=== PATIENT | female | born 1945 | race Caucasian/White ===

== ENCOUNTER 2020-08-30 06:24 | Outpatient (NON) | payer MEDICARE, SELFPAY ==
[2020-08-30 06:49] LABS: Basophils Absolute Auto 0.03 K/mm3 (0.00-0.10); Basophils Percent Auto 0.5 % (0.0-1.0); Eosinophils Absolute Auto 0.16 K/mm3 (0.02-0.50); Eosinophils Percent Auto 2.4 % (1.0-6.0); Hemoglobin 12.5 g/dL (11.7-13.8); Immature Granulocyte Absolute 0.01 K/mm3 (0.00-0.00); Immature Granulocyte Percent A 0.2 % (0.0-0.0); Lymphocytes Percent Auto 45.8 % (18.0-42.0); Mean Corpuscular HGB Conc 31.3 g/dL (32.0-36.0); Mean Corpuscular Hemoglobin 28.2 pg (27.0-31.0); Mean Corpuscular Volume 90.3 fL (78.0-102.0); Mean Platelet Volume 11.3 fl (9.2-11.8); Monocytes Absolute Auto 0.42 K/mm3 (0.10-0.90); Monocytes Percent Auto 6.4 % (2.0-11.0); Neutrophils Absolute Auto 2.9 K/mm3 (1.7-7.2); Neutrophils Percent Auto 44.7 % (50.0-70.0); Platelet Count Result 192 K/mm3 (150-420); Red Blood Count 4.43 M/mm3 (4.20-5.40); Red Cell Distribution Width 13.5 % (11.6-14.4); White Blood Count 6.6 K/mm3 (4.8-10.8)
== END 2020-08-30 06:25 ==
LOC: CHSLAB 06:25
PROVIDERS: Visit Provider Internal Medicine
DX: I50.9 Heart failure, unspecified (principal); I69.351 Hemiplegia and hemiparesis following cerebral infarction affecting right dominant side
CPT/HCPCS: 36415; 85025

== ENCOUNTER 2020-11-22 06:27 | Outpatient (NON) | payer MEDICARE, SELFPAY ==
[2020-11-22 07:06] LABS: Basophils Absolute Auto 0.04 K/mm3 (0.00-0.10); Basophils Percent Auto 0.6 % (0.0-1.0); Eosinophils Absolute Auto 0.12 K/mm3 (0.02-0.50); Eosinophils Percent Auto 1.9 % (1.0-6.0); Hematocrit 40.1 % (35.0-42.0); Immature Granulocyte Absolute 0.01 K/mm3 (0.00-0.00); Immature Granulocyte Percent A 0.2 % (0.0-0.0); Lymphocytes Percent Auto 48.4 % (18.0-42.0); Mean Corpuscular HGB Conc 32.4 g/dL (32.0-36.0); Mean Corpuscular Hemoglobin 28.6 pg (27.0-31.0); Mean Corpuscular Volume 88.1 fL (78.0-102.0); Mean Platelet Volume 11.2 fl (9.2-11.8); Monocytes Percent Auto 6.3 % (2.0-11.0); Neutrophils Absolute Auto 2.7 K/mm3 (1.7-7.2); Neutrophils Percent Auto 42.6 % (50.0-70.0); Platelet Count Result 205 K/mm3 (150-420); Red Blood Count 4.55 M/mm3 (4.20-5.40); Red Cell Distribution Width 13.5 % (11.6-14.4); White Blood Count 6.4 K/mm3 (4.8-10.8)
[2020-11-22 07:09] LABS: Hemoglobin A1C 5.6 % (<5.7)
[2020-11-22 07:16] LABS: Alanine Aminotransferase 27 U/L (14-59); Albumin Level 3.3 g/dL (3.4-5.0); Alkaline Phosphatase 54 U/L (46-116); Anion Gap 8 mmol/L (8-16); Aspartate Amino Transferase 30 U/L (15-37); Bilirubin,Total 0.5 mg/dL (0.00-1.00); Blood Urea Nitrogen 8 mg/dL (7-18); Calcium 9.1 mg/dL (8.5-10.1); Carbon Dioxide 30 mmol/L (21-32); Chloride 106 mmol/L (98-108); Cholesterol 131 mg/dL (0-200); Creatine Kinase 41 U/L (26-192); Estimated Glomerular Filt Rate > 60; Glucose 89 mg/dL (70-99); HDL Direct 58 mg/dL (40-60); LDL Cholesterol Calculated 50 mg/dL (<130); Osmolality Calculated 295 mOsm/kg (285-295); Potassium 4.1 mmol/L (3.5-5.1); Sodium 144 mmol/L (136-145); Total Protein 6.3 g/dL (6.4-8.2); Triglycerides 113 mg/dL (0-150)
== END 2020-11-22 06:28 ==
LOC: CHSLAB 06:28
PROVIDERS: Visit Provider Internal Medicine
DX: E78.5 Hyperlipidemia, unspecified (principal); I69.351 Hemiplegia and hemiparesis following cerebral infarction affecting right dominant side; I11.9 Hypertensive heart disease without heart failure; E11.9 Type 2 diabetes mellitus without complications
CPT/HCPCS: 36415; 80053; 80061; 82550; 83036; 85025

== ENCOUNTER 2020-11-23 09:06 | Emergency (ER) | payer MEDICARE, MEDICAID, SELFPAY ==
--- NOTE | ~2020-11-23 | XR_ITS ---
EXAMINATION: XR chest 2V DATE: 11/23/2020 10:17 INDICATION: Chest pain and shortness of breath TECHNIQUE: frontal and lateral views of the chest were obtained. COMPARISON: Chest radiograph dated 12/27/2018 FINDINGS: The lungs remain clear with no focal airspace opacities, pulmonary edema, pleural effusion or pneumot horax. The cardiomediastinal silhouette is normal. Moderate thoracic spondylosis. IMPRESSION: 1. No acute cardiopulmonary disease. Reviewed, dictated and finalized at location B.
[2020-11-23 09:20] VITALS: BP 114/70; PULSE 71; RESP 16; TEMP 36.7; O2SAT 96
--- NOTE | 2020-11-23 09:35 | ECG_ITS ---
Measurements Intervals [place] Rate: 62 P: 44 ND: 152 QRS: -57 QRSD: 119 T: 71 QT: 397 QTc: 403 Interpretive Statements SINUS RHYTHM LEFT AXIS DEVIATION LEFT VENTRICULAR HYPERTROPHY AND ST-T CHANGE CANNOT RULE OUT SEPTAL INFARCT, AGE INDETERMINATE BASELINE ARTIFACT- II, III, AVF, V2-V3, V5 ABNORMAL ECG Electronically Signed On 11-23-2020 10:57:51 CDT by Stephen Rios D.O.
[2020-11-23 10:15] LABS: Basophils Absolute Auto 0.03 K/mm3 (0.00-0.10); Basophils Percent Auto 0.5 % (0.0-1.0); Eosinophils Absolute Auto 0.08 K/mm3 (0.02-0.50); Eosinophils Percent Auto 1.3 % (1.0-6.0); Hematocrit 45.3 % (35.0-42.0); Hemoglobin 14.3 g/dL (11.7-13.8); Immature Granulocyte Absolute 0.01 K/mm3 (0.00-0.00); Immature Granulocyte Percent A 0.2 % (0.0-0.0); Lymphocytes Absolute Auto 2.85 K/mm3 (1.10-4.50); Lymphocytes Percent Auto 45.2 % (18.0-42.0); Mean Corpuscular HGB Conc 31.6 g/dL (32.0-36.0); Mean Corpuscular Hemoglobin 28.1 pg (27.0-31.0); Mean Corpuscular Volume 89.2 fL (78.0-102.0); Mean Platelet Volume 10.6 fl (9.2-11.8); Monocytes Absolute Auto 0.36 K/mm3 (0.10-0.90); Monocytes Percent Auto 5.7 % (2.0-11.0); Neutrophils Percent Auto 47.1 % (50.0-70.0); Platelet Count Result 220 K/mm3 (150-420); Red Blood Count 5.08 M/mm3 (4.20-5.40); Red Cell Distribution Width 13.4 % (11.6-14.4); White Blood Count 6.3 K/mm3 (4.8-10.8)
[2020-11-23 10:29] LABS: Alanine Aminotransferase 26 U/L (14-59); Albumin Level 3.6 g/dL (3.4-5.0); Alkaline Phosphatase 58 U/L (46-116); Anion Gap 7 mmol/L (8-16); Aspartate Amino Transferase 14 U/L (15-37); Bilirubin,Total 0.6 mg/dL (0.00-1.00); Blood Urea Nitrogen 9 mg/dL (7-18); Calcium 9.1 mg/dL (8.5-10.1); Carbon Dioxide 32 mmol/L (21-32); Chloride 102 mmol/L (98-108); Estimated Glomerular Filt Rate > 60; Glucose 86 mg/dL (70-99); Osmolality Calculated 289 mOsm/kg (285-295); Sodium 141 mmol/L (136-145); Troponin I 4.2 ng/L (0.00-60.4)
[2020-11-23 10:32] LABS: BNP 5 pg/mL (0-100); Magnesium 2.2 mg/dL (1.8-2.4)
[2020-11-23 11:20] LABS: Add Urine Microscopic? YES; Appearance Urine Sl Cloudy (Clear); Bilirubin Urine Negative (Negative); Blood Urine Negative (Negative); Color Urine Yellow (Yellow); Glucose Urine UA Negative (Negative); Ketones Urine Negative (Negative); Leukocyte Esterase Ur 2+ (Negative); Nitrate Urine Positive (Negative); Protein Urine Negative (Negative); Urobilinogen Urine 0.2 mg/dL (0.2-1.0)
[2020-11-23 11:27] LABS: Bacteria Urine 4+ /hpf; RBC Urine None seen /hpf (0-2); WBC Urine 21-30 /hpf (0-3)
[2020-11-23 14:20] LABS: Troponin I 4.4 ng/L (0.00-60.4)
--- NOTE | 2020-11-23 14:27 | ED.CHESTPAIN ---
HPI - Chest Pain General Source: patient and family Mode of arrival: EMS Limitations: no limitations History of Present Illness HPI narrative: Patient is brought in by EMS. She had a few episodes of brief chest pain, sharp, going from right chest to the left side, which lasted a few seconds up to a minute today. This was mild to moderately severe, with no radiation, and very brief as stated. Nothing made this better or worse at the snf. Because of this she is brought in by EMS. This evidently happened again just before presentation to the ER. Timing of current episode: episodic Prior episodes: No Onset: during rest Pain location: parasternal Pain radiation: none Severity: moderate Quality: sharp Relieving factors: nothing Exacerbating factors: nothing (presyncopal feeling at the same time.) Related Data Home Medications Medication Instructions Recorded Confirmed amlodipine 5 mg PO DAILY 11/23/20 11/23/20 aspirin [Adult Aspirin] 81 mg PO DAILY 11/23/20 11/23/20 atorvastatin 40 mg PO DAILY 11/23/20 11/23/20 bisacodyl [Biscolax] 10 mg PO PRN 11/23/20 11/23/20 fluticasone propionate 2 spray INTRANASAL DAILY 11/23/20 11/23/20 tramadol 50 mg PO PRN 11/23/20 11/23/20 Allergies Allergy/AdvReac Type Severity Reaction Status Date / Time No Known Allergies Allergy Verified 11/23/20 10:28 Review of Systems Constitutional: Constitutional: Reports no additional constitutional complaints Eyes: Eyes: Reports no additional eye complaints ENT: Reports system reviewed and no additional complaints, except as documented Cardiovascular: Cardiovascular: Reports no additional cardiovascular complaints Respiratory: Respiratory: Reports no additional respiratory complaints Gastrointestinal: Gastrointestinal: Reports no additional gastrointestinal complaints Genitourinary: Genitourinary: Reports no additional female genitourinary complaints Musculoskeletal: Musculoskeletal: Reports no additional musculoskeletal complaints Integumentary/Breasts: Skin/Breast: Reports system reviewed and no additional complaints, except as docu Neurologic: Reports system reviewed and no additional complaints, except as documented Psychiatric: Psychiatric: Reports no additional psychiatric complaints Endocrine: Endocrine: Reports no additional endocrine complaints Hematologic/Lymphatic: Hematologic/Lymphatic: Reports no additional hematologic/lymphatic complaints Allergic/Immunologic: Allergic/Immunologic: Reports no additional allergic/immunologic complaints [facility] Past Medical History Medical History (Updated 03/17/21 @ 20:30 by Mark Bennett MD) CVA (cerebral vascular accident) Pyelonephritis Renal insufficiency Surgical History Surgical History (Updated 11/23/20 @ 20:30 by Mark Bennett MD) History of bladder surgery Family History Family History (Updated 11/23/20 @ 20:32 by Mark Bennett MD) Mother Diabetes mellitus Father Smoker Cerebrovascular accident Alcoholic Myocardial infarct Social History Social History (Updated 11/23/20 @ 20:33 by Mark Bennett MD) Social History: , previous smoker, previous drinker Smoking status: Former smoker Tobacco type: cigarettes Additional smoking assessment comments: 09/10 PPD Alcohol intake: former Substance use: never Living arrangements: snf Sexual Orientation (if Verbalized by the Patient): Straight or Heterosexual Exam Const: General: cooperative and healthy appearing Nutritional Appearance: average body habitus and well nourished Orientation/consciousness: oriented to person, oriented to place and oriented to time Limitations: no limitations HENMT: Head: normal to inspection, normocephalic and atraumatic Ears: hearing grossly normal bilaterally and other (unable to visualize TM on left due to wax, right appears unremarkable ) General nose exam: Normal external nose present and Abnormal mucous membranes and turbinates present
[2020-11-23 14:30] VITALS: BP 95/63; PULSE 63; RESP 23; O2SAT 95
--- NOTE | 2020-11-23 15:11 | PC.NURSE ---
ERROR IN DOCUMENTATION: DISCHARGE VITAL SIGNS SPO2 95%, HR 63, R 23, BP 150/83. VITAL SIGNS PRINTED AND PLACED ON PAPER CHART
--- NOTE | 2020-11-23 15:55 | PC.NURSE ---
[facility] RN CONTACTED FOR LEVAQUIN 500 MG DAILY FOR 7 DAYS ORDERED BY ERP DR. SCOTT FOR UTI
== END 2020-11-23 14:50 ==
PROVIDERS: Emergency Provider Emergency Medicine; PCP Internal Medicine
DX: R07.89 Other chest pain (principal); Z79.899 Other long term (current) drug therapy; Z86.73 Personal history of transient ischemic attack (TIA), and cerebral infarction without residual deficits; Z87.891 Personal history of nicotine dependence
CPT/HCPCS: 36415; 51701; 71046; 80053; 81001; 83735; 83880; 84484; 85025; 85380; 87077; 87086; 87088; 87186; 93005; 99283; 99284

== ENCOUNTER 2020-12-03 06:49 | Outpatient (NON) | payer MEDICARE, SELFPAY ==
[2020-12-03 07:58] LABS: Add Urine Microscopic? YES; Appearance Urine Clear (Clear); Bilirubin Urine Negative (Negative); Blood Urine Negative (Negative); Color Urine Yellow (Yellow); Glucose Urine UA Negative (Negative); Ketones Urine Negative (Negative); Leukocyte Esterase Ur 1+ (Negative); Nitrate Urine Negative (Negative); Protein Urine Negative (Negative); Specific Grav Ur 1.025 (1.010-1.020); Urobilinogen Urine 0.2 mg/dL (0.2-1.0)
[2020-12-03 08:09] LABS: Bacteria Urine 2+ /hpf; RBC Urine None seen /hpf (0-2); Squamous Epithelial Cell Urine Rare /hpf (Few)
[2020-12-03 08:10] LABS: Mucus Urine Few /lpf
== END 2020-12-03 06:50 ==
PROVIDERS: PCP Internal Medicine; Visit Provider Internal Medicine
DX: N39.0 Urinary tract infection, site not specified (principal)
CPT/HCPCS: 81001; 87086; 87088; 87147; 87186

== ENCOUNTER 2020-12-20 06:16 | Outpatient (NON) | payer MEDICARE, SELFPAY ==
[2020-12-20 06:32] LABS: Appearance Urine Cloudy (Clear); Bilirubin Urine Negative (Negative); Color Urine Yellow (Yellow); Glucose Urine UA Negative (Negative); Ketones Urine Negative (Negative); Leukocyte Esterase Ur Negative (Negative); Nitrate Urine Negative (Negative); Protein Urine Negative (Negative); Specific Grav Ur >= 1.030 (1.010-1.020); Urobilinogen Urine 0.2 mg/dL (0.2-1.0)
[2020-12-20 06:47] LABS: Add Urine Microscopic? YES; Amorphous Sediment Urine Moderate; Blood Urine Trace-Intact (Negative); RBC Urine None seen /hpf (0-2); WBC Urine None seen /hpf (0-3)
[2020-12-20 06:48] LABS: Bacteria Urine 2+ /hpf
== END 2020-12-20 06:17 | disposition home or self-care (01) ==
LOC: CHSLAB 06:17
PROVIDERS: Visit Provider Internal Medicine
DX: N39.0 Urinary tract infection, site not specified (principal)
CPT/HCPCS: 81001; 87086

== ENCOUNTER 2021-02-23 07:35 | Outpatient (NON) | payer MEDICARE, SELFPAY ==
[2021-02-23 08:33] LABS: Basophils Absolute Auto 0.03 K/mm3 (0.00-0.10); Basophils Percent Auto 0.5 % (0.0-1.0); Eosinophils Absolute Auto 0.18 K/mm3 (0.02-0.50); Eosinophils Percent Auto 2.9 % (1.0-6.0); Hematocrit 40.2 % (35.0-42.0); Immature Granulocyte Absolute 0.02 K/mm3 (0.00-0.00); Immature Granulocyte Percent A 0.3 % (0.0-0.0); Lymphocytes Absolute Auto 3.02 K/mm3 (1.10-4.50); Lymphocytes Percent Auto 48.5 % (18.0-42.0); Mean Corpuscular HGB Conc 32.3 g/dL (32.0-36.0); Mean Corpuscular Hemoglobin 28.8 pg (27.0-31.0); Mean Corpuscular Volume 89.1 fL (78.0-102.0); Mean Platelet Volume 11.3 fl (9.2-11.8); Monocytes Absolute Auto 0.39 K/mm3 (0.10-0.90); Monocytes Percent Auto 6.3 % (2.0-11.0); Neutrophils Absolute Auto 2.6 K/mm3 (1.7-7.2); Neutrophils Percent Auto 41.5 % (50.0-70.0); Platelet Count Result 219 K/mm3 (150-420); Red Blood Count 4.51 M/mm3 (4.20-5.40); Red Cell Distribution Width 13.4 % (11.6-14.4); White Blood Count 6.2 K/mm3 (4.8-10.8)
== END 2021-02-23 07:36 | disposition home or self-care (01) ==
LOC: CHSLAB 07:37
PROVIDERS: Visit Provider Internal Medicine
DX: I11.9 Hypertensive heart disease without heart failure (principal)
CPT/HCPCS: 36415; 85025

== ENCOUNTER 2021-02-24 10:34 | Emergency (ER) | payer MEDICARE, SELFPAY ==
--- NOTE | ~2021-02-24 | CT_ITS ---
EXAMINATION: CT brain wo con DATE: 02/24/2021 11:27 INDICATION: Vertigo and difficulty finding words. TECHNIQUE: Computed tomography (CT) of the head was performed without intravenous contrast. Sagittal and coronal reconstructions were performed. The mA was adjusted according to patient size. Iterative reconstruction technique was employed. The dose-length product was 832.33 mGy-cm. COMPARISON: None FINDINGS: No acute intracranial hemorrhage, acute infarction or abnormal extra axial fluid collection. Small ol d lacunar infarct at the left basal ganglia involving the posterior limb of the left internal capsule . There is moderate scattered white matter hypoattenuation consistent with chronic small vessel ische destiny disease. Symmetric prominence of the sulci consistent with mild age-appropriate diffuse cerebral volume loss. Ventricles are normal and symmetric. No mass/mass effect. The orbits, paranasal sinuses and mastoid air cells are normal. IMPRESSION: 1. No acute intracranial process. 2. Small old lacunar infarct at the left basal ganglia involving the posterior limb of the internal c apsule. 3. Age-related changes including mild diffuse volume loss and moderate scattered white matter hypoatt enuation consistent with chronic small vessel ischemic disease. Reviewed, dictated and finalized at location A. IMPRESSION: 1. No acute intracranial process. 2. Small old lacunar infarct at the left basal ganglia involving the posterior limb of the internal capsule. 3. Age-related changes including mild diffuse volume loss and moderate scattere d white matter hypoattenuation consistent with chronic small vessel ischemic di sease.
[2021-02-24 10:45] VITALS: BP 131/89; PULSE 73; RESP 12; TEMP 36.6; O2SAT 98
--- NOTE | 2021-02-24 10:49 | ED.DIZZY ---
HPI - Dizziness General Chief Complaint: Dizziness Stated Complaint: Dizzy Time Seen by Provider: 02/24/21 10:58 Source: patient Mode of arrival: wheelchair Limitations: dementia History of Present Illness HPI Narrative: 75-year-old woman with a history of CVA and right-sided paresis brought from the care home after complaining that she was having dizziness. Patient states that she has even having dizziness while she is laying down in bed. She states that happens when she moves and if she holds very still and goes away within a few minutes. She denies headache, nausea, vomiting, recent illness, chest pain, shortness of breath, palpitations, new weakness, numbness, diarrhea, dysuria, and frequent urination. Patient states that she does not walk at the care home and uses a wheelchair to get around. MD elicited complaint: vertigo Pertinent past history: stroke Onset (ago): day(s) (3) Timing: gradual onset Severity: moderate Description: room spinning Exacerbating factors: movement/ambulation and change in body position Relieving factors: remaining still Associated symptoms: denies other symptoms Related Data Home Medications Medication Instructions Recorded Confirmed amlodipine 5 mg PO DAILY 11/23/20 02/24/21 aspirin [Adult Aspirin] 81 mg PO DAILY 11/23/20 02/24/21 atorvastatin 40 mg PO DAILY 11/23/20 02/24/21 bisacodyl [Biscolax] 10 mg PO PRN 11/23/20 02/24/21 fluticasone propionate 2 spray INTRANASAL DAILY 11/23/20 02/24/21 tramadol 50 mg PO PRN 11/23/20 02/24/21 acetaminophen 500 mg capsule 500 mg PO Q6H PRN 12/16/20 02/24/21 cetirizine 10 mg tablet 10 mg PO DAILY 12/16/20 02/24/21 docusate sodium 100 mg capsule 100 mg PO DAILY 12/16/20 02/24/21 multivitamin 1 tablet PO DAILY 12/16/20 02/24/21 bisacodyl 5 mg tablet,delayed 10 mg PO ONCE tablet 12/19/20 02/24/21 release cetirizine 10 mg capsule 10 mg PO DAILY 12/19/20 02/24/21 Allergies Allergy/AdvReac Type Severity Reaction Status Date / Time codeine Allergy Mild Unknown Verified 12/19/20 15:43 Iodinated Contrast Media Allergy Mild Unknown Verified 12/19/20 15:43 Sulfa (Sulfonamide Allergy Mild Unknown Verified 12/19/20 15:43 Antibiotics) Review of Systems Review of Systems: All systems reviewed & are unremarkable except as noted in HPI and below Constitutional: Constitutional: Denies chills and Denies fever(s) Eyes: Eyes: Denies change in vision and Denies photophobia ENT: Denies dysphagia, Denies nasal congestion and Denies sore throat Cardiovascular: Cardiovascular: Denies chest pain and Denies radiating jaw, neck or arm pain Respiratory: Respiratory: Denies cough, Denies dyspnea and Denies wheezing Gastrointestinal: Gastrointestinal: Reports abdominal pain, Reports nausea and Reports vomiting Genitourinary: Genitourinary: Denies nocturia and Denies dysuria Musculoskeletal: Musculoskeletal: Denies back pain, Denies arthralgias and Denies joint swelling Integumentary/Breasts: Skin/Breast: Denies pruritus, Denies erythema and Denies rash Neurologic: Denies vertigo, Denies dizziness and Denies syncope Endocrine: Endocrine: Denies polydipsia and Denies polyuria Hematologic/Lymphatic: Hematologic/Lymphatic: Denies easy bleeding and Denies easy bruising Allergic/Immunologic: Allergic/Immunologic: Denies lip swelling and Denies throat swelling PMFSH Past Medical History Medical History Chest pain CVA (cerebral vascular accident) Dementia in other diseases classified elsewhere without behavioral disturbance Dysthymic HTN (hypertension) Impacted cerumen, right ear Impaired fasting glucose Inconclusive mammogram Mixed hyperlipidemia Primary generalized hypertrophic osteoarthrosis Pyelonephritis Renal insufficiency Spastic hemiplegia affecting right dominant side Surgical History Surgical History History of bladder surgery
[2021-02-24 11:22] LABS: Add Urine Microscopic? YES; Appearance Urine Clear (Clear); Bilirubin Urine Negative (Negative); Blood Urine Negative (Negative); Color Urine Light Yellow (Yellow); Glucose Urine UA Negative (Negative); Ketones Urine Negative (Negative); Leukocyte Esterase Ur Trace (Negative); Nitrate Urine Negative (Negative); Protein Urine Negative (Negative); Specific Grav Ur <= 1.005 (1.010-1.020); pH Urine 7.5 (5.0-8.0)
[2021-02-24 11:31] LABS: Bacteria Urine 2+ /hpf; RBC Urine 0-2 /hpf (0-2); Squamous Epithelial Cell Urine Rare /hpf (Few); WBC Urine 0-3 /hpf (0-3)
[2021-02-24 11:40] LABS: Basophils Absolute Auto 0.02 K/mm3 (0.00-0.10); Basophils Percent Auto 0.3 % (0.0-1.0); Eosinophils Absolute Auto 0.07 K/mm3 (0.02-0.50); Hematocrit 43.2 % (35.0-42.0); Immature Granulocyte Absolute 0.01 K/mm3 (0.00-0.00); Immature Granulocyte Percent A 0.1 % (0.0-0.0); Lymphocytes Absolute Auto 2.82 K/mm3 (1.10-4.50); Lymphocytes Percent Auto 39.8 % (18.0-42.0); Mean Corpuscular HGB Conc 32.4 g/dL (32.0-36.0); Mean Corpuscular Volume 89.6 fL (78.0-102.0); Mean Platelet Volume 10.8 fl (9.2-11.8); Monocytes Absolute Auto 0.45 K/mm3 (0.10-0.90); Monocytes Percent Auto 6.4 % (2.0-11.0); Neutrophils Absolute Auto 3.7 K/mm3 (1.7-7.2); Neutrophils Percent Auto 52.4 % (50.0-70.0); Platelet Count Result 228 K/mm3 (150-420); Red Blood Count 4.82 M/mm3 (4.20-5.40); Red Cell Distribution Width 13.5 % (11.6-14.4); White Blood Count 7.1 K/mm3 (4.8-10.8)
[2021-02-24 11:55] LABS: Alanine Aminotransferase 26 U/L (14-59); Albumin Level 3.5 g/dL (3.4-5.0); Alkaline Phosphatase 71 U/L (46-116); Anion Gap 10 mmol/L (8-16); Aspartate Amino Transferase 20 U/L (15-37); Bilirubin,Total 0.4 mg/dL (0.00-1.00); Blood Urea Nitrogen 10 mg/dL (7-18); Calcium 9.4 mg/dL (8.5-10.1); Carbon Dioxide 26 mmol/L (21-32); Chloride 105 mmol/L (98-108); Estimated Glomerular Filt Rate > 60; Glucose 97 mg/dL (70-99); Osmolality Calculated 291 mOsm/kg (285-295); Potassium 4.1 mmol/L (3.5-5.1); Sodium 141 mmol/L (136-145); Total Protein 7.4 g/dL (6.4-8.2)
[2021-02-24 12:22] VITALS: BP 130/80; PULSE 63; RESP 14; TEMP 36.6; O2SAT 99
== END 2021-02-24 12:32 ==
PROVIDERS: Emergency Provider Emergency Medicine; PCP Internal Medicine
DX: H81.10 Benign paroxysmal vertigo, unspecified ear (principal); I10 Essential (primary) hypertension; E78.2 Mixed hyperlipidemia; Z87.891 Personal history of nicotine dependence; R82.90 Unspecified abnormal findings in urine
CPT/HCPCS: 36415; 51701; 70450; 80053; 81001; 85025; 87086; 99282; 99284

== ENCOUNTER 2021-05-27 06:56 | Outpatient (NON) | payer MEDICARE, SELFPAY ==
[2021-05-27 07:19] LABS: Add Urine Microscopic? YES; Appearance Urine Clear (Clear); Bilirubin Urine Negative (Negative); Blood Urine Negative (Negative); Color Urine Light Yellow (Yellow); Glucose Urine UA Negative (Negative); Ketones Urine Negative (Negative); Leukocyte Esterase Ur 1+ (Negative); Nitrate Urine Negative (Negative); Protein Urine Negative (Negative); Urobilinogen Urine 0.2 mg/dL (0.2-1.0)
[2021-05-27 07:20] LABS: Basophils Absolute Auto 0.03 K/mm3 (0.00-0.10); Basophils Percent Auto 0.5 % (0.0-1.0); Eosinophils Absolute Auto 0.14 K/mm3 (0.02-0.50); Eosinophils Percent Auto 2.5 % (1.0-6.0); Hematocrit 40.5 % (35.0-42.0); Hemoglobin 12.7 g/dL (11.7-13.8); Immature Granulocyte Absolute 0.01 K/mm3 (0.00-0.00); Immature Granulocyte Percent A 0.2 % (0.0-0.0); Lymphocytes Absolute Auto 2.78 K/mm3 (1.10-4.50); Lymphocytes Percent Auto 50.3 % (18.0-42.0); Mean Corpuscular HGB Conc 31.4 g/dL (32.0-36.0); Mean Corpuscular Hemoglobin 28.5 pg (27.0-31.0); Mean Corpuscular Volume 90.8 fL (78.0-102.0); Mean Platelet Volume 10.2 fl (9.2-11.8); Monocytes Absolute Auto 0.43 K/mm3 (0.10-0.90); Monocytes Percent Auto 7.8 % (2.0-11.0); Neutrophils Absolute Auto 2.1 K/mm3 (1.7-7.2); Neutrophils Percent Auto 38.7 % (50.0-70.0); Platelet Count Result 200 K/mm3 (150-420); Red Blood Count 4.46 M/mm3 (4.20-5.40); Red Cell Distribution Width 13.4 % (11.6-14.4); White Blood Count 5.5 K/mm3 (4.8-10.8)
[2021-05-27 07:29] LABS: RBC Urine None seen /hpf (0-2); Squamous Epithelial Cell Urine Rare /hpf (Few); WBC Urine 0-3 /hpf (0-3)
[2021-05-27 07:30] LABS: Bacteria Urine Trace /hpf
[2021-05-27 07:39] LABS: Hemoglobin A1C 5.5 % (<5.7)
[2021-05-27 07:42] LABS: Alanine Aminotransferase 29 U/L (14-59); Albumin Level 3.5 g/dL (3.4-5.0); Alkaline Phosphatase 59 U/L (46-116); Anion Gap 7 mmol/L (8-16); Aspartate Amino Transferase 16 U/L (15-37); Bilirubin,Total 0.4 mg/dL (0.00-1.00); Blood Urea Nitrogen 16 mg/dL (7-18); Calcium 8.8 mg/dL (8.5-10.1); Carbon Dioxide 30 mmol/L (21-32); Chloride 108 mmol/L (98-108); Cholesterol 157 mg/dL (0-200); Creatine Kinase 63 U/L (26-192); Estimated Glomerular Filt Rate > 60; Glucose 86 mg/dL (70-99); HDL Direct 62 mg/dL (40-60); LDL Cholesterol Calculated 63 mg/dL (<130); Osmolality Calculated 300 mOsm/kg (285-295); Potassium 4.3 mmol/L (3.5-5.1); Sodium 145 mmol/L (136-145); Total Protein 6.4 g/dL (6.4-8.2); Triglycerides 158 mg/dL (0-150)
== END 2021-05-27 06:57 | disposition home or self-care (01) ==
LOC: CHSLAB 06:59
PROVIDERS: PCP Internal Medicine; Visit Provider Internal Medicine
DX: E78.5 Hyperlipidemia, unspecified (principal); I11.9 Hypertensive heart disease without heart failure; E11.9 Type 2 diabetes mellitus without complications
CPT/HCPCS: 36415; 80053; 80061; 81001; 82550; 83036; 85025

== ENCOUNTER 2021-08-17 08:42 | Outpatient (NON) | payer MEDICARE, SELFPAY ==
[2021-08-17 09:12] LABS: Basophils Absolute Auto 0.04 K/mm3 (0.00-0.10); Basophils Percent Auto 0.8 % (0.0-1.0); Eosinophils Absolute Auto 0.13 K/mm3 (0.02-0.50); Eosinophils Percent Auto 2.5 % (1.0-6.0); Hematocrit 40.6 % (35.0-42.0); Hemoglobin 12.7 g/dL (11.7-13.8); Immature Granulocyte Absolute 0.01 K/mm3 (0.00-0.00); Immature Granulocyte Percent A 0.2 % (0.0-0.0); Lymphocytes Absolute Auto 2.62 K/mm3 (1.10-4.50); Lymphocytes Percent Auto 49.7 % (18.0-42.0); Mean Corpuscular HGB Conc 31.3 g/dL (32.0-36.0); Mean Corpuscular Hemoglobin 28.9 pg (27.0-31.0); Mean Corpuscular Volume 92.3 fL (78.0-102.0); Mean Platelet Volume 10.4 fl (9.2-11.8); Monocytes Absolute Auto 0.35 K/mm3 (0.10-0.90); Monocytes Percent Auto 6.6 % (2.0-11.0); Neutrophils Absolute Auto 2.1 K/mm3 (1.7-7.2); Neutrophils Percent Auto 40.2 % (50.0-70.0); Platelet Count Result 234 K/mm3 (150-420); Red Cell Distribution Width 13.2 % (11.6-14.4); White Blood Count 5.3 K/mm3 (4.8-10.8)
== END 2021-08-17 08:43 | disposition home or self-care (01) ==
PROVIDERS: Visit Provider Internal Medicine
DX: I11.9 Hypertensive heart disease without heart failure (principal)
CPT/HCPCS: 36415; 85025

== ENCOUNTER 2021-11-16 07:00 | Outpatient (NON) | payer OTHER, SELFPAY ==
[2021-11-16 07:13] LABS: Basophils Absolute Auto 0.03 K/mm3 (0.00-0.10); Basophils Percent Auto 0.5 % (0.0-1.0); Eosinophils Absolute Auto 0.11 K/mm3 (0.02-0.50); Hematocrit 40.7 % (35.0-42.0); Hemoglobin 12.7 g/dL (11.7-13.8); Immature Granulocyte Absolute 0.01 K/mm3 (0.00-0.00); Immature Granulocyte Percent A 0.2 % (0.0-0.0); Lymphocytes Absolute Auto 2.77 K/mm3 (1.10-4.50); Lymphocytes Percent Auto 50.2 % (18.0-42.0); Mean Corpuscular HGB Conc 31.2 g/dL (32.0-36.0); Mean Corpuscular Hemoglobin 29.5 pg (27.0-31.0); Mean Corpuscular Volume 94.7 fL (78.0-102.0); Mean Platelet Volume 10.3 fl (9.2-11.8); Monocytes Absolute Auto 0.37 K/mm3 (0.10-0.90); Monocytes Percent Auto 6.7 % (2.0-11.0); Neutrophils Absolute Auto 2.2 K/mm3 (1.7-7.2); Neutrophils Percent Auto 40.4 % (50.0-70.0); Platelet Count Result 202 K/mm3 (150-420); Red Cell Distribution Width 12.6 % (11.6-14.4); White Blood Count 5.5 K/mm3 (4.8-10.8)
[2021-11-16 07:36] LABS: Hemoglobin A1C 5.7 % (<5.7)
[2021-11-16 08:06] LABS: Alanine Aminotransferase 21 U/L (14-59); Albumin Level 3.3 g/dL (3.4-5.0); Alkaline Phosphatase 44 U/L (46-116); Anion Gap 8 mmol/L (8-16); Aspartate Amino Transferase 13 U/L (15-37); Bilirubin,Total 0.4 mg/dL (0.00-1.00); Blood Urea Nitrogen 12 mg/dL (7-18); Calcium 8.3 mg/dL (8.5-10.1); Carbon Dioxide 31 mmol/L (21-32); Chloride 105 mmol/L (98-108); Cholesterol 140 mg/dL (0-200); Creatine Kinase 59 U/L (26-192); Estimated Glomerular Filt Rate > 60; Glucose 86 mg/dL (70-99); HDL Direct 53 mg/dL (40-60); LDL Cholesterol Calculated 49 mg/dL (<130); Osmolality Calculated 296 mOsm/kg (285-295); Potassium 4.2 mmol/L (3.5-5.1); Sodium 144 mmol/L (136-145); Total Protein 6.2 g/dL (6.4-8.2); Triglycerides 192 mg/dL (0-150)
== END 2021-11-16 07:01 | disposition home or self-care (01) ==
LOC: CHSLAB 07:03
PROVIDERS: Visit Provider Internal Medicine
DX: E78.5 Hyperlipidemia, unspecified (principal); I10 Essential (primary) hypertension; M81.0 Age-related osteoporosis without current pathological fracture; I63.9 Cerebral infarction, unspecified; E11.9 Type 2 diabetes mellitus without complications
CPT/HCPCS: 36415; 80053; 80061; 82550; 83036; 85025

== ENCOUNTER 2021-11-23 12:38 | Outpatient (NON) | payer OTHER, SELFPAY ==
[2021-11-23 12:47] LABS: Add Urine Microscopic? YES; Appearance Urine Clear (Clear); Bilirubin Urine Negative (Negative); Blood Urine Negative (Negative); Color Urine Light Yellow (Yellow); Glucose Urine UA Negative (Negative); Ketones Urine Negative (Negative); Leukocyte Esterase Ur 1+ LEU/UL (Negative); Nitrate Urine Negative (Negative); Protein Urine Negative (Negative); Specific Grav Ur <= 1.005 (1.010-1.020); Urobilinogen Urine 0.2 mg/dL (0.2-1.0)
[2021-11-23 12:52] LABS: Bacteria Urine Trace /hpf; RBC Urine None seen /hpf (0-2); Squamous Epithelial Cell Urine Few /hpf (Few)
== END 2021-11-23 12:39 | disposition home or self-care (01) ==
LOC: CHSLAB 12:39
PROVIDERS: Visit Provider Internal Medicine
DX: N39.0 Urinary tract infection, site not specified (principal)
CPT/HCPCS: 81001; 87086

== ENCOUNTER 2022-01-16 06:29 | Outpatient (NON) | payer OTHER, SELFPAY ==
[2022-01-16 07:24] LABS: Alanine Aminotransferase 24 U/L (14-59); Albumin Level 3.1 g/dL (3.4-5.0); Alkaline Phosphatase 47 U/L (46-116); Anion Gap 2 mmol/L (8-16); Aspartate Amino Transferase 18 U/L (15-37); Bilirubin,Total 0.3 mg/dL (0.00-1.00); Blood Urea Nitrogen 13 mg/dL (7-18); Calcium 8.4 mg/dL (8.5-10.1); Carbon Dioxide 34 mmol/L (21-32); Chloride 107 mmol/L (98-108); Estimated Glomerular Filt Rate > 60; Free T4 Free Thyroxine 0.81 ng/dL (0.76-1.46); Glucose 92 mg/dL (70-99); NT Pro B Type Natriuretic Pept 72 pg/mL (0-450); Osmolality Calculated 296 mOsm/kg (285-295); Potassium 4.1 mmol/L (3.5-5.1); Sodium 143 mmol/L (136-145); Thyroid Stimulating Hormone 1.38 uIU/mL (0.36-3.74); Total Protein 6.5 g/dL (6.4-8.2)
== END 2022-01-16 06:30 | disposition home or self-care (01) ==
PROVIDERS: Visit Provider Internal Medicine
DX: I11.9 Hypertensive heart disease without heart failure (principal); I69.351 Hemiplegia and hemiparesis following cerebral infarction affecting right dominant side; R53.83 Other fatigue; I50.9 Heart failure, unspecified
CPT/HCPCS: 36415; 80053; 83880; 84439; 84443

== ENCOUNTER 2022-02-13 06:59 | Outpatient (NON) | payer OTHER, SELFPAY ==
[2022-02-13 07:23] LABS: Basophils Absolute Auto 0.03 K/mm3 (0.00-0.10); Basophils Percent Auto 0.5 % (0.0-1.0); Eosinophils Absolute Auto 0.12 K/mm3 (0.02-0.50); Hematocrit 40.6 % (35.0-42.0); Hemoglobin 12.9 g/dL (11.7-13.8); Immature Granulocyte Absolute 0.01 K/mm3 (0.00-0.00); Immature Granulocyte Percent A 0.2 % (0.0-0.0); Lymphocytes Absolute Auto 2.64 K/mm3 (1.10-4.50); Mean Corpuscular HGB Conc 31.8 g/dL (32.0-36.0); Mean Corpuscular Volume 94.4 fL (78.0-102.0); Mean Platelet Volume 10.4 fl (9.2-11.8); Monocytes Absolute Auto 0.44 K/mm3 (0.10-0.90); Monocytes Percent Auto 7.5 % (2.0-11.0); Neutrophils Absolute Auto 2.6 K/mm3 (1.7-7.2); Neutrophils Percent Auto 44.8 % (50.0-70.0); Platelet Count Result 212 K/mm3 (150-420); Red Cell Distribution Width 12.5 % (11.6-14.4); White Blood Count 5.9 K/mm3 (4.8-10.8)
== END 2022-02-13 07:00 | disposition home or self-care (01) ==
LOC: CHSLAB 07:01
PROVIDERS: Visit Provider Internal Medicine
DX: E78.5 Hyperlipidemia, unspecified (principal); I10 Essential (primary) hypertension
CPT/HCPCS: 36415; 85025

== ENCOUNTER 2022-05-22 06:21 | Outpatient (NON) | payer OTHER, SELFPAY ==
[2022-05-22 06:41] LABS: Basophils Absolute Auto 0.02 K/mm3 (0.00-0.10); Basophils Percent Auto 0.3 % (0.0-1.0); Eosinophils Absolute Auto 0.11 K/mm3 (0.02-0.50); Eosinophils Percent Auto 1.8 % (1.0-6.0); Hematocrit 40.2 % (35.0-42.0); Hemoglobin 12.7 g/dL (11.7-13.8); Immature Granulocyte Absolute 0.02 K/mm3 (0.00-0.00); Immature Granulocyte Percent A 0.3 % (0.0-0.0); Lymphocytes Absolute Auto 2.63 K/mm3 (1.10-4.50); Lymphocytes Percent Auto 41.9 % (18.0-42.0); Mean Corpuscular HGB Conc 31.6 g/dL (32.0-36.0); Mean Corpuscular Hemoglobin 29.9 pg (27.0-31.0); Mean Corpuscular Volume 94.6 fL (78.0-102.0); Mean Platelet Volume 10.2 fl (9.2-11.8); Monocytes Absolute Auto 0.44 K/mm3 (0.10-0.90); Neutrophils Absolute Auto 3.1 K/mm3 (1.7-7.2); Neutrophils Percent Auto 48.7 % (50.0-70.0); Platelet Count Result 204 K/mm3 (150-420); Red Blood Count 4.25 M/mm3 (4.20-5.40); Red Cell Distribution Width 12.9 % (11.6-14.4); White Blood Count 6.3 K/mm3 (4.8-10.8)
[2022-05-22 06:50] LABS: Hemoglobin A1C 5.8 % (<5.7)
[2022-05-22 07:04] LABS: Alanine Aminotransferase 26 U/L (14-59); Albumin Level 3.4 g/dL (3.4-5.0); Alkaline Phosphatase 53 U/L (46-116); Anion Gap 4 mmol/L (8-16); Aspartate Amino Transferase 18 U/L (15-37); Bilirubin,Total 0.3 mg/dL (0.00-1.00); Blood Urea Nitrogen 12 mg/dL (7-18); Calcium 8.7 mg/dL (8.5-10.1); Carbon Dioxide 30 mmol/L (21-32); Chloride 105 mmol/L (98-108); Cholesterol 155 mg/dL (0-200); Creatine Kinase 73 U/L (26-192); Estimated Glomerular Filt Rate > 60; Glucose 96 mg/dL (70-99); HDL Direct 58 mg/dL (40-60); LDL Cholesterol Calculated 59 mg/dL (<130); Osmolality Calculated 287 mOsm/kg (285-295); Sodium 139 mmol/L (136-145); Total Protein 6.9 g/dL (6.4-8.2); Triglycerides 191 mg/dL (0-150)
== END 2022-05-22 06:22 | disposition home or self-care (01) ==
PROVIDERS: Visit Provider Internal Medicine
DX: E78.5 Hyperlipidemia, unspecified (principal); I10 Essential (primary) hypertension; R73.01 Impaired fasting glucose
CPT/HCPCS: 36415; 80053; 80061; 82550; 83036; 85025

== ENCOUNTER 2022-07-19 07:01 | Outpatient (NON) | payer OTHER, SELFPAY ==
[2022-07-19 07:10] LABS: Basophils Absolute Auto 0.02 K/mm3 (0.00-0.10); Basophils Percent Auto 0.4 % (0.0-1.0); Eosinophils Absolute Auto 0.17 K/mm3 (0.02-0.50); Eosinophils Percent Auto 3.1 % (1.0-6.0); Hemoglobin 12.3 g/dL (11.7-13.8); Immature Granulocyte Absolute 0.01 K/mm3 (0.00-0.00); Immature Granulocyte Percent A 0.2 % (0.0-0.0); Lymphocytes Absolute Auto 2.76 K/mm3 (1.10-4.50); Lymphocytes Percent Auto 50.2 % (18.0-42.0); Mean Corpuscular HGB Conc 31.5 g/dL (32.0-36.0); Mean Corpuscular Hemoglobin 30.1 pg (27.0-31.0); Mean Corpuscular Volume 95.4 fL (78.0-102.0); Mean Platelet Volume 10.4 fl (9.2-11.8); Monocytes Absolute Auto 0.34 K/mm3 (0.10-0.90); Monocytes Percent Auto 6.2 % (2.0-11.0); Neutrophils Absolute Auto 2.2 K/mm3 (1.7-7.2); Neutrophils Percent Auto 39.9 % (50.0-70.0); Platelet Count Result 202 K/mm3 (150-420); Red Blood Count 4.09 M/mm3 (4.20-5.40); White Blood Count 5.5 K/mm3 (4.8-10.8)
[2022-07-19 07:10] LABS: Appearance Urine Clear (Clear); Bilirubin Urine Negative (Negative); Blood Urine Negative (Negative); Glucose Urine UA Negative (Negative); Ketones Urine Negative (Negative); Leukocyte Esterase Ur 2+ LEU/UL (Negative); Nitrate Urine Negative (Negative); Protein Urine Negative (Negative); Urobilinogen Urine 0.2 mg/dL (0.2-1.0)
[2022-07-19 07:17] LABS: Creatinine Urine 39.48 mg/dL (40-278); MALB Creatinine Ratio 32.9 mg/g (0-30); Microalbumin Urine Random < 13.0 mg/L
[2022-07-19 07:19] LABS: Hemoglobin A1C 5.6 % (<5.7)
[2022-07-19 07:27] LABS: Alanine Aminotransferase 22 U/L (14-59); Albumin Level 3.4 g/dL (3.4-5.0); Alkaline Phosphatase 50 U/L (46-116); Anion Gap 5 mmol/L (8-16); Aspartate Amino Transferase 13 U/L (15-37); Bilirubin,Total 0.3 mg/dL (0.00-1.00); Blood Urea Nitrogen 15 mg/dL (7-18); Calcium 8.4 mg/dL (8.5-10.1); Carbon Dioxide 31 mmol/L (21-32); Chloride 108 mmol/L (98-108); Cholesterol 150 mg/dL (0-200); Creatine Kinase 54 U/L (26-192); Estimated Glomerular Filt Rate > 60; Glucose 94 mg/dL (70-99); HDL Direct 50 mg/dL (40-60); LDL Cholesterol Calculated 56 mg/dL (<130); Osmolality Calculated 298 mOsm/kg (285-295); Potassium 4.1 mmol/L (3.5-5.1); Sodium 144 mmol/L (136-145); Total Protein 6.5 g/dL (6.4-8.2); Triglycerides 218 mg/dL (0-150)
[2022-07-19 07:31] LABS: Add Urine Microscopic? YES; Bacteria Urine Trace /hpf; Color Urine Light Yellow (Yellow); RBC Urine None seen /hpf (0-2); Squamous Epithelial Cell Urine Few /hpf (Few); WBC Urine 21-30 /hpf (0-3)
== END 2022-07-19 07:02 | disposition home or self-care (01) ==
LOC: CHSLAB 07:02
PROVIDERS: Visit Provider Internal Medicine
DX: E78.5 Hyperlipidemia, unspecified (principal); I10 Essential (primary) hypertension; R73.01 Impaired fasting glucose; R82.90 Unspecified abnormal findings in urine
CPT/HCPCS: 36415; 80053; 80061; 81001; 82043; 82550; 83036; 85025; 87077; 87086; 87088; 87186

== ENCOUNTER 2022-08-02 07:13 | Outpatient (NON) | payer OTHER, SELFPAY ==
[2022-08-02 07:28] LABS: Appearance Urine Clear (Clear); Bilirubin Urine Negative (Negative); Blood Urine Negative (Negative); Glucose Urine UA Negative (Negative); Ketones Urine Negative (Negative); Leukocyte Esterase Ur 1+ (Negative); Nitrate Urine Negative (Negative); Protein Urine Negative (Negative); Urobilinogen Urine 0.2 mg/dL (0.2-1.0)
[2022-08-02 07:34] LABS: Add Urine Microscopic? YES; Color Urine Light Yellow (Yellow); RBC Urine None seen /hpf (0-2); Squamous Epithelial Cell Urine Few /hpf (Few)
[2022-08-02 07:35] LABS: Bacteria Urine 1+ /hpf
== END 2022-08-02 07:14 | disposition home or self-care (01) ==
LOC: CHSLAB 07:15
PROVIDERS: PCP Internal Medicine; Visit Provider Internal Medicine
DX: N39.0 Urinary tract infection, site not specified (principal)
CPT/HCPCS: 81001; 87086; 87088

== ENCOUNTER 2022-08-09 06:32 | Outpatient (NON) | payer OTHER, SELFPAY ==
[2022-08-09 07:13] LABS: Basophils Absolute Auto 0.03 K/mm3 (0.00-0.10); Basophils Percent Auto 0.5 % (0.0-1.0); Eosinophils Absolute Auto 0.17 K/mm3 (0.02-0.50); Eosinophils Percent Auto 3.1 % (1.0-6.0); Hematocrit 41.5 % (35.0-42.0); Hemoglobin 13.1 g/dL (11.7-13.8); Immature Granulocyte Absolute 0.01 K/mm3 (0.00-0.00); Immature Granulocyte Percent A 0.2 % (0.0-0.0); Lymphocytes Absolute Auto 2.82 K/mm3 (1.10-4.50); Lymphocytes Percent Auto 50.7 % (18.0-42.0); Mean Corpuscular HGB Conc 31.6 g/dL (32.0-36.0); Mean Corpuscular Hemoglobin 29.8 pg (27.0-31.0); Mean Corpuscular Volume 94.5 fL (78.0-102.0); Mean Platelet Volume 10.4 fl (9.2-11.8); Monocytes Absolute Auto 0.36 K/mm3 (0.10-0.90); Monocytes Percent Auto 6.5 % (2.0-11.0); Neutrophils Absolute Auto 2.2 K/mm3 (1.7-7.2); Platelet Count Result 206 K/mm3 (150-420); Red Blood Count 4.39 M/mm3 (4.20-5.40); Red Cell Distribution Width 13.1 % (11.6-14.4); White Blood Count 5.6 K/mm3 (4.8-10.8)
== END 2022-08-09 06:33 | disposition home or self-care (01) ==
PROVIDERS: Visit Provider Internal Medicine
DX: I50.9 Heart failure, unspecified (principal)
CPT/HCPCS: 36415; 85025

== ENCOUNTER 2022-11-20 06:36 | Outpatient (NON) | payer OTHER, SELFPAY ==
[2022-11-20 07:03] LABS: Appearance Urine Clear (Clear); Bilirubin Urine Negative (Negative); Blood Urine Negative (Negative); Color Urine Light Yellow (Yellow); Glucose Urine UA Negative (Negative); Ketones Urine Negative (Negative); Leukocyte Esterase Ur 1+ LEU/UL (Negative); Nitrate Urine Negative (Negative); Protein Urine Negative (Negative); Urobilinogen Urine 0.2 mg/dL (0.2-1.0)
[2022-11-20 07:04] LABS: Basophils Absolute Auto 0.02 K/mm3 (0.00-0.10); Basophils Percent Auto 0.3 % (0.0-1.0); Eosinophils Absolute Auto 0.12 K/mm3 (0.02-0.50); Hematocrit 40.5 % (35.0-42.0); Hemoglobin 12.5 g/dL (11.7-13.8); Immature Granulocyte Absolute 0.01 K/mm3 (0.00-0.00); Immature Granulocyte Percent A 0.2 % (0.0-0.0); Lymphocytes Absolute Auto 2.76 K/mm3 (1.10-4.50); Mean Corpuscular HGB Conc 30.9 g/dL (32.0-36.0); Mean Corpuscular Hemoglobin 28.9 pg (27.0-31.0); Mean Corpuscular Volume 93.5 fL (78.0-102.0); Monocytes Percent Auto 6.7 % (2.0-11.0); Neutrophils Absolute Auto 2.7 K/mm3 (1.7-7.2); Neutrophils Percent Auto 44.8 % (50.0-70.0); Platelet Count Result 201 K/mm3 (150-420); Red Blood Count 4.33 M/mm3 (4.20-5.40)
[2022-11-20 07:12] LABS: Add Urine Microscopic? YES; RBC Urine None seen /hpf (0-2); Squamous Epithelial Cell Urine Rare /hpf (Few)
[2022-11-20 07:13] LABS: Bacteria Urine 1+ /hpf
[2022-11-20 07:15] LABS: MALB Creatinine Ratio 21.3 mg/g (0-30); Microalbumin Urine Random < 13.0 mg/L
[2022-11-20 07:17] LABS: Hemoglobin A1C 5.7 % (<5.7)
[2022-11-20 08:01] LABS: Alanine Aminotransferase 24 U/L (14-59); Albumin Level 3.4 g/dL (3.4-5.0); Alkaline Phosphatase 51 U/L (46-116); Anion Gap 5 mmol/L (8-16); Aspartate Amino Transferase 17 U/L (15-37); Bilirubin,Total 0.4 mg/dL (0.00-1.00); Blood Urea Nitrogen 14 mg/dL (7-18); Calcium 8.6 mg/dL (8.5-10.1); Carbon Dioxide 33 mmol/L (21-32); Chloride 106 mmol/L (98-108); Cholesterol 149 mg/dL (0-200); Creatine Kinase 58 U/L (26-192); Estimated Glomerular Filt Rate > 60; Glucose 94 mg/dL (70-99); HDL Direct 56 mg/dL (40-60); LDL Cholesterol Calculated 56 mg/dL (<130); Osmolality Calculated 298 mOsm/kg (285-295); Potassium 4.1 mmol/L (3.5-5.1); Sodium 144 mmol/L (136-145); Total Protein 6.9 g/dL (6.4-8.2); Triglycerides 185 mg/dL (0-150)
== END 2022-11-20 06:37 | disposition home or self-care (01) ==
LOC: CHSLAB 06:38
PROVIDERS: Visit Provider Internal Medicine
DX: E78.2 Mixed hyperlipidemia (principal); I10 Essential (primary) hypertension; R73.01 Impaired fasting glucose; R82.90 Unspecified abnormal findings in urine
CPT/HCPCS: 36415; 80053; 80061; 81001; 82043; 82550; 83036; 85025; 87086; 87088

== ENCOUNTER 2022-11-27 14:38 | Emergency (ER) | payer OTHER, SELFPAY ==
--- NOTE | ~2022-11-27 | XR_ITS ---
EXAMINATION: XR chest 1V portable Exam Date/Time: 11/27/2022 14:55 CDT HISTORY: chest pain, confusion Comparison: 11/23/2020. RESULT: Lines, tubes, and devices: None. Lungs and pleura: 3.1 cm somewhat rounded opacity in the right midlung with associated air cysts/gas bubbles. Bibasilar atelectasis/scar. Possible retrocardiac airspace disease. Cardiomediastinal silhouette: Stable. Other: No acute osseous or upper abdominal finding. IMPRESSION: 3.1 cm right midlung opacity may represent a partially fluid-filled cavity, loculated pleural fluid, or other mass/consolidation. Possible retrocardiac atelectasis/consolidation. Consider CT of the ches t with contrast for further evaluation. Reviewed, dictated and finalized at location K. IMPRESSION: 3.1 cm right midlung opacity may represent a partially fluid-filled cavity, loc ulated pleural fluid, or other mass/consolidation. Possible retrocardiac atelec tasis/consolidation. Consider CT of the chest with contrast for further evaluat ion.
--- NOTE | ~2022-11-27 | CT_ITS ---
EXAMINATION: CT diagnostic chest wo con DATE: 11/27/2022 16:45 INDICATION: Abnormal chest X-ray; Left upper chest pain today. TECHNIQUE: Computed tomography (CT) of the chest was performed without intravenous contrast. Addition al 3D reconstructions utilizing coronal maximum intensity projection (MIP) were performed. Automated exposure control and iterative reconstruction technique were employed. The dose-length product was 35 2.34 mGy-cm. COMPARISON: None FINDINGS: 3.3 x 2.9 cm thick-walled centrally cavitary mass in the anterior segment of the right upper lobe mos t concerning for primary bronchogenic carcinoma. 7 mm right lower lobe nodule. 5 mm nodule in the pos terior left upper lobe. No pneumonia, pulmonary edema or pleural effusion. Heart size is normal. Athe rosclerotic coronary artery calcific location. No pericardial effusion. Calcified right hilar and med iastinal lymph nodes consistent with old granulomatous disease. Mildly enlarged right paratracheal ly mph node measuring up to 1.3 cm in maximal short axis diameter raising concern for metastatic disease . Cholecystectomy clip at the gallbladder fossa. Splenic calcification consistent with old granulomat ous disease. 5 mm low-attenuation lesion in the right hepatic lobe most likely a cyst or hemangioma b ut too small to definitively characterize. Moderate to severe thoracic spondylosis with bridging oste ophytes at multiple levels consistent with diffuse idiopathic skeletal hyperostosis (DISH). IMPRESSION: 1. 3.3 cm right upper lobe cavitary mass concerning for primary bronchogenic carcinoma. Would recomme nd further evaluation with CT-guided percutaneous biopsy. 2. Mildly enlarged right paratracheal lymph node suspicious for metastatic disease. Reviewed, dictated and finalized at location A. IMPRESSION: 1. 3.3 cm right upper lobe cavitary mass concerning for primary bronchogenic ca rcinoma. Would recommend further evaluation with CT-guided percutaneous biopsy. 2. Mildly enlarged right paratracheal lymph node suspicious for metastatic dise ase.
[2022-11-27 14:40] VITALS: BP 181/85; PULSE 72; RESP 19; TEMP 36.8; O2SAT 96
[2022-11-27 14:50] VITALS: PULSE 79
--- NOTE | 2022-11-27 14:50 | ED.GENADULT ---
HPI - General Adult General Chief complaint: Chest Pain Stated complaint: chest pain Time Seen by Provider: 11/27/22 14:50 History of Present Illness HPI narrative: 77-year-old white female started having chest pain about an hour ago brought in by EMS was given 4 baby aspirin. O2 sat 91 92% on room air increased to 96% on O2 blood pressure 168/90, sinus rhythm at rate of 66, blood sugar 121. She says she does not have any mary n now. Past medical history right-sided weakness having history of stroke hypertension. No history of heart disease Related Data Home Medications Medication Instructions Recorded Confirmed amlodipine 5 mg tablet 5 mg PO DAILY 11/23/20 11/27/22 aspirin 81 mg tablet 81 mg PO DAILY 11/23/20 11/27/22 atorvastatin 40 mg tablet 40 mg PO DAILY 11/23/20 11/27/22 bisacodyl 5 mg tablet,delayed 10 mg PO PRN 11/23/20 11/27/22 release fluticasone propionate 50 2 spray intranasal DAILY 11/23/20 11/27/22 mcg/actuation nasal spray,suspension acetaminophen 500 mg capsule 500 mg PO Q6H PRN Pain 12/16/20 11/27/22 docusate sodium 100 mg capsule 100 mg PO DAILY 12/16/20 11/27/22 multivitamin 1 tablet PO DAILY 12/16/20 11/27/22 bisacodyl 5 mg tablet,delayed 10 mg PO ONCE 12/19/20 11/27/22 release (Fleet Laxative (bisacodyl)) escitalopram oxalate 10 mg tablet 10 mg PO QAM 11/27/22 11/27/22 Allergies Allergy/AdvReac Type Severity Reaction Status Date / Time codeine Allergy Mild Unknown Verified 11/27/22 15:08 Iodinated Contrast Media Allergy Mild Unknown Verified 11/27/22 15:08 Sulfa (Sulfonamide Allergy Mild Unknown Verified 11/27/22 15:08 Antibiotics) [facility] Past Medical History Medical History Chest pain CVA (cerebral vascular accident) Dementia in other diseases classified elsewhere without behavioral disturbance Dysthymic HTN (hypertension) Impacted cerumen, right ear Impaired fasting glucose Inconclusive mammogram Mixed hyperlipidemia Primary generalized hypertrophic osteoarthrosis Pyelonephritis Renal insufficiency Spastic hemiplegia affecting right dominant side Surgical History Surgical History History of bladder surgery Family History Family History Mother Diabetes mellitus Father Smoker Cerebrovascular accident Alcoholic Myocardial infarct Heart disease Social History Social History Social History: , previous smoker, previous drinker Smoking status: Never smoker Tobacco type: cigarettes Additional smoking assessment comments: 1/2 PPD Alcohol intake: former Substance use: never Living arrangements: long term Sexual Orientation (if Verbalized by the Patient): Straight or Heterosexual Medical Decision Making MDM Narrative Medical decision making narrative: patient is a 77-year-old white female with a history of stroke and a right hemiparesis brought in by EMS complaining of chest pain that started hour ago which is currently gone was given 4 baby aspirin. No history of heart disease history and physical was done labs were drawn coags magnesium D-dimer CBC CMP troponin chest x-ray and EKG were done she is placed on a monitor technician. Patient was in bed when suddenly had left chest pain. Fortunately she is a poor historian she has unspecified beltran hemiplegia and paresis with old stroke and hypertension without heart disease depression hyperlipidemia paroxysmal vertigo osteoarthritis of the left knee chronic rhinitis dysphagia bed-bound patient states she has not walked in 4 years. Patient is a full code per the medication list reviewed.\ normal magnesium , D-dimer, CBC, CMP, and troponin. chest x-ray showed 3.1 cm right mid lung field mass with gas bubble or air cysts. Possible retrocardiac infiltrate. EKG was
--- NOTE | 2022-11-27 14:53 | ECG_ITS ---
Measurements Intervals [place] Rate: 62 P: 49 [place]: 153 QRS: -33 QRSD: 115 T: 74 QT: 428 QTc: 436 Interpretive Statements SINUS RHYTHM LEFT AXIS DEVIATION INTRAVENTRICULAR CONDUCTION DELAY LEFT VENTRICULAR HYPERTROPHY AND ST-T CHANGE CANNOT RULE OUT SEPTAL INFARCT, AGE INDETERMINATE BASELINE ARTIFACT- I, II, III, AVR, AVL, AVF, V4 ABNORMAL ECG COMPARED TO ECG 11/23/2020 09:42:11 NO SIGNIFICANT CHANGES Electronically Signed On 11-27-2022 15:07:08 CDT by Stephen Rios D.O.
[2022-11-27 14:55] VITALS: O2SAT 97
[2022-11-27 15:19] LABS: Hematocrit 40.4 % (35.0-42.0); Hemoglobin 13.1 g/dL (11.7-13.8); Mean Corpuscular HGB Conc 32.4 g/dL (32.0-36.0); Mean Corpuscular Hemoglobin 30.5 pg (27.0-31.0); Mean Platelet Volume 10.2 fl (9.2-11.8); Platelet Count Result 207 K/mm3 (150-420); Red Cell Distribution Width 13.2 % (11.6-14.4); White Blood Count 6.3 K/mm3 (4.8-10.8)
[2022-11-27 15:30] VITALS: BP 176/81; PULSE 65; RESP 18; O2SAT 95
[2022-11-27 15:35] LABS: D Dimer 0.19 mg/L (0.19-0.50); Partial Thromboplastin Time 29.8 SEC (23.90-30.70)
[2022-11-27 15:38] LABS: Alanine Aminotransferase 26 U/L (14-59); Albumin Level 3.5 g/dL (3.4-5.0); Alkaline Phosphatase 56 U/L (46-116); Anion Gap 8 mmol/L (8-16); Aspartate Amino Transferase 19 U/L (15-37); Bilirubin,Total 0.3 mg/dL (0.00-1.00); Blood Urea Nitrogen 15 mg/dL (7-18); Calcium 8.9 mg/dL (8.5-10.1); Carbon Dioxide 32 mmol/L (21-32); Chloride 103 mmol/L (98-108); Estimated CRCL calculation 69 ml/min; Estimated Glomerular Filt Rate > 60; Glucose 100 mg/dL (70-99); Magnesium 2.1 mg/dL (1.8-2.4); Osmolality Calculated 296 mOsm/kg (285-295); Potassium 4.2 mmol/L (3.5-5.1); Sodium 143 mmol/L (136-145); Total Protein 7.7 g/dL (6.4-8.2); Troponin I 6.9 ng/L (0.00-60.4)
[2022-11-27] MEDS: ACETAMINOPHEN 500 MG TABLET 1000 MG PO (16:09)
[2022-11-27 16:30] VITALS: BP 161/78; PULSE 70; RESP 16; TEMP 36.3; O2SAT 95
[2022-11-27 17:30] VITALS: BP 152/79; PULSE 61; RESP 16; O2SAT 96
== END 2022-11-27 18:01 ==
PROVIDERS: Emergency Provider Emergency Medicine; PCP Internal Medicine
DX: R07.9 Chest pain, unspecified (principal); R91.8 Other nonspecific abnormal finding of lung field; F03.90 Unspecified dementia, unspecified severity, without behavioral disturbance, psychotic disturbance, mood disturbance, and anxiety; I10 Essential (primary) hypertension; E78.2 Mixed hyperlipidemia; Z79.82 Long term (current) use of aspirin; Z86.73 Personal history of transient ischemic attack (TIA), and cerebral infarction without residual deficits
CPT/HCPCS: 36415; 71045; 71250; 80053; 83735; 84484; 85027; 85380; 85610; 85730; 93005; 99284

== ENCOUNTER 2022-12-20 07:28 | Outpatient (CLI) | payer OTHER, SELFPAY ==
--- NOTE | ~2022-12-20 | MR_ITS ---
EXAMINATION: MR brain/brain stem wo/w con DATE: 12/20/2022 09:42 INDICATION: Mass in upper lobe of right lung. TECHNIQUE: Magnetic resonance imaging (MRI) of the brain and brainstem was performed without and with 19 mL MultiHance intravenous contrast. COMPARISON: Head CT 02/24/2021 FINDINGS: There are old infarcts involving the bilateral basal ganglia, posterior limb left internal capsule, and left thalamus. There are scattered areas of nonspecific increased T2-weighted signal int ensity in the cerebral white matter. There is no intracranial hemorrhage, acute infarction, or abnorm al intracranial mass lesion. The ventricles are normal in size. The orbits are normal. The paranasal sinuses are clear. The mastoid air cells are normal. IMPRESSION: 1. No evidence of metastatic disease. 2. Old infarcts involving the bilateral basal ganglia, posterior limb left internal capsule, and left thalamus. 3. Moderate nonspecific cerebral white matter disease, which likely represents chronic small vessel i schemic disease. Reviewed, dictated and finalized at location A. IMPRESSION: 1. No evidence of metastatic disease. 2. Old infarcts involving the bilateral basal ganglia, posterior limb left inte rnal capsule, and left thalamus. 3. Moderate nonspecific cerebral white matter disease, which likely represents chronic small vessel ischemic disease.
== END 2022-12-20 07:29 | disposition home or self-care (01) ==
LOC: CHSIMG 07:30
PROVIDERS: PCP Internal Medicine
DX: R91.8 Other nonspecific abnormal finding of lung field (principal); R90.82 White matter disease, unspecified; Z86.73 Personal history of transient ischemic attack (TIA), and cerebral infarction without residual deficits
CPT/HCPCS: 70553; A9577

== ENCOUNTER 2023-01-29 10:39 | Outpatient (CLI) | payer OTHER, SELFPAY ==
--- NOTE | 2023-01-29 11:52 | PCRCNOTE ---
PFT not done. Patient unable to produce acceptable spirometry despite maximum coaching. Patient unable to get inside the body box for plethysmography.
== END 2023-01-29 10:40 | disposition home or self-care (01) ==
LOC: CHSCARD 10:42
PROVIDERS: PCP Internal Medicine; Visit Provider Internal Medicine
DX: C34.90 Malignant neoplasm of unspecified part of unspecified bronchus or lung (principal)
CPT/HCPCS: 99199

== ENCOUNTER 2023-02-21 06:32 | Outpatient (NON) | payer OTHER, SELFPAY ==
[2023-02-21 07:13] LABS: Basophils Absolute Auto 0.03 K/mm3 (0.00-0.10); Basophils Percent Auto 0.5 % (0.0-1.0); Eosinophils Percent Auto 1.6 % (1.0-6.0); Hematocrit 39.3 % (35.0-42.0); Hemoglobin 12.2 g/dL (11.7-13.8); Immature Granulocyte Absolute 0.01 K/mm3 (0.00-0.00); Immature Granulocyte Percent A 0.2 % (0.0-0.0); Lymphocytes Absolute Auto 3.01 K/mm3 (1.10-4.50); Lymphocytes Percent Auto 49.1 % (18.0-42.0); Mean Corpuscular Hemoglobin 29.5 pg (27.0-31.0); Mean Corpuscular Volume 94.9 fL (78.0-102.0); Mean Platelet Volume 10.5 fl (9.2-11.8); Monocytes Absolute Auto 0.46 K/mm3 (0.10-0.90); Monocytes Percent Auto 7.5 % (2.0-11.0); Neutrophils Absolute Auto 2.5 K/mm3 (1.7-7.2); Neutrophils Percent Auto 41.1 % (50.0-70.0); Platelet Count Result 228 K/mm3 (150-420); Red Blood Count 4.14 M/mm3 (4.20-5.40); White Blood Count 6.1 K/mm3 (4.8-10.8)
== END 2023-02-21 06:33 | disposition home or self-care (01) ==
LOC: CHSLAB 06:34
PROVIDERS: Visit Provider Internal Medicine
DX: I69.351 Hemiplegia and hemiparesis following cerebral infarction affecting right dominant side (principal); I11.9 Hypertensive heart disease without heart failure
CPT/HCPCS: 36415; 85025

== ENCOUNTER 2023-03-02 06:50 | Outpatient (NON) | payer OTHER, SELFPAY ==
[2023-03-02 07:54] LABS: Basophils Absolute Auto 0.03 K/mm3 (0.00-0.10); Basophils Percent Auto 0.6 % (0.0-1.0); Eosinophils Absolute Auto 0.11 K/mm3 (0.02-0.50); Eosinophils Percent Auto 2.1 % (1.0-6.0); Hematocrit 39.4 % (35.0-42.0); Hemoglobin 12.1 g/dL (11.7-13.8); Immature Granulocyte Absolute 0.01 K/mm3 (0.00-0.00); Immature Granulocyte Percent A 0.2 % (0.0-0.0); Lymphocytes Absolute Auto 2.54 K/mm3 (1.10-4.50); Lymphocytes Percent Auto 47.7 % (18.0-42.0); Mean Corpuscular HGB Conc 30.7 g/dL (32.0-36.0); Mean Corpuscular Hemoglobin 29.1 pg (27.0-31.0); Mean Corpuscular Volume 94.7 fL (78.0-102.0); Mean Platelet Volume 10.7 fl (9.2-11.8); Monocytes Absolute Auto 0.35 K/mm3 (0.10-0.90); Monocytes Percent Auto 6.6 % (2.0-11.0); Neutrophils Absolute Auto 2.3 K/mm3 (1.7-7.2); Neutrophils Percent Auto 42.8 % (50.0-70.0); Platelet Count Result 203 K/mm3 (150-420); Red Blood Count 4.16 M/mm3 (4.20-5.40); Red Cell Distribution Width 13.2 % (11.6-14.4); White Blood Count 5.3 K/mm3 (4.8-10.8)
[2023-03-02 08:14] LABS: Alanine Aminotransferase 24 U/L (14-59); Alkaline Phosphatase 52 U/L (46-116); Anion Gap 5 mmol/L (8-16); Aspartate Amino Transferase 14 U/L (15-37); Bilirubin,Total 0.3 mg/dL (0.00-1.00); Blood Urea Nitrogen 18 mg/dL (7-18); Calcium 8.5 mg/dL (8.5-10.1); Carbon Dioxide 31 mmol/L (21-32); Chloride 107 mmol/L (98-108); Estimated Glomerular Filt Rate > 60; Glucose 96 mg/dL (70-99); Osmolality Calculated 297 mOsm/kg (285-295); Potassium 4.3 mmol/L (3.5-5.1); Sodium 143 mmol/L (136-145); Total Protein 6.5 g/dL (6.4-8.2)
== END 2023-03-02 06:51 | disposition home or self-care (01) ==
LOC: CHSLAB 06:54
DX: C34.91 Malignant neoplasm of unspecified part of right bronchus or lung (principal)
CPT/HCPCS: 36415; 80053; 85025

== ENCOUNTER 2023-05-23 06:40 | Outpatient (NON) | payer OTHER, SELFPAY ==
[2023-05-23 07:15] LABS: Basophils Absolute Auto 0.03 K/mm3 (0.00-0.10); Basophils Percent Auto 0.5 % (0.0-1.0); Eosinophils Absolute Auto 0.11 K/mm3 (0.02-0.50); Eosinophils Percent Auto 1.8 % (1.0-6.0); Hematocrit 39.6 % (35.0-42.0); Hemoglobin 12.4 g/dL (11.7-13.8); Immature Granulocyte Absolute 0.01 K/mm3 (0.00-0.00); Immature Granulocyte Percent A 0.2 % (0.0-0.0); Lymphocytes Absolute Auto 2.51 K/mm3 (1.10-4.50); Lymphocytes Percent Auto 40.6 % (18.0-42.0); Mean Corpuscular HGB Conc 31.3 g/dL (32.0-36.0); Mean Corpuscular Hemoglobin 29.4 pg (27.0-31.0); Mean Corpuscular Volume 93.8 fL (78.0-102.0); Mean Platelet Volume 10.6 fl (9.2-11.8); Monocytes Absolute Auto 0.44 K/mm3 (0.10-0.90); Monocytes Percent Auto 7.1 % (2.0-11.0); Neutrophils Absolute Auto 3.1 K/mm3 (1.7-7.2); Neutrophils Percent Auto 49.8 % (50.0-70.0); Platelet Count Result 230 K/mm3 (150-420); Red Blood Count 4.22 M/mm3 (4.20-5.40); Red Cell Distribution Width 12.9 % (11.6-14.4); White Blood Count 6.2 K/mm3 (4.8-10.8)
[2023-05-23 07:16] LABS: Appearance Urine Slightly Cloudy (Clear); Bilirubin Urine Negative (Negative); Blood Urine Negative (Negative); Color Urine Light Yellow (Yellow); Glucose Urine UA Negative (Negative); Ketones Urine Negative (Negative); Leukocyte Esterase Ur 1+ (Negative); Nitrate Urine Negative (Negative); Protein Urine Negative (Negative); Urobilinogen Urine 0.2 mg/dL (0.2-1.0)
[2023-05-23 07:22] LABS: Add Urine Microscopic? YES; Bacteria Urine 3+ /hpf; RBC Urine None seen /hpf (0-2); Squamous Epithelial Cell Urine Few /hpf (Few); WBC Urine 31-50 /hpf (0-3)
[2023-05-23 07:22] LABS: Hemoglobin A1C 6.2 % (<5.7)
[2023-05-23 07:29] LABS: Alanine Aminotransferase 18 U/L (14-59); Albumin Level 3.3 g/dL (3.4-5.0); Alkaline Phosphatase 59 U/L (46-116); Anion Gap 4 mmol/L (8-16); Aspartate Amino Transferase 13 U/L (15-37); Bilirubin,Total 0.3 mg/dL (0.00-1.00); Blood Urea Nitrogen 12 mg/dL (7-18); Calcium 8.9 mg/dL (8.5-10.1); Carbon Dioxide 33 mmol/L (21-32); Chloride 107 mmol/L (98-108); Cholesterol 125 mg/dL (0-200); Creatine Kinase 40 U/L (26-192); Estimated Glomerular Filt Rate > 60; Glucose 94 mg/dL (70-99); HDL Direct 54 mg/dL (40-60); LDL Cholesterol Calculated 44 mg/dL (<130); Osmolality Calculated 297 mOsm/kg (285-295); Potassium 4.2 mmol/L (3.5-5.1); Sodium 144 mmol/L (136-145); Total Protein 6.6 g/dL (6.4-8.2); Triglycerides 134 mg/dL (0-150)
== END 2023-05-23 06:41 | disposition home or self-care (01) ==
LOC: CHSLAB 06:41
PROVIDERS: Visit Provider Internal Medicine
DX: I11.9 Hypertensive heart disease without heart failure (principal); E78.5 Hyperlipidemia, unspecified; C34.90 Malignant neoplasm of unspecified part of unspecified bronchus or lung; E11.9 Type 2 diabetes mellitus without complications; N39.0 Urinary tract infection, site not specified
CPT/HCPCS: 36415; 80053; 80061; 81001; 82550; 83036; 85025; 87077; 87086; 87088

== ENCOUNTER 2023-06-19 15:28 | Emergency (ER) | payer OTHER, SELFPAY ==
[2023-06-19] VITALS (13 sets, daily range): BP systolic 166–176; BP diastolic 78–98; PULSE 67–74; RESP 15–29; TEMP 36.6; O2SAT 93–94
--- NOTE | ~2023-06-19 | XR_ITS ---
EXAMINATION: XR chest 1V portable DATE: 06/19/2023 16:17 INDICATION: Shortness of breath. TECHNIQUE: A single frontal view of the chest was obtained. COMPARISON: Chest single view 11/27/2022, chest CT 11/27/2022 FINDINGS: There is a mass in right upper lobe. No pleural effusion or pneumothorax. The heart size is normal. IMPRESSION: 1. Worsened mass in right lung upper lobe, consistent with primary bronchogenic carcinoma and treatme nt changes. Reviewed, dictated and finalized at location A. IMPRESSION: 1. Worsened mass in right lung upper lobe, consistent with primary bronchogenic carcinoma and treatment changes.
--- NOTE | 2023-06-19 15:37 | ED.CHESTPAIN ---
HPI - Chest Pain General Chief Complaint: Chest Pain Stated Complaint: chest pain Time Seen by Provider: 06/19/23 15:29 Source: patient Mode of arrival: ambulatory Limitations: no limitations History of Present Illness HPI narrative: 77-year-old female, ex-smoker with dementia, dysthymia, hypertension, CVA with right-sided spastic weakness, dyslipidemia osteoarthritis, CKD was diagnosed to have right upper lobe cavitary lesion for which she is on radiation treatment and is due to be started on chemotherapy.. She presents to the ER with -- Right-sided chest pain which started acutely and resolved in 30 minutes. The patient is a poor historian and is unable to describe the details of her chest pain well. No radiation of the pain. -- no lightheadedness or shortness of breath. MD complaint: chest pain Onset (ago): hour(s) ( Started 1 hour ago and resolved after 30 minutes.) Timing of current episode: constant Prior episodes: No Onset: during rest Pain location: right chest Pain radiation: none Severity: moderate Quality: aching Relieving factors: nothing Exacerbating factors: nothing Treatment prior to arrival: none Related Data Home Medications Medication Instructions Recorded Confirmed amlodipine 5 mg tablet 5 mg PO DAILY 11/23/20 06/19/23 aspirin 81 mg tablet 81 mg PO DAILY 11/23/20 06/19/23 atorvastatin 40 mg tablet 40 mg PO DAILY 11/23/20 06/19/23 bisacodyl 5 mg tablet,delayed 10 mg PO PRN 11/23/20 06/19/23 release fluticasone propionate 50 2 spray intranasal DAILY 11/23/20 06/19/23 mcg/actuation nasal spray,suspension acetaminophen 500 mg capsule 500 mg PO Q6H PRN Pain 12/16/20 06/19/23 docusate sodium 100 mg capsule 100 mg PO DAILY 12/16/20 06/19/23 multivitamin 1 tablet PO DAILY 12/16/20 06/19/23 escitalopram oxalate 10 mg tablet 10 mg PO QAM 11/27/22 06/19/23 Allergies Allergy/AdvReac Type Severity Reaction Status Date / Time codeine Allergy Mild Unknown Verified 06/19/23 15:38 Iodinated Contrast Media Allergy Mild Unknown Verified 06/19/23 15:38 Sulfa (Sulfonamide Allergy Mild Unknown Verified 06/19/23 15:38 Antibiotics) Review of Systems Review of Systems: All systems reviewed & are unremarkable except as noted in HPI and below Constitutional: Constitutional: Reports as per HPI and Reports no additional constitutional complaints Eyes: Eyes: Reports as per HPI and Reports no additional eye complaints ENT: Reports system reviewed and no additional complaints, except as documented and Reports as per HPI Cardiovascular: Cardiovascular: Reports as per HPI and Reports no additional cardiovascular complaints Respiratory: Respiratory: Reports as per HPI, Reports no additional respiratory complaints, Reports chest congestion, Reports cough and Reports dyspnea Gastrointestinal: Gastrointestinal: Reports as per HPI and Reports no additional gastrointestinal complaints Genitourinary: Genitourinary: Reports no additional female genitourinary complaints Musculoskeletal: Musculoskeletal: Reports no additional musculoskeletal complaints and Reports as per HPI Comments: Complaints of arthralgia as Integumentary/Breasts: Skin/Breast: Reports system reviewed and no additional complaints, except as docu and Reports as per HPI Neurologic: Reports system reviewed and no additional complaints, except as documented and Reports as per HPI Comments: right-sided spastic hemiplegia Psychiatric: Psychiatric: Reports no additional psychiatric complaints and Reports as per HPI Comments: confusion Endocrine: Endocrine: Reports no additional endocrine complaints and Reports as per HPI Hematologic/Lymphatic: Hematologic/Lymphatic: Reports no additional hematologic/lymphatic complaints and Reports as per HPI Allergic/Immunologic: Allergic/Immunologic: Reports no additional allergic/immunologic complaints and Reports as per HPI PMF Past Medical History Medical History (Reviewed 06/19/23 @
--- NOTE | 2023-06-19 15:57 | ECG_ITS ---
Measurements Intervals [place] Rate: 66 P: 73 CT: 144 QRS: -30 QRSD: 130 T: 84 QT: 420 QTc: 442 Interpretive Statements SINUS RHYTHM POSSIBLE LEFT VENTRICULAR HYPERTROPHY [VOLTAGE CRITERIA PLUS LAE OR QRS WIDENING] POSSIBLE ANTEROSEPTAL MYOCARDIAL INFARCTION , OF INDETERMINATE AGE [30 ms Q WAVE IN V1- V4] ABNORMAL ECG COMPARED TO ECG 11/27/2022 14:51:55 NO SIGNIFICANT CHANGES Electronically Signed On 06-20-2023 9:06:11 CDT by Bacilio Lares M.D.
[2023-06-19 16:17] LABS: Basophils Absolute Auto 0.03 K/mm3 (0.00-0.10); Basophils Percent Auto 0.6 % (0.0-1.0); Eosinophils Percent Auto 1.9 % (1.0-6.0); Hematocrit 40.5 % (35.0-42.0); Hemoglobin 12.9 g/dL (11.7-13.8); Immature Granulocyte Absolute 0.01 K/mm3 (0.00-0.00); Immature Granulocyte Percent A 0.2 % (0.0-0.0); Lymphocytes Absolute Auto 1.77 K/mm3 (1.10-4.50); Lymphocytes Percent Auto 34.2 % (18.0-42.0); Mean Corpuscular HGB Conc 31.9 g/dL (32.0-36.0); Mean Corpuscular Volume 94.2 fL (78.0-102.0); Mean Platelet Volume 9.8 fl (9.2-11.8); Monocytes Absolute Auto 0.45 K/mm3 (0.10-0.90); Monocytes Percent Auto 8.7 % (2.0-11.0); Neutrophils Absolute Auto 2.8 K/mm3 (1.7-7.2); Neutrophils Percent Auto 54.4 % (50.0-70.0); Platelet Count Result 200 K/mm3 (150-420); White Blood Count 5.2 K/mm3 (4.8-10.8)
[2023-06-19 16:26] LABS: Magnesium 2.3 mg/dL (1.8-2.4)
--- NOTE | 2023-06-19 16:31 | PC.NURSE ---
PT IS LYING ON STRETCHER TALKING WITH FAMILY AT THIS TIME AWAITING RESULTS. 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 PT DENIES ANY CP AT THIS TIME. WILL CONTINUE TO MONITOR.
[2023-06-19 16:32] LABS: D Dimer 0.22 mg/L (0.19-0.50); Partial Thromboplastin Time 30.4 SEC (23.90-30.70); Prothrombin Time 10.9 Seconds (9.50-12.10)
[2023-06-19 16:39] LABS: Alanine Aminotransferase 22 U/L (14-59); Albumin Level 3.3 g/dL (3.4-5.0); Alkaline Phosphatase 64 U/L (46-116); Anion Gap 6 mmol/L (8-16); Aspartate Amino Transferase 15 U/L (15-37); Bilirubin,Total 0.3 mg/dL (0.00-1.00); Blood Urea Nitrogen 10 mg/dL (7-18); Calcium 9.2 mg/dL (8.5-10.1); Carbon Dioxide 31 mmol/L (21-32); Chloride 103 mmol/L (98-108); Estimated CRCL calculation 78 ml/min; Estimated Glomerular Filt Rate > 60; Glucose 106 mg/dL (70-99); NT Pro B Type Natriuretic Pept 43 pg/mL (0-450); Osmolality Calculated 289 mOsm/kg (285-295); Potassium 3.9 mmol/L (3.5-5.1); Sodium 140 mmol/L (136-145); Total Protein 7.4 g/dL (6.4-8.2); Troponin I 8.3 ng/L (0.00-60.4)
[2023-06-19 16:44] LABS: Lactic Acid Reflex 0.9 mmol/L (0.4-2.0)
--- NOTE | 2023-06-19 17:57 | PC.NURSE ---
SON AWARE OF PLAN OF CARE, PT TO BE DC HOME TO [place]. ATTEMPTING TO GET [facility] OF [place] FOR REPORT AT THIS TIME, UNSUCCESSFULLY. PT DENIES ANY NEEDS OF COMPLAINTS.
== END 2023-06-19 18:45 | disposition home or self-care (01) ==
PROVIDERS: Emergency Provider Internal Medicine Critical Care Medicine; PCP Internal Medicine
DX: C34.90 Malignant neoplasm of unspecified part of unspecified bronchus or lung (principal); R07.89 Other chest pain; F03.90 Unspecified dementia, unspecified severity, without behavioral disturbance, psychotic disturbance, mood disturbance, and anxiety; I10 Essential (primary) hypertension; E78.5 Hyperlipidemia, unspecified; I12.9 Hypertensive chronic kidney disease with stage 1 through stage 4 chronic kidney disease, or unspecified chronic kidney disease; N18.9 Chronic kidney disease, unspecified; R06.00 Dyspnea, unspecified; Z86.73 Personal history of transient ischemic attack (TIA), and cerebral infarction without residual deficits; Z79.899 Other long term (current) drug therapy; Z79.82 Long term (current) use of aspirin
CPT/HCPCS: 36415; 71045; 80053; 83605; 83735; 83880; 84484; 85025; 85380; 85610; 85730; 93005; 99284

== ENCOUNTER 2023-08-22 07:13 | Outpatient (NON) | payer OTHER, SELFPAY ==
[2023-08-22 08:00] LABS: Hematocrit 38.9 % (35.0-42.0); Hemoglobin 12.3 g/dL (11.7-13.8); Mean Corpuscular HGB Conc 31.6 g/dL (32.0-36.0); Mean Corpuscular Hemoglobin 29.9 pg (27.0-31.0); Mean Corpuscular Volume 94.4 fL (78.0-102.0); Platelet Count Result 167 K/mm3 (150-420); Red Blood Count 4.12 M/mm3 (4.20-5.40); Red Cell Distribution Width 13.2 % (11.6-14.4); White Blood Count 3.4 K/mm3 (4.8-10.8)
[2023-08-22 08:34] LABS: Band Neutrophils Percent 0 % (0-6); Neutrophils Absolute Manual 2.48 K/mm3 (1.7-7.2); Neutrophils Percent Manual 73 % (46-73); Total Cells Counted 100
[2023-08-22 08:35] LABS: Basophils Percent Manual 0 % (0-1); Eosinophils Percent Manual 3 % (1-6); Lymphocytes Absolute Manual 0.61 K/mm3 (1.1-4.5); Lymphocytes Percent Manual 18 % (18-44); Metamyelocytes Percent 0 %; Monocytes Percent Manual 6 % (3-9); Myelocytes Percent 0 %; Platelet Estimate Adequate (Adequate)
== END 2023-08-22 07:14 | disposition home or self-care (01) ==
LOC: CHSLAB 07:14
PROVIDERS: Visit Provider Internal Medicine
DX: C34.90 Malignant neoplasm of unspecified part of unspecified bronchus or lung (principal); I11.9 Hypertensive heart disease without heart failure
CPT/HCPCS: 36415; 85025

== ENCOUNTER 2023-09-19 10:34 | Outpatient (NON) | payer OTHER, SELFPAY ==
[2023-09-19 11:01] LABS: Influenza Control Valid (Valid)
== END 2023-09-19 10:35 | disposition home or self-care (01) ==
LOC: CHSLAB 10:35
PROVIDERS: Visit Provider Internal Medicine
DX: R05.9 Cough, unspecified (principal); R53.83 Other fatigue; R50.9 Fever, unspecified; R53.1 Weakness
CPT/HCPCS: 87804

== ENCOUNTER 2023-09-25 06:34 | Outpatient (NON) | payer OTHER, SELFPAY ==
[2023-09-25 06:58] LABS: Basophils Absolute Auto 0.01 K/mm3 (0.00-0.10); Basophils Percent Auto 0.2 % (0.0-1.0); Eosinophils Absolute Auto 0.13 K/mm3 (0.02-0.50); Eosinophils Percent Auto 2.5 % (1.0-6.0); Hematocrit 35.7 % (35.0-42.0); Hemoglobin 11.4 g/dL (11.7-13.8); Immature Granulocyte Absolute 0.01 K/mm3 (0.00-0.00); Immature Granulocyte Percent A 0.2 % (0.0-0.0); Lymphocytes Absolute Auto 1.17 K/mm3 (1.10-4.50); Lymphocytes Percent Auto 22.4 % (18.0-42.0); Mean Corpuscular HGB Conc 31.9 g/dL (32.0-36.0); Mean Corpuscular Hemoglobin 29.8 pg (27.0-31.0); Mean Corpuscular Volume 93.5 fL (78.0-102.0); Mean Platelet Volume 9.4 fl (9.2-11.8); Monocytes Absolute Auto 0.56 K/mm3 (0.10-0.90); Monocytes Percent Auto 10.7 % (2.0-11.0); Neutrophils Absolute Auto 3.4 K/mm3 (1.7-7.2); Platelet Count Result 190 K/mm3 (150-420); Red Blood Count 3.82 M/mm3 (4.20-5.40); Red Cell Distribution Width 13.3 % (11.6-14.4); White Blood Count 5.2 K/mm3 (4.8-10.8)
[2023-09-25 07:29] LABS: Alanine Aminotransferase 19 U/L (14-59); Albumin Level 3.1 g/dL (3.4-5.0); Alkaline Phosphatase 49 U/L (46-116); Anion Gap 8 mmol/L (8-16); Aspartate Amino Transferase 14 U/L (15-37); Bilirubin,Total 0.4 mg/dL (0.00-1.00); Blood Urea Nitrogen 11 mg/dL (7-18); Calcium 7.6 mg/dL (8.5-10.1); Carbon Dioxide 29 mmol/L (21-32); Chloride 101 mmol/L (98-108); Estimated Glomerular Filt Rate > 60; Glucose 87 mg/dL (70-99); Osmolality Calculated 284 mOsm/kg (285-295); Potassium 3.7 mmol/L (3.5-5.1); Sodium 138 mmol/L (136-145); Total Protein 7.1 g/dL (6.4-8.2)
[2023-09-28 07:44] LABS: Cortisol Random 10.5 mcg/dL (***)
== END 2023-09-25 06:35 | disposition home or self-care (01) ==
LOC: CHSLAB 06:39
PROVIDERS: PCP Internal Medicine; Visit Provider Internal Medicine Hematology
DX: C34.11 Malignant neoplasm of upper lobe, right bronchus or lung (principal)
CPT/HCPCS: 36415; 80053; 82533; 85025

== ENCOUNTER 2023-10-22 08:54 | Outpatient (CLI) | payer OTHER, SELFPAY ==
--- NOTE | ~2023-10-22 | CT_ITS ---
Clinical Indication: Lung cancer CT Scan of the Chest, Abdomen, and Pelvis without Contrast: Technique: Contiguous sections were acquired throughout the chest, abdomen, and pelvis without IV con trast administration. Dose reduction technique was used on this scan by utilizing automated exposure control and iterative reconstruction technique. The dose-length product (DLP) was 1066.19 mGy-cm. COMPARISON: 11/27/2022 Findings: 1.5 cm right paratracheal lymph node is similar to prior exam. Coronary artery calcium cages are pres ent. Calcified subcarinal nodes present.. There is no evidence of pleural or pericardial effusion. 3.1 cm right upper lobe pulmonary nodule is similar to prior exam, compatible with neoplasm. There is mild surrounding patchy groundglass opacity in the right upper lobe, patchy consolidation the right perihilar region, nonspecific. There are probable subcentimeter right lower lobe pulmonary nodules (a xial image 55, 56), not seen on prior exam. Left lung is essentially clear. The liver, spleen, pancreas, left adrenal gland, and left kidney are within normal limits. 4 mm nonob structing right renal stone present. Calcified gallstones are present. Right adrenal lipoma present. There are atherosclerotic calcifications of the aorta. No lymphadenopathy. No bowel obstruction or bowel wall thickening. There is no evidence to suggest acute appendicitis. Urinary bladder is unremarkable. No adnexal mass seen. No ascites. Impression: 3.1 cm right upper lobe pulmonary nodule is compatible with bronchogenic carcinoma, similar to prior exam. Mild surrounding patchy groundglass opacification the right upper lobe, with several subcentimeter no dules and right perihilar patchy consolidation. These findings could possibly reflect evolving postra diation pneumonitis. Correlate for relevant history of radiation therapy. Pneumonia is a potential ca use consideration. Metastatic disease related to the small nodular opacities not completely excluded. No evidence of metastatic disease in the abdomen or pelvis. Cholelithiasis and right nephrolithiasis. Reviewed, dictated and finalized at location . TICE ADMINISTRATOR Impression: 3.1 cm right upper lobe pulmonary nodule is compatible with bronchogenic carcin matthew, similar to prior exam. Mild surrounding patchy groundglass opacification the right upper lobe, with se veral subcentimeter nodules and right perihilar patchy consolidation. These fin dings could possibly reflect evolving postradiation pneumonitis. Correlate for relevant history of radiation therapy. Pneumonia is a potential cause considera tion. Metastatic disease related to the small nodular opacities not completely excluded. No evidence of metastatic disease in the abdomen or pelvis. Cholelithiasis and right nephrolithiasis.
== END 2023-10-22 08:55 | disposition home or self-care (01) ==
LOC: ANHIMG 08:55
PROVIDERS: PCP Internal Medicine; Visit Provider Internal Medicine Hematology
DX: C34.91 Malignant neoplasm of unspecified part of right bronchus or lung (principal); K80.20 Calculus of gallbladder without cholecystitis without obstruction; N20.0 Calculus of kidney
CPT/HCPCS: 71250; 74176

== ENCOUNTER 2023-10-30 10:10 | Outpatient (CLI) | payer OTHER, SELFPAY ==
[2023-10-30 10:47] LABS: Basophils Absolute Auto 0.04 K/mm3 (0.00-0.10); Basophils Percent Auto 0.8 % (0.0-1.0); Eosinophils Absolute Auto 0.25 K/mm3 (0.02-0.50); Eosinophils Percent Auto 5.3 % (1.0-6.0); Hematocrit 39.6 % (35.0-42.0); Hemoglobin 12.2 g/dL (11.7-13.8); Immature Granulocyte Absolute 0.01 K/mm3 (0.00-0.00); Immature Granulocyte Percent A 0.2 % (0.0-0.0); Lymphocytes Percent Auto 25.2 % (18.0-42.0); Mean Corpuscular HGB Conc 30.8 g/dL (32.0-36.0); Mean Corpuscular Hemoglobin 28.7 pg (27.0-31.0); Mean Corpuscular Volume 93.2 fL (78.0-102.0); Monocytes Absolute Auto 0.61 K/mm3 (0.10-0.90); Monocytes Percent Auto 12.8 % (2.0-11.0); Neutrophils Absolute Auto 2.7 K/mm3 (1.7-7.2); Neutrophils Percent Auto 55.7 % (50.0-70.0); Platelet Count Result 234 K/mm3 (150-420); Red Blood Count 4.25 M/mm3 (4.20-5.40); Red Cell Distribution Width 13.7 % (11.6-14.4); White Blood Count 4.8 K/mm3 (4.8-10.8)
[2023-10-30 11:46] LABS: Alanine Aminotransferase 21 U/L (14-59); Albumin Level 3.1 g/dL (3.4-5.0); Alkaline Phosphatase 54 U/L (46-116); Anion Gap 8 mmol/L (8-16); Aspartate Amino Transferase 20 U/L (15-37); Bilirubin,Total 0.4 mg/dL (0.00-1.00); Blood Urea Nitrogen 9 mg/dL (7-18); Calcium 8.9 mg/dL (8.5-10.1); Carbon Dioxide 31 mmol/L (21-32); Chloride 101 mmol/L (98-108); Estimated Glomerular Filt Rate > 60; Glucose 112 mg/dL (70-99); Osmolality Calculated 289 mOsm/kg (285-295); Potassium 4.2 mmol/L (3.5-5.1); Sodium 140 mmol/L (136-145)
[2023-10-30 11:47] LABS: Thyroid Stimulating Hormone Reflex 1.35 u/IU/mL (0.36-3.74)
[2023-11-07 08:19] LABS: Cortisol Random 8.7 mcg/dL (***)
== END 2023-10-30 10:11 | disposition home or self-care (01) ==
LOC: CHSLAB 10:12
PROVIDERS: PCP Internal Medicine; Visit Provider Internal Medicine Hematology
DX: C34.91 Malignant neoplasm of unspecified part of right bronchus or lung (principal); R53.83 Other fatigue
CPT/HCPCS: 36415; 80053; 82533; 84443; 85025

== ENCOUNTER 2023-10-31 16:46 | Observation (INO) | payer OTHER, SELFPAY ==
[2023-10-31] VITALS (8 sets, daily range): BP systolic 130–169; BP diastolic 78–89; PULSE 71–82; RESP 16–20; TEMP 36.4–36.9; O2SAT 88–95; BMI 31.2
--- NOTE | ~2023-10-31 | US_ITS ---
EXAMINATION: US right upper quadrant DATE: 11/01/2023 07:43 INDICATION: Right upper quadrant pain TECHNIQUE: Multiple grayscale and Doppler ultrasound images of the abdomen were obtained. COMPARISON: CT, 10/31/2023 FINDINGS: The head and body of the pancreas are normal. The pancreatic tail is obscured by bowel gas. There is a questionable hypoechoic area of the liver adjacent to the gallbladder fossa measuring up to 4.3 cm. The liver is otherwise normal with normal echogenicity and echotexture. No surface nodular ity. Normal hepatopetal flow in the main portal vein. The gallbladder is distended and contains multi ple stones. No pericholecystic fluid or gallbladder wall thickening are identified. The normal common bile duct measures 5 mm. There was no sonographic Paiz sign although sensitivity is limited by mary n medication. IMPRESSION: 1. Cholelithiasis and gallbladder distention without gallbladder wall thickening or pericholecystic f luid. Findings are equivocal for acute cholecystitis. Consider nuclear hepatobiliary scan. 2. Possible liver mass not definitely demonstrated on the comparison noncontrast CT. Follow-up CT or MRI without and with contrast is recommended. Reviewed, dictated and finalized at location B. ROENTEROLOGY TEACHER IMPRESSION: 1. Cholelithiasis and gallbladder distention without gallbladder wall thickenin g or pericholecystic fluid. Findings are equivocal for acute cholecystitis. Con journalist nuclear hepatobiliary scan. 2. Possible liver mass not definitely demonstrated on the comparison noncontras t CT. Follow-up CT or MRI without and with contrast is recommended.
--- NOTE | ~2023-10-31 | CT_ITS ---
EXAMINATION: CT abdomen pelvis wo con DATE: 10/31/2023 17:56 INDICATION: Abdominal pain. TECHNIQUE: Computed tomography (CT) of the abdomen and pelvis was performed without intravenous contr ast. Automated exposure control and iterative reconstruction technique were employed. The dose-length product was 1070.09 mGy-cm. COMPARISON: CT abdomen and pelvis 10/22/2023 FINDINGS: The visualized portions of the lung bases demonstrate mild atelectasis. There is a small ri ght pleural effusion. The heart size is normal. There are coronary artery calcifications. No pericard ial effusion. Calcifications in the liver and spleen are consistent with old granulomatous disease. T here are gallstones in the gallbladder, which is distended. The pancreas and left adrenal gland are n ormal. There is a 19 mm mass of fat in right adrenal gland, consistent with a myelolipoma. There is a 4 mm stone in right kidney. Left kidney is normal. There is calcified atherosclerosis of the aorta a nd many of the other arteries. There is diverticulosis of the colon without evidence of diverticuliti s. The appendix is normal. There are no pathologically enlarged lymph nodes. There is no free intrape ritoneal fluid. There is moderate lumbar spondylosis. Lumbar levoscoliosis is noted. There are bridgi ng endplate osteophytes at multiple levels in the thoracic spine, consistent with diffuse idiopathic skeletal hyperostosis (DISH). IMPRESSION: 1. Small right pleural effusion. 2. Cholelithiasis. Gallbladder distention may be secondary to fasting or acute cholecystitis. Correla te with physical exam. Reviewed, dictated and finalized at location E. P DRIVER IMPRESSION: 1. Small right pleural effusion. 2. Cholelithiasis. Gallbladder distention may be secondary to fasting or acute cholecystitis. Correlate with physical exam.
--- NOTE | ~2023-10-31 | XR_ITS ---
Portable chest x-ray Comparison: 06/19/2023 Clinical History: Hypoxia, lung cancer Findings: Right-sided Mediport in place. There is a focal airspace opacity in the right upper lobe, presumably related to patient's history of lung cancer. Left lung clear. No pleural effusion or pneum othorax. Cardiomediastinal silhouette is stable. Bones and soft tissues are unremarkable. Impression: Focal airspace opacity right upper lobe is probably related to the patient's history of lung cancer, somewhat similar to prior exam. Right-sided Mediport. Reviewed, dictated and finalized at location . ING MACHINE OPERATOR Impression: Focal airspace opacity right upper lobe is probably related to the patient's hi story of lung cancer, somewhat similar to prior exam. Right-sided Mediport.
--- NOTE | 2023-10-31 17:22 | ECG_ITS ---
Measurements Intervals [place] Rate: 70 P: 64 UT: 172 QRS: 25 QRSD: 128 T: 25 QT: 418 QTc: 452 Interpretive Statements SINUS RHYTHM INCOMPLETE LEFT BUNDLE BRANCH BLOCK ABNORMAL ECG COMPARED TO ECG 06/19/2023 16:20:55 NO SIGNIFICANT CHANGES Electronically Signed On 11-01-2023 12:06:00 STRATEGIC PLANNING DIRECTOR by Mao Tracey M.D.
[2023-10-31] MEDS: SODIUM CHLORIDE 0.9% IV 500 ML 999 ML IV CONT (17:41)
[2023-10-31] MEDS: PANTOPRAZOLE SODIUM IV 40 MG VIAL IV PUSH (17:42)
[2023-10-31] MEDS: KETOROLAC 30 MG/ML VIAL (*BKC) IV PUSH (17:42)
[2023-10-31] MEDS: ONDANSETRON INJ 4 MG/2 ML VIAL IV PUSH (17:42)
[2023-10-31 18:12] LABS: Basophils Absolute Auto 0.01 K/mm3 (0.00-0.10); Basophils Percent Auto 0.1 % (0.0-1.0); Eosinophils Absolute Auto 0.06 K/mm3 (0.02-0.50); Eosinophils Percent Auto 0.8 % (1.0-6.0); Hematocrit 40.4 % (35.0-42.0); Hemoglobin 12.6 g/dL (11.7-13.8); Immature Granulocyte Absolute 0.02 K/mm3 (0.00-0.00); Immature Granulocyte Percent A 0.3 % (0.0-0.0); Lymphocytes Absolute Auto 0.73 K/mm3 (1.10-4.50); Lymphocytes Percent Auto 9.2 % (18.0-42.0); Mean Corpuscular HGB Conc 31.2 g/dL (32.0-36.0); Mean Corpuscular Volume 93.1 fL (78.0-102.0); Monocytes Absolute Auto 0.37 K/mm3 (0.10-0.90); Monocytes Percent Auto 4.7 % (2.0-11.0); Neutrophils Absolute Auto 6.8 K/mm3 (1.7-7.2); Neutrophils Percent Auto 84.9 % (50.0-70.0); Platelet Count Result 211 K/mm3 (150-420); Red Blood Count 4.34 M/mm3 (4.20-5.40); Red Cell Distribution Width 13.6 % (11.6-14.4)
[2023-10-31 18:26] LABS: Partial Thromboplastin Time 26.8 SEC (23.90-30.70); Prothrombin Time 11.2 Seconds (9.50-12.10)
[2023-10-31 18:32] LABS: Alanine Aminotransferase 137 U/L (14-59); Albumin Level 3.1 g/dL (3.4-5.0); Alkaline Phosphatase 66 U/L (46-116); Anion Gap 9 mmol/L (8-16); Aspartate Amino Transferase 256 U/L (15-37); Bilirubin,Total 1.2 mg/dL (0.00-1.00); Blood Urea Nitrogen 15 mg/dL (7-18); Calcium 8.8 mg/dL (8.5-10.1); Carbon Dioxide 31 mmol/L (21-32); Chloride 100 mmol/L (98-108); Estimated CRCL calculation 61 ml/min; Estimated Glomerular Filt Rate > 60; Glucose 132 mg/dL (70-99); Lipase 60 U/L (16-77); Osmolality Calculated 292 mOsm/kg (285-295); Potassium 3.9 mmol/L (3.5-5.1); Sodium 140 mmol/L (136-145); Total Protein 8.4 g/dL (6.4-8.2); Troponin I 4.1 ng/L (0.00-60.4)
[2023-10-31 18:53] LABS: Appearance Urine Clear (Clear); Bilirubin Urine Negative (Negative); Blood Urine Negative (Negative); Color Urine Yellow (Yellow); Glucose Urine UA Negative (Negative); Ketones Urine Trace (Negative); Leukocyte Esterase Ur Trace LEU/UL (Negative); Nitrate Urine Negative (Negative); Protein Urine Negative (Negative); Urobilinogen Urine 0.2 mg/dL (0.2-1.0); pH Urine 6.5 (5.0-8.0)
[2023-10-31 19:01] LABS: SARS-CoV-2 RNA PCR Negative (Negative)
[2023-10-31 19:02] LABS: Add Urine Microscopic? YES; Amorphous Sediment Urine Moderate; Bacteria Urine Trace /hpf; RBC Urine 0-2 /hpf (0-2); Squamous Epithelial Cell Urine None seen /hpf (Few)
[2023-10-31 19:02] LABS: Influenza A QL RT-PCR Negative (Negative); Influenza B QL RT-PCR Negative (Negative); RSV RNA, RT-PCR Negative (Negative)
--- NOTE | 2023-10-31 19:06 | ED.ABDPAIN ---
HPI - Abdominal Pain General Chief Complaint: Abdominal Pain Stated Complaint: abdominal pain; nausea Source: patient and EMS Mode of arrival: EMS Limitations: physical limitation History of Present Illness HPI narrative: this is a 77-year-old female presents with abdominal pain right upper quadrant intermittent has resolved has been having some nausea vomiting with no fever chills vitals are stable there is some nausea and vomiting with no diarrhea constipation no dysuria no flank pain no fever chills. Patient with a history of lung cancer and is going to start chemo, O2 sats initially were in the 90s currently holding at 90 on 2L. MD elicited complaint: abdominal pain Onset (ago): hour(s) Pain Consistency: intermittent and now resolved Location: RUQ Severity: mild Relieving factors: vomiting Related Data Home Medications Medication Instructions Recorded Confirmed amlodipine 5 mg tablet 5 mg PO DAILY 11/23/20 06/19/23 aspirin 81 mg tablet 81 mg PO DAILY 11/23/20 06/19/23 atorvastatin 40 mg tablet 40 mg PO DAILY 11/23/20 06/19/23 bisacodyl 5 mg tablet,delayed 10 mg PO PRN 11/23/20 06/19/23 release fluticasone propionate 50 2 spray intranasal DAILY 11/23/20 06/19/23 mcg/actuation nasal spray,suspension acetaminophen 500 mg capsule 500 mg PO Q6H PRN Pain 12/16/20 06/19/23 docusate sodium 100 mg capsule 100 mg PO DAILY 12/16/20 06/19/23 multivitamin 1 tablet PO DAILY 12/16/20 06/19/23 escitalopram oxalate 10 mg tablet 10 mg PO QAM 11/27/22 06/19/23 Allergies Allergy/AdvReac Type Severity Reaction Status Date / Time codeine Allergy Mild Unknown Verified 06/19/23 15:38 Iodinated Contrast Media Allergy Mild Unknown Verified 06/19/23 15:38 Sulfa (Sulfonamide Allergy Mild Unknown Verified 06/19/23 15:38 Antibiotics) Review of Systems Review of Systems: All systems reviewed & are unremarkable except as noted in HPI and below PMFSH Past Medical History Medical History Chest pain CVA (cerebral vascular accident) Dementia in other diseases classified elsewhere without behavioral disturbance Dysthymic HTN (hypertension) Impacted cerumen, right ear Impaired fasting glucose Inconclusive mammogram Mixed hyperlipidemia Primary generalized hypertrophic osteoarthrosis Pyelonephritis Renal insufficiency Spastic hemiplegia affecting right dominant side Surgical History Surgical History History of bladder surgery Family History Family History Mother Diabetes mellitus Father Smoker Cerebrovascular accident Alcoholic Myocardial infarct Heart disease Social History Social History Social History: , previous smoker, previous drinker Smoking status: Never smoker Tobacco type: cigarettes Additional smoking assessment comments: 09/10 PPD Alcohol intake: former Substance use: never Living arrangements: group home Sexual Orientation (if Verbalized by the Patient): Straight or Heterosexual Exam Const: General: healthy appearing and no acute distress Nutritional Appearance: well nourished Limitations: no limitations Eyes: Conjunctivae: conjunctivae normal Neck: Neck: normal visual inspection Chest: Chest palpation & inspection: normal inspection of the chest Resp: Effort & Inspection: normal respiratory effort Auscultation: clear to auscultation bilaterally Cardio: Rate: regular rate Rhythm: regular rhythm GI: GI Palp: Yes Soft to palpation and Yes Tenderness to palpation present (GI) Auscultation: normal bowel sounds Urinary Catheter: Urinary Catheter: patent and draining Back/Spine/Pelvis: Back: no CVA tenderness Skin: General skin exam: normal color Rashes: no rashes Neuro: General: moves all extremities and no meningeal signs Extrem: Genera
[2023-10-31] MEDS: SODIUM CHLORIDE 0.9% IV 1,000 ML 100 ML IV CONT (19:34)
--- NOTE | 2023-10-31 19:40 | PC.NURSE ---
PT IS ASSISTED TO CHANGING INTO HOSPITAL GOWN, BELONGINGS LIST COMPLETED. PT IS AWARE OF PLAN OF CARE. DEPEND IS IN PLACE AND DRY. PT DENIES ANY NEEDS OR COMPLAINTS. PT IS AWAITING ADMISSION TO ROOM 205 AT [facility]. WILL CONTINUE TO MONITOR.
--- NOTE | 2023-10-31 19:55 | ADMGEN ---
This patient, Bea Castro, was admitted to 2nd Floor Room 205-1. Patient/family oriented to hospital policies and general routines including ID bracelet, bed and alarms, visiting hours, pain management, procedures, bathroom and other care routines, personal items, smoking policy, room service/diet, and visiting hours. Information on how to activate the Rapid Response Team has been discussed. Patient/Family are encouraged to report perceived risks to care and to ask questions if they do not understand what they are told or what they should do.
[2023-10-31] MEDS: methylPREDNISolone SOD SUCC 40 MG VIAL IV PUSH (22:51)
[2023-11-01] VITALS (11 sets, daily range): BP systolic 126–136; BP diastolic 57–85; PULSE 72–83; RESP 16–20; TEMP 36.3–36.7; O2SAT 90–96
[2023-11-01] MEDS: IPRATROPIUM 0.5 MG/ALBUTEROL SULFATE 2.5 MG AMPUL.NEB 3 ML INHALATION ×5 (00:20→23:48)
[2023-11-01] MEDS: ACETAMINOPHEN 500 MG TABLET PO (04:10)
[2023-11-01] MEDS: methylPREDNISolone SOD SUCC 40 MG VIAL IV PUSH ×3 (05:33→18:15)
[2023-11-01] MEDS: SODIUM CHLORIDE 0.9% IV 1,000 ML 100 ML IV CONT ×2 (05:33→16:47)
[2023-11-01 05:45] LABS: Basophils Absolute Auto 0.02 K/mm3 (0.00-0.10); Basophils Percent Auto 0.4 % (0.0-1.0); Eosinophils Absolute Auto 0.06 K/mm3 (0.02-0.50); Eosinophils Percent Auto 1.2 % (1.0-6.0); Hematocrit 35.2 % (35.0-42.0); Hemoglobin 11.1 g/dL (11.7-13.8); Immature Granulocyte Absolute 0.01 K/mm3 (0.00-0.00); Immature Granulocyte Percent A 0.2 % (0.0-0.0); Lymphocytes Absolute Auto 0.91 K/mm3 (1.10-4.50); Lymphocytes Percent Auto 18.9 % (18.0-42.0); Mean Corpuscular HGB Conc 31.5 g/dL (32.0-36.0); Mean Corpuscular Hemoglobin 29.7 pg (27.0-31.0); Mean Corpuscular Volume 94.1 fL (78.0-102.0); Monocytes Absolute Auto 0.35 K/mm3 (0.10-0.90); Monocytes Percent Auto 7.3 % (2.0-11.0); Neutrophils Absolute Auto 3.5 K/mm3 (1.7-7.2); Platelet Count Result 176 K/mm3 (150-420); Red Blood Count 3.74 M/mm3 (4.20-5.40); Red Cell Distribution Width 13.6 % (11.6-14.4); White Blood Count 4.8 K/mm3 (4.8-10.8)
[2023-11-01 06:05] LABS: Alanine Aminotransferase 230 U/L (14-59); Albumin Level 2.5 g/dL (3.4-5.0); Alkaline Phosphatase 72 U/L (46-116); Anion Gap 7 mmol/L (8-16); Aspartate Amino Transferase 280 U/L (15-37); Bilirubin,Total 0.5 mg/dL (0.00-1.00); Blood Urea Nitrogen 12 mg/dL (7-18); Calcium 8.1 mg/dL (8.5-10.1); Carbon Dioxide 30 mmol/L (21-32); Chloride 105 mmol/L (98-108); Estimated CRCL calculation 76 ml/min; Estimated Glomerular Filt Rate > 60; Glucose 104 mg/dL (70-99); Osmolality Calculated 293 mOsm/kg (285-295); Potassium 3.7 mmol/L (3.5-5.1); Sodium 142 mmol/L (136-145); Total Protein 7.3 g/dL (6.4-8.2)
[2023-11-01] MEDS: ATORVASTATIN 40 MG TABLET PO (08:47)
[2023-11-01] MEDS: ESCITALOPRAM OXALATE 10 MG TABLET PO (08:47)
[2023-11-01] MEDS: MULTIVITAMINS THERAPEUTIC TAB (*BKC) 1 TABLET PO (08:47)
[2023-11-01] MEDS: amLODIPine BESYLATE 5 MG TABLET PO (08:47)
[2023-11-01] MEDS: FLUTICASONE PROPIONATE 0.05% NA SPR 16 GM BTL (*BKC) 2 SPRAY NASAL (08:48)
[2023-11-01] MEDS: PANTOPRAZOLE 40 MG TABLET PO (08:48)
[2023-11-01] MEDS: DOCUSATE SODIUM 100 MG CAPSULE PO (08:48)
--- NOTE | 2023-11-01 15:09 | PC.NURSE ---
OSBALDO Germain does has spoken with a surgeon and does not believe surgery would be beneficial for this pt, will continue to monitor her overnight and possibly send her back to [facility] tmrw if there are no further c/o worsening abd pain
--- NOTE | 2023-11-01 17:33 | PM.IMHP ---
H&P: HPI History of Present Illness Date/Time: 11/01/23 17:33 Chief Complaint: Abdominal pain Narrative: This is a 77-year-old female with a past medical history CVA, dementia, hypertension, hyperlipidemia, renal insufficiency, recent diagnosis of lung cancer, right chest wall port placement presented to the hospital for evaluation of abdominal pain. Patient stated that her pain started around 12:00 p.m. after eating lunch. She states that her pain is colicky and sharp and comes in waves. She denies any fever, chills, headache, nausea, vomiting, diarrhea, shortness of breath, chest pain. Workup in hospital includes a CT of the abdomen and pelvis without contrast which shown a right pleural effusion, cholelithiasis, gallbladder distention. Chest x-ray shown a focal airspace opacity in the right upper lobe likely related to patient history of lung cancer. Ultrasound of abdomen showing cholelithiasis and gallbladder distention without gallbladder wall thickening, suggesting acute coli cystitis, possible liver mass not definitive as this is a noncontrast CT. On examination today patient is alert and oriented x3, lying in the bed. She states that her pain is well controlled now and only complains that it is 1/10. Spoke with General surgery who feels that this is a non emergent situation and does not require further workup considering patient is feeling much better. She can likely go home and follow-up with GI in the future. We will watch her overnight and as long as everything is looking good and her labs are within range we will likely discharge in the morning. Review of Systems Review of Systems: All systems reviewed & are unremarkable except as noted in HPI and below Constitutional: Constitutional: Reports as per HPI and Reports no additional constitutional complaints Eyes: Eyes: Reports as per HPI and Reports no additional eye complaints ENT: Reports system reviewed and no additional complaints, except as documented and Reports as per HPI Cardiovascular: Cardiovascular: Reports as per HPI and Reports no additional cardiovascular complaints Respiratory: Respiratory: Reports as per HPI and Reports no additional respiratory complaints Gastrointestinal: Gastrointestinal: Reports as per HPI and Reports no additional gastrointestinal complaints Genitourinary: Genitourinary: Reports no additional female genitourinary complaints and Reports as per HPI Musculoskeletal: Musculoskeletal: Reports no additional musculoskeletal complaints and Reports as per HPI Integumentary/Breasts: Skin/Breast: Reports system reviewed and no additional complaints, except as docu and Reports as per HPI Neurologic: Reports system reviewed and no additional complaints, except as documented and Reports as per HPI Psychiatric: Psychiatric: Reports no additional psychiatric complaints and Reports as per HPI [facility] Past Medical History Medical History Chest pain CVA (cerebral vascular accident) Dementia in other diseases classified elsewhere without behavioral disturbance Dysthymic HTN (hypertension) Impacted cerumen, right ear Impaired fasting glucose Inconclusive mammogram Mixed hyperlipidemia Primary generalized hypertrophic osteoarthrosis Pyelonephritis Renal insufficiency Spastic hemiplegia affecting right dominant side Surgical History Surgical History History of bladder surgery Family History Family History Mother Diabetes mellitus Father Smoker Cerebrovascular accident Alcoholic Myocardial infarct Heart disease Social History Social History Social History: , previous smoker, previous drinker Smoking packs per day: 1.5 Smoking cigarettes per day: 30.0 Years smoked: 43 Smoking pack-years: 64.50 Smoking
[2023-11-02] VITALS: BP 131/56; PULSE 88; RESP 16; TEMP 36.9; O2SAT 94
[2023-11-02 00:05] VITALS: PULSE 86; RESP 20; O2SAT 96
[2023-11-02] MEDS: SODIUM CHLORIDE 0.9% IV 1,000 ML 100 ML IV CONT (04:15)
[2023-11-02] MEDS: IPRATROPIUM 0.5 MG/ALBUTEROL SULFATE 2.5 MG AMPUL.NEB 3 ML INHALATION ×2 (05:21→13:17)
[2023-11-02 05:23] VITALS: PULSE 90; RESP 20; O2SAT 85
[2023-11-02 05:28] VITALS: PULSE 78; RESP 18; O2SAT 97
[2023-11-02] MEDS: methylPREDNISolone SOD SUCC 40 MG VIAL IV PUSH (06:17)
[2023-11-02 08:00] VITALS: BP 131/70; PULSE 78; RESP 18; TEMP 35.9; O2SAT 93
[2023-11-02] MEDS: FLUTICASONE PROPIONATE 0.05% NA SPR 16 GM BTL (*BKC) 2 SPRAY NASAL (09:34)
[2023-11-02] MEDS: ENOXAPARIN 40 MG/0.4 ML SYRINGE SUB-Q (09:34)
[2023-11-02] MEDS: ASPIRIN 81 MG CHEWABLE TABLET PO (09:34)
[2023-11-02] MEDS: amLODIPine BESYLATE 5 MG TABLET PO (09:34)
[2023-11-02] MEDS: DOCUSATE SODIUM 100 MG CAPSULE PO (09:34)
[2023-11-02] MEDS: ESCITALOPRAM OXALATE 10 MG TABLET PO (09:35)
[2023-11-02] MEDS: PANTOPRAZOLE 40 MG TABLET PO (09:35)
[2023-11-02] MEDS: ATORVASTATIN 40 MG TABLET PO (09:35)
[2023-11-02] MEDS: MULTIVITAMINS THERAPEUTIC TAB (*BKC) 1 TABLET PO (09:35)
--- NOTE | 2023-11-02 10:06 | PM.DS ---
DS: Admitting Diagnosis Discharge Date 11/02/23 Admitting Diagnosis Abdominal pain GERD lung cancer mixed hyperlipidemia hypertension DS: Discharge Diagnosis Discharge Diagnosis (1) Abdominal pain: Qualifiers: Abdominal location: right upper quadrant Qualified Code(s): R10.11 - Right upper quadrant pain Code(s): R10.9 - Unspecified abdominal pain Status: Acute (2) GERD (gastroesophageal reflux disease): Qualifiers: Esophagitis presence: without esophagitis Qualified Code(s): K21.9 - Gastro-esophageal reflux disease without esophagitis Code(s): K21.9 - Gastro-esophageal reflux disease without esophagitis Status: Acute (3) Lung cancer: Qualifiers: Laterality: unspecified laterality Lung location: unspecified part of lung Qualified Code(s): C34.90 - Malignant neoplasm of unspecified part of unspecified bronchus or lung Code(s): C34.90 - Malignant neoplasm of unspecified part of unspecified bronchus or lung Status: Acute (4) Mixed hyperlipidemia: Code(s): E78.2 - Mixed hyperlipidemia Status: Acute (5) HTN (hypertension): Code(s): I10 - Essential (primary) hypertension Status: Acute DS: Summary Hospital Course Reason for hospitalization: abdominal pain GERD lung cancer mixed hyperlipidemia hypertension Hospital Course: 11/01/23: This is a 77-year-old female with a past medical history CVA, dementia, hypertension, hyperlipidemia, renal insufficiency, recent diagnosis of lung cancer, right chest wall port placement presented to the hospital for evaluation of abdominal pain.? Patient stated that her pain started around 12:00 p.m. after eating lunch.? She states that her pain is colicky and sharp and comes in waves.? She denies any fever, chills, headache, nausea, vomiting, diarrhea, shortness of breath, chest pain.? Workup in hospital includes a CT of the abdomen and pelvis without contrast which shown a right pleural effusion, cholelithiasis, gallbladder distention. Chest x-ray shown a focal airspace opacity in the right upper lobe likely related to patient history of lung cancer.? Ultrasound of abdomen showing cholelithiasis and gallbladder distention without gallbladder wall thickening, suggesting acute coli cystitis, possible liver mass not definitive as this is a noncontrast CT.? On examination today patient is alert and oriented x3, lying in the bed.? She states that her pain is well controlled now and only complains that it is 1/10.? Spoke with General surgery who feels that this is a non emergent situation and does not require further workup considering patient is feeling much better.? She can likely go home and follow-up with GI in the future.? We will watch her overnight and as long as everything is looking good and her labs are within range we will likely discharge in the morning. 11/02/2023: On examination today patient is alert oriented x3, sitting in the chair. She denies any nausea, vomiting, diarrhea, abdominal pain, fever, chills, chest pain, shortness a breath, headache. Labs today still show a normal WBC at 9.6, hemoglobin is 9.9, hematocrit is 32.2, CMP is unremarkable, AST is down to 69, ALT is 120. Patient is stable for discharge at this time. She will need to follow up with her primary care physician in 1 week. She will need to follow-up with General surgery within the next 2 weeks on an outpatient basis. final diagnosis: acute cholecystitis Status at Discharge Cognitive/behavioral status at discharge: alert oriented x3 Functional status at discharge: uses cane/walker Overall status at discharge: patient is progressing back to baseline Time Spent with Patient Time attestation: Total time spent providing and/or coordinating discharge services: Exam Narrative: General: In no acute distress, well nourished Head: atraumatic, no encephalopathy Eyes: EOMI, PERRLA, sclera clear ENT: moist mucou
[2023-11-02 11:01] LABS: Basophils Absolute Auto 0.01 K/mm3 (0.00-0.10); Basophils Percent Auto 0.1 % (0.0-1.0); Hematocrit 32.2 % (35.0-42.0); Hemoglobin 9.9 g/dL (11.7-13.8); Immature Granulocyte Absolute 0.03 K/mm3 (0.00-0.00); Immature Granulocyte Percent A 0.3 % (0.0-0.0); Lymphocytes Absolute Auto 0.99 K/mm3 (1.10-4.50); Lymphocytes Percent Auto 10.3 % (18.0-42.0); Mean Corpuscular HGB Conc 30.7 g/dL (32.0-36.0); Mean Corpuscular Hemoglobin 29.1 pg (27.0-31.0); Mean Corpuscular Volume 94.7 fL (78.0-102.0); Monocytes Absolute Auto 0.63 K/mm3 (0.10-0.90); Monocytes Percent Auto 6.6 % (2.0-11.0); Neutrophils Absolute Auto 7.9 K/mm3 (1.7-7.2); Neutrophils Percent Auto 82.7 % (50.0-70.0); Platelet Count Result 168 K/mm3 (150-420); Red Cell Distribution Width 13.9 % (11.6-14.4); White Blood Count 9.6 K/mm3 (4.8-10.8)
[2023-11-02 11:17] LABS: Alanine Aminotransferase 120 U/L (14-59); Albumin Level 2.4 g/dL (3.4-5.0); Alkaline Phosphatase 56 U/L (46-116); Anion Gap 7 mmol/L (8-16); Aspartate Amino Transferase 69 U/L (15-37); Bilirubin,Total 0.2 mg/dL (0.00-1.00); Blood Urea Nitrogen 8 mg/dL (7-18); Calcium 8.4 mg/dL (8.5-10.1); Carbon Dioxide 29 mmol/L (21-32); Chloride 107 mmol/L (98-108); Estimated CRCL calculation 74 ml/min; Estimated Glomerular Filt Rate > 60; Glucose 125 mg/dL (70-99); Osmolality Calculated 295 mOsm/kg (285-295); Potassium 4.1 mmol/L (3.5-5.1); Sodium 143 mmol/L (136-145); Total Protein 6.8 g/dL (6.4-8.2)
--- NOTE | 2023-11-02 14:15 | PC.NURSE ---
Pt's son BJ notified of discharge.
--- NOTE | 2023-11-02 14:45 | PC.NURSE ---
Report called to Nely at [facility]. All questions answered. Staff to pharmacy picking tech patient around 1530.
--- NOTE | 2023-11-02 15:55 | PC.NURSE ---
Pt assisted into personal wheelchair and taken back to [facility] by [facility] staff.
--- NOTE | 2023-11-04 11:44 | PC.NURSE ---
Discharge back to half-way, no questions by nursing staff on dc instructions
== END 2023-11-02 15:55 ==
LOC: CHSED 19:16 → CHS2ND 19:27
PROVIDERS: Nurse Practitioner Acute Care; Admitting Provider Internal Medicine; Emergency Provider Emergency Medicine; PCP Internal Medicine; Visit Provider Internal Medicine
DX: R10.11 Right upper quadrant pain (principal); C34.90 Malignant neoplasm of unspecified part of unspecified bronchus or lung; Z95.828 Presence of other vascular implants and grafts; F03.90 Unspecified dementia, unspecified severity, without behavioral disturbance, psychotic disturbance, mood disturbance, and anxiety; R94.31 Abnormal electrocardiogram [ECG] [EKG]; K80.20 Calculus of gallbladder without cholecystitis without obstruction; I10 Essential (primary) hypertension; I69.351 Hemiplegia and hemiparesis following cerebral infarction affecting right dominant side; K21.9 Gastro-esophageal reflux disease without esophagitis; N28.9 Disorder of kidney and ureter, unspecified; Z20.822 Contact with and (suspected) exposure to COVID-19; E78.2 Mixed hyperlipidemia; M15.8 Other polyosteoarthritis; Z87.891 Personal history of nicotine dependence; Z79.82 Long term (current) use of aspirin; Z79.1 Long term (current) use of non-steroidal anti-inflammatories (NSAID); Z79.899 Other long term (current) drug therapy
CPT/HCPCS: 36415; 71045; 74176; 76705; 80053; 81001; 83605; 83690; 84484; 85025; 85610; 85730; 87637; 93005; 94640; 96361; 96365; 96372; 96375; 96376; 99285; A9270; C9113; G0378; J0696; J1650; J1885; J2405; J2920; J7030; J7040

== ENCOUNTER 2023-11-06 10:45 | Outpatient (CLI) | payer OTHER, SELFPAY ==
--- NOTE | ~2023-11-06 | MR_ITS ---
EXAMINATION: MR brain/brain stem wo/w con DATE: 11/06/2023 11:40 INDICATION: Right lung cancer. TECHNIQUE: Magnetic resonance imaging (MRI) of the brain and brainstem was performed without and with 16 mL MultiHance intravenous contrast. COMPARISON: Brain MRI 12/20/2022 FINDINGS: There is old infarct involving the posterior limb left internal capsule. There are old infa rcts involving the bilateral thalami and basal ganglia. There are scattered areas of nonspecific incr eased T2-weighted signal intensity in the cerebral white matter. There is no intracranial hemorrhage, acute infarction, or abnormal intracranial mass lesion. The ventricles are normal in size. The orbit s are normal. The paranasal sinuses are clear. There is a small right mastoid effusion. IMPRESSION: 1. No evidence of metastatic disease. 2. Old infarcts in the brain. 3. Stable moderate nonspecific cerebral white matter disease, which likely represents chronic small v essel ischemic disease. Reviewed, dictated and finalized at location A. STANT SOFTBALL COACH IMPRESSION: 1. No evidence of metastatic disease. 2. Old infarcts in the brain. 3. Stable moderate nonspecific cerebral white matter disease, which likely repr esents chronic small vessel ischemic disease.
== END 2023-11-06 10:46 | disposition home or self-care (01) ==
LOC: ANHIMG 10:46
PROVIDERS: PCP Internal Medicine; Visit Provider Internal Medicine Hematology
DX: C34.91 Malignant neoplasm of unspecified part of right bronchus or lung (principal); R90.82 White matter disease, unspecified
CPT/HCPCS: 70553; A9577

== ENCOUNTER 2023-11-07 07:06 | Outpatient (NON) | payer OTHER, SELFPAY ==
[2023-11-07 08:24] LABS: Hemoglobin A1C 5.6 % (<5.7)
[2023-11-07 08:43] LABS: Alanine Aminotransferase 47 U/L (14-59); Alkaline Phosphatase 54 U/L (46-116); Anion Gap 11 mmol/L (8-16); Aspartate Amino Transferase 23 U/L (15-37); Bilirubin,Total 0.4 mg/dL (0.00-1.00); Blood Urea Nitrogen 16 mg/dL (7-18); Calcium 8.3 mg/dL (8.5-10.1); Carbon Dioxide 27 mmol/L (21-32); Chloride 105 mmol/L (98-108); Cholesterol 124 mg/dL (0-200); Creatine Kinase 38 U/L (26-192); Estimated Glomerular Filt Rate > 60; Glucose 88 mg/dL (70-99); HDL Direct 60 mg/dL (40-60); LDL Cholesterol Calculated 35 mg/dL (<130); Osmolality Calculated 296 mOsm/kg (285-295); Potassium 3.7 mmol/L (3.5-5.1); Sodium 143 mmol/L (136-145); Total Protein 6.7 g/dL (6.4-8.2); Triglycerides 147 mg/dL (0-150)
== END 2023-11-07 07:07 | disposition home or self-care (01) ==
LOC: CHSLAB 07:09
PROVIDERS: Visit Provider Internal Medicine
DX: C34.90 Malignant neoplasm of unspecified part of unspecified bronchus or lung (principal); I11.9 Hypertensive heart disease without heart failure; H81.10 Benign paroxysmal vertigo, unspecified ear; I69.351 Hemiplegia and hemiparesis following cerebral infarction affecting right dominant side; I10 Essential (primary) hypertension; E11.9 Type 2 diabetes mellitus without complications
CPT/HCPCS: 36415; 80053; 80061; 82550; 83036

== ENCOUNTER 2023-11-26 07:24 | Outpatient (NON) | payer OTHER, SELFPAY ==
[2023-11-26 07:51] LABS: Basophils Absolute Auto 0.02 K/mm3 (0.00-0.10); Basophils Percent Auto 0.4 % (0.0-1.0); Eosinophils Absolute Auto 0.13 K/mm3 (0.02-0.50); Eosinophils Percent Auto 2.6 % (1.0-6.0); Hematocrit 37.1 % (35.0-42.0); Hemoglobin 11.5 g/dL (11.7-13.8); Immature Granulocyte Absolute 0.01 K/mm3 (0.00-0.00); Immature Granulocyte Percent A 0.2 % (0.0-0.0); Lymphocytes Absolute Auto 1.32 K/mm3 (1.10-4.50); Lymphocytes Percent Auto 26.6 % (18.0-42.0); Mean Corpuscular Hemoglobin 29.3 pg (27.0-31.0); Mean Corpuscular Volume 94.4 fL (78.0-102.0); Mean Platelet Volume 9.9 fl (9.2-11.8); Monocytes Absolute Auto 0.47 K/mm3 (0.10-0.90); Monocytes Percent Auto 9.5 % (2.0-11.0); Neutrophils Absolute Auto 3.02 K/mm3 (1.70-7.20); Neutrophils Percent Auto 60.7 % (50.0-70.0); Platelet Count Result 187 K/mm3 (150-420); Red Blood Count 3.93 M/mm3 (4.20-5.40); Red Cell Distribution Width 13.5 % (11.6-14.4)
[2023-11-26 08:03] LABS: Alanine Aminotransferase 21 U/L (14-59); Alkaline Phosphatase 55 U/L (46-116); Anion Gap 8 mmol/L (8-16); Aspartate Amino Transferase 19 U/L (15-37); Bilirubin,Total 0.3 mg/dL (0.00-1.00); Blood Urea Nitrogen 8 mg/dL (7-18); Calcium 8.5 mg/dL (8.5-10.1); Carbon Dioxide 30 mmol/L (21-32); Chloride 105 mmol/L (98-108); Cholesterol 118 mg/dL (0-200); Creatine Kinase 38 U/L (26-192); Estimated Glomerular Filt Rate > 60; Glucose 87 mg/dL (70-99); HDL Direct 56 mg/dL (40-60); LDL Cholesterol Calculated 31 mg/dL (<130); Osmolality Calculated 293 mOsm/kg (285-295); Potassium 3.9 mmol/L (3.5-5.1); Sodium 143 mmol/L (136-145); Total Protein 6.5 g/dL (6.4-8.2); Triglycerides 157 mg/dL (0-150)
[2023-11-26 08:08] LABS: Hemoglobin A1C 5.1 % (<5.7)
== END 2023-11-26 07:25 | disposition home or self-care (01) ==
LOC: CHSLAB 07:25
PROVIDERS: Visit Provider Internal Medicine
DX: C34.90 Malignant neoplasm of unspecified part of unspecified bronchus or lung (principal); I11.9 Hypertensive heart disease without heart failure; I10 Essential (primary) hypertension; E78.5 Hyperlipidemia, unspecified; E11.9 Type 2 diabetes mellitus without complications
CPT/HCPCS: 36415; 80053; 80061; 82550; 83036; 85025

== ENCOUNTER 2023-11-28 09:42 | Outpatient (CLI) | payer OTHER, SELFPAY ==
[2023-11-28 10:01] VITALS: BMI 32.3
[2023-11-28 10:15] VITALS: BP 123/75; PULSE 80; RESP 14; TEMP 36.5; O2SAT 96
[2023-11-28] MEDS: DURVALUMAB IVPB (10:15)
[2023-11-28] MEDS: SODIUM CHLORIDE 0.9% IVPB (10:15)
[2023-11-28] MEDS: HEPARIN SODIUM LOCK FLUSH 500 UNITS/5 ML SYRINGE IV PUSH (11:08)
[2023-11-28 11:25] VITALS: BP 130/72; PULSE 88; RESP 14; O2SAT 97
--- NOTE | 2023-11-28 11:26 | PC.NURSE ---
Patient here for Durvalumab infusion. Labs reviewed from 11/26/23. Per Dr. Palmer Cortisol and TSH can be drawn with December' tx dose. Labs ok'd. Education given. All concerns voiced answered. Infusion administered. SEE MAR. Tolerated well. Will return 12/26/23 at 1000 for next treatment. prison staff over to take patient back per . Safe exit of hospital.
== END 2023-11-28 11:30 | disposition home or self-care (01) ==
LOC: CHSTREATRM 09:45
PROVIDERS: PCP Internal Medicine; Visit Provider Internal Medicine Hematology
DX: Z51.11 Encounter for antineoplastic chemotherapy (principal); C34.01 Malignant neoplasm of right main bronchus
CPT/HCPCS: 96413; J7050; J9173

== ENCOUNTER 2023-12-12 06:59 | Outpatient (NON) | payer OTHER, SELFPAY ==
[2023-12-12 07:30] LABS: Basophils Absolute Auto 0.02 K/mm3 (0.00-0.10); Basophils Percent Auto 0.4 % (0.0-1.0); Eosinophils Absolute Auto 0.09 K/mm3 (0.02-0.50); Eosinophils Percent Auto 1.9 % (1.0-6.0); Hematocrit 39.6 % (35.0-42.0); Hemoglobin 12.6 g/dL (11.7-13.8); Immature Granulocyte Absolute 0.02 K/mm3 (0.00-0.00); Immature Granulocyte Percent A 0.4 % (0.0-0.0); Lymphocytes Absolute Auto 1.21 K/mm3 (1.10-4.50); Lymphocytes Percent Auto 26.1 % (18.0-42.0); Mean Corpuscular HGB Conc 31.8 g/dL (32-36); Mean Corpuscular Hemoglobin 29.7 pg (27.0-31.0); Mean Corpuscular Volume 93.4 fL (78.0-102.0); Mean Platelet Volume 9.5 fl (9.2-11.8); Monocytes Absolute Auto 0.42 K/mm3 (0.10-0.90); Monocytes Percent Auto 9.1 % (2.0-11.0); Neutrophils Absolute Auto 2.87 K/mm3 (1.70-7.20); Neutrophils Percent Auto 62.1 % (50.0-70.0); Platelet Count Result 215 K/mm3 (150-420); Red Blood Count 4.24 M/mm3 (4.20-5.40); Red Cell Distribution Width 13.5 % (11.6-14.4); White Blood Count 4.6 K/mm3 (4.8-10.8)
[2023-12-12 07:55] LABS: Alanine Aminotransferase 20 U/L (14-59); Albumin Level 3.2 g/dL (3.4-5.0); Alkaline Phosphatase 63 U/L (46-116); Anion Gap 7 mmol/L (4-12); Aspartate Amino Transferase 18 U/L (15-37); Bilirubin,Total 0.4 mg/dL (0.00-1.00); Blood Urea Nitrogen 8 mg/dL (7-18); Calcium 8.9 mg/dL (8.5-10.1); Carbon Dioxide 31 mmol/L (21-32); Chloride 105 mmol/L (98-108); Estimated Glomerular Filt Rate > 60; Glucose 90 mg/dL (70-99); Osmolality Calculated 294 mOsm/kg (285-295); Potassium 4.3 mmol/L (3.5-5.1); Sodium 143 mmol/L (136-145); Total Protein 7.2 g/dL (6.4-8.2)
[2023-12-15 06:58] LABS: Cortisol Random 16.1 mcg/dL (***)
== END 2023-12-12 07:00 | disposition home or self-care (01) ==
LOC: CHSLAB 07:02
PROVIDERS: PCP Internal Medicine; Visit Provider Internal Medicine Hematology
DX: C34.90 Malignant neoplasm of unspecified part of unspecified bronchus or lung (principal); I11.9 Hypertensive heart disease without heart failure; I10 Essential (primary) hypertension
CPT/HCPCS: 36415; 80053; 82533; 84443; 85025

== ENCOUNTER 2023-12-26 09:48 | Outpatient (CLI) | payer OTHER, SELFPAY ==
[2023-12-26 10:07] VITALS: BP 143/71; PULSE 76; RESP 16; TEMP 36.4; O2SAT 96; BMI 31.7
[2023-12-26] MEDS: SODIUM CHLORIDE 0.9% IVPB (10:15)
[2023-12-26] MEDS: DURVALUMAB IVPB (10:15)
[2023-12-26] MEDS: HEPARIN SODIUM LOCK FLUSH 500 UNITS/5 ML SYRINGE IV PUSH (11:20)
--- NOTE | 2023-12-26 11:25 | PC.NURSE ---
Patient here for #2 chemo infusion. Labs reviewed from 12/14/[address] Palmer. Education given. No concerns voiced. Medication administered. SEE MAR. Tolerated well. Will return January 23, 2024 1000. Safe exit of hospital per /longterm staff.
[2023-12-26 11:28] VITALS: BP 136/72; PULSE 72; RESP 14; O2SAT 95
== END 2023-12-26 09:49 | disposition home or self-care (01) ==
PROVIDERS: PCP Internal Medicine; Visit Provider Internal Medicine Hematology
DX: Z51.11 Encounter for antineoplastic chemotherapy (principal); C34.01 Malignant neoplasm of right main bronchus
CPT/HCPCS: 96413; J7050; J9173

== ENCOUNTER 2024-01-23 09:56 | Outpatient (CLI) | payer OTHER, SELFPAY ==
[2024-01-23 10:00] VITALS: BP 134/76; PULSE 64; RESP 16; TEMP 36.6; O2SAT 95; BMI 31.5
[2024-01-23 10:21] LABS: Basophils Absolute Auto 0.02 K/mm3 (0.00-0.10); Basophils Percent Auto 0.3 % (0.0-1.0); Eosinophils Absolute Auto 0.14 K/mm3 (0.02-0.50); Eosinophils Percent Auto 2.4 % (1.0-6.0); Hematocrit 39.5 % (35.0-42.0); Hemoglobin 12.4 g/dL (11.7-13.8); Immature Granulocyte Absolute 0.02 K/mm3 (0.00-0.00); Immature Granulocyte Percent A 0.3 % (0.0-0.0); Lymphocytes Absolute Auto 1.46 K/mm3 (1.10-4.50); Lymphocytes Percent Auto 25.4 % (18.0-42.0); Mean Corpuscular HGB Conc 31.4 g/dL (32-36); Mean Corpuscular Hemoglobin 29.5 pg (27.0-31.0); Mean Platelet Volume 9.3 fl (9.2-11.8); Monocytes Absolute Auto 0.42 K/mm3 (0.10-0.90); Monocytes Percent Auto 7.3 % (2.0-11.0); Neutrophils Absolute Auto 3.68 K/mm3 (1.70-7.20); Neutrophils Percent Auto 64.3 % (50.0-70.0); Platelet Count Result 210 K/mm3 (150-420); Red Cell Distribution Width 13.1 % (11.6-14.4); White Blood Count 5.7 K/mm3 (4.8-10.8)
[2024-01-23 10:45] LABS: Alanine Aminotransferase 22 U/L (14-59); Albumin Level 3.1 g/dL (3.4-5.0); Alkaline Phosphatase 61 U/L (46-116); Aspartate Amino Transferase 31 U/L (15-37); Bilirubin,Total 0.3 mg/dL (0.00-1.00); Blood Urea Nitrogen 12 mg/dL (7-18); Calcium 8.7 mg/dL (8.5-10.1); Carbon Dioxide 34 mmol/L (21-32); Estimated Glomerular Filt Rate > 60; Glucose 106 mg/dL (70-99); Thyroid Stimulating Hormone 1.13 uIU/mL (0.36-3.74); Total Protein 7.7 g/dL (6.4-8.2)
[2024-01-23 10:48] LABS: Anion Gap 5 mmol/L (4-12); Chloride 100 mmol/L (98-108); Osmolality Calculated 287 mOsm/kg (285-295); Potassium 4.1 mmol/L (3.5-5.1); Sodium 139 mmol/L (136-145)
[2024-01-23] MEDS: DURVALUMAB IVPB (11:15)
[2024-01-23] MEDS: SODIUM CHLORIDE 0.9% IVPB (11:15)
[2024-01-23] MEDS: HEPARIN SODIUM LOCK FLUSH 500 UNITS/5 ML SYRINGE IV PUSH (12:18)
[2024-01-23 12:25] VITALS: BP 132/81; PULSE 68; RESP 16; TEMP 36.6; O2SAT 95
--- NOTE | 2024-01-23 12:35 | PC.NURSE ---
Patient here for Infinzi infusion. Education given. Labs drawn/reviewed/ok'd for treatment. All concerns voiced answered. Infusion administered. SEE MAR. Tolerated well. Safe exit from hospital per [facility] with [employer].
== END 2024-01-23 12:38 | disposition home or self-care (01) ==
PROVIDERS: PCP Internal Medicine; Visit Provider Internal Medicine Hematology
DX: Z51.11 Encounter for antineoplastic chemotherapy (principal); C34.01 Malignant neoplasm of right main bronchus; I10 Essential (primary) hypertension
CPT/HCPCS: 36591; 80053; 82533; 84443; 85025; 96413; J7050; J9173

== ENCOUNTER 2024-02-20 09:25 | Outpatient (CLI) | payer OTHER, SELFPAY ==
[2024-02-20 09:35] VITALS: BP 119/73; PULSE 68; RESP 14; TEMP 36.6; O2SAT 97; BMI 29.1
[2024-02-20 09:49] LABS: Basophils Absolute Auto 0.03 K/mm3 (0.00-0.10); Basophils Percent Auto 0.6 % (0.0-1.0); Eosinophils Absolute Auto 0.06 K/mm3 (0.02-0.50); Eosinophils Percent Auto 1.2 % (1.0-6.0); Hematocrit 40.1 % (35.0-42.0); Hemoglobin 12.4 g/dL (11.7-13.8); Immature Granulocyte Absolute 0.01 K/mm3 (0.00-0.00); Immature Granulocyte Percent A 0.2 % (0.0-0.0); Lymphocytes Absolute Auto 1.36 K/mm3 (1.10-4.50); Lymphocytes Percent Auto 26.9 % (18.0-42.0); Mean Corpuscular HGB Conc 30.9 g/dL (32-36); Mean Corpuscular Hemoglobin 28.7 pg (27.0-31.0); Mean Corpuscular Volume 92.8 fL (78.0-102.0); Mean Platelet Volume 9.3 fl (9.2-11.8); Monocytes Absolute Auto 0.37 K/mm3 (0.10-0.90); Monocytes Percent Auto 7.3 % (2.0-11.0); Neutrophils Absolute Auto 3.23 K/mm3 (1.70-7.20); Neutrophils Percent Auto 63.8 % (50.0-70.0); Platelet Count Result 205 K/mm3 (150-420); Red Blood Count 4.32 M/mm3 (4.20-5.40); Red Cell Distribution Width 12.8 % (11.6-14.4); White Blood Count 5.1 K/mm3 (4.8-10.8)
[2024-02-20 10:03] LABS: Alanine Aminotransferase 21 U/L (14-59); Albumin Level 3.2 g/dL (3.4-5.0); Alkaline Phosphatase 67 U/L (46-116); Anion Gap 9 mmol/L (4-12); Aspartate Amino Transferase 19 U/L (15-37); Bilirubin,Total 0.3 mg/dL (0.00-1.00); Blood Urea Nitrogen 10 mg/dL (7-18); Carbon Dioxide 32 mmol/L (21-32); Chloride 101 mmol/L (98-108); Estimated CRCL calculation 67 ml/min; Estimated Glomerular Filt Rate > 60; Glucose 115 mg/dL (70-99); Osmolality Calculated 294 mOsm/kg (285-295); Potassium 3.8 mmol/L (3.5-5.1); Sodium 142 mmol/L (136-145); Total Protein 8.1 g/dL (6.4-8.2)
[2024-02-20] MEDS: SODIUM CHLORIDE 0.9% IVPB (10:35)
[2024-02-20] MEDS: DURVALUMAB IVPB (10:35)
[2024-02-20] MEDS: HEPARIN SODIUM LOCK FLUSH 500 UNITS/5 ML SYRINGE IV PUSH (11:41)
[2024-02-20 11:46] VITALS: BP 123/74; PULSE 74; RESP 14; TEMP 36.4; O2SAT 96
--- NOTE | 2024-02-20 11:48 | PC.NURSE ---
Patient was here for immunotherapy IV tx. Labs drawn/reviewed/ok's. Education given. All concerns voiced answered. Tx administered. SEE MAR. Tolerated well. Will return March at 0930 for next tx. Safe exit of hospital per /[facility] staff.
== END 2024-02-20 09:26 | disposition home or self-care (01) ==
PROVIDERS: PCP Internal Medicine; Visit Provider Internal Medicine Hematology
DX: Z51.11 Encounter for antineoplastic chemotherapy (principal); C34.01 Malignant neoplasm of right main bronchus
CPT/HCPCS: 36415; 36591; 80053; 85025; 96413; J7050; J9173

== ENCOUNTER 2024-03-18 08:26 | Outpatient (CLI) | payer OTHER, SELFPAY ==
[2024-03-18 08:49] LABS: Basophils Absolute Auto 0.02 K/mm3 (0.00-0.10); Basophils Percent Auto 0.4 % (0.0-1.0); Eosinophils Percent Auto 1.8 % (1.0-6.0); Hematocrit 38.1 % (35.0-42.0); Hemoglobin 12.3 g/dL (11.7-13.8); Immature Granulocyte Absolute 0.01 K/mm3 (0.00-0.00); Immature Granulocyte Percent A 0.2 % (0.0-0.0); Lymphocytes Absolute Auto 1.53 K/mm3 (1.10-4.50); Lymphocytes Percent Auto 27.1 % (18.0-42.0); Mean Corpuscular HGB Conc 32.3 g/dL (32-36); Mean Corpuscular Hemoglobin 29.4 pg (27.0-31.0); Mean Corpuscular Volume 90.9 fL (78.0-102.0); Mean Platelet Volume 9.1 fl (9.2-11.8); Monocytes Absolute Auto 0.45 K/mm3 (0.10-0.90); Neutrophils Absolute Auto 3.53 K/mm3 (1.70-7.20); Neutrophils Percent Auto 62.5 % (50.0-70.0); Platelet Count Result 217 K/mm3 (150-420); Red Blood Count 4.19 M/mm3 (4.20-5.40); White Blood Count 5.6 K/mm3 (4.8-10.8)
[2024-03-18 09:58] LABS: Alanine Aminotransferase 22 U/L (14-59); Albumin Level 3.5 g/dL (3.4-5.0); Alkaline Phosphatase 67 U/L (46-116); Anion Gap 8 mmol/L (4-12); Aspartate Amino Transferase 17 U/L (15-37); Bilirubin,Total 0.4 mg/dL (0.00-1.00); Blood Urea Nitrogen 8 mg/dL (7-18); Calcium 9.1 mg/dL (8.5-10.1); Carbon Dioxide 31 mmol/L (21-32); Chloride 102 mmol/L (98-108); Estimated Glomerular Filt Rate > 60; Glucose 93 mg/dL (70-99); Osmolality Calculated 290 mOsm/kg (285-295); Potassium 3.8 mmol/L (3.5-5.1); Sodium 141 mmol/L (136-145); Thyroid Stimulating Hormone 2.13 uIU/mL (0.36-3.74); Total Protein 7.9 g/dL (6.4-8.2)
[2024-03-19 15:59] LABS: Cortisol Random 16.1 mcg/dL
== END 2024-03-18 08:27 | disposition home or self-care (01) ==
PROVIDERS: PCP Internal Medicine; Visit Provider Internal Medicine Hematology
DX: C34.11 Malignant neoplasm of upper lobe, right bronchus or lung (principal); I10 Essential (primary) hypertension
CPT/HCPCS: 36415; 80053; 82533; 84443; 85025

== ENCOUNTER 2024-03-19 08:17 | Outpatient (CLI) | payer OTHER, SELFPAY ==
--- NOTE | ~2024-03-19 | MR_ITS ---
MRI of the brain Clinical History: Headache, lung cancer Technique: Axial and sagittal T1-weighted images were acquired. These were followed by axial T2-weigh ethan, diffusion weighted, gradient, and FLAIR images. Following intravenous administration of 19 cc Mu ltiHance gadolinium, T1-weighted fat-sat imaging was performed in the axial and coronal planes. COMPARISON: 11/06/2023 Findings: No acute infarct, intracranial hemorrhage, mass lesion identified. Extensive chronic white matter disease is similar to prior exam. Probable small chronic lacunar infarct in the left internal capsule region posteriorly. Ventricles and subarachnoid spaces are mildly dilated. Orbits are unremarkable. Paranasal sinuses and mastoid air cells are clear. Major intracranial flow voids appear intact. Sagittal midline structures are intact. No abnormal postcontrast enhancement identified. IMPRESSION: No acute abnormality. No evidence for intracranial metastasis. Extensive chronic white matter disease is unchanged. Reviewed, dictated and finalized at [facility].
[2024-03-19 09:52] VITALS: BP 152/83; PULSE 64; RESP 16; TEMP 36.5; O2SAT 95; BMI 29.1
[2024-03-19] MEDS: SODIUM CHLORIDE 0.9% IVPB (10:20)
[2024-03-19] MEDS: DURVALUMAB IVPB (10:20)
[2024-03-19 11:19] VITALS: BP 149/83; PULSE 64; RESP 16; TEMP 36.4; O2SAT 96
[2024-03-19] MEDS: HEPARIN SODIUM LOCK FLUSH 500 UNITS/5 ML SYRINGE IV PUSH (11:21)
--- NOTE | 2024-03-19 11:22 | PC.NURSE ---
Patient tolerated Imfinzi infusion well today. Refer to MAR/patient care notes.
--- NOTE | 2024-03-19 11:24 | PC.NURSE ---
safe exit of hospital per w[facility] per residential attendent.
== END 2024-03-19 08:18 | disposition home or self-care (01) ==
PROVIDERS: PCP Internal Medicine; Visit Provider Internal Medicine Hematology
DX: R51.9 Headache, unspecified (principal); C34.11 Malignant neoplasm of upper lobe, right bronchus or lung; C34.01 Malignant neoplasm of right main bronchus; R90.82 White matter disease, unspecified
CPT/HCPCS: 70553; 96413; A9577; J7050; J9173

== ENCOUNTER 2024-04-14 13:20 | Outpatient (CLI) | payer OTHER, SELFPAY ==
[2024-04-14 13:34] LABS: Hematocrit 38.3 % (35.0-42.0); Hemoglobin 12.2 g/dL (11.7-13.8); Mean Corpuscular HGB Conc 31.9 g/dL (32-36); Mean Corpuscular Volume 91.2 fL (78.0-102.0); Platelet Count Result 226 K/mm3 (150-420); Red Cell Distribution Width 13.2 % (11.6-14.4); White Blood Count 5.6 K/mm3 (4.8-10.8)
[2024-04-14 19:36] LABS: Alanine Aminotransferase 22 U/L (14-59); Albumin Level 3.2 g/dL (3.4-5.0); Alkaline Phosphatase 77 U/L (46-116); Anion Gap 12 mmol/L (4-12); Aspartate Amino Transferase 16 U/L (15-37); Bilirubin,Total 0.2 mg/dL (0.00-1.00); Blood Urea Nitrogen 13 mg/dL (7-18); Calcium 8.5 mg/dL (8.5-10.1); Carbon Dioxide 27 mmol/L (21-32); Chloride 102 mmol/L (98-108); Estimated Glomerular Filt Rate > 60; Glucose 122 mg/dL (70-99); Osmolality Calculated 293 mOsm/kg (285-295); Potassium 3.8 mmol/L (3.5-5.1); Sodium 141 mmol/L (136-145); Total Protein 7.5 g/dL (6.4-8.2)
== END 2024-04-14 13:21 | disposition home or self-care (01) ==
LOC: CHSLAB 13:22
PROVIDERS: PCP Internal Medicine; Visit Provider Internal Medicine
DX: C34.90 Malignant neoplasm of unspecified part of unspecified bronchus or lung (principal)
CPT/HCPCS: 36415; 80053; 85027

== ENCOUNTER 2024-04-16 09:07 | Outpatient (CLI) | payer OTHER, SELFPAY ==
[2024-04-16 09:38] VITALS: BP 139/63; PULSE 74; RESP 16; TEMP 36.3; O2SAT 96; BMI 30.4
[2024-04-16] MEDS: SODIUM CHLORIDE 0.9% IVPB (09:50)
[2024-04-16] MEDS: DURVALUMAB IVPB (09:50)
[2024-04-16] MEDS: HEPARIN SODIUM LOCK FLUSH 500 UNITS/5 ML SYRINGE IV PUSH (10:57)
[2024-04-16 11:02] VITALS: BP 136/74; PULSE 78; RESP 14; O2SAT 96
--- NOTE | 2024-04-16 11:04 | PC.NURSE ---
Patient tolerated infusion well. SEE MAR/ patient care notes.
== END 2024-04-16 09:08 | disposition home or self-care (01) ==
PROVIDERS: PCP Internal Medicine Hematology; Visit Provider Internal Medicine Hematology
DX: Z51.11 Encounter for antineoplastic chemotherapy (principal); C34.01 Malignant neoplasm of right main bronchus
CPT/HCPCS: 96413; J7050; J9173

== ENCOUNTER 2024-04-23 07:23 | Outpatient (CLI) | payer OTHER, SELFPAY ==
--- NOTE | ~2024-04-23 | CT_ITS ---
EXAMINATION: CT chest abdomen pelvis w con DATE: 04/23/2024 08:27 INDICATION: Cancer of right lung. TECHNIQUE: Computed tomography (CT) of the chest, abdomen, and pelvis was performed with 100 mL Omnip aque 350 intravenous contrast. Automated exposure control and iterative reconstruction technique were employed. The dose-length product was 1282.44 mGy-cm. COMPARISON: CT 10/22/2023 FINDINGS: CHEST CT: There is mild scarring at the lung apices. There is a 5.9 x 4.9 cm mass in right lung upper lobe, wor sened from 6.0 x 3.0 cm on 10/22/2023. There is mild atelectasis in right upper lobe. Bilaterally. The re are airspace opacities in right perihilar region, likely radiation pneumonitis. Calcified right hi lar lymph nodes are consistent with old granulomatous disease. No pleural effusion. There is a 2.3 x 1.6 cm right supraclavicular lymph node, newly enlarged. There is right hilar and right paratracheal lymphadenopathy. The heart size is normal. No pericardial effusion. There are coronary artery calcifi cations. There is a right internal jugular port with tip at superior cavoatrial junction. There are b ridging endplate osteophytes at multiple levels in the spine, consistent with diffuse idiopathic skel etal hyperostosis (DISH). There is moderate thoracic spondylosis. ABDOMEN/PELVIS CT: There are cysts in the liver measuring up to 8 mm. There is a 13 mm mass in right hepatic lobe. The g allbladder is normal in size and contains gallstones. Calcifications in the spleen are consistent wit h old granulomatous disease. The pancreas and left adrenal gland are normal. There is a 19 mm mass of fat in right adrenal gland, consistent with a myelolipoma. There is a 3 mm stone in right kidney. Le ft kidney is normal. There are no dilated loops of bowel. The appendix is normal. There are no pathol ogically enlarged lymph nodes. There is no free intraperitoneal fluid. There is moderate lumbar spond ylosis. IMPRESSION: 1. Worsened lung mass, chest lymphadenopathy, and liver mass, consistent with primary bronchogenic ca rcinoma and metastatic disease. Reviewed, dictated and finalized at location [facility]. IMPRESSION: 1. Worsened lung mass, chest lymphadenopathy, and liver mass, consistent with p rimary bronchogenic carcinoma and metastatic disease.
== END 2024-04-23 07:24 | disposition home or self-care (01) ==
LOC: CHSIMG 07:26
PROVIDERS: PCP Internal Medicine; Visit Provider Internal Medicine Hematology
DX: C34.91 Malignant neoplasm of unspecified part of right bronchus or lung (principal); R59.0 Localized enlarged lymph nodes; R16.0 Hepatomegaly, not elsewhere classified
CPT/HCPCS: 71260; 74177; Q9967

== ENCOUNTER 2024-05-05 10:52 | Outpatient (CLI) | payer OTHER, SELFPAY ==
--- NOTE | ~2024-05-05 | PE_ITS ---
EXAMINATION: PET skull to mid thigh DATE: 05/05/2024 13:15 INDICATION: Cancer of right lung. TECHNIQUE: Blood glucose level was 99 mg/dL. 9.131 mCi of 18-fluorodeoxyglucose (18-FDG) was administ ered i.v. Low dose computed tomography (CT) images were acquired from the base of the brain to the pr oximal thighs for attenuation correction and anatomic localization. Automated exposure control was em ployed. Dose-length product (DLP) was 1032 mGy-cm. Positron emission tomography (PET) images were acq uired in the same distribution. COMPARISON: CT chest, abdomen, and pelvis 04/23/2024 FINDINGS: Head/neck: There is a right supraclavicular lymphadenopathy with increased activity. Chest: There is a 5.9 x 4.9 cm mass in right lung upper lobe with maximum SUV of 19.8. There is mild atelectasis bilaterally. Calcified right hilar lymph nodes are consistent with old granulomatous dise ase. No pleural effusion. There is right hilar lymphadenopathy with increased activity. The heart siz e is normal. There are coronary artery calcifications. No pericardial effusion. There is a right inte rnal jugular port with tip at superior cavoatrial junction. Abdomen/pelvis/proximal thighs: Calcifications in the liver and spleen are consistent with old granul omatous disease. There are gallstones in the gallbladder, which is normal in size. The pancreas and l eft adrenal gland are normal. There is a 1.9 cm mass of fat in right adrenal gland, consistent with a myelolipoma. There is an 8 mm cyst in right kidney. There is a 4 mm stone in right kidney. Left kidn ey is normal. There are no dilated loops of bowel. The appendix is normal. There are no pathologicall y enlarged lymph nodes. There is no free intraperitoneal fluid. There is no osseous malignancy. IMPRESSION: 1. Lung mass and chest lymphadenopathy, consistent with primary bronchogenic carcinoma and metastatic disease. 2. The 13 mm mass in right hepatic lobe seen on 04/23/2024 is occult on this exam. Reviewed, dictated and finalized at location [facility]. IMPRESSION: 1. Lung mass and chest lymphadenopathy, consistent with primary bronchogenic ca rcinoma and metastatic disease. 2. The 13 mm mass in right hepatic lobe seen on 04/23/2024 is occult on this exa m.
[2024-05-05 11:21] LABS: Glucose Point of Care 99 mg/dl (65-105)
== END 2024-05-05 10:53 | disposition home or self-care (01) ==
LOC: ANHIMG 11:01
PROVIDERS: PCP Internal Medicine; Visit Provider Internal Medicine Hematology
DX: C34.11 Malignant neoplasm of upper lobe, right bronchus or lung (principal); R91.8 Other nonspecific abnormal finding of lung field
CPT/HCPCS: 78815; A9552

== ENCOUNTER 2024-07-16 08:53 | Outpatient (CLI) | payer OTHER, SELFPAY ==
[2024-07-16 09:10] LABS: Basophils Absolute Auto 0.02 K/mm3 (0.00-0.10); Basophils Percent Auto 0.3 % (0.0-1.0); Eosinophils Absolute Auto 0.13 K/mm3 (0.02-0.50); Eosinophils Percent Auto 1.8 % (1.0-6.0); Hematocrit 39.7 % (35.0-42.0); Hemoglobin 12.4 g/dL (11.7-13.8); Immature Granulocyte Absolute 0.02 K/mm3 (0.00-0.00); Immature Granulocyte Percent A 0.3 % (0.0-0.0); Lymphocytes Absolute Auto 1.14 K/mm3 (1.10-4.50); Lymphocytes Percent Auto 15.4 % (18.0-42.0); Mean Corpuscular HGB Conc 31.2 g/dL (32-36); Mean Corpuscular Hemoglobin 28.3 pg (27.0-31.0); Mean Corpuscular Volume 90.6 fL (78.0-102.0); Monocytes Percent Auto 6.8 % (2.0-11.0); Neutrophils Absolute Auto 5.57 K/mm3 (1.70-7.20); Neutrophils Percent Auto 75.4 % (50.0-70.0); Platelet Count Result 268 K/mm3 (150-420); Red Blood Count 4.38 M/mm3 (4.20-5.40); Red Cell Distribution Width 13.7 % (11.6-14.4); White Blood Count 7.4 K/mm3 (4.8-10.8)
[2024-07-16 10:34] LABS: Alanine Aminotransferase 16 U/L (14-59); Alkaline Phosphatase 69 U/L (46-116); Anion Gap 10 mmol/L (4-12); Aspartate Amino Transferase 13 U/L (15-37); Bilirubin,Total 0.4 mg/dL (0.00-1.00); Blood Urea Nitrogen 9 mg/dL (7-18); Calcium 9.3 mg/dL (8.5-10.1); Carbon Dioxide 29 mmol/L (21-32); Chloride 104 mmol/L (98-108); Estimated Glomerular Filt Rate > 60; Glucose 139 mg/dL (70-99); Osmolality Calculated 296 mOsm/kg (285-295); Potassium 4.1 mmol/L (3.5-5.1); Sodium 143 mmol/L (136-145); Thyroid Stimulating Hormone 0.81 uIU/mL (0.36-3.74); Total Protein 7.4 g/dL (6.4-8.2); Vitamin B12 304 pg/mL (193-986)
== END 2024-07-16 08:54 | disposition home or self-care (01) ==
PROVIDERS: PCP Internal Medicine; Visit Provider Internal Medicine Hematology
DX: C34.91 Malignant neoplasm of unspecified part of right bronchus or lung (principal); C34.11 Malignant neoplasm of upper lobe, right bronchus or lung; R53.83 Other fatigue
CPT/HCPCS: 36415; 80053; 82533; 82607; 84443; 85025

== ENCOUNTER 2024-07-25 07:37 | Outpatient (CLI) | payer OTHER, SELFPAY | END 2024-07-25 07:38 | disposition home or self-care (01) | LOC: CHSIMG 07:40 | PROVIDERS: PCP Internal Medicine; Visit Provider Internal Medicine Hematology | DX: C34.91 Malignant neoplasm of unspecified part of right bronchus or lung (principal); R51.9 Headache, unspecified | CPT/HCPCS: 99199 ==

== ENCOUNTER 2024-07-28 07:12 | Outpatient (CLI) | payer OTHER, SELFPAY ==
[2024-07-28 07:15] VITALS: BMI 27.3
[2024-07-28 07:20] LABS: Basophils Absolute Auto 0.03 K/mm3 (0.00-0.10); Basophils Percent Auto 0.4 % (0.0-1.0); Eosinophils Absolute Auto 0.23 K/mm3 (0.02-0.50); Eosinophils Percent Auto 3.4 % (1.0-6.0); Hematocrit 37.8 % (35.0-42.0); Hemoglobin 11.9 g/dL (11.7-13.8); Immature Granulocyte Absolute 0.02 K/mm3 (0.00-0.00); Immature Granulocyte Percent A 0.3 % (0.0-0.0); Lymphocytes Absolute Auto 1.57 K/mm3 (1.10-4.50); Lymphocytes Percent Auto 23.3 % (18.0-42.0); Mean Corpuscular HGB Conc 31.5 g/dL (32-36); Mean Corpuscular Hemoglobin 28.5 pg (27.0-31.0); Mean Corpuscular Volume 90.4 fL (78.0-102.0); Monocytes Absolute Auto 0.43 K/mm3 (0.10-0.90); Monocytes Percent Auto 6.4 % (2.0-11.0); Neutrophils Absolute Auto 4.47 K/mm3 (1.70-7.20); Neutrophils Percent Auto 66.2 % (50.0-70.0); Platelet Count Result 289 K/mm3 (150-420); Red Blood Count 4.18 M/mm3 (4.20-5.40); Red Cell Distribution Width 13.7 % (11.6-14.4); White Blood Count 6.8 K/mm3 (4.8-10.8)
[2024-07-28 07:44] LABS: Alanine Aminotransferase 17 U/L (14-59); Alkaline Phosphatase 72 U/L (46-116); Anion Gap 8 mmol/L (4-12); Aspartate Amino Transferase 16 U/L (15-37); Bilirubin,Total 0.4 mg/dL (0.00-1.00); Blood Urea Nitrogen 9 mg/dL (7-18); Calcium 9.4 mg/dL (8.5-10.1); Carbon Dioxide 32 mmol/L (21-32); Chloride 102 mmol/L (98-108); Estimated Glomerular Filt Rate > 60; Glucose 100 mg/dL (70-99); Osmolality Calculated 292 mOsm/kg (285-295); Sodium 142 mmol/L (136-145); Thyroid Stimulating Hormone 1.43 uIU/mL (0.36-3.74); Total Protein 7.7 g/dL (6.4-8.2)
[2024-07-28 09:15] VITALS: BP 128/65; PULSE 88; RESP 14; TEMP 36.5; O2SAT 96
[2024-07-28] MEDS: SODIUM CHLORIDE 0.9% IV 250 ML 10 ML IVPB (09:25)
[2024-07-28] MEDS: diphenhydrAMINE HCl INJ 50 MG/ML VIAL 25 MG IV PUSH (09:33)
[2024-07-28] MEDS: FAMOTIDINE 20 MG/2 ML VIAL IV PUSH (09:35)
[2024-07-28] MEDS: ONDANSETRON INJ 16 MG, dexAMETHasone SOD 4 MG/ML INJ 12 MG in SODIUM CHLORIDE 0.9% IV 1... 300 MG IV PUSH (09:38)
[2024-07-28] MEDS: FOSAPREPITANT DIMEGLUMINE 150 MG in SODIUM CHLORIDE 0.9% IV 250 ML 750 MG IVPB (10:00)
[2024-07-28] MEDS: PEMBROLIZUMAB 200 MG in SODIUM CHLORIDE 0.9% IV 100 ML IVPB (10:26)
[2024-07-28] MEDS: PREMIXIV IVPB (10:59)
[2024-07-28] MEDS: PACLITAXEL PROTEIN BOUND IVPB (10:59)
[2024-07-28] MEDS: SODIUM CHLORIDE 0.9% IVPB (11:30)
[2024-07-28] MEDS: CARBOPLATIN IVPB (11:30)
[2024-07-28] MEDS: HEPARIN SODIUM LOCK FLUSH 500 UNITS/5 ML SYRINGE IV PUSH (12:04)
--- NOTE | 2024-07-28 12:06 | PC.NURSE ---
Tolerated Cycle 1 day 1 of chemo treatment -Pembrolizumab, albumin bound Paclitaxel, Carboplatin Regimen. SEE MAR/patient care notes.
[2024-07-28 12:20] VITALS: BP 129/74; PULSE 76; RESP 16; TEMP 36.5; O2SAT 96
--- NOTE | 2024-07-28 12:40 | PC.NURSE ---
Safe exit of hospital with intermediate attendent, Desiree egan.
[2024-07-29 10:09] LABS: Cortisol Random 25.6 mcg/dL
== END 2024-07-28 07:13 | disposition home or self-care (01) ==
PROVIDERS: PCP Internal Medicine; Visit Provider Internal Medicine Hematology
DX: Z51.11 Encounter for antineoplastic chemotherapy (principal); C34.01 Malignant neoplasm of right main bronchus
CPT/HCPCS: 36415; 36591; 80053; 82533; 84443; 85025; 96367; 96375; 96413; 96417; J1100; J1200; J1453; J2405; J7050; J9045; J9264; J9271

== ENCOUNTER 2024-08-04 10:13 | Outpatient (CLI) | payer OTHER, SELFPAY ==
[2024-08-04 10:39] LABS: Basophils Absolute Auto 0.02 K/mm3 (0.00-0.10); Basophils Percent Auto 0.4 % (0.0-1.0); Eosinophils Percent Auto 1.9 % (1.0-6.0); Hematocrit 34.3 % (35.0-42.0); Hemoglobin 11.1 g/dL (11.7-13.8); Immature Granulocyte Absolute 0.01 K/mm3 (0.00-0.00); Immature Granulocyte Percent A 0.2 % (0.0-0.0); Lymphocytes Absolute Auto 1.34 K/mm3 (1.10-4.50); Lymphocytes Percent Auto 25.1 % (18.0-42.0); Mean Corpuscular HGB Conc 32.4 g/dL (32-36); Mean Corpuscular Hemoglobin 28.6 pg (27.0-31.0); Mean Corpuscular Volume 88.4 fL (78.0-102.0); Mean Platelet Volume 8.8 fl (9.2-11.8); Monocytes Absolute Auto 0.37 K/mm3 (0.10-0.90); Monocytes Percent Auto 6.9 % (2.0-11.0); Neutrophils Percent Auto 65.5 % (50.0-70.0); Platelet Count Result 217 K/mm3 (150-420); Red Blood Count 3.88 M/mm3 (4.20-5.40); Red Cell Distribution Width 13.4 % (11.6-14.4); White Blood Count 5.3 K/mm3 (4.8-10.8)
[2024-08-04 11:00] LABS: Alanine Aminotransferase 22 U/L (14-59); Alkaline Phosphatase 67 U/L (46-116); Anion Gap 6 mmol/L (4-12); Aspartate Amino Transferase 20 U/L (15-37); Bilirubin,Total 0.3 mg/dL (0.00-1.00); Blood Urea Nitrogen 14 mg/dL (7-18); Calcium 9.3 mg/dL (8.5-10.1); Carbon Dioxide 31 mmol/L (21-32); Chloride 100 mmol/L (98-108); Estimated Glomerular Filt Rate > 60; Glucose 103 mg/dL (70-99); Osmolality Calculated 284 mOsm/kg (285-295); Potassium 3.9 mmol/L (3.5-5.1); Sodium 137 mmol/L (136-145); Total Protein 7.6 g/dL (6.4-8.2)
[2024-08-04 11:02] VITALS: BMI 27.3
[2024-08-04 11:05] VITALS: BP 128/78; PULSE 72; RESP 14; TEMP 36.6; O2SAT 97
[2024-08-04] MEDS: ONDANSETRON INJ 16 MG, dexAMETHasone SOD 4 MG/ML INJ 12 MG in SODIUM CHLORIDE 0.9% IV 1... 300 MG IVPB (11:30)
[2024-08-04] MEDS: SODIUM CHLORIDE 0.9% IV 250 ML 10 ML IVPB (11:34)
[2024-08-04] MEDS: PREMIXIV IVPB (12:05)
[2024-08-04] MEDS: PACLITAXEL PROTEIN BOUND IVPB (12:05)
[2024-08-04] MEDS: HEPARIN SODIUM LOCK FLUSH 500 UNITS/5 ML SYRINGE IV PUSH (12:44)
[2024-08-04 12:54] VITALS: BP 131/77; PULSE 78; RESP 16; TEMP 36.6; O2SAT 97
--- NOTE | 2024-08-04 13:03 | PC.NURSE ---
Patient tolerated day 8 of cycle1 treatment well. SEE MAR/patient care notes.
== END 2024-08-04 10:14 | disposition home or self-care (01) ==
PROVIDERS: PCP Internal Medicine; Visit Provider Internal Medicine Hematology
DX: Z51.11 Encounter for antineoplastic chemotherapy (principal); C34.01 Malignant neoplasm of right main bronchus
CPT/HCPCS: 36591; 80053; 85025; 96367; 96413; J1100; J2405; J7050; J9264

== ENCOUNTER 2024-08-11 09:28 | Outpatient (CLI) | payer OTHER, SELFPAY ==
[2024-08-11 09:40] VITALS: BP 120/70; PULSE 68; RESP 14; TEMP 36.3; O2SAT 96; BMI 27.3
[2024-08-11 09:48] LABS: Hematocrit 32.7 % (35.0-42.0); Hemoglobin 10.3 g/dL (11.7-13.8); Mean Corpuscular HGB Conc 31.5 g/dL (32-36); Mean Corpuscular Hemoglobin 28.3 pg (27.0-31.0); Mean Corpuscular Volume 89.8 fL (78.0-102.0); Mean Platelet Volume 9.1 fl (9.2-11.8); Platelet Count Result 161 K/mm3 (150-420); Red Blood Count 3.64 M/mm3 (4.20-5.40); Red Cell Distribution Width 13.3 % (11.6-14.4); White Blood Count 3.8 K/mm3 (4.8-10.8)
[2024-08-11 10:05] LABS: Alanine Aminotransferase 22 U/L (14-59); Albumin Level 2.8 g/dL (3.4-5.0); Alkaline Phosphatase 70 U/L (46-116); Anion Gap 7 mmol/L (4-12); Aspartate Amino Transferase 14 U/L (15-37); Bilirubin,Total 0.4 mg/dL (0.00-1.00); Blood Urea Nitrogen 9 mg/dL (7-18); Calcium 8.9 mg/dL (8.5-10.1); Carbon Dioxide 29 mmol/L (21-32); Chloride 103 mmol/L (98-108); Estimated CRCL calculation 63 ml/min; Estimated Glomerular Filt Rate > 60; Glucose 118 mg/dL (70-99); Osmolality Calculated 287 mOsm/kg (285-295); Potassium 3.9 mmol/L (3.5-5.1); Sodium 139 mmol/L (136-145)
[2024-08-11 10:06] LABS: Band Neutrophils Percent 0 % (0-6); Eosinophils Absolute Manual 0.07 K/mm3 (0.02-0.50); Eosinophils Percent Manual 2 % (1-6); Lymphocytes Absolute Manual 0.79 K/mm3 (1.1-4.5); Lymphocytes Percent Manual 21 % (18-44); Monocytes Absolute Manual 0.11 K/mm3 (0.1-0.90); Monocytes Percent Manual 3 % (3-9); Neutrophils Absolute Manual 2.81 K/mm3 (1.7-7.2); Neutrophils Percent Manual 74 % (46-73); Platelet Estimate Adequate (Adequate); Total Cells Counted 100
[2024-08-11] MEDS: ONDANSETRON INJ 16 MG, dexAMETHasone SOD 4 MG/ML INJ 12 MG in SODIUM CHLORIDE 0.9% IV 1... 300 MG IVPB (10:35)
[2024-08-11] MEDS: PREMIXIV IVPB (11:11)
[2024-08-11] MEDS: PACLITAXEL PROTEIN BOUND IVPB (11:11)
[2024-08-11] MEDS: HEPARIN SODIUM LOCK FLUSH 500 UNITS/5 ML SYRINGE IV PUSH (11:42)
[2024-08-11 11:50] VITALS: BP 126/70; PULSE 72; RESP 14; O2SAT 96
--- NOTE | 2024-08-11 11:50 | PC.NURSE ---
Patient tolerated Cycle 1 day 15 treatment well. SEE MAR/patient care notes.
[2024-08-13 11:23] LABS: CRP 2.4 mg/dL (0.0-0.9)
[2024-08-14 09:28] LABS: Cortisol Random 17.8 mcg/dL
== END 2024-08-11 09:29 | disposition home or self-care (01) ==
PROVIDERS: PCP Internal Medicine; Visit Provider Internal Medicine Hematology
DX: Z51.11 Encounter for antineoplastic chemotherapy (principal); C34.01 Malignant neoplasm of right main bronchus
CPT/HCPCS: 36415; 80053; 82533; 85025; 86140; 96367; 96413; J1100; J2405; J9264

== ENCOUNTER 2024-08-18 07:59 | Outpatient (CLI) | payer OTHER, SELFPAY ==
[2024-08-18 08:11] LABS: Basophils Absolute Auto 0.02 K/mm3 (0.00-0.10); Basophils Percent Auto 0.4 % (0.0-1.0); Eosinophils Absolute Auto 0.05 K/mm3 (0.02-0.50); Eosinophils Percent Auto 0.9 % (1.0-6.0); Hematocrit 32.2 % (35.0-42.0); Hemoglobin 10.4 g/dL (11.7-13.8); Immature Granulocyte Absolute 0.02 K/mm3 (0.00-0.00); Immature Granulocyte Percent A 0.4 % (0.0-0.0); Lymphocytes Absolute Auto 1.86 K/mm3 (1.10-4.50); Lymphocytes Percent Auto 34.5 % (18.0-42.0); Mean Corpuscular HGB Conc 32.3 g/dL (32-36); Mean Corpuscular Hemoglobin 29.1 pg (27.0-31.0); Mean Corpuscular Volume 89.9 fL (78.0-102.0); Mean Platelet Volume 9.3 fl (9.2-11.8); Monocytes Absolute Auto 0.31 K/mm3 (0.10-0.90); Monocytes Percent Auto 5.8 % (2.0-11.0); Neutrophils Absolute Auto 3.13 K/mm3 (1.70-7.20); Platelet Count Result 131 K/mm3 (150-420); Red Blood Count 3.58 M/mm3 (4.20-5.40); Red Cell Distribution Width 14.3 % (11.6-14.4); White Blood Count 5.4 K/mm3 (4.8-10.8)
[2024-08-18 08:21] VITALS: BMI 27.3
[2024-08-18 08:56] LABS: Alanine Aminotransferase 38 U/L (14-59); Alkaline Phosphatase 59 U/L (46-116); Anion Gap 9 mmol/L (4-12); Aspartate Amino Transferase 22 U/L (15-37); Bilirubin,Total 0.3 mg/dL (0.00-1.00); Blood Urea Nitrogen 10 mg/dL (7-18); Carbon Dioxide 31 mmol/L (21-32); Chloride 103 mmol/L (98-108); Estimated CRCL calculation 63 ml/min; Estimated Glomerular Filt Rate > 60; Glucose 102 mg/dL (70-99); Osmolality Calculated 295 mOsm/kg (285-295); Potassium 3.4 mmol/L (3.5-5.1); Sodium 143 mmol/L (136-145); Thyroid Stimulating Hormone 1.81 uIU/mL (0.36-3.74); Total Protein 6.7 g/dL (6.4-8.2)
[2024-08-18] MEDS: SODIUM CHLORIDE 0.9% IV 250 ML 10 ML IVPB (09:40)
[2024-08-18] MEDS: diphenhydrAMINE HCl INJ 50 MG/ML VIAL 25 MG IV PUSH (09:45)
[2024-08-18] MEDS: FAMOTIDINE 20 MG/2 ML VIAL IV PUSH (09:51)
[2024-08-18] MEDS: ONDANSETRON INJ 16 MG, dexAMETHasone SOD 4 MG/ML INJ 12 MG in SODIUM CHLORIDE 0.9% IV 1... 300 MG IVPB (10:00)
[2024-08-18 10:03] VITALS: BP 136/76; PULSE 64; RESP 16; TEMP 36.6; O2SAT 94
[2024-08-18] MEDS: FOSAPREPITANT DIMEGLUMINE 150 MG in SODIUM CHLORIDE 0.9% IV 250 ML 750 MG IVPB (10:33)
[2024-08-18] MEDS: PEMBROLIZUMAB 200 MG in SODIUM CHLORIDE 0.9% IV 100 ML IVPB (10:59)
[2024-08-18] MEDS: PREMIXIV IVPB (11:29)
[2024-08-18] MEDS: PACLITAXEL PROTEIN BOUND IVPB (11:29)
[2024-08-18] MEDS: SODIUM CHLORIDE 0.9% IVPB (12:00)
[2024-08-18] MEDS: CARBOPLATIN IVPB (12:00)
[2024-08-18] MEDS: HEPARIN SODIUM LOCK FLUSH 500 UNITS/5 ML SYRINGE IV PUSH (12:40)
[2024-08-18 12:45] VITALS: BP 130/74; PULSE 64; RESP 14; TEMP 36.6; O2SAT 95
--- NOTE | 2024-08-18 12:56 | PC.NURSE ---
Patient tolerated chemo treatment well today. SEE MAR/patient care notes.
[2024-08-19 07:38] LABS: Cortisol Random 11.8 mcg/dL
== END 2024-08-18 08:00 | disposition home or self-care (01) ==
PROVIDERS: PCP Internal Medicine; Visit Provider Internal Medicine Hematology
DX: Z51.11 Encounter for antineoplastic chemotherapy (principal); C34.01 Malignant neoplasm of right main bronchus; R53.83 Other fatigue
CPT/HCPCS: 36415; 36591; 80053; 82533; 84443; 85025; 96367; 96375; 96413; 96417; J1100; J1200; J1453; J2405; J7050; J9045; J9264; J9271

== ENCOUNTER 2024-09-01 09:48 | Outpatient (CLI) | payer OTHER, SELFPAY ==
[2024-09-01 10:03] VITALS: BP 138/75; PULSE 78; RESP 16; TEMP 36.8; O2SAT 97; BMI 27.3
[2024-09-01 10:03] LABS: Hematocrit 29.9 % (35.0-42.0); Hemoglobin 9.7 g/dL (11.7-13.8); Immature Platelet Fraction Pct 1.6 % (1.0-7.0); Mean Corpuscular HGB Conc 32.4 g/dL (32-36); Mean Corpuscular Hemoglobin 29.2 pg (27.0-31.0); Mean Corpuscular Volume 90.1 fL (78.0-102.0); Mean Platelet Volume 9.7 fl (9.2-11.8); Platelet Count Result 110 K/mm3 (150-420); Red Blood Count 3.32 M/mm3 (4.20-5.40); Red Cell Distribution Width 14.5 % (11.6-14.4); White Blood Count 1.8 K/mm3 (4.8-10.8)
[2024-09-01 10:11] LABS: Band Neutrophils Percent 0 % (0-6); Lymphocytes Absolute Manual 0.97 K/mm3 (1.1-4.5); Lymphocytes Percent Manual 54 % (18-44); Monocytes Absolute Manual 0.19 K/mm3 (0.1-0.90); Monocytes Percent Manual 11 % (3-9); Neutrophils Absolute Manual 0.63 K/mm3 (1.7-7.2); Neutrophils Percent Manual 35 % (46-73); Platelet Estimate Slightly Decreased (Adequate); Total Cells Counted 100
[2024-09-01 10:17] LABS: Alanine Aminotransferase 23 U/L (14-59); Alkaline Phosphatase 74 U/L (46-116); Anion Gap 7 mmol/L (4-12); Aspartate Amino Transferase 14 U/L (15-37); Bilirubin,Total 0.3 mg/dL (0.00-1.00); Blood Urea Nitrogen 10 mg/dL (7-18); Calcium 9.2 mg/dL (8.5-10.1); Carbon Dioxide 31 mmol/L (21-32); Chloride 103 mmol/L (98-108); Estimated CRCL calculation 78 ml/min; Estimated Glomerular Filt Rate > 60; Glucose 110 mg/dL (70-99); Osmolality Calculated 292 mOsm/kg (285-295); Potassium 3.8 mmol/L (3.5-5.1); Sodium 141 mmol/L (136-145); Total Protein 6.9 g/dL (6.4-8.2)
--- NOTE | 2024-09-01 10:54 | PC.NURSE ---
1030 Labs reviewed and call to Dr. Palmer. WBC 1.8 and ANC 630. Orders received to hold treatment this week and try 09/08/24 get labs first. Patient and son BJ with understanding. SEE Patient care notes.
[2024-09-01] MEDS: HEPARIN SODIUM LOCK FLUSH 500 UNITS/5 ML SYRINGE IV PUSH (11:22)
== END 2024-09-01 09:49 | disposition home or self-care (01) ==
PROVIDERS: PCP Internal Medicine; Visit Provider Internal Medicine Hematology
DX: C34.01 Malignant neoplasm of right main bronchus (principal)
CPT/HCPCS: 36415; 36591; 80053; 85025; 85055

== ENCOUNTER 2024-09-08 07:28 | Outpatient (CLI) | payer OTHER, SELFPAY ==
[2024-09-08 07:44] LABS: Hematocrit 31.6 % (35.0-42.0); Mean Corpuscular HGB Conc 31.6 g/dL (32-36); Mean Corpuscular Hemoglobin 29.2 pg (27.0-31.0); Mean Corpuscular Volume 92.1 fL (78.0-102.0); Mean Platelet Volume 9.2 fl (9.2-11.8); Platelet Count Result 183 K/mm3 (150-420); Red Blood Count 3.43 M/mm3 (4.20-5.40); Red Cell Distribution Width 16.4 % (11.6-14.4)
[2024-09-08 07:49] LABS: Band Neutrophils Percent 0 % (0-6); Eosinophils Absolute Manual 0.09 K/mm3 (0.02-0.50); Eosinophils Percent Manual 3 % (1-6); Lymphocytes Percent Manual 40 % (18-44); Monocytes Absolute Manual 0.36 K/mm3 (0.1-0.90); Monocytes Percent Manual 12 % (3-9); Neutrophils Absolute Manual 1.35 K/mm3 (1.7-7.2); Neutrophils Percent Manual 45 % (46-73); Platelet Estimate Adequate (Adequate); Total Cells Counted 100
[2024-09-08 07:55] LABS: Alanine Aminotransferase 23 U/L (14-59); Albumin Level 3.2 g/dL (3.4-5.0); Alkaline Phosphatase 76 U/L (46-116); Anion Gap 4 mmol/L (4-12); Aspartate Amino Transferase 19 U/L (15-37); Bilirubin,Total 0.3 mg/dL (0.00-1.00); Blood Urea Nitrogen 9 mg/dL (7-18); Calcium 9.2 mg/dL (8.5-10.1); Carbon Dioxide 32 mmol/L (21-32); Chloride 105 mmol/L (98-108); Estimated Glomerular Filt Rate > 60; Glucose 93 mg/dL (70-99); Osmolality Calculated 290 mOsm/kg (285-295); Sodium 141 mmol/L (136-145); Total Protein 6.8 g/dL (6.4-8.2)
[2024-09-08 08:52] VITALS: BMI 27.3
[2024-09-08] MEDS: [UNRECOGNIZED DRUG - OTHER] IVPB (10:10)
[2024-09-08] MEDS: DEXAMETHASONE SOD IVPB (10:10)
[2024-09-08] MEDS: ONDANSETRON IVPB (10:10)
[2024-09-08] MEDS: PREMIXIV IVPB (10:57)
[2024-09-08] MEDS: PACLITAXEL PROTEIN BOUND IVPB (10:57)
[2024-09-08] MEDS: HEPARIN SODIUM LOCK FLUSH 500 UNITS/5 ML SYRINGE IV PUSH (11:35)
[2024-09-08 12:01] VITALS: BP 140/63; PULSE 78; RESP 16; O2SAT 97
--- NOTE | 2024-09-08 12:02 | PC.NURSE ---
Patient tolerated treatment well. see MAR/Patient care notes.
== END 2024-09-08 07:29 | disposition home or self-care (01) ==
PROVIDERS: PCP Internal Medicine; Visit Provider Internal Medicine Hematology
DX: Z51.11 Encounter for antineoplastic chemotherapy (principal); C34.01 Malignant neoplasm of right main bronchus
CPT/HCPCS: 36415; 80053; 85025; 96367; 96413; J1100; J2405; J9264

== ENCOUNTER 2024-09-15 09:33 | Outpatient (CLI) | payer OTHER, SELFPAY ==
[2024-09-15 09:52] LABS: Basophils Absolute Auto 0.01 K/mm3 (0.00-0.10); Basophils Percent Auto 0.2 % (0.0-1.0); Eosinophils Percent Auto 2.3 % (1.0-6.0); Hematocrit 30.1 % (35.0-42.0); Hemoglobin 9.3 g/dL (11.7-13.8); Immature Granulocyte Absolute 0.03 K/mm3 (0.00-0.00); Immature Granulocyte Percent A 0.7 % (0.0-0.0); Lymphocytes Absolute Auto 1.47 K/mm3 (1.10-4.50); Lymphocytes Percent Auto 33.9 % (18.0-42.0); Mean Corpuscular HGB Conc 30.9 g/dL (32-36); Mean Corpuscular Hemoglobin 29.2 pg (27.0-31.0); Mean Corpuscular Volume 94.4 fL (78.0-102.0); Mean Platelet Volume 8.7 fl (9.2-11.8); Monocytes Absolute Auto 0.38 K/mm3 (0.10-0.90); Monocytes Percent Auto 8.8 % (2.0-11.0); Neutrophils Absolute Auto 2.35 K/mm3 (1.70-7.20); Neutrophils Percent Auto 54.1 % (50.0-70.0); Platelet Count Result 227 K/mm3 (150-420); Red Blood Count 3.19 M/mm3 (4.20-5.40); Red Cell Distribution Width 18.1 % (11.6-14.4); White Blood Count 4.3 K/mm3 (4.8-10.8)
[2024-09-15 09:59] VITALS: BP 139/75; PULSE 68; RESP 14; TEMP 36.6; O2SAT 95; BMI 27.3
[2024-09-15 10:20] LABS: Alanine Aminotransferase 28 U/L (14-59); Albumin Level 3.1 g/dL (3.4-5.0); Alkaline Phosphatase 59 U/L (46-116); Anion Gap 6 mmol/L (4-12); Aspartate Amino Transferase 19 U/L (15-37); Bilirubin,Total 0.2 mg/dL (0.00-1.00); Blood Urea Nitrogen 11 mg/dL (7-18); Calcium 8.6 mg/dL (8.5-10.1); Carbon Dioxide 32 mmol/L (21-32); Chloride 105 mmol/L (98-108); Estimated CRCL calculation 60 ml/min; Estimated Glomerular Filt Rate > 60; Glucose 120 mg/dL (70-99); Osmolality Calculated 296 mOsm/kg (285-295); Potassium 3.9 mmol/L (3.5-5.1); Sodium 143 mmol/L (136-145); Thyroid Stimulating Hormone 0.71 uIU/mL (0.36-3.74); Total Protein 6.6 g/dL (6.4-8.2)
[2024-09-15] MEDS: SODIUM CHLORIDE 0.9% IV 250 ML 10 ML IVPB (10:30)
[2024-09-15] MEDS: FAMOTIDINE 20 MG/2 ML VIAL IV PUSH (10:44)
[2024-09-15] MEDS: ONDANSETRON INJ 16 MG, dexAMETHasone SOD 4 MG/ML INJ 12 MG in SODIUM CHLORIDE 0.9% IV 1... 300 MG IVPB (10:56)
[2024-09-15] MEDS: diphenhydrAMINE HCl INJ 50 MG/ML VIAL 25 MG IV PUSH (11:20)
[2024-09-15] MEDS: FOSAPREPITANT DIMEGLUMINE 150 MG in SODIUM CHLORIDE 0.9% IV 250 ML 750 MG IVPB (11:22)
[2024-09-15] MEDS: PEMBROLIZUMAB 200 MG in SODIUM CHLORIDE 0.9% IV 100 ML IVPB (11:49)
[2024-09-15] MEDS: PACLITAXEL PROTEIN BOUND IVPB (12:23)
[2024-09-15] MEDS: PREMIXIV IVPB (12:23)
[2024-09-15] MEDS: SODIUM CHLORIDE 0.9% IVPB (12:53)
[2024-09-15] MEDS: CARBOPLATIN IVPB (12:53)
[2024-09-15] MEDS: HEPARIN SODIUM LOCK FLUSH 500 UNITS/5 ML SYRINGE IV PUSH (13:47)
[2024-09-15 13:51] VITALS: BP 110/69; PULSE 72; RESP 14; TEMP 36.4; O2SAT 94
--- NOTE | 2024-09-15 13:56 | PC.NURSE ---
Patient tolerated Cycle 3 day 1 chemo regimen well. SEE MAR/patient care notes.
[2024-09-17 04:24] LABS: Cortisol Random 14.1 mcg/dL
--- OUTSIDE RECORDS SUMMARY | 2024-09-22 03:08 | XMS_ITS | Encounter Summary ---
Author Organization [facility] Address [address] [place] [address]. [place], [place] [id number] [place] [id number] Care Team Providers Care Lather Apprentice Name Role Phone Unavailable Primary Care Provider Unavailabl e Reason for Referral * Imaging (Urgent) - Closed Specialty Diagnoses / Procedures Referred By Isaac t Referred To Contact Procedures USE ECHOCARDIOGRAM USE ECHOCARDIOGRAM W CON Leigh Mullins III, MD Phone: tel: fax: Referral ID Status Reason Start Date Expiration Date Visits Re quested Visits Authorized [id number] Closed 06/30/2018 07/31/2019 1 1 * (Routine) - Canceled Specialty Diagnoses / Procedures Referred By Contac t Referred To Contact Procedures BACKHOE OPERATOR eval and Lyla Toussaint NP Phone: tel: fax: Referral ID Status Reason Start Date Expiration Date V isits Requested Visits Authorized [id number] Canceled 07/01/2018 08/01/2019 1 1 * (Routine) - Canceled Specialty Diagnoses / Procedures Referred By Contac t Referred To Contact Procedures PT alisa and Lyla Toussaint NP Phone: tel: fax: Referral ID Status Reason Start Date Expiration Date V isits Requested Visits Authorized [id number] Canceled 07/01/2018 08/01/2019 1 1 * (Routine) - Canceled Specialty Diagnoses / Procedures Referred By Contac t Referred To Contact Procedures OT eval and treat Lyla Sen NP Phone: tel: fax: Referral ID Status Reason Start Date Expiration Date V isits Requested Visits Authorized [id number] Canceled 07/01/2018 08/01/2019 1 1 * Imaging (Urgent) - Closed Specialty Diagnoses / Procedures Referred By Contac t Referred To Contact Procedures USV CAROTID DUPLEX MARSHALL Leigh Mullins III, MD Phone: tel: fax: Referral ID Status Reason Start Date Expiration Date Visits Re quested Visits Authorized [id number] Closed 06/30/2018 07/31/2019 1 1 Reason for Visit * Auth/Cert Specialty Diagnoses / Procedures Referred By Contac t Referred To Contact Diagnoses STROKE Stroke (HCC) Procedures GENERAL Referral ID Status Reason Start Date Expiration Date Visits Re quested Visits Authorized [id number] 1 1 Encounter Details Date Type Department Care Team (Latest Contact Info) Description 06/30/2018 5:45 PM CDT - 07/04/2018 12:15 PM CDT Hospital Encounter [facility] [address] [place] [address] Leigh Mullins III, MD [address] [place] [address] Santhosh Blackwell MD [address] [place] [address] Discharge Disposition: Detention Facility Social History Tobacco Use Types Packs/Day Years Used Date Smoking Tobacco: Former Smokeless Tobacco: Never Alcohol Use Standard Drinks/Week Comments No 0 (1 standard drink = 0.6 oz pur e alcohol) AUDIT-C Answer Date Recorded Frequency of Alcohol Consumption Never 06/30/2018 Average Number of Drinks Not on file 018 Frequency of Binge Drinking Not on file 06/10 Comments Unknown Sex and Gender Information Value Date Recorded Sex Assigned at Not on file Legal Sex Female 2:21 PM CDT Gender Identity Not on file Sexual Orientation Not on file documented as of this encounter Last Filed Vital Signs Vital Sign Reading Time Taken Comments Blood Pressure 155/73 07/04/2018 7:44 AM CDT Pulse 86 07/04/2018 7:44 AM CDT Temperature 36.6 ??C (97.9 ??F) 07/04/2018 7:44 AM CD T Respiratory Rate 18 07/04/2018 7:44 AM CDT Oxygen Saturation 91% 07/04/2018 7:44 AM CDT Inhaled Oxygen Concentration - - Weight 94.3 kg (207 lb 14.4 oz) 06/30/2018 5:58 PM CDT Height 162.6 cm (5' 4 ) 06/30/2018 5:58 PM CDT Body Mass Index 35.69 06/30/2018 5:58 PM CDT documented in this encounter Discharge Summaries * Santhosh Blackwell MD - 07/04/2018 10:13 AM CDT Patient ID: Bea Quiñones [id number] 72-year-old 1945 Admit date: 06/30/2018 Expected Discharge Date: 07/04/2018 Primary care Physician: No primary care provider on file. Admitting Physician: Leigh Mullins III, MD Discharge Physician: SANTHOSH BLACKWELL MD Admission Diagnoses: STROKE Stroke (HCC) Discharge Diagnoses: Acute stroke-left basal ganglion infarct HTN Past Medical History Past Medical History: Diagnosis Date ??? Hypertension Past Surgical History: Procedure Laterality Date ??? BLADDER SURGERY Reason for admission: HPI: ?? Pt is a 72yo female with a PMH including HTN Former smoker Pt has not been on antihypertensives since her and she lost her insurance over a year ago. She noticed some mild right sided weakness about 2 days ago, and it has progressed since then, and now she has some associated numbness. Last night she fell twice due to the weakness. This AM she wasunable to get up and walk so she called her son and was taken to the ED at [facility]. At [facility] ED, vitals were unremarkable. CBC, CMP, UA essentially normal. EKG without ST elevation. Xray right shoulder and hip neg for fracture. CXR showing cardiomegaly, emphysema, some interstitial opacities. She was nearly flaccid on the right, with right facial droop. CT of the head was suspicious for a left basal ganglia infarct. She received 1L NS and aspirin and was transferred here for further care. She is currently unable to bend her right knee, and son states she was able to do this with difficulty at [facility]. ?? Hospital Course: 72-year-old female with past medical history significant for hypertension, former smoker presented to the outside facility with the complaints of right- sided weakness for 2 days apparently she has been having recurrent falls at home. She was evaluated outside facility and CT of the head performed shows a left basal ganglial infarct. X-rays of the shoulder, hip were negative for fracture at outside facility. She was transferred here for further evaluation. Patient was seen by neurology. She had echocardiogram performed, carotid Dopplers performed. Neurology recommending her to continue [id number] mg daily, atorvastatin 40 mg daily. She will follow-up in neurology clinic as an outpatient basis. She was noted to have a blood pressures in 160s during this hospitalization initially she was given a permissive hypertension and she was started on a small dose of amlodipine at the time of discharge. This needs to be monitored and her antihypertensives needs to be adjusted Recent also reporting right hip, knee pain x-rays performed negative for fracture. She was advised to take simple analgesia. Continue with her therapy I have examined the patient on the day of discharge patient is hemodynamically stable Consults: neurology Procedures/Significant Diagnostic Studies: Use Echocardiogram Result Date: 07/01/2018 Echocardiography Report Pat.Name: BEA QUIÑONES Pat.ID: [id number] St.Date: 07/01/2018 Refer.:LEIGH MULLINS III Exam Time: 9:56:00 AM Study Type:ECHO WITH CARDIAC DOPPLER COMP Height: 162cmWeight: 94kg BSA: 1.98 m2 Age: 2 1945,72Y Sex: FEMALE BP: 180/74 HR: 77 bpm Sonogrphr: Cindy Mcqueen OPAL Pat. Stat.:Inpatient Room: 846 Reason for Study:CVA Procedures:2D, M-mode, Doppler, Color Flow, Intraveneous saline contrast was used to help determine presence of intracardiac shunting., Portable Race: W ++++++++++++++++++++++++++++++++++++ SUMMARY: ++++++++++++++++++++++++++++++++++++ Thecalculated ejection fraction is 51%. Moderate to severe concentric left ventricular hypertrophy. Right ventricular systolic function is normal. The agitated saline injection showed no clear evidence of shunting into the left atrium, consistent with no patent foramen ovale. Trace mitral regurgitation. ++++++++++++++++++++++++++++++++++++ FINDINGS: ++++++++++++++++++++++++++++++++++++ LV: The left ventricular size is small. The calculated ejection fraction is 51%. Moderate to severe concentric left ventricular hypertrophy. The septal E/e' is indeterminate at 8-15. The lateral E/e' is indeterminate at 9-11. WM: There is global hypokinesis with minor regional variation. LVOT: The left ventricular outflow tract size is normal. RV: Right ventricular systolic function is normal. TAPSE = 22mm (<16 mm indicates systolic RV dysfunction). LA: The left atrial volume is normal ( less than 34 ml/M2). RA: Right atrial size is normal. IAS: Atrial septum appears intact. The agitated saline injection showed no clear evidence of shunting into the left atrium, consistent with no patent foramen ovale. MOHSEN: No evidence of pericardial effusion. AO: Normal aortic root. The aortic root measures 3.3 cm. The proximal ascending aorta measures 3.3cm. PA: Estimated right atrial pressure of 3 mmHg. PVn: The pulmonary vein doppler wave form is normal suggestive of normal left atrial pressures. SVn: Inferior vena cava is normal. Inferior vena cava shows >50% collapse with respiration consistent withnormal right atrial pressure. AV: No evidence of aortic valve stenosis. No evidence of aortic valve regurgitation. The aortic valve not well visualized. MV: Trace mitral regurgitation. No evidence ofmitral valve stenosis. Mildly calcified posterior mitral annulus. PV: No evidence of pulmonic regurgitation. Pulmonic valve not well visualized. TV: Structurally normal tricuspid valve. Mild tricuspid regurgitation. Right ventricular systolic pressure is 21 mmHg. ++++++++++++++++++++++++++++++++++++ MEASUREMENTS: ++++++++++++++++++++++++++++++++++++ DOPPLER LVOT LVOTpkPG 9 mmHg LVOTmnPG 5 mmHg LVOTpkVel 149 cm/s (70-110)* LVOT SV 89 ml LVOT TVI 28.5 cm Pulmonary Veins PVnpkVeld 39.8 cm/s PVnVs/Vd 1.6 PVnpkVels 64.5 cm/s PVn A Dur 232 msec AV Forward Flow AV TVI 33 cm AV pkPG 11 mmHg AV [id number] cm/s (100-170) Area (TVI) 2.71 cm2 (3-5)* AV mnVel 115 cm/s Area (Lambert) 2.77 cm2 (3-5)* AV mnPG 6 mmHg MV Forward Flow MV DeTm 275 msec MV pkE 61.1 cm/s (60-130) MV E/A 0.7 MV pkA 82.5 cm/s PV Forward Flow PV pkVel 107 cm/s (60-90)* PV pkPG 5 mmHg TV Regurg Flow TV pkPG 18 mmHg TV pkVel 215 cm/s(30-70)* Lat E' Lat e 6.57 cm/s Lat E/E' Lat E/e 9.3 Med E' Med e 7.01 cm/s Med E/E' Med E/e 8.7 Aortic Valve Aortic Valve Ar 1.37 Aortic Valve Ve 0.88 AV DI Value 0.9 RICHELLE (VTI) Index Value 1.37 LVMass 2D Value 276 g LV Mass Enruz3J Value 139 g/m2 Right Ventricle Right Ventricle 17.5 cm/s 2D Left Ventricle LVIDd 3.57 cm (3.6-5.2)* LV EF(Bi-Plane) 51.4 % (55-75)* LVIDs 2.87 cm (2.3-3.9) LVPW LVPWd 1.85 cm LVPWth 5.95 % LVPWs 1.96 cm Ventricular Septum IVSd 1.8 cm IVSs 1.71 cm Aorta Ao Rtd 3.3 cm (zsc 1.4) LVOT LVOT 2 cm Ratios IVS Inferior vena cava IVC Diam 1.41 cm LA Biplane LAVol I BP 27.9 ml/m2 LV QLab aCMQ Left Ventricula 72.52 ml Left Ventricula 38.77 ml Left Ventricula 66.16 ml LVEF 44.63 % Left Ventricula 69.29 ml LVEF 45.5 % Left Ventricula 40.15 ml LVEF 44.05 % Left Ventricula 36.06 ml Myocardial Wall QLab aCMQ Endo Peak Systo -13.66 % Endo Peak Systo -15.46 % Endo Peak Systo -2.41 % Global Endo Pea -10.51 % Right Atrium Right Atrium Sy 12.8 cm2 Right Ventricle Right Ventricle 3.46 cm Right Ventricle 2.35 cm Major [place] 8.78 cm MMODE TA Tricuspid Annul 2.21 cm Signed 07/01/2018 03:26 PM Maria D Ng M.D. Xr Knee Rt 3v Result Date: 07/02/2018 PATIENT NAME: BEA QUIÑONES EXAM: Right the radiographs DATE OF EXAM: 07/02/2018 COMPARISON EXAM:No previous INDICATION: 72-year-old in patient has pain in the right knee after multiple falls ontoher right knee. TECHNIQUE: Three-view survey of the right knee with the patient supine AP crosstable lateral projection and sunrise view of the patella FINDINGS: No evidence of acute or healing fracture. No dislocation. No joint effusion. There is complete loss of the medial femorotibial joint space with flattening of the femoral articular condyle and the medial tibial plateau thick marginal sclerosis and bridging osteophytosis and subchondral cyst formation across this joint. There is also moderately severe narrowing of the patellofemoral joint space. Preservation of the lateral joint space.There is varus angulation of the nonweightbearing knee. There is mild suprapatellar soft tissue prominence. Did not take Osteophytes projecting from the anterior surface of the patella may represent constellation of the patella. Incidentally noted is a large, 3 cm diameter rounded stippled calcified mass in the popliteal fossa soft tissues; large calcified bony fabella could also be calcifications within popliteal cyst. IMPRESSION: 1. No evidence of acute or recent fracture. No dislocation. 2. A dvanced degenerative change in the knee primarily involving the lateral and patellofemoral joint spaces. Signed: Tonya Salomon DO Interpreted By: Tonya Salomon DO, 07/02/2018 7:56 PM Usv Carotid Duplex Marshall Result Date: 07/02/2018 [facility] Vascular Report Pat.Name: BEA QUIÑONES Pat.ID: [id number] .Date: 07/01/2018 Refer.MD: LEIGH MULLINS III Exam Time: 10:49:00 AM Study Type:PVI CAROTID SCAN - BILATERAL Height: 162cm Age: 2 1945,72Y Sex: FEMALE Sonogrphr: BIBI Belcher. Stat.:Inpatient Room: 846 ICD: R29.898 CVA CPT: 88440 Carotid Duplex Reason for Study:CVA Race: W ++++++++++++++++++++++++++++++++++++SUMMARY: ++++++++++++++++++++++++++++++++++++ Consider following recommendations that are modified from Medicare guidelines. Stenosis Recommendation 0-39% with plaque Cardiovascular Risk factor modification, may consider follow up in one year if multiple atherosclerotic risk factors present. 40-59%Follow up duplex in one year. 60-79% Follow up duplex in six months. 80-99% Consider other modalityof imaging such as MRA/ Angiogram+/- Intervention surgery or stenting. ++++++++++++++++++++++++++++++++++++ FINDINGS: ++++++++++++++++++++++++++++++++++++ Rt Innom: The innominate artery is unable mary obtained. Rt Subcl: The proximal subclavian artery is patent. Rt ICA: 0-39% stenosis with plaquenoted in the internal carotid artery. Mild heterogeneous plaque noted. Rt ECA: Patent with antegrade flow noted in the external carotid artery. Rt Vert: Normal antegrade vertebral flow. Lt Subcl: Theproximal subclavian artery is patent. Lt ICA: 0-39% stenosis with plaque noted in the internal carotid artery. Mild/moderate heterogeneous plaque noted. Lt ECA: Patent with antegrade flow noted in the external carotid artery. Lt Vert: Normal antegrade vertebral flow. Comments: Technically difficultstudy due to body habitus. Carotid Findings: Right Left Verteb.Flw Antegrade Antegrade ++++++++++++++++++++++++++++++++++++ MEASUREMENTS: ++++++++++++++++++++++++++++++++++++ DOPPLER Right CCA Prox Prox CCA PSV 65.9 cm/s Prox CCA EDV 12.6 cm/s Right CCA Mid Mid CCA PSV 73.6 cm/s Mid CCA EDV 14 cm/sRight CCA Dist Dist CCA PSV 52.7 cm/s Dist CCA EDV 14.9 cm/s Right ICA Prox Prox ICA PSV 49.9 cm/sProx ICA EDV 17 cm/s Right ICA Mid Mid ICA PSV 43.9 cm/s Mid ICA EDV 15.9 cm/s Right Dist ICA Dist ICA PSV 52 cm/s Dist ICA EDV 18.1 cm/s Right ECA Prox Prox ECA PSV 47.2 cm/s Prox ECA EDV 15.9 cm/s Right Vertebral Vertebral PSV 40.8 cm/s Vertebral EDV 12.9 cm/s Right Prox SCA Prox SCA PSV 143 cm/sProx SCA PSV 143 cm/s ICA/CCA RATIO ICA/CCA RATIO P 0.987 Left CCA Prox Prox CCA PSV 77.7 cm/s ProxCCA EDV 18.6 cm/s Left CCA Mid Mid CCA PSV 73.9 cm/s Mid CCA EDV 16.8 cm/s Left CCA Dist Dist CCA PSV 65.9 cm/s Dist CCA EDV 22.4 cm/s Left ICA Prox Prox ICA PSV 27.4 cm/s Prox ICA EDV 11.1 cm/s LeftICA Mid Mid ICA PSV 68.6 cm/s Mid ICA EDV 16.7 cm/s Left ICA Dist Dist ICA PSV 59.8 cm/s Dist ICA EDV 15.8 cm/s Left ECA Prox Prox ECA PSV 87 cm/s Prox ECA EDV 9.32 cm/s Left Vertebral Vertebral PSV 48.2 cm/s Vertebral EDV 13 cm/s Left Prox SCA Prox SCA PSV 171 cm/s Prox SCA PSV 171 cm/s Left ICA/CCA RATIO ICA/CCA RATIO P 1.04 Signed 07/02/2018 09:15 AM Hiram Blake M.D. Discharged Condition: good Code Status: No Order Discharge Exam: Patient was seen and examined on day of discharge, vitals were stable. Disposition: discharged to detention facility Patient Instructions: Current Discharge Medication List START taking these medications Details amlodipine 5 MG tablet Take 1 tablet (5 mg total) by mouth daily for 30 days. Qty: 30 tablet, Refills: 0 aspirin 325 MG tablet Take 1 tablet (325 mg total) by mouth daily for 30 days. Qty: 30 tablet, Refills: 0 atorvastatin 40 MG tablet Take 1 tablet (40 mg total) by mouth nightly at bedtime for 30 days. Qty: 30 tablet, Refills: 0 docusate sodium 100 MG capsule Take 1 capsule (100 mg total) by mouth 2 (two) times daily for 30 days. Qty: 60 capsule, Refills: 0 CONTINUE these medications which have NOT CHANGED Details multivitamin tablet Take 1 tablet by mouth daily. Activity: as tolerated. Diet: cardiac diet Continue speech therapy recommendations Wound Care: none needed Follow up labs needed: Follow-up with the long term physician in 5 days time with a CBC, basic metabolic profile Follow-up; Zeke Salinas MD [address] [place] [id number] Follow up in 1 month(s) Total time spent on discharge was 35 minutes. Thank you for allowing [facility] hospitalist service to take care of your patient, Please call [phone] Ext [phone] if you have any questions or concern. Signed: SANTHOSH BLACKWELL MD 07/04/2018 10:13 AM documented in this encounter Discharge Instructions * Discharge Instructions* Neena Graham RN - 07/04/2018 10:53 AM CDT PT/OT/ST Eval and treat. Puree diet with nectar thick liquids * Attachments The following attachments cannot be sent through Care Everywhere. * BRAINSTEM STROKE (SRI LANKAN) documented in this encounter Medications at Time of Discharge multivitamin tablet Take 1 tablet by mouth daily. amlodipine 5 MG tablet Take 1 tablet (5 mg total) by mouth daily for 30 days. 30 tablet 07/04/2018 08/03/2018 aspirin 325 MG tablet Take 1 tablet (325 mg total) by mouth daily for 30 days. 30 tablet 07/05/2018 07/28/2018 atorvastatin 40 MG tablet Take 1 tablet (40 mg total) by mouth nightly at bedtime for 30 days. 30 tablet 07/04/2018 08/03/2018 docusate sodium 100 MG capsule Take 1 capsule (100 mg total) by mouth 2 (two) times daily for 30 days. 60 capsule 07/04/2018 08/03/2018 documented as of this encounter Progress Notes * Yumiko Collado PharmD, [facility] - 07/04/2018 10:50 AM CDT Pharmacy Clinical Services: Stroke Discharge Note Bea Quiñones will be discharged on 07/04/2018. Pharmacy had been consulted to review the patient's chart for medication appropriateness upon discharge for meeting stroke core measures. 1. Antithrombotic therapy: aspirin 325 mg daily. 2. Statin therapy: atorvastatin 40 mg daily. LDL (Calculated): 122 3. Documented A.Fib/flutter?: No; Anticoagulation therapy: none indicated. Stroke measures have been met and medications are appropriate upon discharge. Thank you for the consult. Yumiko Collado PharmD, [facility] Phone number: [phone] 07/04/2018 10:50 AM * Anastasiia Velásquez RN - 07/04/2018 10:03 AM CDT Patient was on the phone--she wanted to have a new POA paperwork done prior to dc from the hospital. I put in an order for Spiritual Care Consult. There has been family conflict regarding the POA matters and other decisions in the family. I put in the order for the Consult. The patient is alert and oriented, understands and comprehends her decisions and her circumstances. The patient resides in [place]. She said her found the house during the time when he was ill--she bought it after his . Patient is in favor of going to [facility] --by the ambulance for the stretcher. [facility]: Fax--dc orders/de med ist/de scripts [phone] * Fabiola Gomez RN - 07/03/2018 5:50 PM CDT Problem: Skin Integrity - Impaired Goal: Absence of new skin breakdown Outcome: Met This Shift No s/s of skin breakdown present. Problem: Pain - Acute Goal: Achieve acceptable pain level Outcome: Met This Shift Acceptable pain level achieved with oral pain medication. Problem: Falls - Risk of Goal: Absence of falls Outcome: Met This Shift Patient is non-ambulatory; no falls this shift. Patient was assisted with bedpan and ADL's as needed. * Shruthi Bingham PT - 07/03/2018 5:05 PM CDT PT Treatment Discharge Recommendation: OT/PT at SNF Activity Recommendation for manager staffing: maximal assist x 2 for bed mobility and transfers - significant R side weakness Time in: 1645 Time out: 1705 Total time: 20 minutes 07/03/18 1700 Therapy Visit Ordering Provider Leigh Mullins III, MD PT Received On 07/03/18 Subjective Patient was agreeable to therapy session. She states her L side is but she was willing to sit up at edge of bed. She plans to transfer to rehab facility tomorrow. She expressed concern on several occasion over her finances and family situation with concern for monetary management. Reason for admission Pt is a 72 year old female who presents with Rt-sided weakness, numbness, falls, and inability to get up. Head CT revealed Lt basal ganglia infarct. Admitted for further management. PMH: HTN. Orders: Eval and treat; Activity: Up with assist. Verified Two Patient Identifiers Yes Patient consents to therapy Yes Precautions General Precautions Fall Risk;Bed Alarm;Chair Alarm Instructed on Precautions Yes;Needs reinforcement and education Other Fall risk; telemetry; L hemiparesis Pain Pain Yes Pain Score 5 Location R shoulder; RLE Interventions Re-direction;Re-positioning Activity Tolerance Activity Tolerance Comments Limited by Rt-sided weakness, pain, fatigue Cognition Overall Cognitive Status WFL Arousal/Alertness Appropriate responses to stimuli Attention Span Appears intact Memory Appears intact Orientation Level Oriented to place;Oriented to situation;Oriented to person;Disoriented to time (able to state month and year, not date) Following Commands Follows one step commands without difficulty Safety Judgment Good awareness of safety precautions Awareness of Errors Assistance required to identify errors made Deficits Fully aware of deficits Problem Solving Assistance required to generate solutions Perseveration Perseverates during conversation Other (Comment) Patient requires frequent cueing to remain on task. Patient would re-direct conversation throughout session to same topics. Bed Mobility Supine to Sit Max assist to left Sit to Supine Max assist to right;Assist of 2 Other (Comment) Patient required HOB elevated, use of bed pad for scooting with supine to sit transitions, with attempt to assist utilizing LUE.....For sit to supine patient required maximal assist x2 with support to clear lower extremities over the bed, and bed pad to scoot up in bed. Patient attempts to assist with scooting using LE's. TRANSFERS Sit to Stand Max assist;Assist of 2 Other (Comment) Patient required blocking of R knee, use of tactile cues to help with R side hip extension and support for RUE. Patient was able to achieve sit to stand transfer into standing position, but does report c/o pain with weight bearing (due to fall prior to admit) and fear of falling, limiting duration. Patient able to help pull up into standing with assist on L side and with cues to weight shift to L. Performed x 2 trials - improved transition on 2nd attempt. Gait Other (Comment) Not tested; not appropriate at this time Balance Sitting - Static CGA;Support of one upper extremity Sitting - Dynamic Min Assist;Support of one upper extremity Standing - Static Mod Assist;Max Assist;Assist of 2 Persons;Support of one upper extremity Other (Comment) Sitting balance: patient initially exhibited lateral lean to R and posteriorly, butself-corrected with LUE for support on bedrail. Patient unsteady, requiring CGA to minimal assist at times to maintain midline position. However, with increased duration patient improved balance and towards end of session was maintaining static sitting trial with only supervision for safety........Standing balance: Patient was able to achieve standing position, with cues to weight shift to L side, R knee blocked for safety and tactile cues to help achieve and maintain R hip extension. Patient able to hold standing balance for 5-10 seconds, but limited by c/o pain and fatigue, fear of falling. Exercises Sitting LE Exercise LAQ's: x 12 reps, RLE, 1 set, with tactile cues (tapping) to assist contraction. No active movement noted in sitting position. LAQ's x 12 reps LLE with AROM. Standing LE Exercise Hip extension, hip abduction/adduction: x 10 reps, 1 set, RLE, with active movement to help assist (approximately 2/5 strength demonstrated) Recommendation PT Recommendation PT at Detention Facility Plan PT Treatments/Interventions Gait Training;Therapeutic Exercises;Therapeutic Activities;Patient/family training Progress Progressing toward goals PT Frequency 5 times/week PT - Next Appointment 07/03/18 If this is the last treatment note,it will serve as the discharge summary Yes Assessment: Patient was able to show progress this session, assisting with bed mobility and transfers, and achieving standing balance with only moderate/maximal assist of 2. Patient still presents with significant R side weakness of upper and lower extremity, R facial droop, and impaired sitting/sta nding balance and functional mobility. However, patient was noted to have some active movement of RLE with supine strengthening exercises, particularly with hip extension and hip abduction/adduction,and was able to achieve standing. Anticipate continued progress with rehab, but more gradual progression is likely due to significant deficits. * GILBERTO Henderson - 07/03/2018 5:00 PM CDT Obra screen done. I faxed it to Corrina with [employer]. * GILBERTO Henderson - 07/03/2018 3:06 PM CDT COMMERCIAL COORDINATOR met with pt and her daughter bedside to discuss the delay in dc today. [facility] has yet to complete the OBRA screen, they said they will come do it today. Pt's SSN was forwarded to them. Pt may have a chance of discharging this evening but it is unlikely. More hopeful to anticipate dc early tomorrow morning. Pt's daughter is here and will stay overnight, she has plans to transport the pt. RN feels the pt will not be safe to transport in a private vehicle. She will discuss this with pt's daughter. * Santhosh Blackwell MD - 07/03/2018 1:23 PM CDT Progress note SUBJECTIVE: Patient seen and examined. No new issues. Patient awaiting placement, discussed with case management Review of Systems Constitutional: Negative for chills and fever. HENT: Negative for congestion and sore throat. Eyes: Negative for blurred vision and photophobia. Respiratory: Negative for cough, sputum production and shortness of breath. Cardiovascular: Negative for chest pain, palpitations, orthopnea and leg swelling. Gastrointestinal: Negative for diarrhea, heartburn, nausea and vomiting. Genitourinary: Negative for dysuria and frequency. Skin: Negative for rash. Neurological: Positive for focal weakness. Negative for dizziness, loss of consciousness, weakness and headaches. Right sided weakness OBJECTIVE Patient Vitals for the past 24 hrs: BP Temp Temp src Pulse Resp SpO2 07/03/18 0910 171/88 97.9 ??F (36.6 ??C) Oral 80 20 94 % 07/03/18 0413 175/83 98.8 ??F (37.1 ??C) Oral 84 22 92 % 07/03/18 0018 157/85 98.2 ??F (36.8 ??C) Oral 83 20 92 % 07/02/18 2025 154/66 98.1 ??F (36.7 ??C) Oral 91 18 92 % 07/02/18 1554 152/81 98.6 ??F (37 ??C) Oral 86 20 96 % Physical Exam Constitutional: She is oriented to person, place, and time. She appears well- developed and well-nourished. HENT: Head: Normocephalic and atraumatic. Eyes: Pupils are equal, round, and reactive to light. Neck: Normal range of motion. Neck supple. Cardiovascular: Normal rate and regular rhythm. Exam reveals no friction rub. No murmur heard. Pulmonary/Chest: No respiratory distress. She has no wheezes. She has no rales. She exhibits no tenderness. Abdominal: Soft. Bowel sounds are normal. There is no tenderness. There is no rebound and no guarding. Neurological: She is alert and oriented to person, place, and time. Right-sided weakness, dysarthria Skin: Skin is warm and dry. No rash noted. Psychiatric: She has a normal mood and affect. LABS:. Recent Labs 07/01/1853907/02/1854507/03/18 0611 WBC 8.8 8.1 7.5 HGB 13.0 13.2 13.1 HCT 38.5 40.4 40.6 MCV 88.5 90.6 92.5 PLT 227 208 218 RBC 4.35 4.46 4.39 Recent Labs Lab 07/01/1840 07/02/1846 07/03/18 06 NA 140 141 142 K 3.6 4.0 4.0 CL 106 107 108* CO2 24.9 26.1 27.4 AGAP 9.1 7.9 6.6 BUN 15 17 25* CR 0.54* 0.58 0.62 GFRNON >90 >90 89* GFR >90 >90 >90 GLU 108* 113* 105 CA 8.9 8.5 8.9 Intake/Output Summary (Last 24 hours) at 07/03/2018 1323 Last data filed at 07/03/2018 0500 Gross per 24 hour Intake 480 ml Output 250 ml Net 230 ml RADIOLOGY : REVIEWED MEDICATIONS Scheduled medications ??? aspirin 325 mg Oral Daily ??? atorvastatin 40 mg Oral Nightly at bedtime ??? enoxaparin 40 mg Subcutaneous Q24H Infusion PRN acetaminophen, hydrALAZINE, hydrocodone-acetaminophen, labetalol, ondansetron, sodium chloride ASSESSMENT /PLAN #Acute stroke Patient outside TPA window as her symptoms started 2 days ago per report CT at outside facility suggestive of left basal ganglia infarct Stroke neurology consulted, appreciate recommendations Echocardiogram, ultrasound carotid, fasting lipid panel, HbA1c ordered, results reviewed PT, OT, speech therapy evaluation Continue aspirin, statins #Hypertension Monitor blood pressure closely #Right knee pain fall at home X-ray of the hip at outside facility reported to be negative x-ray of the right knee no fractures PRN Thornton for pain control DVT prophylaxis Subcu enoxaparin Code status: No Order Patient will likely need short-term rehab placement. Case management involved SANTHOSH BLACKWELL MD 1:23 PM 07/03/2018 * GILBERTO Henderson - 07/03/2018 9:58 AM CDT Pt likely to dc to [facility] today. Awaiting a call back from liaison Corrina. Facility needspt's SSN which is not listed in EHR and pt does not remember it. Her son has the card in her possessions with him. COMMERCIAL COORDINATOR spoke to him and he will call me back with the information by noon today. I'll get the information to [facility] at the time that I receive it. Pt's daughter is coming up here today and can transport pt. Will continue to follow. * GILBERTO Henderson - 07/02/2018 3:30 PM CDT Pt has been accepted at [facility] and they can take her tomorrow if medically ready to dc. They do not provide transportation or pay for it. COMMERCIAL COORDINATOR left a voice message for pt's son BJ. Awaiting a call back. Family will be asked if they plan to transport or will pay for us to arrange transport. Will continue to follow. * Santhosh Blackwell MD - 07/02/2018 3:27 PM CDT Progress note SUBJECTIVE: Patient seen and examined. Patient reports her right knee pain. Apparently she fell couple of timesprior to this hospital admission. X-rays of the hip performed at outside facility negative for fracture. Review of Systems Constitutional: Negative for chills and fever. HENT: Negative for congestion and sore throat. Eyes: Negative for blurred vision and photophobia. Respiratory: Negative for cough, sputum production and shortness of breath. Cardiovascular: Negative for chest pain, palpitations, orthopnea and leg swelling. Gastrointestinal: Negative for diarrhea, heartburn, nausea and vomiting. Genitourinary: Negative for dysuria and frequency. Skin: Negative for rash. Neurological: Positive for focal weakness. Negative for dizziness, loss of consciousness, weakness and headaches. Right sided weakness OBJECTIVE Patient Vitals for the past 24 hrs: BP Temp Temp src Pulse Resp SpO2 07/02/18 1235 178/74 98.1 ??F (36.7 ??C) Oral 82 -- 94 % 07/02/18 0810 145/68 97.7 ??F (36.5 ??C) Oral 60 -- 94 % 07/02/18 0358 (!) 180/105 98.1 ??F (36.7 ??C) Oral 78 22 96 % 07/01/18 2331 187/87 98.1 ??F (36.7 ??C) Oral 82 20 95 % 07/01/18 2043 183/88 98.6 ??F (37 ??C) Oral 77 20 94 % 07/01/18 1759 170/82 98.1 ??F (36.7 ??C) Oral 86 22 93 % Physical Exam Constitutional: She is oriented to person, place, and time. She appears well- developed and well-nourished. HENT: Head: Normocephalic and atraumatic. Eyes: Pupils are equal, round, and reactive to light. Neck: Normal range of motion. Neck supple. Cardiovascular: Normal rate and regular rhythm. Exam reveals no friction rub. No murmur heard. Pulmonary/Chest: No respiratory distress. She has no wheezes. She has no rales. She exhibits no tenderness. Abdominal: Soft. Bowel sounds are normal. There is no tenderness. There is no rebound and no guarding. Neurological: She is alert and oriented to person, place, and time. Right-sided weakness, dysarthria Skin: Skin is warm and dry. No rash noted. Psychiatric: She has a normal mood and affect. LABS:. Recent Labs 06/30/18200307/01/1853907/02/18 0546 WBC 10.1 8.8 8.1 HGB 12.7 13.0 13.2 HCT 38.1 38.5 40.4 MCV 89.4 88.5 90.6 PLT 215 227 208 RBC 4.26 4.35 4.46 Recent Labs Lab 06/30/18200307/01/1853907/02/18 0546 NA 142 140 141 K 3.6 3.6 4.0 CL 106 106 107 CO2 26.9 24.9 26.1 AGAP 9.1 9.1 7.9 BUN 14 15 17 CR 0.61 0.54* 0.58 GFRNON 90* >90 >90 GFR >90 >90 >90 GLU 99 108* 113* CA 8.8 8.9 8.5 Intake/Output Summary (Last 24 hours) at 07/02/2018 1527 Last data filed at 07/02/2018 0443 Gross per 24 hour Intake 660 ml Output 550 ml Net 110 ml RADIOLOGY : REVIEWED MEDICATIONS Scheduled medications ??? aspirin 325 mg Oral Daily ??? atorvastatin 40 mg Oral Nightly at bedtime ??? enoxaparin 40 mg Subcutaneous Q24H Infusion PRN acetaminophen, hydrALAZINE, hydrocodone-acetaminophen, labetalol, ondansetron, sodium chloride ASSESSMENT /PLAN #Acute stroke Patient outside TPA window as her symptoms started 2 days ago per report CT at outside facility suggestive of left basal ganglia infarct Stroke neurology consulted, appreciate recommendations Echocardiogram, ultrasound carotid, fasting lipid panel, HbA1c ordered Allow permissive hypertension PT, OT, speech therapy evaluation Continue aspirin, statins #Hypertension Permissive hypertension for now Monitor blood pressure closely #Right knee pain fall at home X-ray of the hip at outside facility reported to be negative Will get x-ray of the right knee PRN Thornton for pain control DVT prophylaxis Subcu enoxaparin Code status: No Order Patient will likely need short-term rehab placement. Case management involved SANTHOSH BLACKWELL MD 3:27 PM 07/02/2018 * SHALONDA Varela - 07/02/2018 10:55 AM CDT Attempted to see patient this morning at 10:55am but was working with C D STRIPPER; will follow-up as therapy schedule allows. Thanks * NIXON BryantP-BC - 07/02/2018 10:45 AM CDT Images from the original note were not included. Vascular and Interventional Neurology Office Progress Note Bea Quiñones [id number] Patient: Bea Quiñones is admitted for right sided weakness and stroke. Since yesterday no new issues overnight. The patient is in good spirits and has no complaints this morning. She is agreeable to going to rehab closer to her son and once she is stronger moving up to [place]. Vital Signs: Reviewed and stable. Filed Vitals: 07/01/18 2043 07/01/18 2331 07/02/18 0358 07/02/18 0810 BP: 183/88 187/87 (!) 180/105 (P) 145/68 Pulse: 77 82 78 (P) 60 Resp: 20 20 22 Temp: 98.6 ??F (37 ??C) 98.1 ??F (36.7 ??C) 98.1 ??F (36.7 ??C) (P) 97.7 ??F (36.5 ??C) TempSrc: Oral Oral Oral (P) Oral SpO2: 94% 95% 96% (P) 94% Weight: Height: Review of systems: Eyes: No double vision Respiratory: No shortness of breath Cardiology: No chest pain GI: No nausea Neuro: No headache. Physical Exam: Normal general appearance, not in acute distress. Neurologic Exam Mental Status Oriented to person, place, and time. Attention: normal. Concentration: normal. Speech: slurred Level of consciousness: alert Knowledge: good. Able to name object. Able to read. Able to repeat. Normal comprehension. ?? Cranial Nerves ?? CN II Visual granados full to confrontation. ?? CN III, IV, Pupils are equal, round, and reactive to light. Extraocular motions are normal. ?? CN V Facial sensation intact. ?? CN VII Right facial weakness: central ?? CN VIII CN VIII normal. ?? CN IX, X CN IX normal. ?? CN XI CN XI normal. ?? CN XII CN XII normal. ?? Motor Exam Muscle bulk: normal Overall muscle tone: normal ?? Strength Left deltoid: 5/5 Left iliopsoas: 5/5 Right arm 1/5 (trace shoulder movement) Right leg is externally rotated and strength is 1/5. ?? Sensory Exam Light touch normal. ?? Gait, Coordination, and Reflexes ?? Gait Gait: (Deferred d/t right hemiplegia) ?? Coordination Finger to nose coordination: normal (Normal on left; unable to perform on right d/t hemiplegia) ?? Tremor Resting tremor: absent Labs: Recent Labs Lab 06/30/18200307/01/18 0540 07/02/18 0546 WBC 10.1 8.8 8.1 RBC 4.26 4.35 4.46 HGB 12.7 13.0 13.2 HCT 38.1 38.5 40.4 MCV 89.4 88.5 90.6 MCH 29.8 29.9 29.6 MCHC 33.3 33.8 32.7* PLT 215 227 208 RDW 13.9 14.2 14.3 MPV 9.9 10.2 10.1 LYMC 2.29 2.45 2.52 MONOC 0.79 0.76 0.68 EOSC 0.02 0.01 0.07 BASOC 0.02 0.03 0.03 , Recent Labs Lab 06/30/18200307/01/18 0540 07/02/18 0546 NA 142 140 141 K 3.6 3.6 4.0 CL 106 106 107 CO2 26.9 24.9 26.1 AGAP 9.1 9.1 7.9 BUN 14 15 17 CR 0.61 0.54* 0.58 GFRNON 90* >90 >90 GFR >90 >90 >90 GLU 99 108* 113* CA 8.8 8.9 8.5 , No results for input(s): PTT, INR in the last 168 hours., No results for input(s): TROP, CPK, MB in the last 168 hours., No results for input(s): PH, PCO2, PO2, [id number], BICARBWB, BASEDEFICIT,BASEEXCESS in the last 168 hours. and Recent Labs Lab 06/30/18200207/01/18 0540 CHOL -- 229 TRI -- 298 HDL -- 47* LDL -- 122 HGBA1C 5.5 -- TSH -- 1.070 Radiology: Head CT: Left basal ganglia infarct. ?? EKG: Sinus rhythm. Carotid Ultrasound: Rt ICA 0-39% stenosis and Lt ICA 0-39% stenosis. Echocardiogram: The calculated ejection fraction is 51%. Moderate to severe concentric left ventricular hypertrophy. Right ventricular systolic function is normal. The agitated saline injection showed no clear evidence of shunting into the left atrium, consistent with no patent foramen ovale. Trace mitral regurgitation. Impression: Patient Active Problem List Diagnosis ??? Stroke (HCC) Plan: Ms. Quiñones presented with right hemiplegia and dysarthria. Head CT showed a left basal ganglia infarct. No IV TPA due to symptoms outside of the window. Etiology appears is small vessel disease. Carotid ultrasound shows no evidence of carotid stenosis bilaterally. Echocardogram has no PFO. ?? Recommendations: -Aspirin 325 mg daily for secondary stroke prevention. -LDL 122. Starting Lipitor 40 mg daily. Goal is LDL<70mg/dL -Hgb A1c 5.5. Goal is normoglycemia. -Vital signs per protocol. Allow for permissive hypertension, only treat for SBP>220 or DBP>110. -Neuro checks per protocol. Please call with any acute neurological changes. -Telemetry to monitor for occult atrial fibrillation. -SCD's and Lovenox for DVT prophylaxis. -PT/OT recommending swing bed -ST Dysphagia 1 with nectar thick liquids; meds with applesauce. MOCA . -bibliographic services specialist to help with rehab placement. The patient is okay to discharge to rehab with the above recommendations. Our office will arrange outpatient follow up with Dr. Salinas in 2 weeks. Lyla Souza APN [facility] Neurology I can be paged or reached through [employer] if I am international organizer. Pager Cosigned by Zeke Salinas MD at 07/02/2018 5:57 PM CDT Associated attestation - Zeke Salinas MD - 07/02/2018 5:57 PM CDT I, ZEKE SALINAS MD, performed an examination of the patient and discussed the management with the Advanced Practice Provider (ALONSO). I reviewed the ALONSO's progress note and agree with the findings and plan of care, except as I have documented. * Josette Mccullough, C D STRIPPER - 07/02/2018 10:22 AM CDT PT Treatment Discharge Recommendation: OT/PT at SNF Activity Recommendation for manager staffing: Assist of 2 Time in: 1022 Time out: 1101 Total time: 39 07/02/18 1022 Therapy Visit Ordering Provider Leigh Mullins III, MD Subjective Nursing okayed session. Pt in bed, no family present. Pt remained in bed upon departure. Reason for admission Pt is a 72 year old female who presents with Rt-sided weakness, numbness, falls, and inability to get up. Head CT revealed Lt basal ganglia infarct. Admitted for further management. PMH: HTN. Orders: Eval and treat; Activity: Up with assist. Verified Two Patient Identifiers Yes Patient consents to therapy Yes Precautions General Precautions Fall Risk;Bed Alarm;Chair Alarm Instructed on Precautions Yes;Needs reinforcement and education Other Fall risk; telemetry Pain Pain Yes Pain Score 8 Location R shoulder Interventions Re-direction;Relaxation;Re-positioning Activity Tolerance Activity Tolerance Comments Limited by weakness, fatigue, and pain. Requires rest breaks for energyconservation and to prevent over exertion and stimulation. At rest, BP 170/82mmHg, SP02 95% on roomair with HR 80BPM. At EOB, BP 172/85mmHg, SP02 94% on room air with HR 84BPM. Reports mild dizziness. Cognition Overall Cognitive Status WFL Arousal/Alertness Appropriate responses to stimuli Attention Span Appears intact Memory Appears intact Orientation Level Oriented to place;Oriented to situation;Oriented to person;Disoriented to time Following Commands Follows one step commands without difficulty Safety Judgment Good awareness of safety precautions Awareness of Errors Assistance required to identify errors made Deficits Fully aware of deficits Problem Solving Assistance required to generate solutions Other (Comment) Pt gets easily distracted, requiring cues to stay in task. Bed Mobility Supine to Sit Max assist to left Sit to Supine Max assist to right Other (Comment) Cues for technique, With HOB elevated and utilizing bed pad and L hand rail to achieve sitting position. Balance Sitting - Static CGA;Support of one upper extremity Sitting - Dynamic Min Assist;Support of one upper extremity Other (Comment) On EOB, pt participated in seated static/dynamic balance activities, core stabilization/strengthening tasks, and postural awareness training with emphasis on WB towards affected side with approximation techniques, adjusting EDUARDA appropriately to maintain midline, to increase safety in seated position and facilitate trunk control. Demonstrates R lateral- posterior lean on EOB, requiring cues to maintain midline, which pt was able to correct with assist of LUE. Patient/Family Training Bed Mobility Education on proper technique Transfer Training Education on proper sequencing Recommendation PT Recommendation PT at Detention Facility Plan PT Treatments/Interventions Gait Training;Therapeutic Exercises;Therapeutic Activities;Patient/family training Progress Slow progress, decreased activity tolerance PT Frequency 5 times/week PT - Next Appointment 07/02/18 If this is the last treatment note,it will serve as the discharge summary Yes * Yessica Knapp, BACKHOE OPERATOR - 07/02/2018 9:52 AM CDT Speech Therapy Treatment Note Recommended Diet: Dysphagia 1 with nectar thick liquids Please utilize aspiration precautions including: --Head of bed elevated as far as bed allows/medically appropriate when eating --Keep head of bed no lower than 30 degrees while resting/sleeping --Supervision during meals --Small bites --Small sips --Alternate bites of food and sips of liquid. --Encourage deep breathing --Encourage productive cough --Offer food only when awake and alert --Optimize oral care including brushing or swabbing oral cavity before and after p.o. intake. --Check oral cavity for residuals --One packet of thickener for 6 ounces Recommendations: Ongoing dysarthria, cognitive-linguistic and dysphagia treatment. Summary Statement: This patient presents with mild dysarthria, mild cognitive- linguistic impairmentand moderate oropharyngeal dysphagia. Strong effort noted. 07/02/18 0900 Therapy Visit BACKHOE OPERATOR Received on 07/02/18 Subjective Patient was alert and in good spirits. Reason for Admission Right sided, facial droop, slurred speech Comorbidities Relevant for BACKHOE OPERATOR HTN, tobacco abuse Prior Level of Function Patient resides at home independently. She stated she has not taken her medications since he as she lost a discount. Patient is able to drive but her car does not currently work. 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 HIghest level of education completed is high school. Verified Two Patient Identifiers Yes Patient consents to Therapy Yes Time Calculation Start Time 09 Stop Time 0944 Time Calculation (min) 23 min Precautions Precautions Aspiration;Fall risk Instructed on Precautions Yes;Needs reinforcement and education Pain Pain Yes Pain score 9 Pain Location Knee pain acknowledged; RN notified Swallowing Interventions Therapeutic trials with analysis of swallow function;Pt education/counseling Therapeutic solid trials Mechanically altered (Dysphagia Level 2);Pureed (Dysphagia Level 1) Therapeutic liquid trials [place];Thin Oral phase during therapeutic trials Impaired Oral phase signs/symptoms Pocketing of foods;Drooling or anterior spillage of the bolus;Prolonged mastication Pharyngeal phase during therapeutic trials Impaired Symptomatic for aspiration/penetration Yes Consistencies symptomatic for aspiration/penetration Thin Pharyngeal phase signs/symptoms Coughing;Choking Therapeutic trials comment No overt signs/symptoms of aspiration were observed with nectar and purees. Swallowing impressions/assessment This patient presents with persistent moderate oropharyngeal dysphagia, unchanged from the previous date. Motor Speech Interventions Pt education/counseling;Direct therapeutic activities for congregation of motor speechskills;Direct instruction in compensatory strategies Direct therapeutic activities for congregation of motor speech skills Provided patient with conversational sentences and increasing word length exercises Direct instruction in compensatory strategies Practiced overarticulation and utilizing diaphragmatic support Direct training of caregivers for improved communication Requested RN call son to obtain glasses tocomplete exercises Direct therapeutic activities for generalization of motor speech skills to various contexts Encouraged patient to utilize strategies with physicians Pt education/counseling Supportive encouragement provides Breath support Mildly-moderately reduced Resonance Grossly adequate Prosody Reduced Articulation Mildly impareicse Awareness of errors Uses strategies intermittently to improve intelligibility or listener's understanding of message Apraxia No apraxia present Dysarthria Mild dysarthria Intelligibility Rating Decreased intelligibility at conversational speech level Motor speech impressions/assessment Mild flaccid dysarthria Voice Voice impressions/assessment Mildly dysphonic voice BACKHOE OPERATOR Recommendations Recommended Solid Diet Pureed (Dysphagia Level 1) Recommended Liquid Consistency [place] Recommended Medication Form Whole Plan BACKHOE OPERATOR Treatments/Interventions Swallowing treatment;Cognitive communication treatment;Other (Comment) (Dysarthria treatment ) Progress Improving as expected BACKHOE OPERATOR Frequency 5 times/week BACKHOE OPERATOR Plan for Next Session Ongoing dysarthria, dysphagia and cognitive therapy BACKHOE OPERATOR Next Appointment 07/02/18 If this is the last treatment note, it will serve as the discharge summary Yes * Violet Inman, SECONDARY HISTORY TEACHER - 07/01/2018 2:52 PM CDT Spoke to patient at bedside re: rehab placement Per discussion patient does not feel she can go directly to [place], requested rehab near [place], [place] And once stronger -has decided to move to [place] with daughter. She feels her daughter working in the medical field will be able to better care for her BJ- son (current POA per patient if needed) #[phone] - left voice message - waiting call back Meredith esparza-- no contact info 07/01/18 4109 Referral Data Referral Source Self-referral Referral Reason Discharge Planning Source of Information Patient Patient Information Primary Caregiver Self Baseline ADL's Functional Status Independent Anticipated Discharge Needs Change in Living Arrangements Yes In-Home Care or Equipment Not Known at this time Vocational and/or Role Loss Yes Inability to Complete ADL's Yes Discharge Planning Support Systems Children * Santhosh Blackwell MD - 07/01/2018 2:32 PM CDT Progress note SUBJECTIVE: Patient seen and examined. Admitted with right-sided weakness, recurrent falls. Neurology consulted, stroke workup pending. CT suggestive of left basal ganglion infarct at outside facility Review of Systems Constitutional: Negative for chills and fever. HENT: Negative for congestion and sore throat. Eyes: Negative for blurred vision and photophobia. Respiratory: Negative for cough, sputum production and shortness of breath. Cardiovascular: Negative for chest pain, palpitations, orthopnea and leg swelling. Gastrointestinal: Negative for diarrhea, heartburn, nausea and vomiting. Genitourinary: Negative for dysuria and frequency. Skin: Negative for rash. Neurological: Positive for focal weakness. Negative for dizziness, loss of consciousness, weakness and headaches. Right sided weakness OBJECTIVE Patient Vitals for the past 24 hrs: BP Temp Temp src Pulse Resp SpO2 Height Weight 07/01/18 1300 170/85 98.6 ??F (37 ??C) Oral -- 18 96 % -- -- 07/01/18 0914 173/87 98.9 ??F (37.2 ??C) Oral 88 20 95 % -- -- 07/01/18 0419 180/74 98.3 ??F (36.8 ??C) Oral 94 -- 95 % -- -- 07/01/18 0046 186/81 98.6 ??F (37 ??C) Oral 90 -- 93 % -- -- 06/30/18 2300 (!) 186/95 -- -- -- 22 -- -- -- 06/30/18 2133 184/70 -- -- 92 -- 96 % -- -- 06/30/18 2026 (!) 217/96 99 ??F (37.2 ??C) Oral 84 18 95 % -- -- 06/30/18 1758 (!) 186/93 98.7 ??F (37.1 ??C) Oral 95 18 99 % 5' 4 (1.626 m) 94.3 kg (207 lb 14.4 oz) 06/30/18 1754 (!) 181/103 -- -- 82 -- -- -- -- Physical Exam Constitutional: She is oriented to person, place, and time. She appears well- developed and well-nourished. HENT: Head: Normocephalic and atraumatic. Eyes: Pupils are equal, round, and reactive to light. Neck: Normal range of motion. Neck supple. Cardiovascular: Normal rate and regular rhythm. Exam reveals no friction rub. No murmur heard. Pulmonary/Chest: No respiratory distress. She has no wheezes. She has no rales. She exhibits no tenderness. Abdominal: Soft. Bowel sounds are normal. There is no tenderness. There is no rebound and no guarding. Musculoskeletal: Normal range of motion. Neurological: She is alert and oriented to person, place, and time. Right-sided weakness, dysarthria Skin: Skin is warm and dry. No rash noted. Psychiatric: She has a normal mood and affect. LABS:. Recent Labs 06/30/18200307/01/18 0540 WBC 10.1 8.8 HGB 12.7 13.0 HCT 38.1 38.5 MCV 89.4 88.5 PLT 215 227 RBC 4.26 4.35 Recent Labs Lab 06/30/18200307/01/18 0540 NA 142 140 K 3.6 3.6 CL 106 106 CO2 26.9 24.9 AGAP 9.1 9.1 BUN 14 15 CR 0.61 0.54* GFRNON 90* >90 GFR >90 >90 GLU 99 108* CA 8.8 8.9 Intake/Output Summary (Last 24 hours) at 07/01/2018 1434 Last data filed at 07/01/2018 0914 Gross per 24 hour Intake 530 ml Output 250 ml Net 280 ml RADIOLOGY : REVIEWED MEDICATIONS Scheduled medications ??? aspirin 325 mg Oral Daily ??? atorvastatin 40 mg Oral Nightly at bedtime ??? enoxaparin 40 mg Subcutaneous Q24H Infusion PRN acetaminophen, hydrALAZINE, labetalol, ondansetron, sodium chloride ASSESSMENT /PLAN #Acute stroke Patient outside TPA window as her symptoms started 2 days ago per report CT at outside facility suggestive of left basal ganglia infarct Stroke neurology consulted, appreciate recommendations Echocardiogram, ultrasound carotid, fasting lipid panel, HbA1c ordered Allow permissive hypertension PT, OT, speech therapy evaluation Continue aspirin, statins #Hypertension Permissive hypertension for now Monitor blood pressure closely DVT prophylaxis Subcu enoxaparin Code status: No Order Patient will likely need short-term rehab placement. Case management involved SANTHOSH BLACKWELL MD 2:34 PM 07/01/2018 * Lakshmi MclaughlinD - 07/01/2018 1:38 PM CDT Pharmacy Clinical Services: Stroke Note Arrival date/time: 06/30 @1745 Last known well date/time: 06/28 @unknown PMH: HTN Stroke-relevant medications patient taking prior to admission (antithrombotic, statin, anticoagulation): patient has not taken any medications in > 1 year Today is day 2 of admission for Bea Quiñones a 72-year-old female. Pharmacy has been consulted to review the patient's chart for medication appropriateness for ischemic stroke. 1. No TPA received, because outside window 2. VTE prophylaxis (by the end of day 2): enoxaparin. First administration on 06/30 at 2051. 3. Antithrombotic therapy (by the end of day 2): aspirin 325 mg. First administration on 07/01 at 1412. 4. Statin therapy: atorvastatin 40 mg daily; LDL 122 5. Documented A.Fib/flutter?: No; Anticoagulation therapy: none indicated Thank you for the consult. Pharmacy will continue to monitor for stroke medication appropriateness. Lakshmi MCLAUGHLIND Phone number: [phone] 07/01/2018 1:38 PM * Kellie Caro, PT - 07/01/2018 9:55 AM CDT PT Initial Evaluation Discharge Recommendation: OT/PT at SNF Activity Recommendation for manager staffing: Up with heavy assist x 2 for stand-pivot transfer only Time in: 0924 Time out: 955 Total time: 31 minutes 07/01/18 1600 Therapy Visit Ordering Provider Leigh Mullins III, MD PT Received On 07/01/18 Subjective Pt reports she knows she will have to go to rehab. Reason for admission Pt is a 72 year old female who presents with Rt-sided weakness, numbness, falls, and inability to get up. Head CT revealed Lt basal ganglia infarct. Admitted for further management. PMH: HTN. Orders: Eval and treat; Activity: Up with assist. Verified Two Patient Identifiers Yes Patient consents to therapy Yes Precautions General Precautions Fall Risk;Bed Alarm;Chair Alarm Instructed on Precautions Yes;Needs reinforcement and education Other Fall risk; telemetry Home Living Home Equipment Straight cane Additional Comments Pt reports living in a 1-story house with basement with 1 step to enter; can stay on the main level. Bathroom has tub/shower; standard height toilet seat with wall nearby to use for support. Prior Function Fall History Yes Reason for fall loss of balance Most recent fall admitting fall How many falls in the past year? 7-8 Comments Pt reports independence with ADLs, uses cane lately for functional mobility. Pt cooks, cleans; neighbors assist with driving and can assist PRN. Son and grandson live nearby and can assist PRN. Pain Pain Yes Pain Score 9 Location right side Interventions Re-direction;Re-positioning;Informed RN Activity Tolerance Activity Tolerance Comments Limited by Rt-sided weakness, pain Vision - Basic Assessment Current Vision Wears glasses Cognition Overall Cognitive Status WFL Arousal/Alertness Appropriate responses to stimuli Attention Span Appears intact Memory Appears intact Orientation Level Oriented to place;Oriented to situation;Oriented to person;Disoriented to time (able to state month and year, not date) Following Commands Follows one step commands without difficulty Safety Judgment Good awareness of safety precautions Awareness of Errors Assistance required to identify errors made Deficits Fully aware of deficits Sensation Light Touch No apparent deficits RLE Assessment RLE Comment PROM WFL throughout; otherwise, R LE flaccid at this time - unable to elicit any musclecontraction this session LLE Assessment LLE Comment ROM WFL; strength 4/5 throughout Bed Mobility Supine to Sit Max assist to right;Assist of 2 Sit to Supine Max assist to left;Assist of 2 Other (Comment) HOB raised TRANSFERS Sit to Stand Total assist;Assist of 2 Bed to Chair Total assist;Assist of 2 Gait Other (Comment) Not tested; not appropriate at this time Balance Sitting - Static Min Assist;Mod Assist Sitting - Dynamic Mod Assist Standing - Static Max Assist;Assist of 2 Persons Standing - Dynamic Max Assist;Assist of 2 Persons Other (Comment) Pt with increased posterior R lateral lean in sitting and standing this session Assessment Personal Factors/Comorbidities Impacting Care 3-4 personal factors/comorbidities Examination of Body Systems High (at least 4 Elements) Objectives of Body Systems Impaired bed mobility;Impaired transfers;Impaired ambulation;Impaired balance;Decreased LE strength;Decreased endurance;Decreased safe judgement Clinical Presentation of Patient Evolving and changing characteristics Complexity Level of Evaluation Moderate Prognosis Fair Recommendation PT Recommendation PT at Detention Facility Plan PT Treatments/Interventions Gait Training;Therapeutic Exercises;Therapeutic Activities;Patient/family training PT Frequency 5 times/week PT - Next Appointment 07/01/18 If this is the last treatment note,it will serve as the discharge summary Yes * Karla Peraza, OT - 07/01/2018 9:24 AM CDT OT Initial Evaluation Discharge Recommendation: OT/PT at [facility] Activity Recommendation for manager staffing: Up with Total/heavy assist X2; use of bed pad; Rt side flaccid Time in: 923 Time out: 0955 Total time: 31 07/01/18 0900 Therapy Visit OT Received On 07/01/18 Reason for admission Pt is a 72 year old female who presents with Rt-sided weakness, numbness, falls, and inability to get up. Head CT revealed Lt basal ganglia infarct. Admitted for further management. PMH: HTN. Orders: Eval and treat; Activity: Up with assist. Previous Occupational Therapy Never Ordering Provider Leigh Mullins III, MD Verified Two Patient Identifiers Yes Patient consents to therapy Yes Precautions Other Fall risk; telemetry Subjective Subjective Pt reports she knows she will have to go to rehab. Home Living Home Equipment Straight cane Additional Comments Pt reports living in a 1-story house with basement with 1 step to enter; can stay on the main level. Bathroom has tub/shower; standard height toilet seat with wall nearby to use for support. Prior Function Fall History Yes Reason for fall loss of balance Most recent fall admitting fall How many falls in the past year? 7-8 Comments Pt reports independence with ADLs, uses cane lately for functional mobility. Pt cooks, cleans; neighbors assist with driving and can assist PRN. Son and grandson live nearby and can assist PRN. Pain Pain Yes Pain Score 9 Location Rt side Interventions Informed RN;Re-direction;Re-positioning Activity Tolerance Activity Tolerance Comments Limited by Rt-sided weakness, pain Vision - Basic Assessment Current Vision Wears glasses Cognition Overall Cognitive Status WFL Arousal/Alertness Appropriate responses to stimuli Attention Span Appears intact Memory Appears intact Orientation Level Oriented to place;Oriented to situation;Oriented to person;Disoriented to time (able to state month and year, not date) Following Commands Follows one step commands without difficulty Safety Judgment Good awareness of safety precautions Awareness of Errors Assistance required to identify errors made Deficits Fully aware of deficits Overall Extremity Assessment Upper Extremity Lt UE AROM and MMT: WFL; Rt UE: flaccid, no AROM noted; PROM WFL except shoulder flexion to 90, limited by pain Hand Function Hand Dominance Right; may benefit from Rt resting hand splint Gross Grasp Right;Impaired;Left;Functional (Absent in Rt UE; WFL in Lt) Coordination Impaired Sensation Light Touch No apparent deficits ADL Additional Comments Pt donned Marshall socks seated at EOB with Max assist. Bed Mobility Supine to Sit Max assist to right;Assist of 2 Sit to Supine Max assist to left;Assist of 2 Other (Comment) HOB raised Functional Transfers Sit to Stand Total assist;Assist of 2 Bed to Chair Total assist;Assist of 2 Functional Mobility Pt performed pivot transfer to/from bed to/from bedside chair with Total assistX2, use of bed pad. Anxious, does not assist much Balance Sitting - Static Min Assist;Mod Assist Sitting - Dynamic Mod Assist Standing - Static Max Assist;Assist of 2 Persons Standing - Dynamic Max Assist;Assist of 2 Persons (Total assist) Assessment Occupational Profile and History Complexity Moderate (Expanded) Performance Skills Deficits Bathing/showering;Dressing;Functional mobility;Home establishment and management;Personal hygiene and grooming;Toileting;Other (Comment) (Rt UE AROM, strength, and coordination) Performance Deficit Level High (5 or more deficits) Clinical Decision Making High (max modifications) Complexity Level of Evaluation Moderate Prognosis Fair Recommendation OT Recommendation OT during Hospitalization;OT at Detention Facility Plan OT Treatment/Intervention Self care training;Therapeutic Exercises;Therapeutic Activities;Functional Activity;Safety OT Frequency 5 times/week OT - Next Appointment 07/01/18 If this is the last treatment note,it will serve as the discharge summary Yes Objective Objective Pt received for OT session supine in bed. * Yessica Knapp, BACKHOE OPERATOR - 07/01/2018 7:53 AM CDT BACKHOE OPERATOR Initial Stroke Evaluation Diet Recommendation: Dysphagia 1 with nectar thick liquids; meds with applesauce Please utilize aspiration precautions including: --Head of bed elevated as far as bed allows/medically appropriate when eating --Keep head of bed no lower than 30 degrees while resting/sleeping --Small bites --Small sips --Alternate bites of food and sips of liquid. --Encourage deep breathing --Encourage productive cough --Offer food only when awake and alert --Optimize oral care including brushing or swabbing oral cavity before and after p.o. intake. --Check oral cavity for residuals --One packet of thickener for 6 ounces Summary Statement: This patient presents with moderate oropharyngeal dysphagia characterized by right sided pocketing, loss of bolus anteriorly, and delayed swallow trigger with presumed aspiration of thin liquids. Patient presents with mild-moderate flaccid dysarthria and mild cognitive-linguisticimpairment. She would benefit from ongoing speech therapy to address these deficits. Time In: 737 Time Out: 815 Total Time: 38 Objective: This patient was seen at bedside for initial swallowing evaluation. Patient accepted trials of thin, nectar, honey, pureed and soft solid consistencies. Oral mechanism--Tongue protruded to with deviation to the right and retracted and lateralized with fair-decreased strength and range. Lips protruded and retracted with decreased strength and range. Fair range of motion of jaw. Velum elevated symmetrically. There was right sided facial droop. Mild-moderate flaccid dysarthria appreciated. Patient is edentulous (she has dentures but does not wears them) Oral phase--Fair-decreased lip seal around spoon and straw. Extended and incomplete anterior-posterior transit with pocketing on the right and loss of bolus anteriorly. Pharyngeal phase--Delayed trigger of the pharyngeal swallow. Clinically Fair hyolaryngeal elevation. Cough triggered following thin liquids, which is very suspicious for aspiration. No clinical signs/symptoms of aspiration including choking, coughing or wet respiration with other trailed consistencies. [employer] Sales Consultant administered the [place] Cognitive Assessment (MOCA). The following represents patient's performance: Visuospatial/Executive: Unable to assess as patient does not have her reading glasses Namin out of 3 Memory (immediate; not scored): 4 out of 5 Attention: 6 out of 6 Language: 2 out of 3 Abstraction: 2 out of 2 Delayed Recall: 0 out of 5 Orientation: 6 out of 6 This patient scored 19 out of 25 on this examination, which is commensurate with mildly impaired cognitive-linguistic functioning. 07/01/18 0700 Therapy Visit BACKHOE OPERATOR Received on 07/01/18 Subjective Patient was alert and attempting to have a bowel movement, I'm a mess. Reason for Admission Right sided, facial droop, slurred speech Comorbidities Relevant for BACKHOE OPERATOR HTN, tobacco abuse Prior Level of Function Patient resides at home independently. She stated she has not taken her medications since he as she lost a discount. Patient is able to drive but her car does not currently work. 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 HIghest level of education completed is high school. Verified Two Patient Identifiers Yes Patient consents to Therapy Yes Time Calculation Start Time 0738 Precautions Precautions Aspiration;Fall risk Instructed on Precautions Yes;Needs reinforcement and education Pain Pain (Discomfort reported its not really pain. ) BACKHOE OPERATOR Recommendations Recommended Solid Diet Pureed (Dysphagia Level 1) Recommended Liquid Consistency [place] Recommended Medication Form Whole Plan BACKHOE OPERATOR Treatments/Interventions Swallowing treatment;Cognitive communication treatment;Voice treatment;Other (Comment) (Dysarthria treatment ) BACKHOE OPERATOR Frequency 5 times/week BACKHOE OPERATOR Plan for Next Session Re-evaluate swallow, dysarthria therapy BACKHOE OPERATOR Next Appointment 07/01/18 If this is the last treatment note, it will serve as the discharge summary Yes documented in this encounter H&P Notes * Leigh Mullins III, MD - 06/30/2018 8:42 PM CDT Attending Provider: Leigh Mullins III, MD PCP: No primary care provider on file. Bea Quiñones is an 72-year-old female. Reason for Admission: Stroke (HCC) HPI: Pt is a 72yo female with a PMH including HTN Former smoker Pt has not been on antihypertensives since her and she lost her insurance over a year ago. She noticed some mild right sided weakness about 2 days ago, and it has progressed since then, and now she has some associated numbness. Last night she fell twice due to the weakness. This AM she wasunable to get up and walk so she called her son and was taken to the ED at [facility]. At [facility] ED, vitals were unremarkable. CBC, CMP, UA essentially normal. EKG without ST elevation. Xray right shoulder and hip neg for fracture. CXR showing cardiomegaly, emphysema, some interstitial opacities. She was nearly flaccid on the right, with right facial droop. CT of the head was suspicious for a left basal ganglia infarct. She received 1L NS and aspirin and was transferred here for further care. She is currently unable to bend her right knee, and son states she was able to do this with difficulty at [facility]. Past Medical History: Diagnosis Date ??? Hypertension Allergies: No Known Allergies Social History Tobacco Use ??? Smoking status: Former Smoker ??? Smokeless tobacco: Never Used Substance Use Topics ??? Alcohol use: No Frequency: Never Past Surgical History: Procedure Laterality Date ??? BLADDER SURGERY Family History Problem Relation Age of Onset ??? Diabetes Mother ??? Miscarriages / Stillbirths Father Travel Exposure: Traveled outside of the [place] in the last month: No No current facility-administered medications on file prior to encounter. No current outpatient medications on file prior to encounter. Active Problems: Stroke (HCC) SNOMED CT(R): CEREBROVASCULAR ACCIDENT Blood pressure (!) 217/96, pulse 84, temperature 99 ??F (37.2 ??C), resp. rate 18, height 5' 4 (1.626 m), weight 94.3 kg (207 lb 14.4 oz), SpO2 95 %. Review of Systems All other systems reviewed and are negative. Physical Exam Constitutional: She is oriented to person, place, and time. She appears well- developed and well-nourished. No distress. HENT: Head: Normocephalic and atraumatic. Right Ear: External ear normal. Left Ear: External ear normal. Eyes: Conjunctivae and EOM are normal. Right eye exhibits no discharge. Left eye exhibits no discharge. No scleral icterus. Neck: Normal range of motion. Neck supple. No JVD present. No tracheal deviation present. No thyromegaly present. Cardiovascular: Normal rate, regular rhythm and normal heart sounds. Exam reveals no gallop and no friction rub. No murmur heard. Pulmonary/Chest: Effort normal and breath sounds normal. No stridor. No respiratory distress. She has no wheezes. She has no rales. She exhibits no tenderness. Abdominal: Soft. Bowel sounds are normal. She exhibits no distension and no mass. There is tenderness (left upper). There is no rebound and no guarding. Musculoskeletal: Normal range of motion. She exhibits no edema, tenderness or deformity. Lymphadenopathy: She has no cervical adenopathy. Neurological: She is alert and oriented to person, place, and time. A cranial nerve deficit is present. Coordination normal. Right hemiparesis; right facial droop; mild right numbness more prominent in LE Skin: Skin is warm and dry. No rash noted. She is not diaphoretic. No erythema. No pallor. Psychiatric: She has a normal mood and affect. Her behavior is normal. Thought content normal. Vitals reviewed. Assessment/Plan: 1. Right facial droop and hemiparesis due to acute ischemic CVA - Last time known normal about 2 days ago, when weakness first began - CT head at [facility] showing left basal ganglia infarct - Neuro consulted, appreciate assistance - Echo, carotid US, A1c, AM lipid panel, PT/OT - BP elevated, will control if >190 since infarct may be evolving - As per neuro, MRI as outpatient - Passed bedside swallow eval, will get ST 2. Left abd tenderness on exam - Pt states that it's due to not eating - Will get KUB if it persists 3. HTN - Pt will likely need to be placed back on antihypertensives on DC FEN No IVF Gen diet Proph Lovenox LEIGH MULLINS III, MD 06/30/2018 documented in this encounter Consult Notes * Lyla Souza, LEAD MACHINIST-BC - 07/01/2018 9:52 AM CDTAssociated Order(s): IP CONSULT NEUROLOGY - VASCULAR Images from the original note were not included. Vascular and Interventional Neurology Office Consultation Note Bea Quiñones 1945 [id number] Inpatient Consult to Neurology - Vascular Consult performed by: LINDSAY Bryant- Consult ordered by: Leigh Mullins III, MD This is a 72-year-old female whom I was asked to see for stroke evaluation. HPI: Ms. Quiñones has a past medical history of hypertension who presented to [facility] with complaints of right sided weakness. LKW 3 days ago. The patient reports, 2 days ago she had mild right sided weakness with slurred speech but it was mild but she was falling at home. Yesterday morning around 0200 AM, she woke up to the let the dogs out. She sustained a fall due to the right sided weakness but denies hitting her head or having any loss of consciousness. She laid on the floor floor for approximately 5-6 hours before she could reach the phone to call for help. No precipitating factors identified. She went to [facility] ED for evaluation. Head CT was obtained which showed a left basal ganglia infarct. The patient was transferred for further workup. The patient's approximately one year ago. Since is passing, she lost her health insurance and stopped taking her antihypertensive medications. Allergies: No Known Allergies PMH: Past Medical History: Diagnosis Date ??? Hypertension PSH: Past Surgical History: Procedure Laterality Date ??? BLADDER SURGERY Home Meds: No home medications Social Hx: Social History Socioeconomic History ??? Marital status: Spouse name: Not on file ??? Number of children: Not on file ??? Years of education: Not on file ??? Highest education level: Not on file Social Needs ??? Financial resource strain: Not on file ??? Food insecurity - worry: Not on file ??? Food insecurity - inability: Not on file ??? Transportation needs - medical: Not on file ??? Transportation needs - non-medical: Not on file Occupational History ??? Not on file Tobacco Use ??? Smoking status: Former Smoker ??? Smokeless tobacco: Never Used Substance and Sexual Activity ??? Alcohol use: No Frequency: Never ??? Drug use: No ??? Sexual activity: No Other Topics Concern ??? Not on file Social History Narrative ??? Not on file Family Hx: Mother: +Diabetes Father: +Stroke and alcoholic Review of Systems: Review of Systems Constitutional: Negative. HENT: Negative. Eyes: Negative. Respiratory: Negative. Cardiovascular: Negative. Gastrointestinal: Negative. Genitourinary: Negative. Musculoskeletal: Negative. Skin: Negative. Neurological: Positive for speech change and focal weakness. Endo/Heme/Allergies: Negative. Psychiatric/Behavioral: Negative. Filed Vitals: 06/30/18 2300 07/01/18 0046 07/01/18 0419 07/01/18 0914 BP: (!) 186/95 186/81 180/74 173/87 Pulse: 90 94 88 Resp: 22 Temp: 98.6 ??F (37 ??C) 98.3 ??F (36.8 ??C) TempSrc: Oral Oral SpO2: 93% 95% 95% Weight: Height: Physical Exam: General appearance is normal, the patient is not in acute distress. She has normal pulses in the bilateral radial arteries (2+) with regular rate and rhythm, there is no edema in the bilateral lower extremities to visual inspection. Neurologic Exam Mental Status Oriented to person, place, and time. Registration: recalls 3 of 3 objects. Recall at 5 minutes: recalls 3 of 3 objects. Follows 3 step commands. Attention: normal. Concentration: normal. Speech: slurred Level of consciousness: alert Knowledge: good. Able to name object. Able to read. Able to repeat. Normal comprehension. Cranial Nerves CN II Visual granados full to confrontation. CN III, IV, Pupils are equal, round, and reactive to light. Extraocular motions are normal. CN V Facial sensation intact. CN VII Right facial weakness: central CN VIII CN VIII normal. CN IX, X CN IX normal. CN XI CN XI normal. CN XII CN XII normal. Funduscopic exam: Normal; no hemorrhage or papilledema. Motor Exam Muscle bulk: normal Overall muscle tone: normal Strength Left deltoid: 5/5 Left iliopsoas: 5/5Right arm 0/5 Right leg is externally rotated and strength is 1/5. Sensory Exam Light touch normal. Gait, Coordination, and Reflexes Gait Gait: (Deferred d/t right hemiplegia) Coordination Positive Romberg's test: Deferred d/t right hemiplegia. Finger to nose coordination: normal (Normal on left; unable to perform on right d/t hemiplegia) Tremor Resting tremor: absent Intention tremor: absent Action tremor: absent Reflexes Reflexes 2+ except as noted. Labs: Recent Labs Lab 06/30/18200307/01/18 0540 WBC 10.1 8.8 RBC 4.26 4.35 HGB 12.7 13.0 HCT 38.1 38.5 MCV 89.4 88.5 MCH 29.8 29.9 MCHC 33.3 33.8 PLT 215 227 RDW 13.9 14.2 MPV 9.9 10.2 LYMC 2.29 2.45 MONOC 0.79 0.76 EOSC 0.02 0.01 BASOC 0.02 0.03 , Recent Labs Lab 06/30/18200307/01/18 0540 NA 142 140 K 3.6 3.6 CL 106 106 CO2 26.9 24.9 AGAP 9.1 9.1 BUN 14 15 CR 0.61 0.54* GFRNON 90* >90 GFR >90 >90 GLU 99 108* CA 8.8 8.9 , No results for input(s): PTT, INR in the last 168 hours., No results for input(s): TROP, CPK, MB in the last 168 hours., No results for input(s): PH, PCO2, PO2, S3YCDHCCBZPR, BICARBWB, BASEDEFICIT,BASEEXCESS in the last 168 hours. and Recent Labs Lab 06/30/18200207/01/18 0540 CHOL -- 229 TRI -- 298 HDL -- 47* LDL -- 122 HGBA1C 5.5 -- TSH -- 1.070 Radiology: Imaging was reviewed from [facility]. Head CT: Left basal ganglia infarct. EKG: Sinus rhythm. NIH Stroke Scale Documentation Level of Consciousness (1a. ): Alert, keenly responsive LOC Questions (1b. ): Answers both questions correctly LOC Commands (1c. ): Performs both tasks correctly Best Gaze (2. ): Normal Visual (3. ): No visual loss Facial Palsy (4. ): Minor paralysis Motor Arm, Left (5a. ): No drift Motor Arm, Right (5b. ): No movement Motor Leg, Left (6a. ): No drift Motor Leg, Right (6b. ): No movement Limb Ataxia (7. ): Absent Sensory (8. ): Hhrd-nd-iwnamusj sensory loss, patient feels pinprick is less sharp or is dull on the affected side, or there is a loss of superficial pain with pinprick, but patient is aware of beingtouched Best Language (9. ): No aphasia Dysarthria (10. ): Khyf-du-sgrpwsan dysarthria, patient slurs at least some words and, at worst, can be understood with some difficulty Extinction and Inattention (Neglect): Normal, no Neglect Total: 11 (06/30/182104) Impression: Patient Active Problem List Diagnosis ??? Stroke (HCC) Plan: Ms. Quiñones presented with right hemiplegia and dysarthria. Head CT showed a left basal ganglia infarct. No IV TPA due to symptoms outside of the window. Etiology appears is small vessel disease. Carotid ultrasound shows no evidence of carotid stenosis bilaterally. Recommendations: -Echocardiogram with bubble study pending. -Aspirin 325 mg daily for secondary stroke prevention. -LDL 122. Starting Lipitor 40 mg daily. Goal is LDL<70mg/dL -Hgb A1c 5.5. Goal is normoglycemia. -Vital signs per protocol. Allow for permissive hypertension, only treat for SBP>220 or DBP>110. -Neuro checks per protocol. Please call with any acute neurological changes. -Telemetry to monitor for occult atrial fibrillation. -SCD's and Lovenox for DVT prophylaxis. -PT/OT evaluations pending. -ST Dysphagia 1 with nectar thick liquids; meds with applesauce. MOCA 19/25. -bibliographic services specialist to help with rehab placement and see if the patient qualifies for medications assistance programs. Lyla Souza APN [facility] Neurology I can be paged or reached through [employer] if I am international organizer. Pager Cosigned by Zeke Salinas MD at 07/01/2018 4:02 PM CDT Associated attestation - Zeke Salinas MD - 07/01/2018 4:02 PM CDT I, ZEKE SALINAS MD, performed a Consultation and History & Physical examination of the patient and discussed the management with the Advanced Practice Provider (ALONSO). I reviewed the ALONSO's note and agree with the findings and plan of care, except as I have documented. Plan of care developed under my direct supervision. Echo and carotids for stroke work-up. Will see patient one more time tomorrow. OSH imaging shows the stroke, it's subcortical caused by small vessel disease. documented in this encounter Nursing Notes * Fabiola Gomez RN - 07/04/2018 12:15 PM CDT Nursing report called to Alesia at [facility] at 12:30pm on 07/04/18. * Neena Graham RN - 07/04/2018 10:50 AM CDT Discharge medications checked with [facility], pharmacist, patient okay to discharge with medications prescribed. documented in this encounter Plan of Treatment Not on file documented as of this encounter Procedures Procedure Name Priority Date/Time Associated Diagnosis Comments BASIC METABOLIC PANEL Routine 07/04/2018 5:54 AM CDT CBC W/DIFF AUTOMATED Routine 07/04/2018 5:54 AM CDT MAGNESIUM Routine 07/04/2018 5:54 AM CDT BASIC METABOLIC PANEL Routine 07/03/2018 6:13 AM CDT MAGNESIUM Routine 07/03/2018 6:13 AM CDT CBC W/DIFF AUTOMATED Routine 07/03/2018 6:11 AM CDT XR KNEE RT 3V Today 07/02/2018 1:01 PM CDT BASIC METABOLIC PANEL Routine 07/02/2018 5:46 AM CDT CBC W/DIFF AUTOMATED Routine 07/02/2018 5:46 AM CDT USE ECHOCARDIOGRAM Today 07/01/2018 12 :13 PM CDT USV CAROTID DUPLEX MARSHALL Today 8 11:31 AM CDT BASIC METABOLIC PANEL Routine 07/01/2018 5:40 AM CDT LIPID PANEL Routine 07/01/2018 5:40 AM CDT CBC W/DIFF AUTOMATED Routine 07/01/2018 5:40 AM CDT THYROID STIM HORMONE TSH Routine 07/01/2018 5:40 AM CDT BASIC METABOLIC PANEL Routine 06/30/2018 8:04 PM CDT CBC W/DIFF AUTOMATED Routine 06/30/2018 8:04 PM CDT HEMOGLOBIN, GLYCOSYLATED Routine 06/30/2018 8:03 PM CDT documented in this encounter Results * MAGNESIUM (07/04/2018 5:54 AM CDT) MAGNESIUM 2.4 1.6 - 2.6 MG/DL 07/04/2018 6:38 AM CDT [facility] 07/04/2018 5:54 AM CDT us Santhosh Blackwell MD LABORATORY Final Result [facility] [address] [place] [address], [id number] * (ABNORMAL) BASIC METABOLIC PANEL (07/04/2018 5:54 AM CDT) SODIUM S/P/B 142 136 - 145 MMOL/L 07/04/2018 6:38 AM [facility] POTASSIUM S/P/B 4.0 3.5 - 5.1 MMOL/L 07/04/2018 6:38 AM [facility] CHLORIDE S/P/B 107 98 - 107 MMOL/L 07/04/2018 6:38 AM [facility] CO2 28.1 21.0 - 32.0 MMOL/L 07/04/2018 6:38 AM [facility] GLUCOSE 107(H) 74 - 106 MG/DL 07/04/2018 6:38 AM [facility] BUN 26(H) 7 - 18 MG/DL 07/04/2018 6:38 AM [facility] CREATININE S/P/B 0.63 0.55 - 1.02 MG/DL 07/04/2018 6:38 AM [facility] CALCIUM S/P/B 9.0 8.4 - 10.5 MG/DL 07/04/2018 6:38 AM [facility] ANION GAP 6.9 MMOL/L 07/04/2018 6:38 AM [facility] Comment:REFERENCE RANGE NOT ESTABLISHED OSMOLALITY (CALC) 299 MOSM/KG 07/04/2018 6:38 AM [facility] Comment:REFERENCE RANGE NOT ESTABLISHED EGFR NON-AFR. AMER. 89(L) >90 ML/MIN/1 .73 M2 07/04/2018 6:38 AM [facility] EGFR AFR. AMER. >90 >90 ML/MIN/1 .73 M2 07/04/2018 6:38 AM [facility] GFR NOTES THE ESTIMATED GFR IS CALCULATED USING THE 2009 CKD-EPI EQUATION. THE FOLLOWING CATEGORIES FOR GRADING RENAL FUNCTION ARE RECOMMENDED BY THE INTERNATIONAL SOCIETY OF NEPHROLOGY (KDIGO 2012 CLINICAL PRACTICE GUIDELINE). 07/04/2018 6:38 AM [facility] Comment: G1,NORMAL OR HIGH: >89 ml/min/1.73 m2 G2,MILDLY DECREASED: 60-89 ml/min/1.73 m2 G3A,MILDLY TO MODERATELY DECREASED: 45-59 ml/min/1.73 m2 G3B,MODERATELY TO SEVERELY DECREASED: 30-44 ml/min/1.73 m2 G4,SEVERELY DECREASED: 15-29 ml/min/1.73 m2 G5,KIDNEY FAILURE: <15 ml/min/1.73 m2 07/04/2018 5:54 AM CDT Leigh Mullins III, MD LABORATORY Final R esult [facility] [address] [place] [address], [place] [phone] * (ABNORMAL) CBC W/DIFF AUTOMATED (07/04/2018 5:54 AM CDT) WBC 7.4 4.0 - 10.8 x10'3/uL 07/04/2018 6:13 AM CDT [facility] RBC 4.47 4.10 - 5.40 x10'6/uL 07/04/2018 6:13 AM CDT [facility] HGB 13.6 12.0 - 16.0 G/DL 07/04/2018 6:13 AM CDT [facility] HCT 41.0 36.0 - 47.0 % 07/04/2018 6:13 AM CDT [facility] MCV 91.7 78.0 - 100.0 FL 07/04/2018 6:13 AM CDT [facility] MCH 30.4 27.0 - 31.0 PG 07/04/2018 6:13 AM CDT [facility] MCHC 33.2 33.0 - 36.0 G/DL 07/04/2018 6:13 AM CDT [facility] RDW 14.1 11.5 - 14.5 % 07/04/2018 6:13 AM CDT [facility] PLT 224 150 - 350 x10'3/uL 07/04/2018 6:13 AM CDT [facility] MPV 9.9 7.4 - 10.4 FL 07/04/2018 6:13 AM CDT [facility] ABS. NEUTROPHILS TOTAL 3.96 1.60 - 8.30 x10'3/uL 07/04/2018 6:13 AM CDT [facility] ABS. LYMPHOCYTES 2.54 0.80 - 4.70 x10'3/uL 07/04/2018 6:13 AM CDT [facility] ABS. MONOCYTES 0.73 0.00 - 1.50 x10'3/uL 07/04/2018 6:13 AM CDT [facility] ABS. EOSINOPHILS 0.14 0.00 - 0.40 x10'3/uL 07/04/2018 6:13 AM CDT [facility] ABS. BASOPHILS 0.03 0.00 - 0.20 x10'3/uL 07/04/2018 6:13 AM CDT [facility] ABS. IMMATURE GRANULOCYTES 0.04(H) 0.00 - 0.03 x10'3/uL 07/04/2018 6:13 AM CDT [facility] ABS. NUCLEATED RBC'S 0.00 0.0 x10'3/uL 07/04/2018 6:13 AM CDT [facility] 07/04/2018 5:54 AM CDT Leigh Mullins III, MD LABORATORY Final R esult [facility] [address] [place] [address], [id number] * MAGNESIUM (07/03/2018 6:13 AM CDT) MAGNESIUM 2.5 1.6 - 2.6 MG/DL 07/03/2018 7:00 AM CDT [facility] 07/03/2018 6:13 AM CDT us Santhosh Kirkalnd Rangu MD LABORATORY Final Result [facility] [address] [place] [address], [id number] * (ABNORMAL) BASIC METABOLIC PANEL (07/03/2018 6:13 AM CDT) SODIUM S/P/B 142 136 - 145 MMOL/L 07/03/2018 7:00 AM CDT [facility] POTASSIUM S/P/B 4.0 3.5 - 5.1 MMOL/L 07/03/2018 7:00 AM CDT [facility] CHLORIDE S/P/B 108(H) 98 - 107 MMOL/L 07/03/2018 7:00 AM CDT [facility] CO2 27.4 21.0 - 32.0 MMOL/L 07/03/2018 7:00 AM CDT [facility] GLUCOSE 105 74 - 106 MG/DL 07/03/2018 7:00 AM CDT [facility] BUN 25(H) 7 - 18 MG/DL 07/03/2018 7:00 AM CDT [facility] CREATININE S/P/B 0.62 0.55 - 1.02 MG/DL 07/03/2018 7:00 AM CDT [facility] CALCIUM S/P/B 8.9 8.4 - 10.5 MG/DL 07/03/2018 7:00 AM CDT [facility] ANION GAP 6.6 MMOL/L 07/03/2018 7:00 AM CDT [facility] Comment:REFERENCE RANGE NOT ESTABLISHED OSMOLALITY (CALC) 299 MOSM/KG 07/03/2018 7:00 AM CDT [facility] Comment:REFERENCE RANGE NOT ESTABLISHED EGFR NON-AFR. AMER. 89(L) >90 ML/MIN/1 .73 M2 07/03/2018 7:00 AM CDT [facility] EGFR AFR. AMER. >90 >90 ML/MIN/1 .73 M2 07/03/2018 7:00 AM CDT [facility] GFR NOTES THE ESTIMATED GFR IS CALCULATED USING THE 2009 CKD-EPI EQUATION. THE FOLLOWING CATEGORIES FOR GRADING RENAL FUNCTION ARE RECOMMENDED BY THE INTERNATIONAL SOCIETY OF NEPHROLOGY (KDIGO 2012 CLINICAL PRACTICE GUIDELINE). 07/03/2018 7:00 AM CDT [facility] Comment: G1,NORMAL OR HIGH: >89 ml/min/1.73 m2 G2,MILDLY DECREASED: 60-89 ml/min/1.73 m2 G3A,MILDLY TO MODERATELY DECREASED: 45-59 ml/min/1.73 m2 G3B,MODERATELY TO SEVERELY DECREASED: 30-44 ml/min/1.73 m2 G4,SEVERELY DECREASED: 15-29 ml/min/1.73 m2 G5,KIDNEY FAILURE: <15 ml/min/1.73 m2 07/03/2018 6:13 AM CDT Leigh Mullins III, MD LABORATORY Final R esult [facility] [address] [place] [address], [id number] * (ABNORMAL) CBC W/DIFF AUTOMATED (07/03/2018 6:11 AM CDT) WBC 7.5 4.0 - 10.8 x10'3/uL 07/03/2018 6:33 AM CDT [facility] RBC 4.39 4.10 - 5.40 x10'6/uL 07/03/2018 6:33 AM CDT [facility] HGB 13.1 12.0 - 16.0 G/DL 07/03/2018 6:33 AM CDT [facility] HCT 40.6 36.0 - 47.0 % 07/03/2018 6:33 AM CDT [facility] MCV 92.5 78.0 - 100.0 FL 07/03/2018 6:33 AM CDT [facility] MCH 29.8 27.0 - 31.0 PG 07/03/2018 6:33 AM CDT [facility] MCHC 32.3(L) 33.0 - 36.0 G/DL 07/03/2018 6:33 AM CDT [facility] RDW 14.4 11.5 - 14.5 % 07/03/2018 6:33 AM CDT [facility] PLT 218 150 - 350 x10'3/uL 07/03/2018 6:33 AM CDT [facility] MPV 9.9 7.4 - 10.4 FL 07/03/2018 6:33 AM CDT [facility] ABS. NEUTROPHILS TOTAL 4.41 1.60 - 8.30 x10'3/uL 07/03/2018 6:33 AM CDT [facility] ABS. LYMPHOCYTES 2.31 0.80 - 4.70 x10'3/uL 07/03/2018 6:33 AM CDT [facility] ABS. MONOCYTES 0.60 0.00 - 1.50 x10'3/uL 07/03/2018 6:33 AM CDT [facility] ABS. EOSINOPHILS 0.12 0.00 - 0.40 x10'3/uL 07/03/2018 6:33 AM CDT [facility] ABS. BASOPHILS 0.03 0.00 - 0.20 x10'3/uL 07/03/2018 6:33 AM CDT [facility] ABS. IMMATURE GRANULOCYTES 0.02 0.00 - 0.03 x10'3/uL 07/03/2018 6:33 AM CDT [facility] ABS. NUCLEATED RBC'S 0.00 0.0 x10'3/uL 07/03/2018 6:33 AM CDT [facility] 07/03/2018 6:11 AM CDT Leigh Mullins III, MD LABORATORY Final R esult [facility] [address] [place] [id number], [id number] * XR KNEE RT 3V (07/02/2018 1:01 PM CDT) Anatomical Region Laterality Modality Knee Radiographic Amanda ging 07/02/2018 7:56 PM CDT Narrative 07/02/2018 8:01 PM CDT PATIENT NAME: BEA QUIÑONES EXAM: Right the radiographs DATE OF EXAM: 07/02/2018 COMPARISON EXAM: No previous INDICATION: 72-year-old in patient has pain in the right knee after multiple falls onto her right knee. TECHNIQUE: Three-view survey of the right knee with the patient supine AP crosstable lateral projection and sunrise view of the patella FINDINGS: No evidence of acute or healing fracture. ??No dislocation. ??No joint effusion. ??There is complete loss of the medial femorotibial joint space with flattening of the femoral articular condyle and the medial tibial plateau thick marginal sclerosis and bridging osteophytosis and subchondral cyst formation across this joint. ??There is also moderately severe narrowing of the patellofemoral joint space. ??Preservation of the lateral joint space. ??There is varus angulation of the nonweightbearing knee. ??There is mild suprapatellar soft tissue prominence. ??Did not take Osteophytes projecting from the anterior surface of the patella may represent constellation of the patella. ??Incidentally noted is a large, 3 cm diameter rounded stippled calcified mass in the popliteal fossa soft tissues; large calcified bony fabella could also be calcifications within popliteal cyst. IMPRESSION: 1. ??No evidence of acute or recent fracture. ??No dislocation. 2. ??Advanced degenerative change in the knee primarily involving the lateral and patellofemoral joint spaces. Signed: Tonya Salomon DO Interpreted By: Tonya Salomon DO, 07/02/2018 7:56 PM Procedure Note Tonya Salomon MD - 07/02/2018 PATIENT NAME: BEA QUIÑONES EXAM: Right the radiographs DATE OF EXAM: 07/02/2018 COMPARISON EXAM: No previous INDICATION: 72-year-old in patient has pain in the right knee aftermultiple falls onto her right knee. TECHNIQUE: Three-view survey of the right knee with the patient supine APcrosstable lateral projection and sunrise view of the patella FINDINGS: No evidence of acute or healing fracture. No dislocation. Nojoint effusion. There is complete loss of the medial femorotibial jointspace with flattening of the femoral articular condyle and the medialtibial plateau thick marginal sclerosis and bridging osteophytosis andsubchondral cyst formation across this joint. There is also moderatelysevere narrowing of the patellofemoral joint space. Preservation of thelateral joint space. There is varus angulation of the nonweightbearingknee. There is mild suprapatellar soft tissue prominence. Did not take Osteophytes projecting from the anterior surface of the patella mayrepresent constellation of the patella. Incidentally noted is a large, 3cm diameter rounded stippled calcified mass in the popliteal fossa softtissues; large calcified bony fabella could also be calcifications withinpopliteal cyst. IMPRESSION: 1. No evidence of acute or recent fracture. No dislocation. 2. Advanced degenerative change in the knee primarily involving thelateral and patellofemoral joint spaces. Signed: Tonya Salomon DO Interpreted By: Tonya Salomon DO, 07/02/2018 7:56 PM Santhosh Blackwell MD GENERAL IMAGING Final Result * (ABNORMAL) BASIC METABOLIC PANEL (07/02/2018 5:46 AM CDT) SODIUM S/P/B 141 136 - 145 MMOL/L 07/02/2018 6:25 AM CDT [facility] POTASSIUM S/P/B 4.0 3.5 - 5.1 MMOL/L 07/02/2018 6:25 AM CDT [facility] Comment:SLIGHT HEMOLYSIS, RE SULT MAY BE AFFECTED. CHLORIDE S/P/B 107 98 - 107 MMOL/L 07/02/2018 6:25 AM CDT [facility] CO2 26.1 21.0 - 32.0 MMOL/L 07/02/2018 6:25 AM T [facility] GLUCOSE 113(H) 74 - 106 MG/DL 07/02/2018 6:25 AM [facility] BUN 17 7 - 18 MG/DL 07/02/2018 6:25 AM [facility] CREATININE S/P/B 0.58 0.55 - 1.02 MG/DL 07/02/2018 6:25 AM [facility] CALCIUM S/P/B 8.5 8.4 - 10.5 MG/DL 07/02/2018 6:25 AM [facility] ANION GAP 7.9 MMOL/L 07/02/2018 6:25 AM [facility] Comment:REFERENCE RANGE NOT ESTABLISHED OSMOLALITY (CALC) 294 MOSM/KG 07/02/2018 6:25 AM [facility] Comment:REFERENCE RANGE NOT ESTABLISHED EGFR NON-AFR. AMER. >90 >90 ML/MIN/1 .73 M2 07/02/2018 6:25 AM [facility] EGFR AFR. AMER. >90 >90 ML/MIN/1 .73 M2 07/02/2018 6:25 AM [facility] GFR NOTES THE ESTIMATED GFR IS CALCULATED USING THE 2009 CKD-EPI EQUATION. THE FOLLOWING CATEGORIES FOR GRADING RENAL FUNCTION ARE RECOMMENDED BY THE INTERNATIONAL SOCIETY OF NEPHROLOGY (KDIGO 2012 CLINICAL PRACTICE GUIDELINE). 07/02/2018 6:25 AM [facility] Comment: G1,NORMAL OR HIGH: >89 ml/min/1.73 m2 G2,MILDLY DECREASED: 60-89 ml/min/1.73 m2 G3A,MILDLY TO MODERATELY DECREASED: 45-59 ml/min/1.73 m2 G3B,MODERATELY TO SEVERELY DECREASED: 30-44 ml/min/1.73 m2 G4,SEVERELY DECREASED: 15-29 ml/min/1.73 m2 G5,KIDNEY FAILURE: <15 ml/min/1.73 m2 07/02/2018 5:46 AM CDT us Leigh Mullins III, MD LABORATORY Final R esult [facility] [address] [place] [address], [id number] * (ABNORMAL) CBC W/DIFF AUTOMATED (07/02/2018 5:46 AM CDT) WBC 8.1 4.0 - 10.8 x10'3/uL 07/02/2018 6:02 AM CDT [facility] RBC 4.46 4.10 - 5.40 x10'6/uL 07/02/2018 6:02 AM CDT [facility] HGB 13.2 12.0 - 16.0 G/DL 07/02/2018 6:02 AM CDT [facility] HCT 40.4 36.0 - 47.0 % 07/02/2018 6:02 AM CDT [facility] MCV 90.6 78.0 - 100.0 FL 07/02/2018 6:02 AM CDT [facility] MCH 29.6 27.0 - 31.0 PG 07/02/2018 6:02 AM CDT [facility] MCHC 32.7(L) 33.0 - 36.0 G/DL 07/02/2018 6:02 AM CDT [facility] RDW 14.3 11.5 - 14.5 % 07/02/2018 6:02 AM CDT [facility] PLT 208 150 - 350 x10'3/uL 07/02/2018 6:02 AM CDT [facility] MPV 10.1 7.4 - 10.4 FL 07/02/2018 6:02 AM CDT [facility] ABS. NEUTROPHILS TOTAL 4.80 1.60 - 8.30 x10'3/uL 07/02/2018 6:02 AM CDT [facility] ABS. LYMPHOCYTES 2.52 0.80 - 4.70 x10'3/uL 07/02/2018 6:02 AM CDT [facility] ABS. MONOCYTES 0.68 0.00 - 1.50 x10'3/uL 07/02/2018 6:02 AM CDT [facility] ABS. EOSINOPHILS 0.07 0.00 - 0.40 x10'3/uL 07/02/2018 6:02 AM CDT [facility] ABS. BASOPHILS 0.03 0.00 - 0.20 x10'3/uL 07/02/2018 6:02 AM CDT [facility] ABS. IMMATURE GRANULOCYTES 0.02 0.00 - 0.03 x10'3/uL 07/02/2018 6:02 AM CDT [facility] ABS. NUCLEATED RBC'S 0.00 0.0 x10'3/uL 07/02/2018 6:02 AM CDT [facility] 07/02/2018 5:46 AM CDT us Leigh Mullins III, MD LABORATORY Final R esult Performing Organization Address City/State/[facility] Co de Phone Number [facility] [address] [place] [address], [id number] * USE ECHOCARDIOGRAM (07/01/2018 12:13 PM CDT) Anatomical Region Laterality Modality Cardiac Echocardiogram 07/01/2018 9:56 AM CDT Narrative 07/01/2018 3:26 PM CDT ?Echocardiography Report Pat.Name: ??OGATA, BEA ?Pat.ID: ?[id number] ? St.Date: ?? 07/01/2018 ?Refer.MD: ??HARPREET MURRAY, LEIGH Wayne ?? Exam Time: 9:56:00 AM ? Study Type:ECHO WITH CARDIAC DOPPLER COMP Height: ?162cm ? Weight: ?94kg ? BSA: ? 1.98 m2 ?Age: ??1945,72Y ? Sex: ? FEMALE ?BP: ?180/74 ? HR: ?77 bpm ?Sonogrphr: Cindy Le, RDCS ? Pat. Stat.:Inpatient ? Room: ?056 ? Reason for Study:CVA ? Procedures:2D, M-mode, Doppler, Color Flow, Intraveneous saline contrast was used to help determine presence of intracardiac shunting., Portable Race: ?W ? ++++++++++++++++++++++++++++++++++++ SUMMARY: ++++++++++++++++++++++++++++++++++++ The calculated ejection fraction is 51%. Moderate to severe concentric left ventricular hypertrophy. Right ventricular systolic function is normal. The agitated saline injection showed no clear evidence of shunting into the left atrium, consistent with no patent foramen ovale. Trace mitral regurgitation. ++++++++++++++++++++++++++++++++++++ FINDINGS: ++++++++++++++++++++++++++++++++++++ LV: ? The left ventricular size is small. The calculated ejection ?fraction ??is 51%. Moderate to severe concentric left ?ventricular ??hypertrophy. The septal E/e' is indeterminate ?at ??8-15. The lateral E/e' is indeterminate at 9-11. WM: ? There is global hypokinesis with minor regional variation. LVOT: ? The left ventricular outflow tract size is normal. RV: ? Right ventricular systolic function is normal. TAPSE = 22mm ?(<16 ??mm indicates systolic RV dysfunction). LA: ? The left atrial volume is normal ( less than 34 ml/M2). RA: ? Right atrial size is normal. IAS: ?Atrial septum appears intact. The agitated saline injection ?showed ??no clear evidence of shunting into the left atrium, ?consistent ??with no patent foramen ovale. MOHSEN: ? No evidence of pericardial effusion. AO: ? Normal aortic root. The aortic root measures 3.3 cm. The ?proximal ??ascending aorta measures 3.3cm. PA: ? Estimated right atrial pressure of 3 mmHg. PVn: ?The pulmonary vein doppler wave form is normal suggestive of ?normal ??left atrial pressures. SVn: ?Inferior vena cava is normal. Inferior vena cava shows >50% ?collapse ??with respiration consistent with normal right ?atrial ??pressure. AV: ? No evidence of aortic valve stenosis. No evidence of aortic ?valve ??regurgitation. The aortic valve not well visualized. MV: ? Trace mitral regurgitation. No evidence of mitral valve ?stenosis. ??Mildly calcified posterior mitral annulus. PV: ? No evidence of pulmonic regurgitation. Pulmonic valve not ?well ??visualized. TV: ? Structurally normal tricuspid valve. Mild tricuspid ?regurgitation. ??Right ventricular systolic pressure is 21 ?mmHg. ++++++++++++++++++++++++++++++++++++ MEASUREMENTS: ++++++++++++++++++++++++++++++++++++ ?DOPPLER LVOT ?? LVOTpkPG ? 9 mmHg ?LVOTmnPG ? 5 mmHg LVOTpkVel ?149 cm/s (70-110)* LVOT SV ? 89 ml ?? LVOT TVI ?28.5 cm ? Pulmonary Veins ?? PVnpkVeld ? 39.8 cm/s ?PVnVs/Vd ? 1.6 ? PVnpkVels ? 64.5 cm/s ?PVn A Dur ?232 msec AV Forward Flow AV TVI ?33 cm ?AV pkPG ? 11 mmHg AV pkVel ? 169 cm/s (100-170) Area (TVI) ?2.71 cm2 ??(3-5)* AV mnVel ? 115 cm/s ?Area (Lambert) ?2.77 cm2 ??(3-5)* AV mnPG ?6 mmHg ? MV Forward Flow MV DeTm ?275 msec ?MV pkE ?61.1 cm/s (60- 130) MV E/A ? 0.7 ? MV pkA ?82.5 cm/s PV Forward Flow PV pkVel ? 107 cm/s (60-90)* PV pkPG ?5 mmHg TV Regurg Flow TV pkPG ? 18 mmHg ?TV pkVel ? 215 cm/s (30- 70)* Lat E' ?? Lat e ? 6.57 cm/s ? Lat E/E' ?? Lat E/e ?9.3 ? Med E' ?? Med e ? 7.01 cm/s ? Med E/E' ?? Med E/e ?8.7 ? Aortic Valve ?? Aortic Valve Ar ??1.37 ?Aortic Valve Ve ??0.88 ? AV DI ?? Value ?0.9 ? RICHELLE (VTI) Index ?? Value ? 1.37 ? LV Mass 2D ?? Value ?276 g ? LV Mass [id number] ?? Value ?139 g/m2 ? Right Ventricle ?? Right Ventricle ??17.5 cm/s ?2D Left Ventricle ?? LVIDd ? 3.57 cm ?? (3.6-5.2)* LV EF(Bi-Plane) ??51.4 % ?(55-75)* LVIDs ? 2.87 cm ?? (2.3-3.9) LVPW ?? LVPWd ? 1.85 cm ?LVPWth ?5.95 % ?? LVPWs ? 1.96 cm ? Ventricular Septum ?? IVSd ? 1.8 cm ?IVSs ?1.71 cm ?? Aorta ?? Ao Rtd ? 3.3 cm ?? (zsc 1.4) LVOT ?? LVOT ? 2 cm ? Ratios ?? IVS Inferior vena cava ?? IVC Diam ?1.41 cm ? LA Biplane LAVol I BP ?27.9 ml/m2 ? LV QLab aCMQ Left Ventricula 72.52 ml ? Left Ventricula 38.77 ml ?? Left Ventricula 66.16 ml ? LVEF ? 44.63 % ?? Left Ventricula 69.29 ml ? LVEF ?45.5 % ?? Left Ventricula 40.15 ml ? LVEF ? 44.05 % ?? Left Ventricula 36.06 ml ? Myocardial Wall QLab aCMQ Endo Peak Systo -13.66 % ? Endo Peak Systo -15.46 % ?? Endo Peak Systo -2.41 % ?Global Endo Pea -10.51 % ?? Right Atrium ?? Right Atrium Sy ??12.8 cm2 ? Right Ventricle ?? Right Ventricle ??3.46 cm ? Right Ventricle ??2.35 cm ?? Major [place] ?8.78 cm ?MMODE TA ?? Tricuspid Annul ??2.21 cm ? Signed 07/01/2018 03:26 PM Maria D Ng M.D. Procedure Note Paola Ng MD - 07/01/2018 Echocardiography Report Pat.Name: BEA QUIÑONES Pat.ID: [id number] .Date: 07/01/2018 Refer.MD: LEIGH MULLINS III Exam Time: 9:56:00 AM Study Type:ECHO WITH CARDIAC DOPPLER COMP Height: 162cm Weight: 94kg BSA: 1.98 m2 Age: 2 1945,72Y Sex: FEMALE BP: 180/74 HR: 77 bpm Sonogrphr: Cindy Mcqueen RDCS Pat. Stat.:Inpatient Room: 846 Reason for Study:CVA Procedures:2D, M-mode, Doppler, Color Flow, Intraveneous saline contrast was used to help determine presence of intracardiac shunting., Portable Race: W ++++++++++++++++++++++++++++++++++++ SUMMARY: ++++++++++++++++++++++++++++++++++++ The calculated ejection fraction is 51%. Moderate to severe concentric left ventricular hypertrophy. Right ventricular systolic function is normal. The agitated saline injection showed no clear evidence of shunting into the left atrium, consistent with no patent foramen ovale. Trace mitral regurgitation. ++++++++++++++++++++++++++++++++++++ FINDINGS: ++++++++++++++++++++++++++++++++++++ LV: The left ventricular size is small. The calculated ejection fraction is 51%. Moderate to severe concentric left ventricular hypertrophy. The septal E/e' is indeterminate at 8-15. The lateral E/e' is indeterminate at 9-11. WM: There is global hypokinesis with minor regional variation. LVOT: The left ventricular outflow tract size is normal. RV: Right ventricular systolic function is normal. TAPSE = 22mm (<16 mm indicates systolic RV dysfunction). LA: The left atrial volume is normal ( less than 34 ml/M2). RA: Right atrial size is normal. IAS: Atrial septum appears intact. The agitated saline injection showed no clear evidence of shunting into the left atrium, consistent with no patent foramen ovale. MOHSEN: No evidence of pericardial effusion. AO: Normal aortic root. The aortic root measures 3.3 cm. The proximal ascending aorta measures 3.3cm. PA: Estimated right atrial pressure of 3 mmHg. PVn: The pulmonary vein doppler wave form is normal suggestive of normal left atrial pressures. SVn: Inferior vena cava is normal. Inferior vena cava shows >50% collapse with respiration consistent with normal right atrial pressure. AV: No evidence of aortic valve stenosis. No evidence of aortic valve regurgitation. The aortic valve not well visualized. MV: Trace mitral regurgitation. No evidence of mitral valve stenosis. Mildly calcified posterior mitral annulus. PV: No evidence of pulmonic regurgitation. Pulmonic valve not well visualized. TV: Structurally normal tricuspid valve. Mild tricuspid regurgitation. Right ventricular systolic pressure is 21 mmHg. ++++++++++++++++++++++++++++++++++++ MEASUREMENTS: ++++++++++++++++++++++++++++++++++++ DOPPLER LVOT LVOTpkPG 9 mmHg LVOTmnPG 5 mmHg LVOTpkVel 149 cm/s (70-110)* LVOT SV 89 ml LVOT TVI 28.5 cm Pulmonary Veins PVnpkVeld 39.8 cm/s PVnVs/Vd 1.6 PVnpkVels 64.5 cm/s PVn A Dur 232 msec AV Forward Flow AV TVI 33 cm AV pkPG 11 mmHg AV pkVel 169 cm/s (100-170) Area (TVI) 2.71 cm2 (3-5)* AV mnVel 115 cm/s Area (Lambert) 2.77 cm2 (3-5)* AV mnPG 6 mmHg MV Forward Flow MV DeTm 275 msec MV pkE 61.1 cm/s (60-130) MV E/A 0.7 MV pkA 82.5 cm/s PV Forward Flow PV pkVel 107 cm/s (60-90)* PV pkPG 5 mmHg TV Regurg Flow TV pkPG 18 mmHg TV pkVel 215 cm/s (30-70)* Lat E' Lat e 6.57 cm/s Lat E/E' Lat E/e 9.3 Med E' Med e 7.01 cm/s Med E/E' Med E/e 8.7 Aortic Valve Aortic Valve Ar 1.37 Aortic Valve Ve 0.88 AV DI Value 0.9 RICHELLE (VTI) Index Value 1.37 LV Mass 2D Value 276 g LV Mass Udjla1R Value 139 g/m2 Right Ventricle Right Ventricle 17.5 cm/s 2D Left Ventricle LVIDd 3.57 cm (3.6-5.2)* LV EF(Bi-Plane) 51.4 % (55-75)* LVIDs 2.87 cm (2.3-3.9) LVPW LVPWd 1.85 cm LVPWth 5.95 % LVPWs 1.96 cm Ventricular Septum IVSd 1.8 cm IVSs 1.71 cm Aorta Ao Rtd 3.3 cm (zsc 1.4) LVOT LVOT 2 cm Ratios IVS Inferior vena cava IVC Diam 1.41 cm LA Biplane LAVol I BP 27.9 ml/m2 LV QLab aCMQ Left Ventricula 72.52 ml Left Ventricula 38.77 ml Left Ventricula 66.16 ml LVEF 44.63 % Left Ventricula 69.29 ml LVEF 45.5 % Left Ventricula 40.15 ml LVEF 44.05 % Left Ventricula 36.06 ml Myocardial Wall QLab aCMQ Endo Peak Systo -13.66 % Endo Peak Systo -15.46 % Endo Peak Systo -2.41 % Global Endo Pea -10.51 % Right Atrium Right Atrium Sy 12.8 cm2 Right Ventricle Right Ventricle 3.46 cm Right Ventricle 2.35 cm Major [place] 8.78 cm MMODE TA Tricuspid Annul 2.21 cm Signed 07/01/2018 03:26 PM Maria D Ng M.D. us Peter M Harpreet III, MD ECHO Final R esult * USV CAROTID DUPLEX MARSHALL (07/01/2018 11:31 AM CDT) Anatomical Region Laterality Modality Neck Ultrasound 07/01/2018 10:4 9 AM CDT Narrative 07/02/2018 9:15 AM CDT ?SJS ?Vascular Report Pat.Name: ??OGATA, BEA ?Pat.ID: ?[id number] ? St.Date: ?? 07/01/2018 ?Refer.: ??LEIGH MULLINS III ?? Exam Time: 10:49:00 AM ? Study Type:PVI CAROTID SCAN - BILATERAL Height: ?162cm ?Age: ??1945,72Y ? Sex: ? FEMALE ?Sonogrphr: Erasmo Chavez RVT ? Pat. Stat.:Inpatient ? Room: ?846 ? ICD: ?? R29.898 CVA ? CPT: ?? 99960 Carotid Duplex ? Reason for Study:CVA ? Race: ?W ? ++++++++++++++++++++++++++++++++++++ SUMMARY: ++++++++++++++++++++++++++++++++++++ Consider following recommendations that are modified from Medicare guidelines. Stenosis ? Recommendation 0-39% with plaque ?Cardiovascular Risk factor modification, may consider follow up in one year if multiple atherosclerotic risk factors present. 40-59% ? Follow up duplex in one year. 60-79% ? Follow up duplex in six months. 80-99% ?Consider other modality of imaging such as MRA/ Angiogram+/- Intervention surgery or stenting. ++++++++++++++++++++++++++++++++++++ FINDINGS: ++++++++++++++++++++++++++++++++++++ Rt Innom: The innominate artery is unable to be obtained. Rt Subcl: The proximal subclavian artery is patent. Rt ICA: ?? 0-39% stenosis with plaque noted in the internal carotid ?artery. ??Mild heterogeneous plaque noted. Rt ECA: ?? Patent with antegrade flow noted in the external carotid ?artery. Rt Vert: ??Normal antegrade vertebral flow. Lt Subcl: The proximal subclavian artery is patent. Lt ICA: ?? 0-39% stenosis with plaque noted in the internal carotid ?artery. ??Mild/moderate heterogeneous plaque noted. Lt ECA: ?? Patent with antegrade flow noted in the external carotid ?artery. Lt Vert: ??Normal antegrade vertebral flow. Comments: Technically difficult study due to body habitus. Carotid Findings: ?Right ?Left ? Verteb.Flw ? Antegrade ?Antegrade ? ++++++++++++++++++++++++++++++++++++ MEASUREMENTS: ++++++++++++++++++++++++++++++++++++ ?DOPPLER Right CCA Prox ?? Prox CCA PSV ?65.9 cm/s ?Prox CCA EDV ?12.6 cm/s Right CCA Mid ?? Mid CCA PSV ? 73.6 cm/s ?Mid CCA EDV ? 14 cm/s Right CCA Dist ?? Dist CCA PSV ?52.7 cm/s ?Dist CCA EDV ?14.9 cm/s Right ICA Prox ?? Prox ICA PSV ?49.9 cm/s ?Prox ICA EDV ?17 cm/s Right ICA Mid ?? Mid ICA PSV ? 43.9 cm/s ?Mid ICA EDV ? 15.9 cm/s Right Dist ICA ?? Dist ICA PSV ?52 cm/s ?Dist ICA EDV ?18.1 cm/s Right ECA Prox ?? Prox ECA PSV ?47.2 cm/s ?Prox ECA EDV ?15.9 cm/s Right Vertebral ?? Vertebral PSV ?? 40.8 cm/s ?Vertebral EDV ?? 12.9 cm/s Right Prox SCA ?? Prox SCA PSV ? 143 cm/s ?Prox SCA PSV ? 143 cm/s ICA/CCA RATIO ?? ICA/CCA RATIO P 0.987 ? Left CCA Prox ?? Prox CCA PSV ?77.7 cm/s ?Prox CCA EDV ?18.6 cm/s Left CCA Mid ?? Mid CCA PSV ? 73.9 cm/s ?Mid CCA EDV ? 16.8 cm/s Left CCA Dist ?? Dist CCA PSV ?65.9 cm/s ?Dist CCA EDV ?22.4 cm/s Left ICA Prox ?? Prox ICA PSV ?27.4 cm/s ?Prox ICA EDV ?11.1 cm/s Left ICA Mid ?? Mid ICA PSV ? 68.6 cm/s ?Mid ICA EDV ? 16.7 cm/s Left ICA Dist ?? Dist ICA PSV ?59.8 cm/s ?Dist ICA EDV ?15.8 cm/s Left ECA Prox ?? Prox ECA PSV ?87 cm/s ?Prox ECA EDV ?9.32 cm/s Left Vertebral ?? Vertebral PSV ?? 48.2 cm/s ?Vertebral EDV ? 13 cm/s Left Prox SCA ?? Prox SCA PSV ? 171 cm/s ?Prox SCA PSV ? 171 cm/s Left ICA/CCA RATIO ?? ICA/CCA RATIO P ??1.04 ? Signed 07/02/2018 09:15 AM Hiram Blake M.D. Procedure Note Hiram Blake MD - 07/02/2018 SJS Vascular Report Pat.Name: BEA QUIÑONES Pat.ID: [id number] .Date: 07/01/2018 Refer.MD: LEIGH MULLINS III Exam Time: 10:49:00 AM Study Type:PVI CAROTID SCAN - BILATERAL Height: 162cm Age: 2 1945,72Y Sex: FEMALE Sonogrphr: Erasmo Chavez RVT Pat. Stat.:Inpatient Room: 846 ICD: R29.898 CVA CPT: 47488 Carotid Duplex Reason for Study:CVA Race: W ++++++++++++++++++++++++++++++++++++ SUMMARY: ++++++++++++++++++++++++++++++++++++ Consider following recommendations that are modified from Medicare guidelines. Stenosis Recommendation 0-39% with plaque Cardiovascular Risk factor modification, may consider follow up in one year if multiple atherosclerotic risk factors present. 40-59% Follow up duplex in one year. 60-79% Follow up duplex in six months. 80-99% Consider other modality of imaging such as MRA/ Angiogram+/- Intervention surgery or stenting. ++++++++++++++++++++++++++++++++++++ FINDINGS: ++++++++++++++++++++++++++++++++++++ Rt Innom: The innominate artery is unable to be obtained. Rt Subcl: The proximal subclavian artery is patent. Rt ICA: 0-39% stenosis with plaque noted in the internal carotid artery. Mild heterogeneous plaque noted. Rt ECA: Patent with antegrade flow noted in the external carotid artery. Rt Vert: Normal antegrade vertebral flow. Lt Subcl: The proximal subclavian artery is patent. Lt ICA: 0-39% stenosis with plaque noted in the internal carotid artery. Mild/moderate heterogeneous plaque noted. Lt ECA: Patent with antegrade flow noted in the external carotid artery. Lt Vert: Normal antegrade vertebral flow. Comments: Technically difficult study due to body habitus. Carotid Findings: Right Left Verteb.Flw Antegrade Antegrade ++++++++++++++++++++++++++++++++++++ MEASUREMENTS: ++++++++++++++++++++++++++++++++++++ DOPPLER Right CCA Prox Prox CCA PSV 65.9 cm/s Prox CCA EDV 12.6 cm/s Right CCA Mid Mid CCA PSV 73.6 cm/s Mid CCA EDV 14 cm/s Right CCA Dist Dist CCA PSV 52.7 cm/s Dist CCA EDV 14.9 cm/s Right ICA Prox Prox ICA PSV 49.9 cm/s Prox ICA EDV 17 cm/s Right ICA Mid Mid ICA PSV 43.9 cm/s Mid ICA EDV 15.9 cm/s Right Dist ICA Dist ICA PSV 52 cm/s Dist ICA EDV 18.1 cm/s Right ECA Prox Prox ECA PSV 47.2 cm/s Prox ECA EDV 15.9 cm/s Right Vertebral Vertebral PSV 40.8 cm/s Vertebral EDV 12.9 cm/s Right Prox SCA Prox SCA PSV 143 cm/s Prox SCA PSV 143 cm/s ICA/CCA RATIO ICA/CCA RATIO P 0.987 Left CCA Prox Prox CCA PSV 77.7 cm/s Prox CCA EDV 18.6 cm/s Left CCA Mid Mid CCA PSV 73.9 cm/s Mid CCA EDV 16.8 cm/s Left CCA Dist Dist CCA PSV 65.9 cm/s Dist CCA EDV 22.4 cm/s Left ICA Prox Prox ICA PSV 27.4 cm/s Prox ICA EDV 11.1 cm/s Left ICA Mid Mid ICA PSV 68.6 cm/s Mid ICA EDV 16.7 cm/s Left ICA Dist Dist ICA PSV 59.8 cm/s Dist ICA EDV 15.8 cm/s Left ECA Prox Prox ECA PSV 87 cm/s Prox ECA EDV 9.32 cm/s Left Vertebral Vertebral PSV 48.2 cm/s Vertebral EDV 13 cm/s Left Prox SCA Prox SCA PSV 171 cm/s Prox SCA PSV 171 cm/s Left ICA/CCA RATIO ICA/CCA RATIO P 1.04 Signed 07/02/2018 09:15 AM Hiram Blake M.D. Leigh Mullins III, MD [facility] Final R esult * (ABNORMAL) BASIC METABOLIC PANEL (07/01/2018 5:40 AM CDT) SODIUM S/P/B 140 136 - 145 MMOL/L 07/01/2018 7:00 AM CDT [facility] POTASSIUM S/P/B 3.6 3.5 - 5.1 MMOL/L 07/01/2018 7:00 AM CDT [facility] CHLORIDE S/P/B 106 98 - 107 MMOL/L 07/01/2018 7:00 AM CDT [facility] CO2 24.9 21.0 - 32.0 MMOL/L 07/01/2018 7:00 AM CDT [facility] GLUCOSE 108(H) 74 - 106 MG/DL 07/01/2018 7:00 AM CDT [facility] BUN 15 7 - 18 MG/DL 07/01/2018 7:00 AM CDT [facility] CREATININE S/P/B 0.54(L) 0.55 - 1.02 MG/DL 07/01/2018 7:00 AM CDT [facility] CALCIUM S/P/B 8.9 8.4 - 10.5 MG/DL 07/01/2018 7:00 AM CDT [facility] ANION GAP 9.1 MMOL/L 07/01/2018 7:00 AM CDT [facility] Comment:REFERENCE RANGE NOT ESTABLISHED OSMOLALITY (CALC) 291 MOSM/KG 07/01/2018 7:00 AM CDT [facility] Comment:REFERENCE RANGE NOT ESTABLISHED EGFR NON-AFR. AMER. >90 >90 ML/MIN/1 .73 M2 07/01/2018 7:00 AM CDT [facility] EGFR AFR. AMER. >90 >90 ML/MIN/1 .73 M2 07/01/2018 7:00 AM CDT [facility] GFR NOTES THE ESTIMATED GFR IS CALCULATED USING THE 2009 CKD-EPI EQUATION. THE FOLLOWING CATEGORIES FOR GRADING RENAL FUNCTION ARE RECOMMENDED BY THE INTERNATIONAL SOCIETY OF NEPHROLOGY (KDIGO 2012 CLINICAL PRACTICE GUIDELINE). 07/01/2018 7:00 AM CDT [facility] Comment: G1,NORMAL OR HIGH: >89 ml/min/1.73 m2 G2,MILDLY DECREASED: 60-89 ml/min/1.73 m2 G3A,MILDLY TO MODERATELY DECREASED: 45-59 ml/min/1.73 m2 G3B,MODERATELY TO SEVERELY DECREASED: 30-44 ml/min/1.73 m2 G4,SEVERELY DECREASED: 15-29 ml/min/1.73 m2 G5,KIDNEY FAILURE: <15 ml/min/1.73 m2 07/01/2018 5:40 AM CDT Leigh Mullins III, MD LABORATORY Final R esult [facility] [address] [place] [address], [id number] * CBC W/DIFF AUTOMATED (07/01/2018 5:40 AM CDT) WBC 8.8 4.0 - 10.8 x10'3/uL 07/01/2018 6:22 AM CDT [facility] RBC 4.35 4.10 - 5.40 x10'6/uL 07/01/2018 6:22 AM CDT [facility] HGB 13.0 12.0 - 16.0 G/DL 07/01/2018 6:22 AM CDT [facility] HCT 38.5 36.0 - 47.0 % 07/01/2018 6:22 AM CDT [facility] MCV 88.5 78.0 - 100.0 FL 07/01/2018 6:22 AM CDT [facility] MCH 29.9 27.0 - 31.0 PG 07/01/2018 6:22 AM CDT [facility] MCHC 33.8 33.0 - 36.0 G/DL 07/01/2018 6:22 AM CDT [facility] RDW 14.2 11.5 - 14.5 % 07/01/2018 6:22 AM CDT [facility] PLT 227 150 - 350 x10'3/uL 07/01/2018 6:22 AM CDT [facility] MPV 10.2 7.4 - 10.4 FL 07/01/2018 6:22 AM CDT [facility] ABS. NEUTROPHILS TOTAL 5.57 1.60 - 8.30 x10'3/uL 07/01/2018 6:22 AM CDT [facility] ABS. LYMPHOCYTES 2.45 0.80 - 4.70 x10'3/uL 07/01/2018 6:22 AM CDT [facility] ABS. MONOCYTES 0.76 0.00 - 1.50 x10'3/uL 07/01/2018 6:22 AM CDT [facility] ABS. EOSINOPHILS 0.01 0.00 - 0.40 x10'3/uL 07/01/2018 6:22 AM CDT [facility] ABS. BASOPHILS 0.03 0.00 - 0.20 x10'3/uL 07/01/2018 6:22 AM CDT [facility] ABS. IMMATURE GRANULOCYTES 0.02 0.00 - 0.03 x10'3/uL 07/01/2018 6:22 AM CDT [facility] ABS. NUCLEATED RBC'S 0.00 0.0 x10'3/uL 07/01/2018 6:22 AM CDT [facility] 07/01/2018 5:40 AM CDT Leigh Mullins III, MD LABORATORY Final R [employer] Performing Organization Address [facility] Co de Phone Number [facility] [address] [place] [address], [place] [phone] * (ABNORMAL) LIPID PANEL (07/01/2018 5:40 AM CDT) CHOLESTEROL 229 MG/DL 07/01/2018 7:00 AM CDT [facility] Comment:BORDERLINE HIGH: 200 -239 TRIGLYCERIDES 298 MG/DL 07/01/2018 7:00 AM CDT [facility] Comment:200-499 HIGH HDL 47(L) >49 MG/DL 07/01/2018 7:00 AM CDT [facility] LDL (CALCULATED) 122 MG/DL 07/01/20 18 7:00 AM CDT [facility] Comment:100-129 NEAR OR ABOV E OPTIMAL VLDL CALCULATION 60 MG/DL 07/01/20 18 7:00 AM CDT [facility] Comment:REFERENCE RANGE NOT ESTABLISHED CHOL/HDL RATIO 4.9 07/01/2018 7:00 AM CDT [facility] Comment:REFERENCE RANGE NOT ESTABLISHED LDL/HDL 2.6 07/01/2018 7:00 AM CDT [facility] Comment:REFERENCE RANGE NOT ESTABLISHED NON HDL CHOLESTEROL 182 MG/DL 07/01/2018 7:00 AM CDT [facility] Comment:REFERENCE RANGE NOT ESTABLISHED 07/01/2018 5:40 AM CDT Leigh Mullins III, MD LABORATORY Final R [employer] Per[employer] Organization Address City/[facility]/ZIP Co de Phone Number [facility] [address] [place] [address], [place] [phone] [id number] * THYROID STIM HORMONE, TSH (07/01/2018 5:40 AM CDT) TSH 1.070 0.358 - 3.740 uIU/ML 07/01/2018 7:00 AM CDT [facility] 07/01/2018 5:40 AM CDT Leigh Mullins III, MD LABORATORY Final R esult Performing Organization Address [facility] Co de Phone Number [facility] [address] [place] [address], [place] [phone] * CBC W/DIFF AUTOMATED (06/30/2018 8:04 PM CDT) Pathologist [facility] WBC 10.1 4.0 - 10.8 x10'3/uL 06/30/2018 8:32 PM CDT [facility] RBC 4.26 4.10 - 5.40 x10'6/uL 06/30/2018 8:32 PM CDT [facility] HGB 12.7 12.0 - 16.0 G/DL 06/30/2018 8:32 PM CDT [facility] HCT 38.1 36.0 - 47.0 % 06/30/2018 8:32 PM CDT [facility] MCV 89.4 78.0 - 100.0 FL 06/30/2018 8:32 PM CDT [facility] MCH 29.8 27.0 - 31.0 PG 06/30/2018 8:32 PM CDT [facility] MCHC 33.3 33.0 - 36.0 G/DL 06/30/2018 8:32 PM CDT [facility] RDW 13.9 11.5 - 14.5 % 06/30/2018 8:32 PM CDT [facility] PLT 215 150 - 350 x10'3/uL 06/30/2018 8:32 PM CDT [facility] MPV 9.9 7.4 - 10.4 FL 06/30/2018 8:32 PM CDT [facility] ABS. NEUTROPHILS TOTAL 6.90 1.60 - 8.30 x10'3/uL 06/30/2018 8:32 PM CDT [facility] ABS. LYMPHOCYTES 2.29 0.80 - 4.70 x10'3/uL 06/30/2018 8:32 PM CDT [facility] ABS. MONOCYTES 0.79 0.00 - 1.50 x10'3/uL 06/30/2018 8:32 PM CDT [facility] ABS. EOSINOPHILS 0.02 0.00 - 0.40 x10'3/uL 06/30/2018 8:32 PM CDT [facility] ABS. BASOPHILS 0.02 0.00 - 0.20 x10'3/uL 06/30/2018 8:32 PM CDT [facility] ABS. IMMATURE GRANULOCYTES 0.03 0.00 - 0.03 x10'3/uL 06/30/2018 8:32 PM CDT [facility] ABS. NUCLEATED RBC'S 0.00 0.0 x10'3/uL 06/30/2018 8:32 PM CDT [facility] 06/30/2018 8:04 PM CDT us Leigh Mullins III, MD LABORATORY Final R esult [facility] [address] [place] [address], [phone] * (ABNORMAL) BASIC METABOLIC PANEL (06/30/2018 8:04 PM CDT) SODIUM S/P/B 142 136 - 145 MMOL/L [facility]2018 [facility] S/P/B 3.6 3.5 - 5.1 MMOL/L 06/30/2018 8:45 PM T [facility] CHLORIDE S/P/B 106 98 - 107 MMOL/L 06/30/2018 8:45 PM T [facility] CO2 26.9 21.0 - 32.0 MMOL/L 06/30/2018 8:45 PM T [facility] GLUCOSE 99 74 - 106 MG/DL 06/30/2018 8:45 PM T [facility] BUN 14 7 - 18 MG/DL 06/30/2018 8:45 PM T [facility] CREATININE S/P/B 0.61 0.55 - 1.02 MG/DL 06/30/2018 8:45 PM T [facility] CALCIUM S/P/B 8.8 8.4 - 10.5 MG/DL 06/30/2018 8:45 PM T [facility] ANION GAP 9.1 MMOL/L 06/30/2018 8:45 PM T [facility] Comment:REFERENCE RANGE NOT ESTABLISHED OSMOLALITY (CALC) 294 MOSM/KG 06/30/2018 8:45 PM [facility] Comment:REFERENCE RANGE NOT ESTABLISHED EGFR NON-AFR. AMER. 90(L) >90 ML/MIN/1 .73 M2 06/30/2018 8:45 PM T [facility] EGFR AFR. AMER. >90 >90 ML/MIN/1 .73 M2 06/30/2018 8:45 PM [facility] GFR NOTES THE ESTIMATED GFR IS CALCULATED USING THE 2009 CKD-EPI EQUATION. THE FOLLOWING CATEGORIES FOR GRADING RENAL FUNCTION ARE RECOMMENDED BY THE INTERNATIONAL SOCIETY OF NEPHROLOGY (KDIGO 2012 CLINICAL PRACTICE GUIDELINE). 06/30/2018 8:45 PM T [facility] Comment: G1,NORMAL OR HIGH: >89 ml/min/1.73 m2 G2,MILDLY DECREASED: 60-89 ml/min/1.73 m2 G3A,MILDLY TO MODERATELY DECREASED: 45-59 ml/min/1.73 m2 G3B,MODERATELY TO SEVERELY DECREASED: 30-44 ml/min/1.73 m2 G4,SEVERELY DECREASED: 15-29 ml/min/1.73 m2 G5,KIDNEY FAILURE: <15 ml/min/1.73 m2 06/30/2018 8:04 PM CDT us Leigh Mullins III, MD LABORATORY Final R esult Performing Organization Address [facility] [[email or web address]] de Phone Number [facility] [address] [place] [address], [place] [phone] * (ABNORMAL) HEMOGLOBIN, GLYCOSYLATED (06/30/2018 8:03 PM CDT) HGB A1C 5.5 4.2 - 6.3 % 06/30/2018 10:36 PM CDT [facility] ESTIMATED AVG GLUCOSE 111(H) 74 - 106 MG/DL 06/30/2018 10:36 PM CDT [facility] 06/30/2018 8:03 PM CDT us Leigh Mullins III, MD LABORATORY Final R esult Performing Organization Address [facility] [[email or web address]] de Phone Number [facility] [address] [place] [address], [place] [phone] documented in this encounter Visit Diagnoses Diagnosis Stroke ([facility])- Primary Unspecified cerebral artery occlusion with cerebral infarction Cerebrovascular accident (CVA), unspecified mechanism ([facility]) documented in this encounter Administered Medications Inactive Administered Medications - up to 3 most recent administrations Medication Order MAR Action Action Date Dose Rate Site acetaminophen (TYLENOL) tablet 650 mg 650 mg, Oral, Every 6 hours PRN, Mild pain (Scale 1 - 3), Fever, Starting on 06/30/18 at 1925, Until 07/04/18 at 1415, Maximum dose of acetaminophen is 4000 mg from all sources in 24 hours. Given 07/02/2018 9:56 AM CDT 650 mg Given 07/01/2018 7:43 PM CDT 650 mg Given 07/01/2018 9:39 AM CDT 650 mg aspirin tablet 325 mg 325 mg, Oral, Daily, First dose on Sat07/01/18 at 1245, Until Discontinued Given 07/04/2018 8:09 AM CDT 325 mg Given 07/03/2018 8:59 AM CDT 325 mg Given 07/02/2018 9:28 AM CDT 325 mg atorvastatin (LIPITOR) tablet 40 mg 40 mg, Oral, Nightly at bedtime, First dose on Sat07/01/18 at 2100, Until Discontinued Given 07/03/2018 8:07 PM CDT 40 mg Given 07/02/2018 8:35 PM CDT 40 mg Given 07/01/2018 7:43 PM CDT 40 mg docusate sodium (COLACE) capsule 100 mg 100 mg, Oral, 2 times daily, First dose on Sat07/03/18 at 2100, Until Discontinued Given 07/04/2018 8:08 AM CDT 100 mg Given 07/03/2018 9:55 PM CDT 100 mg enoxaparin (LOVENOX) 40 MG/0.4ML syringe 40 mg 40 mg, Subcutaneous, Every 24 hours, First dose on Sat06/30/18 at 2000, Until Discontinued, Administer by deep SubQ injection alternating between the left or right anterolateral and left or right posterolateral abdominal wall. Given 07/03/2018 8:07 PM CDT 40 mg Given 07/02/2018 8:36 PM CDT 40 mg Given 07/01/2018 7:43 PM CDT 40 mg hydrALAZINE (APRESOLINE) injection 10 mg 10 mg, Intravenous, Every 6 hours PRN, for SBP > 190, Starting on Sat06/30/18 at 2046, Until Sat07/04/18 at 1415, Monitor HR and BP before dose and 15 min after IV dose. For IV push give over 1-2 minutes=5mg/min. Given 07/01/2018 1:23 AM CDT 10 mg Given 06/30/2018 9:20 PM CDT 10 mg hydrocodone-acetaminophen (NORCO) 5-325 MG tablet 1 tablet 1 tablet, Oral, Every 6 hours PRN, Moderate pain (Scale 4 - 7), Starting on Sat07/02/18 at 1229, Until Sat07/04/18 at 1415, Maximum dose of acetaminophen is 4000 mg from all sources in 24 hours. Given 07/04/2018 8:08 AM CDT 1 tablet Given 07/03/2018 8:07 PM CDT 1 tablet Given 07/03/2018 10:46 AM CDT 1 tablet influenza virus vaccine (QUAD) injection 0.5 mL 0.5 mL, Intramuscular, Once, 1 dose, On Sat07/01/18 at 0900, Please give vaccine prior to discharge. Given 07/01/2018 11:20 AM CDT 0.5 mLs Right Deltoid labetalol (TRANDATE) injection 10 mg 10 mg, Intravenous, Every 6 hours PRN, High blood pressure, SBP > 190 if hydralazine already given, Starting on Sat07/01/18 at 0119, Until Sat07/04/18 at 1415, Monitor HR and BP prior to admin, 15 and 30 minutes post administration. Do not give if SBP <100mm or HR <55. Patient to stay supine during and for 30 minutes after IV administration due to potential for orthostatic hypotension. documented in this encounter Active and Recently Administered Medications Times are shown in CDT. Scheduled Medication Order 07/02/2018 07/03/2018 07/04/2018 aspirin tablet 325 mg 325 mg, Oral, Daily, First dose on Sat07/01/18 at 1245, Until Discontinued 927 (Given - Provider: Jaime Garcia, Nurse Student) 0859 (Given - Provider: Fabiola Gomez, LOY) 0809 (Given - Provider: Fabiola Gomez, LOY) atorvastatin (LIPITOR) tablet 40 mg 40 mg, Oral, Nightly at bedtime, First dose on Sat07/01/18 at 2100, Until Discontinued 2034 (Given - Provider: Josette Campos, LOY) 2006 (Given - Provider: Dorina Morales, LOY) docusate sodium (COLACE) capsule 100 mg 100 mg, Oral, 2 times daily, First dose on Sat07/03/18 at 2100, Until Discontinued 2154 (Given - Provider: Dorina Morales, LOY) 08 (Given - Provider: Fabiola Gomez, LOY) enoxaparin (LOVENOX) 40 MG/0.4ML syringe 40 mg(Linked Group 1) 40 mg, Subcutaneous, Every 24 hours, First dose on Sat06/30/18 at 2000, Until Discontinued, Administer by deep SubQ injection alternating between the left or right anterolateral and left or right posterolateral abdominal wall. 2035 (Given - Provider: Josette Campos RN) 2006 (Given - Provider: Dorina Morales, RN) PRN Medication Order 07/02/2018 07/03/2018 07/04/2018 acetaminophen (TYLENOL) tablet 650 mg 650 mg, Oral, Every 6 hours PRN, Mild pain (Scale 1 - 3), Fever, Starting on Sat06/30/18 at 1925, Until Sat07/04/18 at 1415, Maximum dose of acetaminophen is 4000 mg from all sources in 24 hours. 0956 (Given - Provider: Rocio Felix RN) hydrALAZINE (APRESOLINE) injection 10 mg 10 mg, Intravenous, Every 6 hours PRN, for SBP > 190, Starting on Sat06/30/18 at 2046, Until Sat07/04/18 at 1415, Monitor HR and BP before dose and 15 min after IV dose. For IV push give over 1-2 minutes=5mg/min. hydrocodone-acetaminophen (NORCO) 5-325 MG tablet 1 tablet 1 tablet, Oral, Every 6 hours PRN, Moderate pain (Scale 4 - 7), Starting on Sat07/02/18 at 1229, Until Sat07/04/18 at 1415, Maximum dose of acetaminophen is 4000 mg from all sources in 24 hours. 1504 (Given - Provider: Rocio Felix RN)2035 (Given - Provider: Josette Campos RN) 0424 (Given - Provider: Josette Campos RN)1046 (Given - Provider: Fabiola Gomez, LOY)2006 (Given - Provider: Dorina Morales, LOY) 0808 (Given - Provider: Fabiola Gomez, LOY) labetalol (TRANDATE) injection 10 mg 10 mg, Intravenous, Every 6 hours PRN, High blood pressure, SBP > 190 if hydralazine already given, Starting on Tu07/01/18 at 0119, Until Sat07/04/18 at 1415, Monitor HR and BP prior to admin, 15 and 30 minutes post administration. Do not give if SBP <100mm or HR <55. Patient to stay supine during and for 30 minutes after IV administration due to potential for orthostatic hypotension. ondansetron (ZOFRAN) injection 4 mg 4 mg, Intravenous, Every 6 hours PRN, Nausea, Vomiting, Starting on Sat06/30/18 at 1925, Until Sat07/04/18 at 1415 sodium chloride 0.9 % flush 3-10 mL 3-10 mL, Intravenous, As needed, Line care, Starting on Sat06/30/18 at 1925, Until Sat07/04/18 at 1415 Linked Groups Order Group 1: enoxaparin (LOVENOX) 40 MG/0.4ML syringe 40 mgJump to med 40 mg, Subcutaneous, Every 24 hours, First dose on Sat06/30/18 at 2000, Until Discontinued, Administer by deep SubQ injection alternating between the left or right anterolateral and left or right posterolateral abdominal wall. And Moderate Risk for VTE (COMPLETED) documented in this encounter
--- OUTSIDE RECORDS SUMMARY | 2024-09-22 03:08 | XMS_ITS | Encounter Summary ---
Author Organization [facility] Address [address] [place] [address]. [place], [place] [address] [place] [address] Care Team Providers Care Sheet Sewer Name Role Phone Aneesh Nath MD Primary Care Provider [phone] Encounter Details Date Type Department Care Team (Latest Contact Info) Description 05/30/2023 Travel Social History Tobacco Use Types Packs/Day Years Used Date Smoking Tobacco: Former Cigarettes Smokeless Tobacco: Never Comments:quite in 2013 Alcohol Use Standard Drinks/Week Comments No 0 [...] on file documented as of this encounter Plan of Treatment Not on file documented as of this encounter Visit Diagnoses Not on filedocumented in this encounter Care Teams Sheet Sewer Relationship Specialty Start Date End Date Aneesh Nath MD [address] [place] [address] PCP - General INTERNAL MEDICINE 07/28/18 documented as of this encounter
--- OUTSIDE RECORDS SUMMARY | 2024-09-22 03:08 | XMS_ITS | Encounter Summary ---
Author Organization [facility] Address [address] [place] [address]. [place], [place] [address] [place] [address] Care Team Providers Care Ophthalmic Medical Technician Name Role Phone Aneesh Nath MD Primary Care Provider [phone] Encounter Details Date Type Department Care Team (Latest Contact Info) Description 06/26/2023 Travel Social History Tobacco Use Types Packs/Day [...] on filedocumented in this encounter Care Teams Ophthalmic Medical Technician Relationship Specialty Start Date End Date Aneesh Nath MD [address] [place] [address] PCP - General INTERNAL MEDICINE 07/28/18 documented as of this encounter
--- OUTSIDE RECORDS SUMMARY | 2024-09-22 03:08 | XMS_ITS | Encounter Summary ---
Author Organization [facility] Address [address] [place] [address]. [place] [address] [place] [address] Care Team Providers Care Flipping Machine Operator Name Role Phone Aneesh Nath MD Primary Care Provider Reason for Visit * Reason Onset Date Comments Results 07/30/2018 Encounter Details Date Type Department Care Team (Late st Contact Info) Description 07/30/2018 Telephone [facility] Neuroscience Center [facility] [address] [place] [address] Andreea Salinas MD [address] [place] [address] Results Social History Tobacco Use Types Packs/Day Years [...] on file documented as of this encounter Progress Notes * Sandra Mcknight RN - 07/30/2018 1:[address] Nath's office at [phone] and left message for them to call us back about patient's XR results. [employer] documented in this encounter Plan of Treatment Not on file documented as of this encounter Visit Diagnoses Not on filedocumented in this encounter Care Teams Flipping Machine Operator Relationship Specialty Start Date End Date Aneesh Nath MD [address] [place] [phone] PCP - General INTERNAL MEDICINE 07/28/18 documented as of this encounter
--- OUTSIDE RECORDS SUMMARY | 2024-09-22 03:08 | XMS_ITS | Encounter Summary ---
Author Organization [facility] Address [address] [place] [address]. [place] [address] [place] [address] Care Team Providers Care Senior Physician Name Role Phone Unavailable Primary Care Provider Unavailabl e Reason for Visit * Reason Comments Lab (SCAN) Encounter Details Date Type Department Care Team (Late st Contact Info) Description 06/30/2018 Scan [facility] Information Services [address] [place] [address] Scanned, Documents Lab (SCAN) Social History Tobacco Use Types Packs/Day Years [...] Procedure Name Priority Date/Time Associated Diagnosis Comments OUTSIDE LAB (SCAN ORDER) Routine 06/30/2018 documented in this encounter Results * OUTSIDE LAB (06/30/2018) 06/30/2018 us Documents Scanned SCANNING Final Result documented in this encounter Visit Diagnoses Not on filedocumented in this encounter
--- OUTSIDE RECORDS SUMMARY | 2024-09-22 03:08 | XMS_ITS | Encounter Summary ---
Author Organization [facility] Address [address] [place] [address]. [place], [place] [address] [place] [address] Care Team Providers Care Creping Machine Operator Helper Name Role Phone Unavailable Primary Care Provider Unavailabl e Reason for Visit * Reason Comments Image (SCAN) Encounter Details Date Type Department Care Team (Late st Contact Info) Description 06/30/2018 Scan [facility] Information Services [address] [place] [address] Scanned, Documents Image (SCAN) Social History Tobacco Use Types Packs/Day [...] Procedure Name Priority Date/Time Associated Diagnosis Comments IMAGE GENERIC Routine 06/30/2018 documented in this encounter Results * IMAGE STUDY (06/30/2018) Anatomical Region Laterality Modality Other us Documents Scanned SCANNING Final Result documented in this encounter Visit Diagnoses Not on filedocumented in this encounter
--- OUTSIDE RECORDS SUMMARY | 2024-09-22 03:08 | XMS_ITS | Encounter Summary ---
Author Organization [facility] Address [address] [place] [address]. [place] [address] [place] [address] Care Team Providers Care Offset Press Operator Apprentice Name Role Phone Aneesh Nath MD Primary Care Provider [phone] Encounter Details Date Type Department Care Team (Late st Contact Info) Description 12/11/2022 Transcribe Orders [facility] Pre Access Team [address] [place] [address] Ashley Lobo MD [address] [address] Social History Tobacco Use Types Packs/Day Years [...] documented as of this encounter Visit Diagnoses Diagnosis Lung mass- Primary Swelling, mass, or lump in chest documented in this encounter Care Teams Offset Press Operator Apprentice Relationship Specialty Start Date End Date Aneesh Nath MD [address] [place] [address] PCP - General INTERNAL MEDICINE 07/28/18 documented as of this encounter
--- OUTSIDE RECORDS SUMMARY | 2024-09-22 03:08 | XMS_ITS | Clinical Summary ---
Author Organization [facility] Address [address] [place] [address]. [place] [address] [place] [address] Care Team Providers Care Director Of Primary Name Role Phone Aneesh Nath MD Primary Care Provider [phone] Allergies No known active allergies Medications multivitamin tablet Take 1 tablet by mouth daily. Active traMADol 50 MG tablet Take 50 mg by mouth every 6 (six) hours as needed for Pain. Active acetaminophen 500 MG tablet Take 500 mg by mouth every 6 (six) hours as needed for Pain. Active ibuprofen 200 MG tabletIndication s:Chronic pain of right knee 2-3 tabs PO PRN severe pain 07/28/2018 Active Active Problems Problem Noted Date Diagnosed Date Arthritis 07/28/2018 Stroke ([facility]/HCC [facility]) 06/30/2018 Immunizations Name Administration Dates Next Due Fluarix (IIV4) 07/01/2018, 8(Deferred: Other - Time changed) Pneumococcal (Pneumovax 23) 07/01/2018,1 (Deferred: Other - Time changed) Family History Medical History Relation Comments Alcohol Abuse Father Arthritis Father Stroke Father Diabetes Mother Relation Status Comments Father Mother Social History Tobacco Use Types Packs/Day Years [...] on file Sexual Orientation Not on file Last Filed Vital Signs Vital Sign Reading Time Taken Comments Blood Pressure 132/78 07/28/2018 10:33 AM METAPHYSICIAN Pulse 74 07/28/2018 10:33 AM METAPHYSICIAN Temperature 36.6 ??C (97.9 ??F) 07/04/2018 7:44 AM CD T Respiratory Rate 18 07/04/2018 7:44 AM CDT Oxygen Saturation 91% 07/04/2018 7:44 AM CDT Inhaled Oxygen Concentration - - Weight 88.5 kg (195 lb) 07/28/2018 10:33 AM METAPHYSICIAN Height 162.6 cm (5' 4 ) 07/28/2018 10:33 AM METAPHYSICIAN Body Mass Index 33.47 07/28/2018 10:33 AM METAPHYSICIAN Plan of Treatment Health Maintenance Due Date Last Done Comments COVID-19 Vaccine (#1) 1950 Hepatitis C 1962 DTaP, Tdap and Td Vaccines ( 1 - Tdap) 1963 Zoster Vaccines (1 of 2) 1964 Annual Medicare Wellness Visit 2009 Dexa Scan (General) 2009 Pneumococcal Vaccine: 65+ Ye ars (2 of 2 - PCV) 07/01/2019 07/01/2018 RSV Immunization or 60+ Years (1 - 1-dose 75+ series) 2019 Influenza Adult (#1) 2024 07/01/2018 Meningococcal Vaccine Aged Out No mark andrew eligible based on patient's age to complete this topic RSV Immunizations Under 20 Months Aged Out No longer eligible based on patient's age to complete this topic Insurance [facility] [place] [address] Care Teams Director Of Primary Relationship Specialty Start Date End Date Aneesh Nath MD [address] [place] [phone] PCP - General INTERNAL MEDICINE 07/28/18
--- OUTSIDE RECORDS SUMMARY | 2024-09-22 03:08 | XMS_ITS | Encounter Summary ---
Author Organization [facility] Address [address] [place] [address]. 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 site, right (CMS/HCC HHS/HCC) Procedures CT RAD THRPY PLAN WO Paresh Nicholson MD [address] [place] [address] Phone: tel: fax: Referral ID Status Reason Start Date Expiration Date Visits Re quested Visits Authorized [id number] Closed 05/24/2023 05/24/2024 1 1 Reason for Visit * Imaging (Routine) - Closed Specialty Diagnoses / Procedures Referred By Jaron small Referred To Contact RADIOLOGY Diagnoses 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 [address] [place] [address] Paresh Palomo MD [address] [place] [address] Discharge Disposition: Home or Self Care (Routine Discharge) Social History Tobacco Use Types Packs/Day Years [...] on file documented as of this encounter Medications at Time of Discharge acetaminophen 500 MG tablet Take 500 mg by mouth every 6 (six) hours as needed for Pain. ibuprofen 200 MG tabletIndications :Chronic pain of right knee 2-3 tabs PO PRN severe pain 07/28/2018 multivitamin tablet Take 1 tablet by mouth daily. traMADol 50 MG tablet Take 50 mg by mouth every 6 (six) hours as needed for Pain. 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 Ordered By: PARESH PALOMO Interpreted By: Geraldo Acevedo MD, 05/30/2023 1:10 PM Narrative 05/30/2023 1:19 PM CDT Examination: Radiation therapy planning CT scan. Exam time: 1226 hours. Clinical history: Lung cancer. Comparison: None. Technique: Noncontrast spiral axial scans through the lower neck, chest and upper abdomen with fiducial markers in place. ??A dose lowering technique was used for this procedure, which may include, but is not limited to, dose reduction techniques, automated exposure control, the use of iterative reconstruction and ALARA/Image Gently techniques. Findings: There is an approximately 4.6 cm soft tissue mass peripherally in the right upper lobe concordant with the history. There is a 5-6 mm noncalcified nodule in the right lower lobe, indeterminate. Allowing for respiratory motion, the lungs are otherwise grossly clear. There are calcified mediastinal and right hilar lymph nodes compatible with old granulomatous disease. There are borderline to minimally enlarged paratracheal lymph nodes, indeterminate. There is no pleural effusion. There is calcific coronary artery disease. There is mild four-chamber cardiac enlargement. No suspicious bony lesion is identified. The included sections through the upper abdomen demonstrate cholelithiasis and calcified splenic granulomas. Procedure Note Geraldo Acevedo MD - 05/30/2023 Examination: Radiation therapy planning CT scan. Exam time: 1226 hours. Clinical history: Lung cancer. Comparison: None. Technique: Noncontrast spiral axial scans through the lower neck, chestand upper abdomen with fiducial markers in place. A dose loweringtechnique was used for this procedure, which may include, but is notlimited to, dose reduction techniques, automated exposure control, the useof iterative reconstruction and ALARA/Image Gently techniques. Findings: There is an approximately 4.6 cm soft tissue mass peripherallyin the right upper lobe concordant with the history. There is a 5-6 mmnoncalcified nodule in the right lower lobe, indeterminate. Allowing forrespiratory motion, the lungs are otherwise grossly clear. There arecalcified mediastinal and right hilar lymph nodes compatible with oldgranulomatous disease. There are borderline to minimally enlargedparatracheal lymph nodes, indeterminate. There is no pleural effusion.There is calcific coronary artery disease. There is mild four-chambercardiac enlargement. No suspicious bony lesion is identified. The includedsections through the upper abdomen demonstrate cholelithiasis andcalcified splenic granulomas. IMPRESSION: Radiation therapy planning CT scan as described. Ordered By: PARESH PALOMO Interpreted By: Geraldo Acevedo MD, 05/30/2023 1:10 PM us Paresh Palomo MD CT Final Result documented in this encounter Visit Diagnoses Diagnosis Primary lung cancer with metastasis from lung to other site, right (CMS/HCC HHS/HCC) documented in this encounter Care Teams Medical Technicians Relationship Specialty Start Date End Date Aneesh Nath MD [address] [place] [address] PCP - General INTERNAL MEDICINE 07/28/18 documented as of this encounter
--- OUTSIDE RECORDS SUMMARY | 2024-09-22 03:08 | XMS_ITS | Encounter Summary ---
Author Organization [facility] Address [address] [place] [address]. [place] [address] [place] [address] Care Team Providers Care Inside Sales Advertising Executive Name Role Phone Aneesh Nath MD Primary Care Provider [phone] Encounter Details Date Type Department Care Team (Late st Contact Info) Description 07/24/2018 Abstract [facility] Neuroscience [facility] [address], [place] [address] Andreea Salinas MD [address] [place], [place] [address] Social History Tobacco Use Types Packs/Day Years [...] on filedocumented in this encounter Care Teams Inside Sales Advertising Executive Relationship Specialty Start Date End Date Aneesh Nath MD [address] [place] [phone] PCP - General INTERNAL MEDICINE 07/28/18 documented as of this encounter
--- OUTSIDE RECORDS SUMMARY | 2024-09-22 03:08 | XMS_ITS | Encounter Summary ---
Author Organization [facility] Address [address] [place] [address]. [place], [place] [address] [place] [address] Care Team Providers Care Technology Sales Representative Name Role Phone Unavailable Primary Care Provider Unavailabl e Reason for Visit * Reason Comments ECG (SCAN) Encounter Details Date Type Department Care Team (Late st Contact Info) Description 06/30/2018 Scan [facility] Information Services [address] [place] [address] Scanned, Documents ECG (SCAN) Social History Tobacco Use Types Packs/Day [...] Procedure Name Priority Date/Time Associated Diagnosis Comments ECG GENERIC (SCAN ORDER) Routine 06/30/2018 documented in this encounter Results * ECG (06/30/2018) us Documents Scanned SCANNING Final Result documented in this encounter Visit Diagnoses Not on filedocumented in this encounter
--- OUTSIDE RECORDS SUMMARY | 2024-09-22 03:08 | XMS_ITS | Encounter Summary ---
Author Organization [facility] Address [address] [place] [address]. [place] [address] [place] [address] Care Team Providers Care Breast Splitter Name Role Phone Aneesh Nath MD Primary Care Provider [phone] Encounter Details Date Type Department Care Team (Latest Contact Info) Description 07/28/2018 11:59 AM VERTICAL ROLL OPERATOR - 07/28/2018 11:59 PM [facility] Hospital Encounter [facility] Diagnostic Imaging [address] [place] [address] Andreea Salinas MD [address] [place], [place] [address] Discharge Disposition: Home or Self Care (Routine [...] 6 (six) hours as needed for Pain. amlodipine 5 MG tablet Take 1 tablet (5 mg total) by mouth daily for 30 days. 30 tablet 07/04/2018 08/03/2018 aspirin 81 MG tabletIndications :History of ischemic stroke in prior three months Take 1 tablet (81 mg total) by mouth daily for 30 days. 30 tablet 07/28/2018 08/27/2018 atorvastatin 40 MG tablet Take 1 tablet (40 mg total) by mouth nightly at bedtime for 30 days. 30 tablet 07/04/2018 08/03/2018 docusate sodium 100 MG capsule Take 1 capsule (100 mg total) by mouth 2 (two) times daily for 30 days. 60 capsule 07/04/2018 08/03/2018 documented as of this encounter Plan of Treatment Not on file documented as of this encounter Procedures Procedure Name Priority Date/Time Associated Diagnosis Comments XR KNEE RT 2V Routine 07/28/2018 12:21 PM VERTICAL ROLL OPERATOR Chronic pain of right knee documented in this encounter Results * XR KNEE RT 2V (07/28/2018 12:21 PM VERTICAL ROLL OPERATOR) Anatomical Region Laterality Modality Knee Radiographic Amanda ging 07/28/2018 1:28 PM VERTICAL ROLL OPERATOR Impressions 07/28/2018 1:30 PM VERTICAL ROLL OPERATOR IMPRESSION: 1. No acute injury identified. 2. Tricompartmental osteoarthritic changes with severe joint space narrowing of the medial compartment with jkbb-do-etef contact. Interpreted By: Bacilio Coronado MD, 07/28/2018 1:28 PM Narrative 07/28/2018 1:30 PM VERTICAL ROLL OPERATOR Examination: XR KNEE RT 2V Exam time: 07/28/2018 12:05 PM Clinical history: Severe knee pain and inflammation. Comparison: Radiographs 07/02/2018. Technique: AP and crosstable lateral images were obtained. Findings: There is no acute fracture or dislocation. There is severe joint space narrowing with kuum-lq-ecws contact and subchondral sclerosis involving the medial compartment. Moderate sized tricompartmental osteophytes are noted. No destructive osseous lesion is seen. No joint effusion. Soft tissue calcifications are noted in the posterior joint space, unchanged and nonspecific. Procedure Note Bacilio Coronado MD - 07/28/2018 Examination: XR KNEE RT 2V Exam time: 07/28/2018 12:05 PM Clinical history: Severe knee pain and inflammation. Comparison: Radiographs 07/02/2018. Technique: AP and crosstable lateral images were obtained. Findings: There is no acute fracture or dislocation. There is severe joint space narrowing with muww-hc-ldad contact and subchondral sclerosis involvingthe medial compartment. Moderate sized tricompartmental osteophytes arenoted. No destructive osseous lesion is seen. No joint effusion. Soft tissue calcifications are noted in the posterior joint space, unchanged and nonspecific. IMPRESSION: 1. No acute injury identified. 2. Tricompartmental osteoarthritic changes with severe joint space narrowing of the medial compartment with caba-xx-pgbu contact. Interpreted By: Bacilio Coronado MD, 07/28/2018 1:28 PM Andreea Salinas MD GENERAL IMAGING Final Result documented in this encounter Visit Diagnoses Diagnosis Chronic pain of right knee documented in this encounter Care Teams Breast Splitter Relationship Specialty Start Date End Date Aneesh Nath MD [address] [place] [address] PCP - General INTERNAL MEDICINE 07/28/18 documented as of this encounter
--- OUTSIDE RECORDS SUMMARY | 2024-09-22 03:08 | XMS_ITS | Encounter Summary ---
Author Organization [facility] Address [address] [place] [address]. [place] [address] [place] [address] Care Team Providers Care Casket Liner Name Role Phone Aneesh Nath MD Primary Care Provider [phone] Reason for Visit * Reason Onset Date Comments Other 06/26/2023 Encounter Details Date Type Department Care Team (Late st Contact Info) Description 06/26/2023 Telephone [facility] [address] [facility] [place] [address] Susana Hackett, LOY Other Social History Tobacco Use Types Packs/Day Years [...] as of this encounter Progress Notes * Susana Hackett RN - 06/26/2023 10:40 AM CDT Registration called [facility] to inform us that patient arrives with [place] insurance. Cutter And Presser called Nicole Pinon MA who is offsite today. Nicole states that when patient was originally scheduled, patient had straight Medicare. Nicole states that patient can either pay [id number] for visit today or will need to contact Medicare and have insurance changed to straight Medicare. Cutter And Presser informed Sraah in registration, whom states that she will let patient know of this information. No further questionsat this time. documented in this encounter Plan of Treatment Not on file documented as of this encounter Visit Diagnoses Not on filedocumented in this encounter Care Teams Casket Liner Relationship Specialty Start Date End Date Aneesh Nath MD [address] [place] [address] PCP - General INTERNAL MEDICINE 07/28/18 documented as of this encounter
--- OUTSIDE RECORDS SUMMARY | 2024-09-22 03:08 | XMS_ITS | Encounter Summary ---
Author Organization [facility] Address [address] [place] [address]. [place] [address] [place] [address] Care Team Providers Care Self Propelled Hot Mix Roller Operator Name Role Phone Aneesh Nath MD Primary Care Provider [phone] Reason for Visit * Reason Comments Hospital Follow Up Stroke * Consultation (Routine) - Closed Specialty Diagnoses / Procedures Referred By Jaron small Referred To Contact Neurology Psychiatry / NEUROLOGY Diagnoses Hospital Follow up / Stroke Procedures FOLLOW UP Referral, Self Zeke Salinas MD [address] [address] Phone: tel: fax: Referral ID Status Reason Start Date Expiration Date V isits Requested Visits Authorized [id number] Closed Consultation 07/21/2018 07/22/2019 1 1 Encounter Details Date Type Department Care Team (Latest Contact Info) Description 07/28/2018 10:00 AM WATER HYDRANT INSTALLER Office Visit [facility] [address] [place] [phone] Zeke Salinas MD [address] [place] [phone] Hospital Follow Up (Stroke) Social History Tobacco Use Types Packs/Day Years [...] Comments Blood Pressure 132/78 07/28/2018 10:33 AM WATER HYDRANT INSTALLER Pulse 74 07/28/2018 10:33 AM WATER HYDRANT INSTALLER Temperature - - Respiratory Rate - - Oxygen Saturation - - Inhaled Oxygen Concentration - - Weight 88.5 kg (195 lb) 07/28/2018 10:33 AM WATER HYDRANT INSTALLER Height 162.6 cm (5' 4 ) 07/28/2018 10:33 AM WATER HYDRANT INSTALLER Body Mass Index 33.47 07/28/2018 10:33 AM WATER HYDRANT INSTALLER documented in this encounter Patient Instructions * Patient Instructions* Zeke Salinas MD - 07/28/2018 10:00 AM WATER HYDRANT INSTALLER The pain in your right knee with the inflammation in the knee is worrisome for a possible joint illness, I would like to start by ruling out a fracture by obtaining 2 x-rays of the right knee, and wewill also check your uric acid level in case this is inflammation related to gout. I am unable to follow up with the care of your knee because my clinic specializes in stroke however I will call yourdoctor so he can follow-up on the care for your severe knee pain which in my opinion is impeding your progress with physical therapy. Change her aspirin dose from 325 mg to 81 mg daily. We are checking today as well your cholesterol level to make sure that atorvastatin is bringing herLDL below 70. We will call you if you need to double your LDL based on the results of the lab test today. There is no need to return to clinic except if you have more questions about the stroke. If you have pain related issues, please follow-up with your therapist and your primary care first who can refer you to us if there is no solution that they can provide. R HYDRANT INSTALLER documented in this encounter Progress Notes * Zeke Salinas MD - 07/28/2018 10:00 AM CSTAddended by: ZEKE SALINAS on: 08/11/2018 02:28 PM Modules accepted: Level of Service R HYDRANT INSTALLER * Zeke Salinas MD - 07/28/2018 10:00 AM CST Images from the original note were not included. 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 Patient also states that she was having falls and is now living in a jail/rehab center. She tells me she is having severe pain on the right side when she is doing therapy, mostly at the knee area, the hip is not involved its just the knee that makes her screaming pain when she is attempting therapy. The numbness has resolved. She has no concerns other than the pain. She has not regained her independence. . ROS Review of Systems Constitutional: Positive for malaise/fatigue. Negative for fever. HENT: Negative for sore throat. Eyes: Negative for double vision. Respiratory: Negative for cough and hemoptysis. Cardiovascular: Negative for chest pain and palpitations. Gastrointestinal: Negative for blood in stool and vomiting. Genitourinary: Negative for hematuria. Musculoskeletal: Positive for back pain, joint pain and myalgias. Negative for falls. Skin: Negative for rash. Neurological: Negative for tingling, tremors and headaches. Endo/Heme/Allergies: Does not bruise/bleed easily. Allergies: No Known Allergies PMH: Past Medical History: Diagnosis Date ??? Dysarthria ??? Dysphagia ??? Falls ??? Hyperlipidemia ??? Hypertension ??? Stroke (HCC) PSH: Past Surgical History: Procedure Laterality Date ??? BLADDER SURGERY Social Hx: Social History Socioeconomic History ??? [...] Tobacco Use ??? Smoking status: Former Smoker Types: Cigarettes ??? Smokeless tobacco: Never Used ??? Tobacco comment: quite in 2013 Substance and Sexual Activity ??? Alcohol use: No Frequency: Never ??? Drug use: No ??? Sexual activity: No Other Topics Concern ??? Not on file Social History Narrative ??? Not on file Family Hx: Family History Problem Relation Age of Onset ??? Diabetes Mother ??? Stroke Father ??? Alcohol Abuse Father ??? Arthritis Father Vital Signs: Filed Vitals: 07/28/18 1033 BP: 132/78 Pulse: 74 Weight: 88.5 kg (195 lb) Height: 5' 4 (1.626 m) Physical Exam: alert, no distress Awake alert oriented to time space and person, she is in a wheelchair, she has severe pain upon touching the right knee, tenderness with moving the knee, she has give way weakness in all extremities with good strength against gravity, she has no aphasia no cranial nerve deficits. Physical Exam Neurologic Exam Most recent labs: Blood Count: Lab Results Component Value Date WBC 7.4 07/04/2018 HGB 13.6 07/04/2018 HCT 41.0 07/04/2018 PLT 224 07/04/2018 Metabolic Panel: Lab Results Component Value Date NA 142 07/04/2018 K 4.0 07/04/2018 CL 107 07/04/2018 CO2 28.1 07/04/2018 AGAP 6.9 07/04/2018 BUN 26 (H) 07/04/2018 CR 0.63 07/04/2018 GFRNON 89 (L) 07/04/2018 GFR >90 07/04/2018 GLU 107 (H) 07/04/2018 CA 9.0 07/04/2018 Coags: No results found for: PTT, INR Cardiac Markers: No results found for: TROP, CPK, MB Lipids/A1C/TSH: Lab Results Component Value Date CHOL 229 07/01/2018 TRI 298 07/01/2018 HDL 47 (L) 07/01/2018 LDLD 52 07/28/2018 LDL 122 07/01/2018 HGBA1C 5.5 06/30/2018 TSH 1.070 07/01/2018 Hospital EKG EKG: not completed. Outpatient Food Adviser post-discharge Home Meds: Current Outpatient Medications: ??? acetaminophen 500 MG tablet, Take 500 mg by mouth every 6 (six) hours as needed for Pain., Disp: , Rfl: ??? amlodipine 5 MG tablet, Take 1 tablet (5 mg total) by mouth daily for 30 days., Disp: 30 tablet, Rfl: 0 ??? aspirin 81 MG tablet, Take 1 tablet (81 mg total) by mouth daily for 30 days., Disp: 30 tablet,Rfl: 0 ??? atorvastatin 40 MG tablet, Take 1 tablet (40 mg total) by mouth nightly at bedtime for 30 days., Disp: 30 tablet, Rfl: 0 ??? docusate sodium 100 MG capsule, Take 1 capsule (100 mg total) by mouth 2 (two) times daily for 30 days., Disp: 60 capsule, Rfl: 0 ??? ibuprofen 200 MG tablet, 2-3 tabs PO PRN severe pain, Disp: , Rfl: ??? traMADol 50 MG tablet, Take 50 mg by mouth every 6 (six) hours as needed for Pain., Disp: , Rfl: ??? multivitamin tablet, Take 1 tablet by mouth daily., Disp: , Rfl: Radiology: I reviewed the patient's imaging from her recent admission, the imaging is available to us from an outside facility, [facility]. Imaging dated 06/30/2018 independently reviewed and visualized by me, showing on the CT scan left subcortical ischemic infarction of subacute nature. This localizes with the patient's symptoms. The stroke is in the left globus pallidus and internal capsule. Use Echocardiogram Result Date: 07/01/2018 Echocardiography Report Pat.Name: BEA QUIÑONES.ID: [id number] .Date: 07/01/2018 Refer.:LEIGH SANTOS III Exam Time: 9:56:00 AM Study Type:ECHO [...] aortic valve stenosis. No evidence of aortic valveregurgitation. The aortic valve not well visualized. MV: [...] 33 cm AV pkPG 11 mmHg AV gfPla279 cm/s (100-170) Area (TVI) 2.71 cm2 (3-5)* [...] Mass 2D Value 276 g LV Mass Odziv6M Value 139 g/m2 Right Ventricle Right Ventricle [...] 3.46 cm Right Ventricle 2.35 cm Major Maitland 8.78 cm MMODE TA Tricuspid Annul 2.21 cm Signed 07/01/2018 03:26 PM Maria D Ng M.D. Usv Carotid Duplex [facility] Result Date: 07/02/2018 S Vascular Report Pat.Name: BEA QUIÑONES Pat.ID: [id number] .Date: 07/01/2018 Refer.: LEIGH SANTOS III Exam Time: 10:49:00 AM Study Type:PVI CAROTID SCAN - BILATERAL Height: 162cm Age: 2 1945,72Y Sex: FEMALE Sonogrphr: Erasmo Chavez RVT Pat. Stat.:Inpatient Room: 846 ICD: R29.898 CVA CPT: 30771 Carotid Duplex Reason for Study:CVA Race: W ++++++++++++++++++++++++++++++++++++ SUMMARY: ++++++++++++++++++++++++++++++++++++ Consider following recommendations that are modifiedom Medicare guidelines. Stenosis Recommendation 0-39% with plaque Cardiovascular Risk factor modification, may consider follow up in one year if multiple atherosclerotic risk factors present. 40-59% Follow up duplex in one year. 60-79% Follow up duplex in six months. 80-99% Consider other modality of imaging such as MRA/ Angiogram+/- Intervention surgery or stenting. ++++++++++++++++++++++++++++++++++++ FINDINGS: ++++++++++++++++++++++++++++++++++++ Rt Innom: The innominate artery is unable t o be obtained. Rt Subcl: The proximal subclavian [...] Carotid Findings: Right Left Verteb.Flw Antegrade Antegrade +++++++++++ +++++++++++++++++++++++++ MEASUREMENTS: ++++++++++++++++++++++++++++++++++++ DOPPLER Right CCA Prox Prox [...] Signed 07/02/2018 09:15 AM Hiram Blake M.D. Patient's Active Problems: Patient Active Problem List Diagnosis ??? Stroke (HCC) ??? Arthritis Problems addressed during this visit: Encounter Diagnose(s) ICD-10-CM ICD-9-CM SNOMED CT(R) 1. History of ischemic stroke in prior three months Z86.73 V12.54 HISTORY OF CEREBROVASCULAR ACCIDENT aspirin 81 MG tablet 2. Hyperlipidemia LDL goal <70 E78.5 272.4 HYPERLIPIDEMIA LIPOPROTEIN, LDL CHOL, DIRECT 3. Chronic pain of right knee M25.561 719.46 KNEE PAIN ibuprofen 200 MG tablet G89.29 338.29 XR KNEE RT 2V 4. Hemiparesis of dominant side due to recent cerebrovascular accident (CVA) ([facility]) I69.359 438.21 HEMIPARESIS No problem-specific Assessment & Plan notes found for this encounter. Medications Discontinued During This Encounter Medication Reason ??? aspirin 325 MG tablet Plan: The workup for the patient's stroke has been completed, I only ordered an LDL today to check that she has reached her goal, and returned at 55 so I will not change her statin dose. She requested the pain to be addressed on the right side and as I examined her she had severe pain at the knee with movement. I ordered an x-ray of her knee That showed 1. No acute injury identified. 2. Tricompartmental osteoarthritic changes with severe joint space narrowing of the medial compartment with mynw-dr-uiln contact. I believe this can be contributing to her not improvement with therapy. I made sure that the primary care is aware of that as well as the therapist. I am unable to address further this severe illness but I promised the patient that I will begin the workup as I did above. . I asked her to change her aspirin to 81 mg daily and allowed her to take ibuprofen as needed. The patient will return to see me only as needed. We have no further concerns, her stroke workup iscompleted, her secondary stroke prevention regimen is complete and the knee pain is addressed as above Total visit time was 40 minutes with over 50% of time spent counseling regarding pain in her knee, the need to address the pain to improve with therapy, in addition to coordination of care spent to address her knee and stroke. 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 Patient also states that she was having falls and is now living in a jail/rehab center. R HYDRANT INSTALLER documented in this encounter Plan of Treatment Not on file documented as of this encounter Results * LIPOPROTEIN, LDL CHOL, DIRECT (07/28/2018 12:24 PM WATER HYDRANT INSTALLER) DIRECT LDL 52 MG/DL 07/28/2018 1:20 PM WATER HYDRANT INSTALLER [facility] Comment:<100 OPTIMAL 07/28/2018 12:2 4 PM WATER HYDRANT INSTALLER Zeke Salinas MD LABORATORY Final Result [facility] [address] [place] [address], [id number] * XR KNEE RT 2V (07/28/2018 12:21 PM WATER HYDRANT INSTALLER) Anatomical Region Laterality Modality Knee Radiographic Amanda ging 07/28/2018 1:28 PM WATER HYDRANT INSTALLER Impressions 07/28/2018 1:30 PM WATER HYDRANT INSTALLER IMPRESSION: 1. No acute injury identified. 2. Tricompartmental osteoarthritic changes with severe joint space narrowing of the medial compartment with ifje-re-lzfd contact. Interpreted By: Bacilio Coronado MD, 07/28/2018 1:28 PM Narrative 07/28/2018 1:30 PM WATER HYDRANT INSTALLER Examination: XR KNEE RT 2V Exam time: 07/28/2018 12:05 PM Clinical history: Severe knee pain and inflammation. Comparison: Radiographs 07/02/2018. Technique: AP and crosstable lateral images were obtained. Findings: There is no acute fracture or dislocation. There is severe joint space narrowing with pmwq-nz-cdri contact and subchondral sclerosis involving the medial [...] There is severe joint space narrowing with grpr-zb-axji contact and subchondral sclerosis involvingthe medial compartment. Moderate sized tricompartmental osteophytes arenoted. No destructive osseous lesion is seen. No joint effusion. Soft tissue calcifications are noted in the posterior joint space, unchanged and nonspecific. IMPRESSION: 1. No acute injury identified. 2. Tricompartmental osteoarthritic changes with severe joint space narrowing of the medial compartment with ieck-bh-jejp contact. Interpreted By: Bacilio Coronado MD, 07/28/2018 1:28 PM Zeke Salinas MD GENERAL IMAGING Final Result documented in this encounter Visit Diagnoses Diagnosis History of ischemic stroke in prior three months- Primary Hyperlipidemia LDL goal <70 Other and unspecified hyperlipidemia Chronic pain of right knee Hemiparesis of dominant side due to recent cerebrovascular accident (CVA) (CMS/HCC HHS/HCC) Chronic pain of right knee documented in this encounter Care Teams Self Propelled Hot Mix Roller Operator Relationship Specialty Start Date End Date Aneesh Nath MD [address] [place] [phone] PCP - General INTERNAL MEDICINE 07/28/18 documented as of this encounter
--- OUTSIDE RECORDS SUMMARY | 2024-09-22 03:08 | XMS_ITS | Encounter Summary ---
Author Organization [facility] Address [address] [place] [address]. [place] [address] [place] [address] Care Team Providers Care Chief Design Engineer Name Role Phone Aneesh Nath MD Primary Care Provider [phone] Encounter Details Date Type Department Care Team (Latest Contact Info) Description 07/28/2018 11:50 AM SUPERVISOR LABORATORY [facility] - 07/28/2018 11:58 AM [facility] Hospital Encounter [facility] [address] [place] [address] Andreea Salinas MD [address] [place], [place] [address] Discharge Disposition: Home or Self Care (Routine [...] Procedure Name Priority Date/Time Associated Diagnosis Comments LIPOPROTEIN, LDL CHOL, DIRECT Routine 07/28/2018 12:24 PM SUPERVISOR LABORATORY ANIMAL FACILITY Hyperlipidemia LDL goal <70 documented in this encounter Results * LIPOPROTEIN, LDL CHOL, DIRECT (07/28/2018 12:24 PM SUPERVISOR LABORATORY ANIMAL FACILITY) DIRECT LDL 52 MG/DL 07/28/2018 1:20 PM SUPERVISOR LABORATORY ANIMAL FACILITY [facility] Comment:<100 OPTIMAL 07/28/2018 12:2 4 PM SUPERVISOR LABORATORY ANIMAL FACILITY Andreea Salinas MD LABORATORY Final Result [facility] [address] [place] [address], [id number] documented in this encounter Visit Diagnoses Diagnosis Hyperlipidemia LDL goal <70 Other and unspecified hyperlipidemia documented in this encounter Care Teams Chief Design Engineer Relationship Specialty Start Date End Date Aneesh Nath MD [address] [place] [address] PCP - General INTERNAL MEDICINE 07/28/18 documented as of this encounter
--- OUTSIDE RECORDS SUMMARY | 2024-09-22 03:08 | XMS_ITS | Encounter Summary ---
Author Organization [facility] Address [address] [place] [address]. [place] [address] [place] [address] Care Team Providers Care Picture Frames Inspector Name Role Phone Aneesh Nath MD Primary Care Provider [phone] Encounter Details Date Type Department Care Team (Late st Contact Info) Description 06/30/2018 Abstract [facility] [address] [place] [address] Mao Gasca, DO [address] [place] [id number] Social History Tobacco Use Types Packs/Day Years Used Date Smoking Tobacco: Never Assessed AUDIT-C Answer Date Recorded Frequency of Alcohol [...] on filedocumented in this encounter Care Teams Picture Frames Inspector Relationship Specialty Start Date End Date Aneesh Nath MD [address] [place] [address] PCP - General INTERNAL MEDICINE 07/28/18 documented as of this encounter
== END 2024-09-15 09:34 | disposition home or self-care (01) ==
PROVIDERS: PCP Internal Medicine; Visit Provider Internal Medicine Hematology
DX: Z51.11 Encounter for antineoplastic chemotherapy (principal); C34.01 Malignant neoplasm of right main bronchus; E78.2 Mixed hyperlipidemia; I10 Essential (primary) hypertension
CPT/HCPCS: 36415; 36591; 80053; 82533; 84443; 85025; 96367; 96375; 96413; 96417; J1100; J1200; J1453; J2405; J7050; J9045; J9264; J9271

== ENCOUNTER 2024-09-22 09:38 | Outpatient (CLI) | payer OTHER, SELFPAY ==
[2024-09-22 09:50] VITALS: BP 132/70; PULSE 72; RESP 16; TEMP 36.4; O2SAT 94; BMI 26.6
[2024-09-22 10:03] LABS: Hematocrit 28.5 % (35.0-42.0); Mean Corpuscular HGB Conc 31.6 g/dL (32-36); Mean Corpuscular Hemoglobin 29.2 pg (27.0-31.0); Mean Corpuscular Volume 92.5 fL (78.0-102.0); Mean Platelet Volume 9.5 fl (9.2-11.8); Platelet Count Result 203 K/mm3 (150-420); Red Blood Count 3.08 M/mm3 (4.20-5.40); Red Cell Distribution Width 17.4 % (11.6-14.4); White Blood Count 3.6 K/mm3 (4.8-10.8)
[2024-09-22 10:18] LABS: Alanine Aminotransferase 18 U/L (14-59); Albumin Level 3.1 g/dL (3.4-5.0); Alkaline Phosphatase 65 U/L (46-116); Anion Gap 9 mmol/L (4-12); Aspartate Amino Transferase 14 U/L (15-37); Band Neutrophils Percent 0 % (0-6); Bilirubin,Total 0.4 mg/dL (0.00-1.00); Blood Urea Nitrogen 9 mg/dL (7-18); Calcium 8.8 mg/dL (8.5-10.1); Carbon Dioxide 30 mmol/L (21-32); Chloride 102 mmol/L (98-108); Estimated CRCL calculation 50 ml/min; Estimated Glomerular Filt Rate > 60; Glucose 107 mg/dL (70-99); Lymphocytes Absolute Manual 0.86 K/mm3 (1.1-4.5); Lymphocytes Percent Manual 24 % (18-44); Monocytes Absolute Manual 0.18 K/mm3 (0.1-0.90); Monocytes Percent Manual 5 % (3-9); Neutrophils Absolute Manual 2.55 K/mm3 (1.7-7.2); Neutrophils Percent Manual 71 % (46-73); Osmolality Calculated 290 mOsm/kg (285-295); Platelet Estimate Adequate (Adequate); Potassium 3.2 mmol/L (3.5-5.1); Sodium 141 mmol/L (136-145); Total Cells Counted 100; Total Protein 7.1 g/dL (6.4-8.2)
[2024-09-22] MEDS: ONDANSETRON INJ 16 MG, dexAMETHasone SOD 4 MG/ML INJ 12 MG in SODIUM CHLORIDE 0.9% IV 1... 300 MG IVPB (10:42)
[2024-09-22] MEDS: PREMIXIV IVPB (11:05)
[2024-09-22] MEDS: PACLITAXEL PROTEIN BOUND IVPB (11:05)
[2024-09-22] MEDS: HEPARIN SODIUM LOCK FLUSH 500 UNITS/5 ML SYRINGE IV PUSH (12:19)
[2024-09-22 12:24] VITALS: BP 129/74; PULSE 78; RESP 16; TEMP 36.6; O2SAT 94
--- NOTE | 2024-09-22 12:29 | PC.NURSE ---
Tolerated chemo treatment well. see MAR/patient care notes. Safe exit of hospital with jail SHIRT SORTER.
== END 2024-09-22 09:39 | disposition home or self-care (01) ==
PROVIDERS: PCP Internal Medicine; Visit Provider Internal Medicine Hematology
DX: Z51.11 Encounter for antineoplastic chemotherapy (principal); C34.01 Malignant neoplasm of right main bronchus
CPT/HCPCS: 36415; 36591; 80053; 85025; 96367; 96413; J1100; J2405; J9264

== ENCOUNTER 2024-09-29 09:31 | Outpatient (CLI) | payer OTHER, SELFPAY ==
[2024-09-29 09:58] LABS: Hematocrit 28.4 % (35.0-42.0); Hemoglobin 8.9 g/dL (11.7-13.8); Mean Corpuscular HGB Conc 31.3 g/dL (32-36); Mean Corpuscular Hemoglobin 29.8 pg (27.0-31.0); Mean Platelet Volume 9.5 fl (9.2-11.8); Platelet Count Result 124 K/mm3 (150-420); Red Blood Count 2.99 M/mm3 (4.20-5.40); White Blood Count 3.3 K/mm3 (4.8-10.8)
[2024-09-29 10:12] LABS: Alanine Aminotransferase 20 U/L (14-59); Albumin Level 3.1 g/dL (3.4-5.0); Alkaline Phosphatase 70 U/L (46-116); Anion Gap 7 mmol/L (4-12); Aspartate Amino Transferase 16 U/L (15-37); Bilirubin,Total 0.3 mg/dL (0.00-1.00); Blood Urea Nitrogen 7 mg/dL (7-18); Calcium 8.9 mg/dL (8.5-10.1); Carbon Dioxide 31 mmol/L (21-32); Chloride 104 mmol/L (98-108); Estimated Glomerular Filt Rate > 60; Glucose 124 mg/dL (70-99); Osmolality Calculated 293 mOsm/kg (285-295); Potassium 3.5 mmol/L (3.5-5.1); Sodium 142 mmol/L (136-145); Total Protein 6.8 g/dL (6.4-8.2)
[2024-09-29 10:16] LABS: Band Neutrophils Percent 1 % (0-6); Basophils Percent Manual 0 % (0-1); Eosinophils Percent Manual 0 % (1-6); Lymphocytes Absolute Manual 1.51 K/mm3 (1.1-4.5); Lymphocytes Percent Manual 46 % (18-44); Monocytes Absolute Manual 0.29 K/mm3 (0.1-0.90); Monocytes Percent Manual 9 % (3-9); Neutrophils Absolute Manual 1.48 K/mm3 (1.7-7.2); Neutrophils Percent Manual 44 % (46-73); Platelet Estimate Adequate (Adequate); Total Cells Counted 100
[2024-09-29 10:33] VITALS: BP 133/72; PULSE 78; RESP 22; TEMP 36.2; O2SAT 95; BMI 26.8
[2024-09-29] MEDS: ONDANSETRON INJ 16 MG, dexAMETHasone SOD 4 MG/ML INJ 12 MG in SODIUM CHLORIDE 0.9% IV 1... 300 MG IVPB (10:43)
[2024-09-29] MEDS: PACLITAXEL PROTEIN BOUND IVPB (11:08)
[2024-09-29] MEDS: PREMIXIV IVPB (11:08)
[2024-09-29] MEDS: HEPARIN SODIUM LOCK FLUSH 500 UNITS/5 ML SYRINGE IV PUSH (11:48)
[2024-09-29 11:53] VITALS: BP 129/70; PULSE 72; RESP 14; TEMP 36.4; O2SAT 96
--- NOTE | 2024-09-29 11:54 | PC.NURSE ---
Patient tolerated chemo treatment well. SEE MAR/patient care notes.
== END 2024-09-29 09:32 | disposition home or self-care (01) ==
PROVIDERS: PCP Internal Medicine; Visit Provider Internal Medicine Hematology
DX: Z51.11 Encounter for antineoplastic chemotherapy (principal); C34.01 Malignant neoplasm of right main bronchus
CPT/HCPCS: 36415; 36591; 80053; 85025; 96367; 96413; J1100; J2405; J9264

== ENCOUNTER 2024-10-12 09:01 | Outpatient (CLI) | payer OTHER, SELFPAY ==
--- NOTE | ~2024-10-12 | CT_ITS ---
CLINICAL INDICATION: Right-sided lung cancer follow-up COMPARISON: PET/CT dated 05/05/2024. TECHNIQUE: Multiple contiguous axial images of the chest, if abdomen and pelvis were performed follow ing the administration of with 100 mL Omnipaque-350 intravenous contrast The dose-length product (DLP) was 798.07 mGy-cm. Automated exposure control and iterative reconstruction technique were employed. FINDINGS/OBSERVATIONS: Chest: Redemonstration of a large right-sided lung mass measuring 6.2 x 4.6 x 3.7 cm, consistent with patien t's primary malignancy. Tree-in-bud opacification of the right lower lobe is present, an interval change from prior. Within the superior segment of the left lower lobe, at the level of the jose c is a 7.7 x 7.2 mm nodu le with angular margins, an interval change from prior. Liver: Redemonstration of a 13 mm focus of decreased attenuation within segment 6 of the liver, unchanged fr om prior, likely a simple cyst. Redemonstration of a 7 mm focus of decreased attenuation within segment 5 of the liver, unchanged fro m prior, likely a simple cyst. The remainder of the liver otherwise enhances homogeneously and is not enlarged measuring 18 cm in lo ngitudinal dimension. Punctate calcifications identified within the hepatic parenchyma, suggesting prior granulomatous dise ase. Gallbladder and biliary system: The gallbladder demonstrates layering gallbladder stones without wall thickening or significant peric holecystic fluid. Pancreas: The pancreas enhances homogeneously without ductal dilatation. Spleen: Punctate calcifications identified within the splenic parenchyma, suggesting prior granulomatous dise ase. The spleen enhances homogeneously and is not enlarged measuring 9 cm in longitudinal dimension. Kidneys: The bilateral kidneys enhance symmetrically without hydronephrosis or renal calculi. Adrenal glands: 22 x 12 mm focus of fat attenuation within the right adrenal gland, likely an adenoma and unchanged f rom 04/23/2024. Remainder of the bilateral adrenal glands are unremarkable. Gastrointestinal tract: Moderate fecal stasis without obstruction. Appendix: The air-filled appendix is of normal caliber (axial series, images 128 through 179). Vasculature: Densely calcified atherosclerotic disease. A 25 x 27 x 28 mm focus of aneurysmal dilatation is identified within the infrarenal abdominal aorta, unchanged from prior (anterior to posterior x medial to lateral x cranial to caudal dimension). The IVC is patent. Prominent left gonadal vein which drains multiple varicosities from the pelvis, findings suggestive o f pelvic congestion syndrome for which clinical correlation is needed, not likely clinically signific ant in a patient of this age. Lymph nodes: No pathologically enlarged or morphologically suspicious lymph nodes within the retroperitoneum or at the root of the mesentery. Pelvic structures: The bladder is distended, and otherwise unremarkable. The uterus is retroverted and retroflexed and contains multiple bulky calcifications, likely represen ting prior fibroid disease. Body wall and musculoskeletal: Trace degenerative disease within the lumbar spine, with osteophyte formation and disc space narrowin g. No acute fractures are present. No lytic or blastic disease is noted. IMPRESSION: Interval development of tree-in-bud opacification within the right lower lobe, suggesting hypersensit ivity pneumonitis. Interval development of a 7 mm nodule within the superior segment of the left lower lobe. Stable mass within the right upper lobe consistent with patient's primary malignancy. Cholelithiasis. Stable right adrenal adenoma. Findings within the liver which most likely represent simple cysts, stable from 04/2024 Additional findings consistent with prior granulomatous disease. Reviewed, dictated and finalized at location [facility]. L INSPECTOR SHUTTLE IMPRESSION: Interval development of tree-in-bud opacification within the right lower lobe, suggesting hypersensitivity pneumonitis. Interval development of a 7 mm nodule within the superior segment of the left l ower lobe. Stable mass within the right upper lobe consistent with patient's pr imary malignancy. Cholelithiasis. Stable right adrenal adenoma. Findings within the liver which most likely represent simple cysts, stable from 04/2024 Additional findings consistent with prior granulomatous disease.
--- OUTSIDE RECORDS SUMMARY | 2024-10-12 09:25 | XMS_ITS | Encounter Summary ---
Author Organization [facility] Address [address] [place] [address]. [place] [address] [place] [address] Care Team Providers Care Advance Scout Name Role Phone Aneesh Nath MD Primary Care Provider [phone] Encounter Details Date Type Department Care Team (Late st Contact Info) Description 07/24/2018 Abstract [facility] Neuroscience [facility] [address] [address] Andreea Salinas MD [address] [place], [place] [address] Social History Tobacco Use Types Packs/Day Years [...] on filedocumented in this encounter Care Teams Advance Scout Relationship Specialty Start Date End Date Aneesh Nath MD [address] [place] [id number] PCP - General INTERNAL MEDICINE 07/28/18 documented as of this encounter
--- OUTSIDE RECORDS SUMMARY | 2024-10-12 09:25 | XMS_ITS | Clinical Summary ---
Author Organization [facility] Address [address] [place] [address]. [place] [address] [place] [address] Care Team Providers Care Assistant Public Defender Name Role Phone Aneesh Nath MD Primary Care Provider [phone] Allergies No known active allergies Medications multivitamin [...] Noted Date Diagnosed Date Arthritis 07/28/2018 Stroke ([facility]) 06/30/2018 Immunizations Name Administration Dates Next Due [...] Comments Blood Pressure 132/78 07/28/2018 10:33 AM TRANSFORMER STOCK CLERK Pulse 74 07/28/2018 10:33 AM TRANSFORMER STOCK CLERK Temperature 36.6 ??C (97.9 ??F) 07/04/2018 7:44 AM CD T Respiratory Rate 18 07/04/2018 7:44 AM CDT Oxygen Saturation 91% 07/04/2018 7:44 AM CDT Inhaled Oxygen Concentration - - Weight 88.5 kg (195 lb) 07/28/2018 10:33 AM TRANSFORMER STOCK CLERK Height 162.6 cm (5' 4 ) 07/28/2018 10:33 AM TRANSFORMER STOCK CLERK Body Mass Index 33.47 07/28/2018 10:33 AM TRANSFORMER STOCK CLERK Plan of Treatment Health Maintenance Due Date [...] 2019 Influenza Adult (#1) 2024 07/01/2018 Meningococcal B Vaccine Aged Out No l onger eligible based on patient's age to complete this topic Meningococcal Vaccine Aged Out No mark andrew eligible based on patient's age to complete this topic RSV Immunizations Under 20 Months Aged Out No longer eligible based on patient's age to complete this topic Insurance [employer] [facility] [employer] Care Teams Assistant Public Defender Relationship Specialty Start Date End Date Aneesh Nath MD [address] [place] [address] PCP - General INTERNAL MEDICINE 07/28/18
== END 2024-10-12 09:02 | disposition home or self-care (01) ==
LOC: CHSIMG 09:02
PROVIDERS: PCP Internal Medicine; Visit Provider Internal Medicine Hematology
DX: C34.11 Malignant neoplasm of upper lobe, right bronchus or lung (principal); R91.8 Other nonspecific abnormal finding of lung field; K80.20 Calculus of gallbladder without cholecystitis without obstruction; D35.01 Benign neoplasm of right adrenal gland
CPT/HCPCS: 71260; 74177; Q9967

== ENCOUNTER 2024-10-20 09:34 | Outpatient (CLI) | payer OTHER, SELFPAY ==
[2024-10-20 09:53] VITALS: BP 124/71; PULSE 88; RESP 14; TEMP 36.2; O2SAT 94
[2024-10-20 09:54] VITALS: BMI 25.9
[2024-10-20 09:57] LABS: Hematocrit 22.7 % (35.0-42.0); Hemoglobin 7.1 g/dL (11.7-13.8); Immature Platelet Fraction Pct 2.2 % (1.0-7.0); Mean Corpuscular HGB Conc 31.3 g/dL (32-36); Mean Corpuscular Hemoglobin 31.6 pg (27.0-31.0); Mean Corpuscular Volume 100.9 fL (78.0-102.0); Mean Platelet Volume 10.3 fl (9.2-11.8); Platelet Count Result 104 K/mm3 (150-420); Red Blood Count 2.25 M/mm3 (4.20-5.40); Red Cell Distribution Width 18.6 % (11.6-14.4); White Blood Count 2.1 K/mm3 (4.8-10.8)
[2024-10-20 10:16] LABS: Alanine Aminotransferase 20 U/L (14-59); Albumin Level 2.9 g/dL (3.4-5.0); Alkaline Phosphatase 64 U/L (46-116); Anion Gap 8 mmol/L (4-12); Aspartate Amino Transferase 16 U/L (15-37); Bilirubin,Total 0.2 mg/dL (0.00-1.00); Blood Urea Nitrogen 6 mg/dL (7-18); Calcium 8.5 mg/dL (8.5-10.1); Carbon Dioxide 31 mmol/L (21-32); Chloride 105 mmol/L (98-108); Estimated CRCL calculation 56 ml/min; Estimated Glomerular Filt Rate > 60; Glucose 117 mg/dL (70-99); Osmolality Calculated 296 mOsm/kg (285-295); Potassium 3.3 mmol/L (3.5-5.1); Sodium 144 mmol/L (136-145); Total Protein 6.8 g/dL (6.4-8.2)
--- OUTSIDE RECORDS SUMMARY | 2024-10-20 10:27 | XMS_ITS | Clinical Summary ---
Author Organization [facility] Address [facility] [place] [address] Care Team Providers Care Scanning Supervisor Name Role Phone Aneesh Nath MD Primary Care Provider Allergies No known active allergies Medications multivitamin [...] Noted Date Diagnosed Date Arthritis 07/28/2018 Stroke ([facility]) 06/30/2018 Immunizations Name Administration Dates [...] Comments Blood Pressure 132/78 07/28/2018 10:33 AM FIELD ARTILLERY OPERATIONS SPECIALIST Pulse 74 07/28/2018 10:33 AM FIELD ARTILLERY OPERATIONS SPECIALIST Temperature 36.6 C (97.9 F) 07/04/2018 7:44 AM CDT Respiratory Rate 18 07/04/2018 7:44 AM CDT Oxygen Saturation 91% 07/04/2018 7:44 AM CDT Inhaled Oxygen Concentration - - Weight 88.5 kg (195 lb) 07/28/2018 10:33 AM FIELD ARTILLERY OPERATIONS SPECIALIST Height 162.6 cm (5' 4 ) 07/28/2018 10:33 AM FIELD ARTILLERY OPERATIONS SPECIALIST Body Mass Index 33.47 07/28/2018 10:33 AM FIELD ARTILLERY OPERATIONS SPECIALIST Plan of Treatment Health Maintenance Due Date [...] age to complete this topic Insurance [employer] [facility] [employer] Care Teams Scanning Supervisor Relationship Specialty Start Date End Date Aneesh Nath MD [address] [place] [address] PCP - General INTERNAL MEDICINE 07/28/18
--- OUTSIDE RECORDS SUMMARY | 2024-10-20 10:27 | XMS_ITS | Encounter Summary ---
Author Organization [facility] Address [address] [place] [address] Care Team Providers Care Contract Attorney Name Role Phone Aneesh Nath MD Primary Care Provider [phone] Encounter Details Date Type Department Care Team (Late st Contact Info) Description 07/24/2018 Abstract [facility] Neuroscience [facility] [address] [address] Andreea Salinas MD [address] [place], [place] [address] Social History Tobacco Use Types Packs/Day Years [...] on filedocumented in this encounter Care Teams Contract Attorney Relationship Specialty Start Date End Date Aneesh Nath MD [address] [place] [address] PCP - General INTERNAL MEDICINE 07/28/18 documented as of this encounter
[2024-10-20] MEDS: dexAMETHasone SOD 4 MG/ML INJ 12 MG, ONDANSETRON INJ 16 MG in SODIUM CHLORIDE 0.9% IV 8... 300 MG IVPB (10:55)
[2024-10-20 11:02] LABS: Band Neutrophils Percent 0 % (0-6); Basophils Percent Manual 0 % (0-1); Eosinophils Percent Manual 0 % (1-6); Lymphocytes Percent Manual 48 % (18-44); Monocytes Absolute Manual 0.21 K/mm3 (0.1-0.90); Monocytes Percent Manual 10 % (3-9); Neutrophils Absolute Manual 0.88 K/mm3 (1.7-7.2); Neutrophils Percent Manual 42 % (46-73); Platelet Estimate Adequate (Adequate); Total Cells Counted 100
[2024-10-20] MEDS: PACLITAXEL PROTEIN BOUND IVPB (11:15)
[2024-10-20] MEDS: PREMIXIV IVPB (11:15)
[2024-10-20] MEDS: HEPARIN SODIUM LOCK FLUSH 500 UNITS/5 ML SYRINGE IV PUSH (12:03)
[2024-10-20 12:06] VITALS: BP 129/73; PULSE 78; RESP 16; TEMP 36.6; O2SAT 95
--- NOTE | 2024-10-20 12:22 | PC.NURSE ---
Tolerated chemo treatment well. SEE MAR/patient care notes.
== END 2024-10-20 09:35 | disposition home or self-care (01) ==
PROVIDERS: PCP Internal Medicine; Visit Provider Internal Medicine Hematology
DX: Z51.11 Encounter for antineoplastic chemotherapy (principal); C34.01 Malignant neoplasm of right main bronchus
CPT/HCPCS: 36415; 36591; 80053; 85025; 85055; 96367; 96413; J1100; J2405; J9264

== ENCOUNTER 2024-10-27 09:31 | Outpatient (RCR) | payer OTHER, SELFPAY ==
[2024-10-26 11:37] LABS: Hematocrit 21.9 % (35.0-42.0); Immature Platelet Fraction Pct 3.3 % (1.0-7.0); Mean Corpuscular HGB Conc 31.5 g/dL (32-36); Mean Corpuscular Hemoglobin 32.7 pg (27.0-31.0); Mean Corpuscular Volume 103.8 fL (78.0-102.0); Mean Platelet Volume 10.7 fl (9.2-11.8); Platelet Count Result 76 K/mm3 (150-420); Red Blood Count 2.11 M/mm3 (4.20-5.40); Red Cell Distribution Width 20.3 % (11.6-14.4); White Blood Count 2.6 K/mm3 (4.8-10.8)
[2024-10-26 11:56] LABS: Hemoglobin 6.9 g/dL (11.7-13.8)
[2024-10-26 12:01] LABS: Alanine Aminotransferase 21 U/L (14-59); Albumin Level 2.8 g/dL (3.4-5.0); Alkaline Phosphatase 69 U/L (46-116); Anion Gap 7 mmol/L (4-12); Aspartate Amino Transferase 15 U/L (15-37); Bilirubin,Total 0.2 mg/dL (0.00-1.00); Blood Urea Nitrogen 7 mg/dL (7-18); Calcium 8.6 mg/dL (8.5-10.1); Carbon Dioxide 30 mmol/L (21-32); Chloride 105 mmol/L (98-108); Estimated Glomerular Filt Rate > 60; Glucose 112 mg/dL (70-99); Osmolality Calculated 293 mOsm/kg (285-295); Potassium 3.8 mmol/L (3.5-5.1); Sodium 142 mmol/L (136-145); Thyroid Stimulating Hormone 0.92 uIU/mL (0.36-3.74); Total Protein 6.3 g/dL (6.4-8.2)
[2024-10-26 12:14] LABS: Band Neutrophils Percent 0 % (0-6); Basophils Percent Manual 0 % (0-1); Eosinophils Percent Manual 0 % (1-6); Lymphocytes Absolute Manual 1.27 K/mm3 (1.1-4.5); Lymphocytes Percent Manual 49 % (18-44); Monocytes Percent Manual 4 % (3-9); Neutrophils Absolute Manual 1.22 K/mm3 (1.7-7.2); Neutrophils Percent Manual 47 % (46-73); Platelet Estimate Decreased (Adequate); Total Cells Counted 100
[2024-10-27] MEDS: diphenhydrAMINE HCl CAP 25 MG CAPSULE PO (09:45)
[2024-10-27] MEDS: ACETAMINOPHEN 325 MG TABLET 650 MG PO (09:45)
[2024-10-27 09:53] VITALS: BMI 26.6
[2024-10-27 10:00] VITALS: BP 132/70; PULSE 69; RESP 16; TEMP 36.6; O2SAT 96
[2024-10-27] MEDS: SODIUM CHLORIDE 0.9% IV 250 ML 10 ML IVPB (10:00)
[2024-10-27 10:15] VITALS: BP 129/73; PULSE 68; RESP 14; TEMP 36.6; O2SAT 96
--- NOTE | 2024-10-27 10:29 | PC.NURSE ---
0945 Patient here for transfusion of 1 unit of PRBC's. Consent signed. Education given. No concerns voiced. 1000 1 unit of PRBC's started at rate 60 ml/hr. SEE TAR. 1015 No s/sx of transfusion reaction noted or reported. Up rate to 100 ml/hr.
[2024-10-27 11:15] VITALS: BP 129/80; PULSE 69; RESP 14; TEMP 36.6; O2SAT 95
[2024-10-27 12:15] VITALS: BP 132/76; PULSE 72; RESP 16; TEMP 36.5; O2SAT 95
[2024-10-27 13:00] VITALS: BP 120/69; PULSE 68; RESP 14; TEMP 36.6; O2SAT 97
--- NOTE | 2024-10-27 13:15 | PC.NURSE ---
1200 Eating lunch. Blood tranfusion continues. Up the rate to 125 ml/hr. No concerns voiced. 1300 1 unit of Prbc's completed. Normal saline infusing. Tolerated blood transfusion well.
[2024-10-27] MEDS: HEPARIN SODIUM LOCK FLUSH 500 UNITS/5 ML SYRINGE IV PUSH (13:24)
[2024-10-27 13:25] VITALS: BP 121/70; PULSE 72; RESP 14; TEMP 36.6; O2SAT 97
--- NOTE | 2024-10-27 13:26 | PC.NURSE ---
1320 Normal saline infused. Post H/H per policy drawn.
[2024-10-27 13:51] LABS: Hemoglobin 8.5 g/dL (11.7-13.8)
== END 2024-10-27 09:32 | disposition home or self-care (01) ==
LOC: CHSTREATRM 09:31
PROVIDERS: Visit Provider Internal Medicine Hematology
DX: C34.01 Malignant neoplasm of right main bronchus (principal); I10 Essential (primary) hypertension
CPT/HCPCS: 36415; 36430; 80053; 82533; 84443; 85014; 85018; 85025; 85055; 86850; 86900; 86901; 86920; 88305; A9270; J7050; P9016

== ENCOUNTER 2024-11-03 09:46 | Outpatient (CLI) | payer OTHER, SELFPAY ==
[2024-11-03 09:55] VITALS: BP 131/77; PULSE 69; RESP 16; TEMP 36.8; O2SAT 95; BMI 26.8
[2024-11-03 10:17] LABS: Hematocrit 29.9 % (35.0-42.0); Hemoglobin 9.2 g/dL (11.7-13.8); Mean Corpuscular HGB Conc 30.8 g/dL (32-36); Mean Corpuscular Hemoglobin 31.5 pg (27.0-31.0); Mean Corpuscular Volume 102.4 fL (78.0-102.0); Mean Platelet Volume 9.6 fl (9.2-11.8); Platelet Count Result 157 K/mm3 (150-420); Red Blood Count 2.92 M/mm3 (4.20-5.40); Red Cell Distribution Width 20.7 % (11.6-14.4); White Blood Count 3.7 K/mm3 (4.8-10.8)
[2024-11-03 10:28] LABS: Band Neutrophils Percent 0 % (0-6); Eosinophils Absolute Manual 0.07 K/mm3 (0.02-0.50); Eosinophils Percent Manual 2 % (1-6); Lymphocytes Absolute Manual 1.22 K/mm3 (1.1-4.5); Lymphocytes Percent Manual 33 % (18-44); Monocytes Absolute Manual 0.44 K/mm3 (0.1-0.90); Monocytes Percent Manual 12 % (3-9); Neutrophils Absolute Manual 1.96 K/mm3 (1.7-7.2); Neutrophils Percent Manual 53 % (46-73); Total Cells Counted 100
[2024-11-03 10:29] LABS: Platelet Estimate Adequate (Adequate)
[2024-11-03 10:32] LABS: Alanine Aminotransferase 11 U/L (14-59); Albumin Level 3.1 g/dL (3.4-5.0); Alkaline Phosphatase 78 U/L (46-116); Anion Gap 6 mmol/L (4-12); Aspartate Amino Transferase 17 U/L (15-37); Bilirubin,Total 0.4 mg/dL (0.00-1.00); Blood Urea Nitrogen 10 mg/dL (7-18); Calcium 8.9 mg/dL (8.5-10.1); Carbon Dioxide 31 mmol/L (21-32); Chloride 105 mmol/L (98-108); Estimated CRCL calculation 60 ml/min; Estimated Glomerular Filt Rate > 60; Glucose 115 mg/dL (70-99); Osmolality Calculated 294 mOsm/kg (285-295); Sodium 142 mmol/L (136-145); Total Protein 6.8 g/dL (6.4-8.2)
[2024-11-03] MEDS: PEMBROLIZUMAB 200 MG in SODIUM CHLORIDE 0.9% IV 92 ML IVPB (10:53)
--- OUTSIDE RECORDS SUMMARY | 2024-11-03 11:00 | XMS_ITS | Clinical Summary ---
Author Organization [facility] Address [facility] [place] [address] Care Team Providers Care Slate Handler Name Role Phone Aneesh Nath MD Primary Care Provider [phone] Allergies No known active allergies Medications multivitamin [...] Noted Date Diagnosed Date Arthritis 07/28/2018 Stroke ([facility]) 06/30/2018 Immunizations Name Administration Dates [...] Comments Blood Pressure 132/78 07/28/2018 10:33 AM CMM TECHNICIAN Pulse 74 07/28/2018 10:33 AM CMM TECHNICIAN Temperature 36.6 C (97.9 F) 07/04/2018 7:44 AM CDT Respiratory Rate 18 07/04/2018 7:44 AM CDT Oxygen Saturation 91% 07/04/2018 7:44 AM CDT Inhaled Oxygen Concentration - - Weight 88.5 kg (195 lb) 07/28/2018 10:33 AM CMM TECHNICIAN Height 162.6 cm (5' 4 ) 07/28/2018 10:33 AM CMM TECHNICIAN Body Mass Index 33.47 07/28/2018 10:33 AM CMM TECHNICIAN Plan of Treatment Health Maintenance Due Date [...] age to complete this topic Insurance [employer] [facility] [employer] Care Teams Slate Handler Relationship Specialty Start Date End Date Aneesh Nath MD [address] [place] [address] PCP - General INTERNAL MEDICINE 07/28/18
--- OUTSIDE RECORDS SUMMARY | 2024-11-03 11:00 | XMS_ITS | Encounter Summary ---
Author Organization [facility] Address [address] [place] [address] Care Team Providers Care Methods Specialist Name Role Phone Aneesh Nath MD Primary Care Provider [phone] Encounter Details Date Type Department Care Team (Late st Contact Info) Description 07/24/2018 Abstract [facility] Neuroscience [facility] [address] [address] Andreea Salinas MD [address] [place], [place] [address] Social History Tobacco Use Types Packs/Day Years [...] on filedocumented in this encounter Care Teams Methods Specialist Relationship Specialty Start Date End Date Aneesh Nath MD [address] [place] [address] PCP - General INTERNAL MEDICINE 07/28/18 documented as of this encounter
[2024-11-03] MEDS: HEPARIN SODIUM LOCK FLUSH 500 UNITS/5 ML SYRINGE IV PUSH (11:21)
[2024-11-03 11:29] VITALS: BP 130/74; PULSE 72; RESP 16; TEMP 36.6; O2SAT 95
--- NOTE | 2024-11-03 11:30 | PC.NURSE ---
Patient tolerated Pembrolizumab infusion well. SEE MAR/patient care notes.
== END 2024-11-03 09:47 | disposition home or self-care (01) ==
LOC: CHSLAB 09:48 → CHSTREATRM 10:07
PROVIDERS: PCP Internal Medicine; Visit Provider Internal Medicine Hematology
DX: Z51.11 Encounter for antineoplastic chemotherapy (principal); C34.01 Malignant neoplasm of right main bronchus
CPT/HCPCS: 36591; 80053; 85025; 96413; J9271

== ENCOUNTER 2024-11-24 09:23 | Outpatient (CLI) | payer OTHER, SELFPAY ==
[2024-11-24 09:30] VITALS: BP 128/73; PULSE 64; RESP 16; TEMP 36.6; O2SAT 95; BMI 26.2
[2024-11-24 09:49] LABS: Basophils Absolute Auto 0.01 K/mm3 (0.00-0.10); Basophils Percent Auto 0.2 % (0.0-1.0); Eosinophils Absolute Auto 0.11 K/mm3 (0.02-0.50); Eosinophils Percent Auto 2.2 % (1.0-6.0); Hematocrit 32.7 % (35.0-42.0); Hemoglobin 10.1 g/dL (11.7-13.8); Immature Granulocyte Absolute 0.02 K/mm3 (0.00-0.00); Immature Granulocyte Percent A 0.4 % (0.0-0.0); Lymphocytes Absolute Auto 1.44 K/mm3 (1.10-4.50); Lymphocytes Percent Auto 28.5 % (18.0-42.0); Mean Corpuscular HGB Conc 30.9 g/dL (32-36); Mean Corpuscular Hemoglobin 32.3 pg (27.0-31.0); Mean Corpuscular Volume 104.5 fL (78.0-102.0); Mean Platelet Volume 8.8 fl (9.2-11.8); Monocytes Absolute Auto 0.51 K/mm3 (0.10-0.90); Monocytes Percent Auto 10.1 % (2.0-11.0); Neutrophils Absolute Auto 2.97 K/mm3 (1.70-7.20); Neutrophils Percent Auto 58.6 % (50.0-70.0); Platelet Count Result 215 K/mm3 (150-420); Red Blood Count 3.13 M/mm3 (4.20-5.40); Red Cell Distribution Width 16.8 % (11.6-14.4); White Blood Count 5.1 K/mm3 (4.8-10.8)
[2024-11-24 10:06] LABS: Alanine Aminotransferase 22 U/L (14-59); Albumin Level 3.1 g/dL (3.4-5.0); Alkaline Phosphatase 78 U/L (46-116); Anion Gap 5 mmol/L (4-12); Aspartate Amino Transferase 19 U/L (15-37); Bilirubin,Total 0.3 mg/dL (0.00-1.00); Blood Urea Nitrogen 9 mg/dL (7-18); Calcium 9.3 mg/dL (8.5-10.1); Carbon Dioxide 32 mmol/L (21-32); Chloride 104 mmol/L (98-108); Estimated CRCL calculation 57 ml/min; Estimated Glomerular Filt Rate > 60; Glucose 108 mg/dL (70-99); Osmolality Calculated 291 mOsm/kg (285-295); Potassium 3.8 mmol/L (3.5-5.1); Sodium 141 mmol/L (136-145); Total Protein 7.5 g/dL (6.4-8.2)
[2024-11-24 10:18] LABS: Thyroid Stimulating Hormone 1.44 uIU/mL (0.36-3.74)
--- OUTSIDE RECORDS SUMMARY | 2024-11-24 10:18 | XMS_ITS | Clinical Summary ---
Author Organization [facility] Address [facility] [place] [address] Care Team Providers Care Horse Exerciser Name Role Phone Aneesh Nath MD Primary Care Provider [phone] Allergies No known active allergies Medications multivitamin [...] Noted Date Diagnosed Date Arthritis 07/28/2018 Stroke ([facility]) 06/30/2018 Immunizations Name Administration Dates Next Due [...] Comments Blood Pressure 132/78 07/28/2018 10:33 AM DATA TECHNICIAN Pulse 74 07/28/2018 10:33 AM DATA TECHNICIAN Temperature 36.6 C (97.9 F) 07/04/2018 7:44 AM CDT Respiratory Rate 18 07/04/2018 7:44 AM CDT Oxygen Saturation 91% 07/04/2018 7:44 AM CDT Inhaled Oxygen Concentration - - Weight 88.5 kg (195 lb) 07/28/2018 10:33 AM DATA TECHNICIAN Height 162.6 cm (5' 4 ) 07/28/2018 10:33 AM DATA TECHNICIAN Body Mass Index 33.47 07/28/2018 10:33 AM DATA TECHNICIAN Plan of Treatment Health Maintenance Due [...] age to complete this topic Insurance [employer] [facility] [employer] Care Teams Horse Exerciser Relationship Specialty Start Date End Date Aneesh Nath MD [address] [place] [address] PCP - General INTERNAL MEDICINE 07/28/18
--- OUTSIDE RECORDS SUMMARY | 2024-11-24 10:18 | XMS_ITS | Encounter Summary ---
Author Organization [facility] Address [address] [place] [address] Care Team Providers Care Cosmetologist Apprentice Name Role Phone Aneesh Nath MD Primary Care Provider [phone] Encounter Details Date Type Department Care Team (Late st Contact Info) Description 07/24/2018 Abstract [facility] Neuroscience [facility] [address], [place] [address] Andreea Salinas MD [address] [place], [place] [address] Social History Tobacco Use Types Packs/Day Years [...] on filedocumented in this encounter Care Teams Cosmetologist Apprentice Relationship Specialty Start Date End Date Aneesh Nath MD [address] [place] [address] PCP - General INTERNAL MEDICINE 07/28/18 documented as of this encounter
[2024-11-24] MEDS: PEMBROLIZUMAB 200 MG in SODIUM CHLORIDE 0.9% IV 92 ML IVPB (10:38)
[2024-11-24] MEDS: HEPARIN SODIUM LOCK FLUSH 500 UNITS/5 ML SYRINGE IV PUSH (11:09)
[2024-11-24 11:14] VITALS: BP 133/77; PULSE 68; RESP 16; O2SAT 96
[2024-11-26 01:13] LABS: Cortisol Random 11.9 mcg/dL
== END 2024-11-24 09:24 | disposition home or self-care (01) ==
PROVIDERS: PCP Internal Medicine; Visit Provider Internal Medicine Hematology
DX: Z51.11 Encounter for antineoplastic chemotherapy (principal); C34.01 Malignant neoplasm of right main bronchus; I10 Essential (primary) hypertension
CPT/HCPCS: 36415; 80053; 82533; 84443; 85025; 96413; J9271

== ENCOUNTER 2024-12-15 09:20 | Outpatient (CLI) | payer OTHER, SELFPAY ==
[2024-12-15 09:35] VITALS: BMI 25.7
[2024-12-15 09:46] LABS: Basophils Absolute Auto 0.02 K/mm3 (0.00-0.10); Basophils Percent Auto 0.3 % (0.0-1.0); Eosinophils Absolute Auto 0.11 K/mm3 (0.02-0.50); Eosinophils Percent Auto 1.6 % (1.0-6.0); Hematocrit 30.8 % (35.0-42.0); Hemoglobin 9.6 g/dL (11.7-13.8); Immature Granulocyte Absolute 0.01 K/mm3 (0.00-0.00); Immature Granulocyte Percent A 0.1 % (0.0-0.0); Lymphocytes Absolute Auto 1.55 K/mm3 (1.10-4.50); Lymphocytes Percent Auto 22.5 % (18.0-42.0); Mean Corpuscular HGB Conc 31.2 g/dL (32-36); Mean Corpuscular Hemoglobin 32.3 pg (27.0-31.0); Mean Corpuscular Volume 103.7 fL (78.0-102.0); Mean Platelet Volume 9.1 fl (9.2-11.8); Monocytes Percent Auto 10.1 % (2.0-11.0); Neutrophils Absolute Auto 4.51 K/mm3 (1.70-7.20); Neutrophils Percent Auto 65.4 % (50.0-70.0); Platelet Count Result 202 K/mm3 (150-420); Red Blood Count 2.97 M/mm3 (4.20-5.40); Red Cell Distribution Width 13.2 % (11.6-14.4); White Blood Count 6.9 K/mm3 (4.8-10.8)
[2024-12-15 10:00] VITALS: BP 124/77; PULSE 78; RESP 16; TEMP 36.4; O2SAT 95
--- OUTSIDE RECORDS SUMMARY | 2024-12-15 10:10 | XMS_ITS | Clinical Summary ---
Author Organization [facility] Address [facility] [place] [address] Care Team Providers Care Door Frame Builder Name Role Phone Aneesh Nath MD Primary Care Provider [phone] Allergies No known active allergies Medications multivitamin [...] Noted Date Diagnosed Date Arthritis 07/28/2018 Stroke ([facility]/HCC [facility]) 06/30/2018 Encounters Date Type Department Care Team Description 11/12/2024 Scan [facility] Scanned, Doc Med Group from Last 3 Months Immunizations Name Administration Dates Next Due Fluarix [...] Comments Blood Pressure 132/78 07/28/2018 10:33 AM AUTO CLUTCH SPECIALIST Pulse 74 07/28/2018 10:33 AM AUTO CLUTCH SPECIALIST Temperature 36.6 C (97.9 F) 07/04/2018 7:44 AM CDT Respiratory Rate 18 07/04/2018 7:44 AM CDT Oxygen Saturation 91% 07/04/2018 7:44 AM CDT Inhaled Oxygen Concentration - - Weight 88.5 kg (195 lb) 07/28/2018 10:33 AM AUTO CLUTCH SPECIALIST Height 162.6 cm (5' 4 ) 07/28/2018 10:33 AM AUTO CLUTCH SPECIALIST Body Mass Index 33.47 07/28/2018 10:33 AM AUTO CLUTCH SPECIALIST Plan of Treatment Health Maintenance Due Date Last Done Comments COVID-19 Vaccine (#1) 1950 DTaP, Tdap and Td Vaccines ( 1 - Tdap) 1963 Zoster Vaccines (1 of 2) 1964 Annual Medicare Wellness Visit 2009 Dexa Scan (General) 2009 Pneumococcal Vaccine: 65+ Ye ars (2 of 2 - PCV) 07/01/2019 07/01/2018 RSV Immunization or 60+ Years (1 - 1-dose 75+ series) 2019 PHQ-2 (Physician [place]) 09/09/2024 Meningococcal B Vaccine Aged Out No l onger eligible based on patient's age to complete this topic Meningococcal Vaccine Aged Out No mark andrew eligible based on patient's age to complete this topic RSV Immunizations Under 20 Months Aged Out No longer eligible based on patient's age to complete this topic Insurance [facility] [address] [place] [address] Care Teams Door Frame Builder Relationship Specialty Start Date End Date Aneesh Nath MD [address] [place] [address] PCP - General INTERNAL MEDICINE 07/28/18
--- OUTSIDE RECORDS SUMMARY | 2024-12-15 10:10 | XMS_ITS | Encounter Summary ---
Author Organization [facility] Address [address] [place] [address] Care Team Providers Care Technical Artist Name Role Phone Aneesh Nath MD Primary Care Provider [phone] Encounter Details Date Type Department Care Team (Late st Contact Info) Description 07/24/2018 Abstract [facility] Neuroscience [facility] [address] [address] Andreea Salinas MD [address] [place], [place] [address] Social History Tobacco Use Types Packs/Day Years [...] on filedocumented in this encounter Care Teams Technical Artist Relationship Specialty Start Date End Date Aneesh Nath MD [address] [place] [address] PCP - General INTERNAL MEDICINE 07/28/18 documented as of this encounter
[2024-12-15 10:13] LABS: Alanine Aminotransferase 20 U/L (14-59); Albumin Level 2.8 g/dL (3.4-5.0); Alkaline Phosphatase 75 U/L (46-116); Anion Gap 7 mmol/L (4-12); Aspartate Amino Transferase 18 U/L (15-37); Bilirubin,Total 0.3 mg/dL (0.00-1.00); Blood Urea Nitrogen 9 mg/dL (7-18); Calcium 9.3 mg/dL (8.5-10.1); Carbon Dioxide 33 mmol/L (21-32); Chloride 102 mmol/L (98-108); Estimated CRCL calculation 56 ml/min; Estimated Glomerular Filt Rate > 60; Glucose 118 mg/dL (70-99); Osmolality Calculated 293 mOsm/kg (285-295); Potassium 3.8 mmol/L (3.5-5.1); Sodium 142 mmol/L (136-145); Thyroid Stimulating Hormone 0.54 uIU/mL (0.36-3.74); Total Protein 7.8 g/dL (6.4-8.2)
[2024-12-15] MEDS: PEMBROLIZUMAB 200 MG in SODIUM CHLORIDE 0.9% IV 92 ML IVPB (10:56)
[2024-12-15] MEDS: HEPARIN SODIUM LOCK FLUSH 500 UNITS/5 ML SYRINGE IV PUSH (11:52)
[2024-12-15 12:04] VITALS: BP 130/66; PULSE 69; RESP 14; O2SAT 95
--- NOTE | 2024-12-15 12:05 | PC.NURSE ---
Patient tolerated infusion well. SEE MAR/patient care notes.
[2024-12-17 02:54] LABS: Cortisol Random 10.4 mcg/dL
== END 2024-12-15 09:21 | disposition home or self-care (01) ==
PROVIDERS: PCP Internal Medicine; Visit Provider Internal Medicine Hematology
DX: Z51.11 Encounter for antineoplastic chemotherapy (principal); C34.01 Malignant neoplasm of right main bronchus; I10 Essential (primary) hypertension
CPT/HCPCS: 36415; 36591; 80053; 82533; 84443; 85025; 96413; J9271

== ENCOUNTER 2024-12-18 09:06 | Outpatient (CLI) | payer OTHER, SELFPAY ==
--- NOTE | ~2024-12-18 | CT_ITS ---
Clinical Indication: Lung cancer CT Scan of the Chest, Abdomen, and Pelvis without Contrast: Technique: Contiguous sections were acquired throughout the chest, abdomen, and pelvis without IV con trast administration. Dose reduction technique was used on this scan by utilizing automated exposure control and iterative reconstruction technique. The dose-length product (DLP) was 789.02 mGy-cm. Comparison: 10/12/2024 Findings: Probable mild right paratracheal lymphadenopathy. Coronary artery calcifications are present. Densely calcified subcarinal node present. Minimal pericardial fluid present. There is no evidence of pleural effusion. 5.2 x 4.6 cm mass in the right upper lobe is present, with element of probable postobstructive atelec tasis in the anteromedial right upper lobe. Left lung clear. The liver, spleen, pancreas, left adrenal gland and left kidney are within normal limits. Multiple sm all layering gallstones are present. 3 mm nonobstructing right renal stone present. Right adrenal lip matthew present. There are atherosclerotic calcifications of the aorta. No lymphadenopathy. No bowel obstruction or bowel wall thickening. There is no evidence to suggest acute appendicitis. Urinary bladder is unremarkable. No pelvic mass seen. No ascites. Impression: 5.2 x 4.6 cm right upper lobe mass, compatible with neoplasm, probably very similar overall to prior exam. There is postobstructive atelectasis at the anteromedial right upper lobe, which somewhat limit s precise measurement of the mass. Probable mildly prominent right paratracheal lymph nodes. Metastatic karime disease is not excluded. No evidence of metastatic disease in the abdomen or pelvis. Cholelithiasis and right nephrolithiasis, as above. Reviewed, dictated and finalized at [facility]. Impression: 5.2 x 4.6 cm right upper lobe mass, compatible with neoplasm, probably very sim ilar overall to prior exam. There is postobstructive atelectasis at the anterom edial right upper lobe, which somewhat limits precise measurement of the mass. Probable mildly prominent right paratracheal lymph nodes. Metastatic karime dise ase is not excluded. No evidence of metastatic disease in the abdomen or pelvis. Cholelithiasis and right nephrolithiasis, as above.
--- OUTSIDE RECORDS SUMMARY | 2024-12-18 09:26 | XMS_ITS | Clinical Summary ---
Author Organization [facility] Address [facility] [place] [address] Care Team Providers Care Geophysical Observer Name Role Phone Aneesh Nath MD Primary Care Provider [phone] Allergies No known active allergies Medications multivitamin [...] Noted Date Diagnosed Date Arthritis 07/28/2018 Stroke ([facility]) 06/30/2018 Encounters Date Type Department Care Team [...] Comments Blood Pressure 132/78 07/28/2018 10:33 AM PEDIATRIC NURSE Pulse 74 07/28/2018 10:33 AM PEDIATRIC NURSE Temperature 36.6 C (97.9 F) 07/04/2018 7:44 AM CDT Respiratory Rate 18 07/04/2018 7:44 AM CDT Oxygen Saturation 91% 07/04/2018 7:44 AM CDT Inhaled Oxygen Concentration - - Weight 88.5 kg (195 lb) 07/28/2018 10:33 AM PEDIATRIC NURSE Height 162.6 cm (5' 4 ) 07/28/2018 10:33 AM PEDIATRIC NURSE Body Mass Index 33.47 07/28/2018 10:33 AM PEDIATRIC NURSE Plan of Treatment Health Maintenance Due Date [...] - 1-dose 75+ series) 2019 PHQ-2 (Physician [place]) 09/09/2024 Meningococcal B Vaccine Aged Out No l onger eligible based on patient's age to complete this topic Meningococcal Vaccine Aged Out No mark andrew eligible based on patient's age to complete this topic RSV Immunizations Under 20 Months Aged Out No longer eligible based on patient's age to complete this topic Insurance [employer] [facility] [place] [address] [place] [address] Care Teams Geophysical Observer Relationship Specialty Start Date End Date Aneesh Nath MD [address] [place] [address] PCP - General INTERNAL MEDICINE 07/28/18
--- OUTSIDE RECORDS SUMMARY | 2024-12-18 09:26 | XMS_ITS | Encounter Summary ---
Author Organization [facility] Address [address] [place] [address] Care Team Providers Care City Administrator Name Role Phone Aneesh aNth MD Primary Care Provider [phone] Encounter Details Date Type Department Care Team (Late st Contact Info) Description 07/24/2018 Abstract [facility] Neuroscience [facility] [address] [address] Andreea Salinas MD [address] [place], [place] [address] Social History Tobacco Use Types Packs/Day Years [...] on filedocumented in this encounter Care Teams City Administrator Relationship Specialty Start Date End Date Aneesh Nath MD [address] [place] [address] PCP - General INTERNAL MEDICINE 07/28/18 documented as of this encounter
== END 2024-12-18 09:07 | disposition home or self-care (01) ==
PROVIDERS: PCP Internal Medicine; Visit Provider Internal Medicine Hematology
DX: C34.91 Malignant neoplasm of unspecified part of right bronchus or lung (principal); K80.20 Calculus of gallbladder without cholecystitis without obstruction; N20.0 Calculus of kidney
CPT/HCPCS: 71250; 74176

== ENCOUNTER 2025-01-05 11:13 | Outpatient (CLI) | payer OTHER, SELFPAY ==
[2025-01-05 11:36] VITALS: BP 142/73; PULSE 73; RESP 20; TEMP 36.6; O2SAT 96
[2025-01-05 11:46] LABS: Hemoglobin A1C 5.2 % (<5.7)
[2025-01-05 11:49] VITALS: BMI 25.2
[2025-01-05 11:55] LABS: Basophils Absolute Auto 0.01 K/mm3 (0.00-0.10); Basophils Percent Auto 0.2 % (0.0-1.0); Eosinophils Absolute Auto 0.07 K/mm3 (0.02-0.50); Eosinophils Percent Auto 1.4 % (1.0-6.0); Hemoglobin 10.1 g/dL (11.7-13.8); Immature Granulocyte Absolute 0.01 K/mm3 (0.00-0.00); Immature Granulocyte Percent A 0.2 % (0.0-0.0); Lymphocytes Absolute Auto 1.65 K/mm3 (1.10-4.50); Mean Corpuscular HGB Conc 30.6 g/dL (32-36); Mean Corpuscular Hemoglobin 31.4 pg (27.0-31.0); Mean Corpuscular Volume 102.5 fL (78.0-102.0); Mean Platelet Volume 8.8 fl (9.2-11.8); Monocytes Absolute Auto 0.51 K/mm3 (0.10-0.90); Monocytes Percent Auto 9.9 % (2.0-11.0); Neutrophils Absolute Auto 2.91 K/mm3 (1.70-7.20); Neutrophils Percent Auto 56.3 % (50.0-70.0); Platelet Count Result 187 K/mm3 (150-420); Red Blood Count 3.22 M/mm3 (4.20-5.40); Red Cell Distribution Width 12.9 % (11.6-14.4); White Blood Count 5.2 K/mm3 (4.8-10.8)
[2025-01-05 12:11] LABS: Aspartate Amino Transferase < 10 U/L (15-37); HDL Direct 10 mg/dL (40-60)
[2025-01-05 12:25] LABS: Thyroid Stimulating Hormone 1.03 uIU/mL (0.36-3.74)
[2025-01-05 12:37] LABS: Alanine Aminotransferase 19 U/L (14-59); Albumin Level 3.2 g/dL (3.4-5.0); Alkaline Phosphatase 78 U/L (46-116); Anion Gap 9 mmol/L (4-12); Bilirubin,Total 0.2 mg/dL (0.00-1.00); Blood Urea Nitrogen 13 mg/dL (7-18); Calcium 9.2 mg/dL (8.5-10.1); Carbon Dioxide 31 mmol/L (21-32); Chloride 103 mmol/L (98-108); Cholesterol 142 mg/dL (0-200); Estimated CRCL calculation 59 ml/min; Estimated Glomerular Filt Rate > 60; Glucose 115 mg/dL (70-99); LDL Cholesterol Calculated 103 mg/dL (<130); Osmolality Calculated 297 mOsm/kg (285-295); Potassium 4.1 mmol/L (3.5-5.1); Sodium 143 mmol/L (136-145); Total Protein 7.6 g/dL (6.4-8.2); Triglycerides 144 mg/dL (0-150)
--- OUTSIDE RECORDS SUMMARY | 2025-01-05 12:41 | XMS_ITS | Encounter Summary ---
Author Organization [facility] Address [address] [place] [address] Care Team Providers Care Helmet Hat Puncher Name Role Phone Aneesh Nath MD Primary Care Provider [phone] Encounter Details Date Type Department Care Team (Late st Contact Info) Description 07/24/2018 Abstract [facility] Neuroscience [facility] [address] [address] Andreea Salinas MD [address] [place], [place] [address] Social History Tobacco Use Types Packs/Day Years [...] on filedocumented in this encounter Care Teams Helmet Hat Puncher Relationship Specialty Start Date End Date Aneesh Nath MD [address] [place] [address] PCP - General INTERNAL MEDICINE 07/28/18 documented as of this encounter
--- OUTSIDE RECORDS SUMMARY | 2025-01-05 12:41 | XMS_ITS | Clinical Summary ---
Author Organization [facility] Address [facility] [place] [address] Care Team Providers Care University Manager Name Role Phone Aneesh Nath MD Primary Care Provider [phone] Allergies No known active allergies Medications multivitamin [...] Noted Date Diagnosed Date Arthritis 07/28/2018 Stroke ([facility]) 06/30/2018 Encounters Date Type Department Care Team Description 11/12/2024 Scan [facility] SRVCS Scanned, Doc Med Group from Last 3 Months Immunizations Immunization Administration Dates Next Due Fluarix (IIV4) 07/01/2018, [...] Comments Blood Pressure 132/78 07/28/2018 10:33 AM ELECTROFORMER Pulse 74 07/28/2018 10:33 AM ELECTROFORMER Temperature 36.6 C (97.9 F) 07/04/2018 7:44 AM CDT Respiratory Rate 18 07/04/2018 7:44 AM CDT Oxygen Saturation 91% 07/04/2018 7:44 AM CDT Inhaled Oxygen Concentration - - Weight 88.5 kg (195 lb) 07/28/2018 10:33 AM ELECTROFORMER Height 162.6 cm (5' 4 ) 07/28/2018 10:33 AM ELECTROFORMER Body Mass Index 33.47 07/28/2018 10:33 AM ELECTROFORMER Plan of Treatment Health Maintenance Due Date Last Done Comments COVID-19 Vaccine (#1) 1950 DTaP, Tdap and Td Vaccines ( 1 - Tdap) 1963 Zoster Vaccines (1 of 2) 1964 Annual Medicare Wellness Visit 2009 Dexa Scan (General) 2009 Pneumococcal Vaccine: 50+ Ye ars (2 of 2 - PCV) 07/01/2019 07/01/2018 RSV Immunization or 60+ Years (1 - 1-dose 75+ series) 2019 PHQ-2 (Physician [place]) 09/09/2024 Meningococcal B Vaccine Aged Out No l onger eligible based on patient's age to complete this topic Meningococcal Vaccine Aged Out No mark andrew eligible based on patient's age to complete this topic RSV Immunizations Under 20 Months Aged Out No longer eligible based on patient's age to complete this topic Insurance [employer] [facility] [place] [place] [address] Care Teams University Manager Relationship Specialty Start Date End Date Aneesh Nath MD [address] [place] [address] PCP - General INTERNAL MEDICINE 07/28/18
[2025-01-05] MEDS: PEMBROLIZUMAB 200 MG in SODIUM CHLORIDE 0.9% IV 92 ML IVPB (12:57)
[2025-01-05] MEDS: HEPARIN SODIUM LOCK FLUSH 500 UNITS/5 ML SYRINGE IV PUSH (13:29)
[2025-01-05 13:35] VITALS: BP 139/76; PULSE 78; RESP 16; O2SAT 97
[2025-01-07 02:34] LABS: Cortisol Random 10.1 mcg/dL
== END 2025-01-05 13:36 | disposition home or self-care (01) ==
PROVIDERS: PCP Internal Medicine; Visit Provider Internal Medicine Hematology
DX: Z51.11 Encounter for antineoplastic chemotherapy (principal); C34.01 Malignant neoplasm of right main bronchus; E78.2 Mixed hyperlipidemia; E11.65 Type 2 diabetes mellitus with hyperglycemia
CPT/HCPCS: 36415; 36591; 80053; 80061; 82533; 83036; 84443; 85025; 96413; J9271

== ENCOUNTER 2025-01-26 09:18 | Outpatient (CLI) | payer OTHER, SELFPAY ==
--- OUTSIDE RECORDS SUMMARY | 2025-01-26 09:36 | XMS_ITS | Encounter Summary ---
Author Organization [facility] Address [address] [place] [address] Care Team Providers Care Automotive Service Technician Name Role Phone Aneesh Nath MD Primary Care Provider [phone] Encounter Details Date Type Department Care Team (Late st Contact Info) Description 07/24/2018 Abstract [facility] Neuroscience [facility] [address] [phone] Andreea Salinas MD [address] [place], [place] [address] Social History Tobacco Use Types Packs/Day Years [...] on filedocumented in this encounter Care Teams Automotive Service Technician Relationship Specialty Start Date End Date Aneesh Nath MD [address] [place] [address] PCP - General INTERNAL MEDICINE 07/28/18 documented as of this encounter
--- OUTSIDE RECORDS SUMMARY | 2025-01-26 09:36 | XMS_ITS | Clinical Summary ---
Author Organization [facility] Address [facility] [place] [address] Care Team Providers Care Jd Edwards Consultant Name Role Phone Aneesh Nath MD Primary Care Provider [phone] Allergies No known active allergies Medications multivitamin [...] Noted Date Diagnosed Date Arthritis 07/28/2018 Stroke ([facility]) 06/30/2018 Encounters Date Type Department Care Team [...] Comments Blood Pressure 132/78 07/28/2018 10:33 AM INVESTOR RELATIONS SPECIALIST Pulse 74 07/28/2018 10:33 AM INVESTOR RELATIONS SPECIALIST Temperature 36.6 C (97.9 F) 07/04/2018 7:44 AM CDT Respiratory Rate 18 07/04/2018 7:44 AM CDT Oxygen Saturation 91% 07/04/2018 7:44 AM CDT Inhaled Oxygen Concentration - - Weight 88.5 kg (195 lb) 07/28/2018 10:33 AM INVESTOR RELATIONS SPECIALIST Height 162.6 cm (5' 4 ) 07/28/2018 10:33 AM INVESTOR RELATIONS SPECIALIST Body Mass Index 33.47 07/28/2018 10:33 AM INVESTOR RELATIONS SPECIALIST Plan of Treatment Health Maintenance Due [...] - 1-dose 75+ series) 2019 PHQ-2 (Physician [place]) 09/09/2024 Meningococcal B Vaccine Aged Out No l onger eligible based on patient's age to complete this topic Meningococcal Vaccine Aged Out No mark andrew eligible based on patient's age to complete this topic RSV Immunizations Under 20 Months Aged Out No longer eligible based on patient's age to complete this topic Insurance [facility] [place] [address] Care Teams Jd Edwards Consultant Relationship Specialty Start Date End Date Aneesh Nath MD [address] [place] [address] PCP - General INTERNAL MEDICINE 07/28/18
[2025-01-26 09:38] VITALS: BMI 26.2
[2025-01-26 09:44] LABS: Basophils Absolute Auto 0.02 K/mm3 (0.00-0.10); Basophils Percent Auto 0.3 % (0.0-1.0); Eosinophils Absolute Auto 0.09 K/mm3 (0.02-0.50); Eosinophils Percent Auto 1.3 % (1.0-6.0); Hematocrit 34.3 % (35.0-42.0); Hemoglobin 10.5 g/dL (11.7-13.8); Immature Granulocyte Absolute 0.02 K/mm3 (0.00-0.00); Immature Granulocyte Percent A 0.3 % (0.0-0.0); Lymphocytes Absolute Auto 1.58 K/mm3 (1.10-4.50); Lymphocytes Percent Auto 23.4 % (18.0-42.0); Mean Corpuscular HGB Conc 30.6 g/dL (32-36); Mean Corpuscular Hemoglobin 30.2 pg (27.0-31.0); Mean Corpuscular Volume 98.6 fL (78.0-102.0); Mean Platelet Volume 8.6 fl (9.2-11.8); Monocytes Absolute Auto 0.41 K/mm3 (0.10-0.90); Monocytes Percent Auto 6.1 % (2.0-11.0); Neutrophils Absolute Auto 4.63 K/mm3 (1.70-7.20); Neutrophils Percent Auto 68.6 % (50.0-70.0); Platelet Count Result 209 K/mm3 (150-420); Red Blood Count 3.48 M/mm3 (4.20-5.40); Red Cell Distribution Width 12.7 % (11.6-14.4); White Blood Count 6.8 K/mm3 (4.8-10.8)
[2025-01-26 09:56] LABS: Alanine Aminotransferase 16 U/L (6-35); Albumin Level 3.8 g/dL (3.5-5.1); Alkaline Phosphatase 72 U/L (38-126); Anion Gap 4 mmol/L (4-12); Aspartate Amino Transferase 25 U/L (14-36); Bilirubin,Total 0.3 mg/dL (0.2-1.3); Blood Urea Nitrogen 9 mg/dL (7-17); Calcium 8.9 mg/dL (8.4-10.2); Carbon Dioxide 33 mmol/L (22-30); Chloride 103 mmol/L (98-107); Estimated CRCL calculation 74 ml/min; Estimated Glomerular Filt Rate > 60; Glucose 120 mg/dL (65-110); Osmolality Calculated 289 mOsm/kg (285-295); Potassium 3.8 mmol/L (3.4-5.0); Sodium 140 mmol/L (137-145); Total Protein 7.5 g/dL (6.3-8.2)
[2025-01-26 10:12] VITALS: BP 138/71; PULSE 78; RESP 16; TEMP 36.6; O2SAT 95
[2025-01-26] MEDS: PEMBROLIZUMAB 200 MG in SODIUM CHLORIDE 0.9% IV 100 ML IVPB (10:30)
[2025-01-26] MEDS: HEPARIN SODIUM LOCK FLUSH 500 UNITS/5 ML SYRINGE IV PUSH (11:02)
[2025-01-27 08:14] LABS: Cortisol Random 16.1 mcg/dL
== END 2025-01-26 09:19 | disposition home or self-care (01) ==
PROVIDERS: PCP Internal Medicine; Visit Provider Internal Medicine Hematology
DX: Z51.11 Encounter for antineoplastic chemotherapy (principal); C34.01 Malignant neoplasm of right main bronchus
CPT/HCPCS: 36415; 80053; 82533; 84443; 85025; 96413; J9271

== ENCOUNTER 2025-02-11 09:46 | Outpatient (CLI) | payer OTHER, SELFPAY ==
--- NOTE | ~2025-02-11 | MR_ITS ---
MRI of the brain Clinical History: Lung cancer Technique: Axial and sagittal T1-weighted images were acquired. These were followed by axial T2-weigh ethan, diffusion weighted, gradient, and FLAIR images. Following intravenous administration of 20 cc Mu ltiHance gadolinium, T1-weighted fat-sat imaging was performed in the axial and coronal COMPARISON: 03/19/2024 planes. Findings: No acute infarct, intracranial hemorrhage or mass lesion seen. There is extensive chronic w yoanna matter disease throughout the white matter bilaterally. Small chronic lacunar infarcts are noted in the left basal ganglia. Ventricles and subarachnoid spaces are mildly dilated. Orbits are unremarkable. Paranasal sinuses and mastoid air cells are clear. Major intracranial flow voids appear intact. Sagittal midline structures are intact. No abnormal postcontrast enhancement identified. IMPRESSION: No evidence for intracranial metastasis. Severe chronic microvascular ischemic change and small chronic lacunar infarcts in the left basal sarah beth glia. Reviewed, dictated and finalized at [facility]. IMPRESSION: No evidence for intracranial metastasis. Severe chronic microvascular ischemic change and small chronic lacunar infarcts in the left basal ganglia.
== END 2025-02-11 09:47 | disposition home or self-care (01) ==
PROVIDERS: PCP Internal Medicine; Visit Provider Internal Medicine Hematology
DX: C34.11 Malignant neoplasm of upper lobe, right bronchus or lung (principal); R93.89 Abnormal findings on diagnostic imaging of other specified body structures
CPT/HCPCS: 70553; A9577

== ENCOUNTER 2025-02-16 09:20 | Outpatient (CLI) | payer OTHER, SELFPAY ==
[2025-02-16 09:40] VITALS: BP 139/77; PULSE 80; RESP 14; TEMP 36.6; O2SAT 95; BMI 26.4
[2025-02-16 09:49] LABS: Basophils Absolute Auto 0.02 K/mm3 (0.00-0.10); Basophils Percent Auto 0.3 % (0.0-1.0); Eosinophils Absolute Auto 0.05 K/mm3 (0.02-0.50); Eosinophils Percent Auto 0.8 % (1.0-6.0); Hematocrit 33.5 % (35.0-42.0); Hemoglobin 10.2 g/dL (11.7-13.8); Immature Granulocyte Absolute 0.02 K/mm3 (0.00-0.00); Immature Granulocyte Percent A 0.3 % (0.0-0.0); Lymphocytes Absolute Auto 1.45 K/mm3 (1.10-4.50); Lymphocytes Percent Auto 23.2 % (18.0-42.0); Mean Corpuscular HGB Conc 30.4 g/dL (32-36); Mean Corpuscular Hemoglobin 29.8 pg (27.0-31.0); Mean Platelet Volume 8.8 fl (9.2-11.8); Monocytes Absolute Auto 0.36 K/mm3 (0.10-0.90); Monocytes Percent Auto 5.8 % (2.0-11.0); Neutrophils Absolute Auto 4.36 K/mm3 (1.70-7.20); Neutrophils Percent Auto 69.6 % (50.0-70.0); Platelet Count Result 215 K/mm3 (150-420); Red Blood Count 3.42 M/mm3 (4.20-5.40); Red Cell Distribution Width 12.8 % (11.6-14.4); White Blood Count 6.3 K/mm3 (4.8-10.8)
[2025-02-16 10:15] LABS: Alanine Aminotransferase 16 U/L (6-35); Albumin Level 3.7 g/dL (3.5-5.1); Alkaline Phosphatase 73 U/L (38-126); Anion Gap 3 mmol/L (4-12); Aspartate Amino Transferase 25 U/L (14-36); Bilirubin,Total 0.3 mg/dL (0.2-1.3); Blood Urea Nitrogen 9 mg/dL (7-17); Carbon Dioxide 33 mmol/L (22-30); Chloride 103 mmol/L (98-107); Estimated CRCL calculation 71 ml/min; Estimated Glomerular Filt Rate > 60; Glucose 116 mg/dL (65-110); Osmolality Calculated 287 mOsm/kg (285-295); Potassium 3.7 mmol/L (3.4-5.0); Sodium 139 mmol/L (137-145); Total Protein 7.3 g/dL (6.3-8.2)
[2025-02-16] MEDS: PEMBROLIZUMAB 200 MG in SODIUM CHLORIDE 0.9% IV 92 ML IVPB (10:59)
[2025-02-16] MEDS: HEPARIN SODIUM LOCK FLUSH 500 UNITS/5 ML SYRINGE (11:47)
--- NOTE | 2025-02-16 11:48 | PC.NURSE ---
Tolerated treatment well. SEE MAR/patient care notes.
[2025-02-16 11:49] VITALS: BP 136/77; PULSE 72; RESP 14; O2SAT 95
[2025-02-18 02:08] LABS: Cortisol Random 10.5 mcg/dL
== END 2025-02-16 09:21 | disposition home or self-care (01) ==
PROVIDERS: PCP Internal Medicine; Visit Provider Internal Medicine Hematology
DX: Z51.11 Encounter for antineoplastic chemotherapy (principal); C34.01 Malignant neoplasm of right main bronchus; I10 Essential (primary) hypertension; E78.2 Mixed hyperlipidemia
CPT/HCPCS: 36415; 36591; 80053; 82533; 84443; 85025; 96413; J9271

== ENCOUNTER 2025-02-18 08:24 | Outpatient (CLI) | payer OTHER, SELFPAY ==
[2025-02-18 08:39] LABS: Basophils Absolute Auto 0.02 K/mm3 (0.00-0.10); Basophils Percent Auto 0.3 % (0.0-1.0); Eosinophils Absolute Auto 0.13 K/mm3 (0.02-0.50); Eosinophils Percent Auto 2.1 % (1.0-6.0); Hemoglobin 10.4 g/dL (11.7-13.8); Immature Granulocyte Absolute 0.02 K/mm3 (0.00-0.00); Immature Granulocyte Percent A 0.3 % (0.0-0.0); Lymphocytes Absolute Auto 1.31 K/mm3 (1.10-4.50); Lymphocytes Percent Auto 21.3 % (18.0-42.0); Mean Corpuscular HGB Conc 30.6 g/dL (32-36); Mean Corpuscular Hemoglobin 29.7 pg (27.0-31.0); Mean Corpuscular Volume 97.1 fL (78.0-102.0); Mean Platelet Volume 8.4 fl (9.2-11.8); Monocytes Absolute Auto 0.32 K/mm3 (0.10-0.90); Monocytes Percent Auto 5.2 % (2.0-11.0); Neutrophils Absolute Auto 4.36 K/mm3 (1.70-7.20); Neutrophils Percent Auto 70.8 % (50.0-70.0); Platelet Count Result 221 K/mm3 (150-420); White Blood Count 6.2 K/mm3 (4.8-10.8)
== END 2025-02-18 08:25 | disposition home or self-care (01) ==
LOC: CHSLAB 08:26
PROVIDERS: PCP Internal Medicine; Visit Provider Internal Medicine
DX: C34.90 Malignant neoplasm of unspecified part of unspecified bronchus or lung (principal); I10 Essential (primary) hypertension
CPT/HCPCS: 36415; 85025

== ENCOUNTER 2025-03-09 09:27 | Outpatient (CLI) | payer OTHER, SELFPAY ==
[2025-03-09 09:30] VITALS: BP 134/74; PULSE 80; RESP 16; TEMP 36.4; O2SAT 96; BMI 26.4
[2025-03-09 09:51] LABS: Hematocrit 32.9 % (35.0-42.0); Hemoglobin 10.1 g/dL (11.7-13.8); Immature Granulocyte Percent A 0.3 % (0.0-0.0); Lymphocytes Absolute Auto 1.55 K/mm3 (1.10-4.50); Mean Corpuscular HGB Conc 30.7 g/dL (32-36); Mean Corpuscular Hemoglobin 29.4 pg (27.0-31.0); Mean Corpuscular Volume 95.6 fL (78.0-102.0); Nucleated Red Blood Cells Absolute Auto 0.00 K/mm3 (0.00-0.00); Nucleated Red Blood Cells Perc 0.0 % (0-0.0); Platelet Count Result 235 K/mm3 (150-420); Red Blood Count 3.44 M/mm3 (4.20-5.40); White Blood Count 6.6 K/mm3 (4.8-10.8)
[2025-03-09 10:01] LABS: Alanine Aminotransferase 14 U/L (6-35); Albumin Level 3.8 g/dL (3.5-5.1); Alkaline Phosphatase 66 U/L (38-126); Anion Gap 3 mmol/L (4-12); Aspartate Amino Transferase 22 U/L (14-36); Bilirubin,Total 0.3 mg/dL (0.2-1.3); Blood Urea Nitrogen 10 mg/dL (7-17); Calcium 9.2 mg/dL (8.4-10.2); Carbon Dioxide 33 mmol/L (22-30); Chloride 105 mmol/L (98-107); Estimated CRCL calculation 68 ml/min; Estimated Glomerular Filt Rate > 60; Glucose 117 mg/dL (65-110); Osmolality Calculated 292 mOsm/kg (285-295); Potassium 3.9 mmol/L (3.4-5.0); Sodium 141 mmol/L (137-145); Total Protein 7.6 g/dL (6.3-8.2)
[2025-03-09 10:32] LABS: Thyroid Stimulating Hormone 0.963 uIU/mL (0.465-4.680)
[2025-03-09] MEDS: PEMBROLIZUMAB 200 MG in SODIUM CHLORIDE 0.9% IV 92 ML IVPB (10:35)
[2025-03-09] MEDS: HEPARIN SODIUM LOCK FLUSH 500 UNITS/5 ML SYRINGE (11:06)
[2025-03-09 11:25] VITALS: BP 132/77; PULSE 76; RESP 14; O2SAT 96
--- NOTE | 2025-03-09 11:26 | PC.NURSE ---
Patient tolerated Pembrolizumab infusion well. SEE MAR/patient care notes.
== END 2025-03-09 09:28 | disposition home or self-care (01) ==
PROVIDERS: PCP Internal Medicine; Visit Provider Internal Medicine Hematology
DX: Z51.11 Encounter for antineoplastic chemotherapy (principal); C34.01 Malignant neoplasm of right main bronchus; I10 Essential (primary) hypertension; E78.2 Mixed hyperlipidemia
CPT/HCPCS: 36415; 36591; 80053; 82533; 84443; 85025; 96413; J9271

== ENCOUNTER 2025-03-29 10:05 | Outpatient (CLI) | payer OTHER, SELFPAY ==
[2025-03-29 10:10] VITALS: BP 113/70; PULSE 80; RESP 16; TEMP 36.4; O2SAT 95; BMI 26.2
--- OUTSIDE RECORDS SUMMARY | 2025-03-29 10:16 | XMS_ITS | Clinical Summary ---
Author Organization [facility] Address [facility] [place] [address] Care Team Providers Care Manager Mortgage Name Role Phone Aneesh Nath MD Primary Care Provider [phone] Allergies No known active allergies Medications multivitamin [...] Noted Date Diagnosed Date Arthritis 07/28/2018 Stroke ([facility]) 06/30/2018 Immunizations Immunization Administration Dates Next Due Fluarix [...] Comments Blood Pressure 132/78 07/28/2018 10:33 AM FINANCE SPECIALIST Pulse 74 07/28/2018 10:33 AM FINANCE SPECIALIST Temperature 36.6 C (97.9 F) 07/04/2018 7:44 AM CDT Respiratory Rate 18 07/04/2018 7:44 AM CDT Oxygen Saturation 91% 07/04/2018 7:44 AM CDT Inhaled Oxygen Concentration - - Weight 88.5 kg (195 lb) 07/28/2018 10:33 AM FINANCE SPECIALIST Height 162.6 cm (5' 4) 07/28/2018 10:33 AM FINANCE SPECIALIST Body Mass Index 33.47 07/28/2018 10:33 AM FINANCE SPECIALIST Plan of Treatment Health Maintenance Due [...] - 1-dose 75+ series) 2019 PHQ-2 (Physician [place]) 09/09/2024 Meningococcal B Vaccine Aged Out No l onger eligible based on patient's age to complete this topic Meningococcal Vaccine Aged Out No mark andrew eligible based on patient's age to complete this topic RSV Immunizations Under 20 Months Aged Out No longer eligible based on patient's age to complete this topic Insurance [facility] Care Teams Manager Mortgage Relationship Specialty Start Date End Date Aneesh Nath MD [address] [place] [phone] PCP - General INTERNAL MEDICINE 07/28/18
--- OUTSIDE RECORDS SUMMARY | 2025-03-29 10:16 | XMS_ITS | Encounter Summary ---
Author Organization [facility] Address [address] [place] [address] Care Team Providers Care Automobile Carpets Molder Name Role Phone Aneesh Nath MD Primary Care Provider [phone] Encounter Details Date Type Department Care Team (Late st Contact Info) Description 07/24/2018 Abstract [facility] Neuroscience [facility] [address] [phone] Andreea Salinas MD [address] [place], [place] [address] Social History Tobacco Use Types Packs/Day Years [...] on filedocumented in this encounter Care Teams Automobile Carpets Molder Relationship Specialty Start Date End Date Aneesh Nath MD [address] [place] [address] PCP - General INTERNAL MEDICINE 07/28/18 documented as of this encounter
[2025-03-29 10:28] LABS: Hematocrit 33.6 % (35.0-42.0); Hemoglobin 10.3 g/dL (11.7-13.8); Immature Granulocyte Percent A 0.3 % (0.0-0.0); Lymphocytes Absolute Auto 1.64 K/mm3 (1.10-4.50); Mean Corpuscular HGB Conc 30.7 g/dL (32-36); Mean Corpuscular Hemoglobin 28.9 pg (27.0-31.0); Mean Corpuscular Volume 94.4 fL (78.0-102.0); Nucleated Red Blood Cells Absolute Auto 0.00 K/mm3 (0.00-0.00); Nucleated Red Blood Cells Perc 0.0 % (0-0.0); Platelet Count Result 236 K/mm3 (150-420); Red Blood Count 3.56 M/mm3 (4.20-5.40); White Blood Count 6.6 K/mm3 (4.8-10.8)
[2025-03-29 10:41] LABS: Alanine Aminotransferase 16 U/L (6-35); Albumin Level 3.8 g/dL (3.5-5.1); Alkaline Phosphatase 71 U/L (38-126); Anion Gap 4 mmol/L (4-12); Aspartate Amino Transferase 26 U/L (14-36); Bilirubin,Total 0.4 mg/dL (0.2-1.3); Blood Urea Nitrogen 10 mg/dL (7-17); Calcium 8.8 mg/dL (8.4-10.2); Carbon Dioxide 33 mmol/L (22-30); Chloride 100 mmol/L (98-107); Estimated CRCL calculation 66 ml/min; Estimated Glomerular Filt Rate > 60; Glucose 119 mg/dL (65-110); Osmolality Calculated 284 mOsm/kg (285-295); Potassium 3.7 mmol/L (3.4-5.0); Sodium 137 mmol/L (137-145); Total Protein 7.8 g/dL (6.3-8.2)
[2025-03-29 11:12] LABS: Thyroid Stimulating Hormone 0.941 uIU/mL (0.465-4.680)
[2025-03-29] MEDS: PEMBROLIZUMAB 200 MG in SODIUM CHLORIDE 0.9% IV 92 ML IVPB (11:12)
[2025-03-29] MEDS: HEPARIN SODIUM LOCK FLUSH 500 UNITS/5 ML SYRINGE IV PUSH (11:45)
[2025-03-29 11:54] VITALS: BP 120/67; PULSE 78; RESP 14; O2SAT 95
--- NOTE | 2025-03-29 11:55 | PC.NURSE ---
Tolerated Pembrolizumab treatment well. see MAR/patient care notes.
== END 2025-03-29 10:06 | disposition home or self-care (01) ==
PROVIDERS: PCP Internal Medicine; Visit Provider Internal Medicine Hematology
DX: Z51.11 Encounter for antineoplastic chemotherapy (principal); C34.01 Malignant neoplasm of right main bronchus; I10 Essential (primary) hypertension
CPT/HCPCS: 36591; 80053; 82533; 84443; 85025; 96413; J9271

== ENCOUNTER 2025-04-20 09:47 | Outpatient (CLI) | payer OTHER, SELFPAY ==
[2025-04-20 10:00] VITALS: BMI 25.7
[2025-04-20 10:12] LABS: Hematocrit 33.8 % (35.0-42.0); Hemoglobin 10.1 g/dL (11.7-13.8); Immature Granulocyte Percent A 0.3 % (0.0-0.0); Lymphocytes Absolute Auto 1.66 K/mm3 (1.10-4.50); Mean Corpuscular HGB Conc 29.9 g/dL (32-36); Mean Corpuscular Hemoglobin 28.5 pg (27.0-31.0); Mean Corpuscular Volume 95.2 fL (78.0-102.0); Nucleated Red Blood Cells Absolute Auto 0.00 K/mm3 (0.00-0.00); Nucleated Red Blood Cells Perc 0.0 % (0-0.0); Platelet Count Result 245 K/mm3 (150-420); Red Blood Count 3.55 M/mm3 (4.20-5.40); White Blood Count 5.7 K/mm3 (4.8-10.8)
[2025-04-20 10:19] VITALS: BP 117/66; PULSE 76; RESP 16; TEMP 36.6; O2SAT 94
--- OUTSIDE RECORDS SUMMARY | 2025-04-20 10:25 | XMS_ITS | Clinical Summary ---
Author Organization [facility] Address [facility] [place] [address] Care Team Providers Care Welding Machine Operator Thermit Name Role Phone Aneesh Nath MD Primary [...] [facility]) 06/30/2018 Immunizations Immunization Administration Dates Next Due [...] Comments Blood Pressure 132/78 07/28/2018 10:33 AM INDUSTRIAL GAS SERVICER HELPER Pulse 74 07/28/2018 10:33 AM INDUSTRIAL GAS SERVICER HELPER Temperature 36.6 C (97.9 F) 07/04/2018 7:44 AM CDT Respiratory Rate 18 07/04/2018 7:44 AM CDT Oxygen Saturation 91% 07/04/2018 7:44 AM CDT Inhaled Oxygen Concentration - - Weight 88.5 kg (195 lb) 07/28/2018 10:33 AM INDUSTRIAL GAS SERVICER HELPER Height 162.6 cm (5' 4) 07/28/2018 10:33 AM INDUSTRIAL GAS SERVICER HELPER Body Mass Index 33.47 07/28/2018 10:33 AM INDUSTRIAL GAS SERVICER HELPER Plan of Treatment Health Maintenance Due Date [...] - 1-dose 75+ series) 2019 PHQ-2 (Physician [place]) 09/09/2024 Meningococcal B Vaccine Aged Out No l onger eligible based on patient's age to complete this topic Meningococcal Vaccine Aged Out No mark andrew eligible based on patient's age to complete this topic RSV Immunizations Under 20 Months Aged Out No longer eligible based on patient's age to complete this topic Insurance [facility] [place] [address] Care Teams Welding Machine Operator Thermit Relationship Specialty Start Date End Date Aneesh Nath MD [address] [place] [phone] PCP - General INTERNAL MEDICINE 07/28/18
--- OUTSIDE RECORDS SUMMARY | 2025-04-20 10:25 | XMS_ITS | Encounter Summary ---
Author Organization [facility] Address [address] [place] [address] Care Team Providers Care Die Operator Name Role Phone Aneesh Nath MD Primary Care Provider [phone] Encounter Details Date Type Department Care Team (Late st Contact Info) Description 07/24/2018 Abstract [facility] Neuroscience [facility] [address], [place] [phone] Andreea Salinas MD [address] [place] [address] [address] [place], [place] [address] Social History Tobacco Use Types Packs/Day Years [...] on filedocumented in this encounter Care Teams Die Operator Relationship Specialty Start Date End Date Aneesh Nath MD [address] [place] [address] PCP - General INTERNAL MEDICINE 07/28/18 documented as of this encounter
[2025-04-20 10:28] LABS: Alanine Aminotransferase 12 U/L (6-35); Albumin Level 3.9 g/dL (3.5-5.1); Alkaline Phosphatase 69 U/L (38-126); Anion Gap 7 mmol/L (4-12); Aspartate Amino Transferase 24 U/L (14-36); Bilirubin,Total 0.2 mg/dL (0.2-1.3); Blood Urea Nitrogen 9 mg/dL (7-17); Calcium 9.3 mg/dL (8.4-10.2); Carbon Dioxide 31 mmol/L (22-30); Chloride 102 mmol/L (98-107); Estimated CRCL calculation 71 ml/min; Estimated Glomerular Filt Rate > 60; Glucose 128 mg/dL (65-110); Osmolality Calculated 290 mOsm/kg (285-295); Potassium 3.9 mmol/L (3.4-5.0); Sodium 140 mmol/L (137-145); Total Protein 7.9 g/dL (6.3-8.2)
[2025-04-20 10:59] LABS: Thyroid Stimulating Hormone 0.829 uIU/mL (0.465-4.680)
[2025-04-20] MEDS: PEMBROLIZUMAB 200 MG in SODIUM CHLORIDE 0.9% IV 92 ML IVPB (11:00)
[2025-04-20] MEDS: HEPARIN SODIUM LOCK FLUSH 500 UNITS/5 ML SYRINGE IV PUSH (11:30)
[2025-04-20 11:40] VITALS: BP 119/70; PULSE 72; RESP 16; TEMP 36.6; O2SAT 94
--- NOTE | 2025-04-20 11:54 | PC.NURSE ---
Tolerated Pembrolizumab infusion well. SEE MAR and patient care notes.
== END 2025-04-20 09:48 | disposition home or self-care (01) ==
PROVIDERS: PCP Internal Medicine
DX: Z51.11 Encounter for antineoplastic chemotherapy (principal); C34.01 Malignant neoplasm of right main bronchus; I10 Essential (primary) hypertension; E78.2 Mixed hyperlipidemia
CPT/HCPCS: 36415; 36591; 80053; 82533; 84443; 85025; 96413; J9271

== ENCOUNTER 2025-04-27 07:45 | Outpatient (CLI) | payer OTHER, SELFPAY ==
--- NOTE | ~2025-04-27 | CT_ITS ---
EXAMINATION: CT chest abdomen pelvis w con DATE: 04/27/2025 15:27 CDT INDICATION: Right-sided lung cancer follow-up TECHNIQUE: Computed tomography (CT) of the chest, abdomen, and pelvis was performed without intravenous contrast. The dose-length product was 777.98 mGy-cm. COMPARISON: CT chest, abdomen and pelvis 12/18/2024; CTA chest, abdomen and pelvis 04/23/2024; PET/CT of 4 FINDINGS: CHEST CT: Interval increase in the size of a enlarged right high paratracheal lymph node which currently measures 2.1 cm in short axis, previously measured 1.3 cm. Slight interval increase in the size of a right high hilar lymph node which measures 1.9 cm short axis, previously measured 1.1 cm in short axis. There are additional right hilar lymph nodes which is similar size to slightly increased in size as compared to the prior study from 12/18/2024. Interval increase in the size of the right upper lobe partially necrotic mass which measures 6.7 x 8.2 cm, previously measured 4.6 x 5.2 cm on 12/18/2024. The mass now extends from the right hilum to the pleura. Heart is mildly enlarged. There are coronary artery calcifications. Thoracic aorta is not aneurysmal. Bones appear osteopenic. Multilevel degenerative change in the spine. Calcified right hilar lymph nodes. Right upper lobe bronchi are partially obstructed. ABDOMEN/PELVIS CT: Stable 1.3 cm low-density lesion in the right lobe of the liver. Stable too small to characterize low-attenuation lesion in the medial segment of the left lobe of liver about the falciform ligament. Stable adenoma in the right adrenal gland. Adrenal glands are otherwise unremarkable. Pancreas is unremarkable. There are few calcified granulomas in the spleen. There are a few too small to characterize low-attenuation lesions in the kidneys. Abdominal aorta is partially calcified. Cholelithiasis. No enlarged lymph nodes in the abdomen or pelvis. No free fluid in the abdomen. Bladder is unremarkable. Moderate amount of stool. No dilated bowel loops. No colitis. Grade 1 anterolisthesis of L3 on L4, unchanged. IMPRESSION: 1. Interval increase in the size of the known right upper lobe mass. Consider a PET/CT. 2. Interval increase in the size of enlarged right paratracheal and right hilar lymph nodes concerning for worsening metastatic disease. 3. Grossly stable 1.3 cm lesion in the right lobe of the liver. 4. No CT evidence for metastatic disease in the pelvis. Reviewed, dictated and finalized at location A.
== END 2025-04-27 07:46 | disposition home or self-care (01) ==
LOC: CHSIMG 07:48
PROVIDERS: PCP Internal Medicine; Visit Provider Internal Medicine Hematology
DX: C34.11 Malignant neoplasm of upper lobe, right bronchus or lung (principal); R59.0 Localized enlarged lymph nodes; K76.9 Liver disease, unspecified
CPT/HCPCS: 71260; 74177; Q9967

== ENCOUNTER 2025-05-11 09:52 | Outpatient (CLI) | payer OTHER, SELFPAY ==
[2025-05-11 10:05] VITALS: BP 130/78; PULSE 80; RESP 16; TEMP 36.4; O2SAT 94; BMI 24.5
--- OUTSIDE RECORDS SUMMARY | 2025-05-11 10:19 | XMS_ITS | Clinical Summary ---
Author Organization [facility] Address [facility] [place] [address] Care Team Providers Care Inspector Automatic Typewriter Name Role Phone Aneesh Nath MD Primary Care Provider [phone] Allergies No known active allergies Medications multivitamin [...] Noted Date Diagnosed Date Arthritis 07/28/2018 Stroke ([facility]) 06/30/2018 Immunizations Immunization Administration Dates Next [...] Comments Blood Pressure 132/78 07/28/2018 10:33 AM TECHNICAL SERVICES LIBRARIAN Pulse 74 07/28/2018 10:33 AM TECHNICAL SERVICES LIBRARIAN Temperature 36.6 C (97.9 F) 07/04/2018 7:44 AM CDT Respiratory Rate 18 07/04/2018 7:44 AM CDT Oxygen Saturation 91% 07/04/2018 7:44 AM CDT Inhaled Oxygen Concentration - - Weight 88.5 kg (195 lb) 07/28/2018 10:33 AM TECHNICAL SERVICES LIBRARIAN Height 162.6 cm (5' 4) 07/28/2018 10:33 AM TECHNICAL SERVICES LIBRARIAN Body Mass Index 33.47 07/28/2018 10:33 AM TECHNICAL SERVICES LIBRARIAN Plan of Treatment Health Maintenance Due Date [...] - 1-dose 75+ series) 2019 PHQ-2 (Physician [place]) 09/09/2024 Meningococcal B Vaccine Aged Out No l onger eligible based on patient's age to complete this topic Meningococcal Vaccine Aged Out No mark andrew eligible based on patient's age to complete this topic RSV Immunizations Under 20 Months Aged Out No longer eligible based on patient's age to complete this topic Insurance [facility] [employer] Care Teams Inspector Automatic Typewriter Relationship Specialty Start Date End Date Aneesh Nath MD [address] [place] [phone] PCP - General INTERNAL MEDICINE 07/28/18
--- OUTSIDE RECORDS SUMMARY | 2025-05-11 10:19 | XMS_ITS | Encounter Summary ---
Author Organization [facility] Address [address] [place] [address] Care Team Providers Care Cuff Folder Name Role Phone Aneesh Nath MD Primary Care Provider [phone] Encounter Details Date Type Department Care Team (Late st Contact Info) Description 07/24/2018 Abstract [facility] Neuroscience [facility] [address] [phone] Andreea Salinas MD [address] [place] [address] [address] [place], [place] [phone] Social History Tobacco Use Types Packs/Day Years [...] on filedocumented in this encounter Care Teams Cuff Folder Relationship Specialty Start Date End Date Aneesh Nath MD [address] [place] [address] PCP - General INTERNAL MEDICINE 07/28/18 documented as of this encounter
[2025-05-11 10:20] LABS: Hematocrit 33.9 % (35.0-42.0); Hemoglobin 10.3 g/dL (11.7-13.8); Immature Granulocyte Percent A 0.3 % (0.0-0.0); Lymphocytes Absolute Auto 1.50 K/mm3 (1.10-4.50); Mean Corpuscular HGB Conc 30.4 g/dL (32-36); Mean Corpuscular Hemoglobin 28.7 pg (27.0-31.0); Mean Corpuscular Volume 94.4 fL (78.0-102.0); Nucleated Red Blood Cells Absolute Auto 0.00 K/mm3 (0.00-0.00); Nucleated Red Blood Cells Perc 0.0 % (0-0.0); Platelet Count Result 263 K/mm3 (150-420); Red Blood Count 3.59 M/mm3 (4.20-5.40); White Blood Count 7.1 K/mm3 (4.8-10.8)
[2025-05-11 10:31] LABS: Alanine Aminotransferase 13 U/L (6-35); Albumin Level 3.8 g/dL (3.5-5.1); Alkaline Phosphatase 77 U/L (38-126); Anion Gap 9 mmol/L (4-12); Aspartate Amino Transferase 24 U/L (14-36); Bilirubin,Total 0.3 mg/dL (0.2-1.3); Blood Urea Nitrogen 6 mg/dL (7-17); Calcium 9.4 mg/dL (8.4-10.2); Carbon Dioxide 32 mmol/L (22-30); Chloride 100 mmol/L (98-107); Estimated CRCL calculation 80 ml/min; Estimated Glomerular Filt Rate > 60; Glucose 107 mg/dL (65-110); Osmolality Calculated 289 mOsm/kg (285-295); Potassium 4.1 mmol/L (3.4-5.0); Sodium 141 mmol/L (137-145); Total Protein 7.9 g/dL (6.3-8.2)
[2025-05-11] MEDS: PEMBROLIZUMAB 200 MG in SODIUM CHLORIDE 0.9% IV 92 ML IVPB (11:00)
[2025-05-11 11:02] LABS: Thyroid Stimulating Hormone 1.030 uIU/mL (0.465-4.680)
[2025-05-11] MEDS: HEPARIN SODIUM LOCK FLUSH 500 UNITS/5 ML SYRINGE IV PUSH (11:31)
[2025-05-11 11:47] VITALS: BP 140/79; PULSE 84; RESP 16; TEMP 36.6; O2SAT 96
--- NOTE | 2025-05-11 11:48 | PC.NURSE ---
Tolerated Pembrolizumab treatment well. SEE MAR and patient care notes.
== END 2025-05-11 09:53 | disposition home or self-care (01) ==
LOC: CHSLAB 09:55 → CHSTREATRM 09:58
PROVIDERS: PCP Internal Medicine; Visit Provider Internal Medicine Hematology
DX: Z51.11 Encounter for antineoplastic chemotherapy (principal); C34.91 Malignant neoplasm of unspecified part of right bronchus or lung; I10 Essential (primary) hypertension; E78.2 Mixed hyperlipidemia
CPT/HCPCS: 36415; 36591; 80053; 82533; 84443; 85025; 96413; J9271

== ENCOUNTER 2025-06-07 07:36 | Outpatient (NON) | payer OTHER, SELFPAY ==
--- OUTSIDE RECORDS SUMMARY | 2025-06-07 07:42 | XMS_ITS | Clinical Summary ---
Author Organization [facility] Address Formerly [facility] [place] [address] Care Team Providers Care Spray Drier Operator Name Role Phone Aneesh Nath MD Primary Care Provider [phone] Allergies No known active allergies Medications multivitamin [...] Noted Date Diagnosed Date Arthritis 07/28/2018 Stroke ([facility]) 06/30/2018 Encounters Date Type Department Care Team Description 05/17/2025 2:44 PM CDT - 05/17/2025 11:59 PM CDT Hospital Encounter [facility] [address] [place] [address] Cristal Lopez MD Discharge Disposition: Home or Self Care (Routine Discharge) 05/17/2025 Travel from Last 3 Months Immunizations Immunization Administration [...] Information Value Date Recorded Sex Assigned at Female 05/17/2025 2:02 PM CDT Legal Sex Female 2:21 PM CDT Gender Identity Not on file Sexual Orientation Not on file Last Filed Vital Signs Vital Sign Reading Time Taken Comments Blood Pressure 132/78 07/28/2018 10:33 AM SPA MANAGER/ESTHETICIAN Pulse 74 07/28/2018 10:33 AM SPA MANAGER/ESTHETICIAN Temperature 36.6 C (97.9 F) 07/04/2018 7:44 AM CDT Respiratory Rate 18 07/04/2018 7:44 AM CDT Oxygen Saturation 91% 07/04/2018 7:44 AM CDT Inhaled Oxygen Concentration - - Weight 88.5 kg (195 lb) 07/28/2018 10:33 AM SPA MANAGER/ESTHETICIAN Height 162.6 cm (5' 4) 07/28/2018 10:33 AM SPA MANAGER/ESTHETICIAN Body Mass Index 33.47 07/28/2018 10:33 AM SPA MANAGER/ESTHETICIAN Plan of Treatment Health Maintenance Due Date [...] - 1-dose 75+ series) 2019 PHQ-2 ([facility]) 09/09/2024 Meningococcal B Vaccine Aged Out No l onger eligible based on patient's age to complete this topic Meningococcal Vaccine Aged Out No mark andrew eligible based on patient's age to complete this topic RSV Immunizations Under 20 Months Aged Out No longer eligible based on patient's age to complete this topic Procedures Procedure Name Priority Date/Time Associated Diagnosis Comments CT CHEST WO CON Routine 05/17/2025 3:54 PM CDT Primary cancer of right upper lobe of lung (CMS/HCC HHS/HCC) from Last 3 Months Results * CT CHEST WO CON (05/17/2025 3:54 PM CDT) Anatomical Region Laterality Modality Chest Computed Tomogra phy 05/17/2025 4:27 PM CDT Impressions 05/17/2025 5:11 PM CDT IMPRESSION: 1. The progressively enlarging right upper lobe mass now has associated complete right upper lobe collapse with obstruction and/or mucous plugging of the right upper lobe bronchi. Unable to evaluate vascular involvement on this noncontrast exam. The anatomic extent of this tumor was better delineated on the recent contrast- enhanced CT from [facility] 04/27/2025. 2. Mediastinal and right supraclavicular adenopathy as evidence for karime metastatic disease. 3. New small right pleural effusion is concerning for a potential malignant effusion. 4. Cholelithiasis without evidence of acute cholecystitis. 5. Additional chronic and nonemergent findings as detailed above. The attending radiologist has reviewed the image(s) and agrees with the content of this report. Ordered By: CRISTAL LOPEZ Interpreted By: Jose Ojeda MD, 05/17/2025 4:27 PM Narrative 05/17/2025 5:11 PM CDT [address] [place] [address] Examination: CT CHEST WO CON Exam time: 05/17/2025 3:54 PM Clinical history: Primary cancer of the right upper lobe Comparison: Radiation therapy planning CT 05/30/23, outside CT chest abdomen and pelvis 04/27/2025, 12/18/2024, 10/12/2024 from [facility]. Technique: A CT scan of the chest was performed without IV contrast. Coronal and sagittal reformatted images were reviewed. A dose lowering technique was used for this procedure, which may include, but is not limited to, dose reduction technique, automated exposure control, iterative reconstruction, ALARA (As Low As Reasonably Achievable), or Image Gently techniques. Findings: Redemonstration of a dominant right upper lobe mass now with complete collapse of the right upper lobe. The anatomic extent of this tumor was better evaluated on the recent contrast-enhanced CT 04/27/2025. Its difficult on the current exam to delineate the mass from adjacent atelectasis. There is complete obstruction and/or mucous plugging involving the right upper lobe bronchi. The mass abuts the mediastinum centrally. Evaluation of vascular involvement is limited on noncontrast examination. Findings are consistent with the patient's known history of lung cancer. The mass has progressively increased in size compared to prior exams dating back to 05/30/2023 when it measured approximately 4.6 x 4 cm. There are benign calcified granulomas. No additional pulmonary nodules are seen on this exam. Anteriorly along the superior segment right lower lobe there is ill-defined patchy consolidative opacity. This may be infectious/inflammatory however additional extent of neoplasm is possible. A small right pleural effusion is noted and is new. There is no pneumothorax. The trachea is unremarkable. The heart is normal in size. Coronary artery calcifications are noted. Calcified plaques are seen in the thoracic aorta. The thoracic aorta and main pulmonary arteries are normal in caliber. There is mediastinal lymphadenopathy. For reference an enlarged right paratracheal lymph node on series 2 image 34 measures approximately 1.4 cm in short axis dimension. Right supraclavicular adenopathy is also noted. There are calcified subcarinal lymph nodes. No definite enlarged left hilar or left paratracheal lymph nodes are seen. No axillary lymphadenopathy. There is a right chest port. The distal tip extends into the cavoatrial junction. No acute abnormality seen in the visualized upper abdomen. There is cholelithiasis without evidence of acute cholecystitis. There is a 1.8 x 1.2 cm right adrenal myelolipoma, unchanged from 05/30/2023. Degenerative changes seen throughout the spine and bilateral shoulders. There are findings of diffuse idiopathic scoliosis hyperostosis in the thoracic spine. Possible left para labral cyst anterior glenoid on series 2 image 20. This is unchanged compared to exam from 2022. Procedure Note Apolonia Javed MD - 05/17/[address] [place] [address] Examination: CT CHEST WO CON Exam time: 05/17/2025 3:54 PM Clinical history: Primary cancer of the right upper lobe Comparison: Radiation therapy planning CT 05/30/23, outside CT chestabdomen and pelvis 04/27/2025, 12/18/2024, [facility]12[facility]. Technique: A CT scan of the chest was performed without IV contrast.Coronal and sagittal reformatted images were reviewed. A dose loweringtechnique was used for this procedure, which may include, but is notlimited to, dose reduction technique, automated exposure control,iterative reconstruction, ALARA (As Low As Reasonably Achievable), orImage Gently techniques. Findings: Redemonstration of a dominant right upper lobe mass now with completecollapse of the right upper lobe. The anatomic extent of this tumor wasbetter evaluated on the recent contrast-enhanced CT 04/27/2025. Itsdifficult on the current exam to delineate the mass from adjacentatelectasis. There is complete obstruction and/or mucous plugginginvolving the right upper lobe bronchi. The mass abuts the mediastinumcentrally. Evaluation of vascular involvement is limited on noncontrastexamination. Findings are consistent with the patient's known history oflung cancer. The mass has progressively increased in size compared toprior exams dating back to 05/30/2023 when it measured approximately 4.6 x4 cm. There are benign calcified granulomas. No additional pulmonarynodules are seen on this exam. Anteriorly along the superior segment rightlower lobe there is ill-defined patchy consolidative opacity. This may beinfectious/inflammatory however additional extent of neoplasm is possible.A small right pleural effusion is noted and is new. There is nopneumothorax. The trachea is unremarkable. The heart is normal in size. Coronary artery calcifications are noted.Calcified plaques are seen in the thoracic aorta. The thoracic aorta andmain pulmonary arteries are normal in caliber. There is mediastinallymphadenopathy. For reference an enlarged right paratracheal lymph nodeon series 2 image 34 measures approximately 1.4 cm in short axisdimension. Right supraclavicular adenopathy is also noted. There arecalcified subcarinal lymph nodes. No definite enlarged left hilar or leftparatracheal lymph nodes are seen. No axillary lymphadenopathy. There is aright chest port. The distal tip extends into the cavoatrial junction. No acute abnormality seen in the visualized upper abdomen. There ischolelithiasis without evidence of acute cholecystitis. There is a 1.8 x1.2 cm right adrenal myelolipoma, unchanged from 05/30/2023. Degenerative changes seen throughout the spine and bilateral shoulders.There are findings of diffuse idiopathic scoliosis hyperostosis in thethoracic spine. Possible left para labral cyst anterior glenoid on series2 image 20. This is unchanged compared to exam from 2022. IMPRESSION: 1. The progressively enlarging right upper lobe mass now has associatedcomplete right upper lobe collapse with obstruction and/or mucous pluggingof the right upper lobe bronchi. Unable to evaluate vascular involvementon this noncontrast exam. The anatomic extent of this tumor was betterdelineated on the recent contrast- enhanced [facility] from [facility]. 2. Mediastinal and right supraclavicular adenopathy as evidence for nodalmetastatic disease. 3. New small right pleural effusion is concerning for a potentialmalignant effusion. 4. Cholelithiasis without evidence of acute cholecystitis. 5. Additional chronic and nonemergent findings as detailed above. The attending radiologist has reviewed the image(s) and agrees with thecontent of this report. Ordered By: CRISTAL LOPEZ Interpreted By: Jose Ojeda MD, 05/17/2025 4:27 PM Cristal Lopez MD CT Final Result from Last 3 Months Insurance [facility] [employer] Care Teams Spray Drier Operator Relationship Specialty Start Date End Date Aneesh Nath MD [address] [place] [address] PCP - General INTERNAL MEDICINE 07/28/18
--- OUTSIDE RECORDS SUMMARY | 2025-06-07 07:42 | XMS_ITS | Encounter Summary ---
Author Organization [facility] Address [address] [place] [address] Care Team Providers Care Cloth Finishing Range Operator Chief Name Role Phone Aneesh Nath MD Primary Care Provider [phone] Encounter Details Date Type Department Care Team (Late st Contact Info) Description 07/24/2018 Abstract [facility] Neuroscience [facility] [address] [id number] Andreea Salinas MD [address] [facility] [address] [place], [place] [address] Social History Tobacco Use Types Packs/Day Years [...] on filedocumented in this encounter Care Teams Cloth Finishing Range Operator Chief Relationship Specialty Start Date End Date Aneesh Nath MD [address] [place] [address] PCP - General INTERNAL MEDICINE 07/28/18 documented as of this encounter
[2025-06-07 08:28] LABS: Add Urine Microscopic? YES; Appearance Urine Cloudy (Clear); Glucose Urine UA Negative (Negative); Leukocyte Esterase Ur 3+ (Negative); Nitrate Urine Negative (Negative); Specific Grav Ur 1.010 (1.010-1.020)
== END 2025-06-07 07:37 | disposition home or self-care (01) ==
LOC: CHSLAB 07:39
PROVIDERS: Visit Provider Internal Medicine
DX: N39.0 Urinary tract infection, site not specified (principal)
CPT/HCPCS: 81001; 87086

== ENCOUNTER 2025-06-23 11:49 | Outpatient (CLI) | payer OTHER, SELFPAY ==
[2025-06-23 12:03] LABS: Hematocrit 37.2 % (35.0-42.0); Hemoglobin 10.9 g/dL (11.7-13.8); Immature Granulocyte Percent A 0.3 % (0.0-0.0); Lymphocytes Absolute Auto 1.56 K/mm3 (1.10-4.50); Mean Corpuscular HGB Conc 29.3 g/dL (32-36); Mean Corpuscular Hemoglobin 27.6 pg (27.0-31.0); Mean Corpuscular Volume 94.2 fL (78.0-102.0); Nucleated Red Blood Cells Absolute Auto 0.00 K/mm3 (0.00-0.00); Nucleated Red Blood Cells Perc 0.0 % (0-0.0); Platelet Count Result 304 K/mm3 (150-420); Red Blood Count 3.95 M/mm3 (4.20-5.40); White Blood Count 7.7 K/mm3 (4.8-10.8)
[2025-06-23 12:26] LABS: Iron 37 ug/dL (37-170)
[2025-06-23 12:28] LABS: Alanine Aminotransferase 11 U/L (6-35); Albumin Level 3.8 g/dL (3.5-5.1); Alkaline Phosphatase 87 U/L (38-126); Anion Gap 8 mmol/L (4-12); Aspartate Amino Transferase 23 U/L (14-36); Bilirubin,Total 0.3 mg/dL (0.2-1.3); Blood Urea Nitrogen 8 mg/dL (7-17); Calcium 9.9 mg/dL (8.4-10.2); Carbon Dioxide 34 mmol/L (22-30); Chloride 101 mmol/L (98-107); Estimated Glomerular Filt Rate > 60; Glucose 94 mg/dL (65-110); Osmolality Calculated 294 mOsm/kg (285-295); Potassium 3.9 mmol/L (3.4-5.0); Sodium 143 mmol/L (137-145); Total Protein 8.9 g/dL (6.3-8.2)
[2025-06-23 12:35] LABS: Percent Iron Saturation 16 % (20-50)
[2025-06-23 13:17] LABS: Vitamin B12 475.0 pg/mL (239-931)
== END 2025-06-23 11:50 | disposition home or self-care (01) ==
PROVIDERS: PCP Internal Medicine; Visit Provider Internal Medicine Hematology
DX: C34.91 Malignant neoplasm of unspecified part of right bronchus or lung (principal)
CPT/HCPCS: 36415; 80053; 82607; 83540; 83550; 85025

== ENCOUNTER 2025-08-02 09:37 | Outpatient (CLI) | payer OTHER, SELFPAY ==
[2025-08-02 09:49] LABS: Hematocrit 32.6 % (35.0-42.0); Hemoglobin 9.6 g/dL (11.7-13.8); Immature Granulocyte Percent A 0.3 % (0.0-0.0); Lymphocytes Absolute Auto 0.95 K/mm3 (1.10-4.50); Mean Corpuscular HGB Conc 29.4 g/dL (32-36); Mean Corpuscular Hemoglobin 27.6 pg (27.0-31.0); Mean Corpuscular Volume 93.7 fL (78.0-102.0); Nucleated Red Blood Cells Absolute Auto 0.00 K/mm3 (0.00-0.00); Nucleated Red Blood Cells Perc 0.0 % (0-0.0); Platelet Count Result 302 K/mm3 (150-420); Red Blood Count 3.48 M/mm3 (4.20-5.40); White Blood Count 6.3 K/mm3 (4.8-10.8)
[2025-08-02 10:17] LABS: Alanine Aminotransferase 16 U/L (6-35); Albumin Level 3.7 g/dL (3.5-5.1); Alkaline Phosphatase 77 U/L (38-126); Anion Gap 9 mmol/L (4-12); Aspartate Amino Transferase 27 U/L (14-36); Bilirubin,Total 0.2 mg/dL (0.2-1.3); Blood Urea Nitrogen 13 mg/dL (7-17); Calcium 9.1 mg/dL (8.4-10.2); Carbon Dioxide 31 mmol/L (22-30); Chloride 100 mmol/L (98-107); Estimated Glomerular Filt Rate > 60; Glucose 142 mg/dL (65-110); Osmolality Calculated 292 mOsm/kg (285-295); Potassium 3.7 mmol/L (3.4-5.0); Sodium 140 mmol/L (137-145); Total Protein 7.3 g/dL (6.3-8.2)
== END 2025-08-02 09:38 | disposition home or self-care (01) ==
LOC: CHSLAB 09:38
PROVIDERS: PCP Internal Medicine; Visit Provider Internal Medicine Hematology
DX: C34.01 Malignant neoplasm of right main bronchus (principal)
CPT/HCPCS: 80053; 85025

== ENCOUNTER 2025-08-03 12:23 | Outpatient (CLI) | payer OTHER, SELFPAY ==
[2025-08-03 12:32] VITALS: BMI 23.8
[2025-08-03 12:33] VITALS: BP 134/78; PULSE 88; RESP 20; TEMP 36.8; O2SAT 92
[2025-08-03 12:34] VITALS: BMI 23.8
[2025-08-03] MEDS: FAMOTIDINE 20 MG/ISO 50 ML 20 MG/50 ML BAG 150 MG IVPB (13:00)
[2025-08-03] MEDS: ONDANSETRON INJ 16 MG, dexAMETHasone SOD 4 MG/ML INJ 12 MG in SODIUM CHLORIDE 0.9% IV 8... 300 MG IVPB (13:26)
[2025-08-03] MEDS: SODIUM CHLORIDE 0.9% IV 250 ML 10 ML IVPB (14:25)
--- NOTE | 2025-08-03 17:56 | PC.NURSE ---
MEDICATION RESPONSE: BENADRYL, ZOFRAN, PEPCID--NO ADVERSE REACTION
--- NOTE | 2025-08-03 18:00 | PC.NURSE ---
SPOKE WITH SONNY , NURSE AT [facility]. INFORM PT WILL BE READY 1819 FOR STAFF DIRECTOR OF PARKS AND RECREATION. VOICED UNDERSTANDING.
[2025-08-03] MEDS: HEPARIN SODIUM LOCK FLUSH 500 UNITS/5 ML SYRINGE IV PUSH (18:22)
[2025-08-03 18:30] VITALS: BP 130/76; PULSE 82; RESP 20; TEMP 36.7; O2SAT 93
--- NOTE | 2025-08-03 18:42 | PC.NURSE ---
1835 MEDICATION RESPONSE: HEPARIN, TAXOL, CARBOPLATIN, DECADRON--NO ADVERSE REACTION. 1841pt departed with [facility] staff via wheelchair. alert and stable. no complaints voiced. wallet and cell phone in right jacket pocket
== END 2025-08-03 18:41 | disposition home or self-care (01) ==
PROVIDERS: PCP Internal Medicine; Visit Provider Internal Medicine Hematology
DX: Z51.11 Encounter for antineoplastic chemotherapy (principal); C34.01 Malignant neoplasm of right main bronchus
CPT/HCPCS: 96367; 96375; 96413; 96415; 96417; J1100; J1200; J2405; J7050; J9045; J9267

== ENCOUNTER 2025-08-10 09:19 | Outpatient (CLI) | payer OTHER, SELFPAY ==
[2025-08-10 09:30] VITALS: BP 136/70; PULSE 72; RESP 16; TEMP 36.6; O2SAT 96; BMI 23.9
[2025-08-10 09:45] LABS: Hematocrit 31.7 % (35.0-42.0); Hemoglobin 9.6 g/dL (11.7-13.8); Immature Granulocyte Percent A 0.6 % (0.0-0.0); Lymphocytes Absolute Auto 0.90 K/mm3 (1.10-4.50); Mean Corpuscular HGB Conc 30.3 g/dL (32-36); Mean Corpuscular Hemoglobin 27.9 pg (27.0-31.0); Mean Corpuscular Volume 92.2 fL (78.0-102.0); Nucleated Red Blood Cells Absolute Auto 0.00 K/mm3 (0.00-0.00); Nucleated Red Blood Cells Perc 0.0 % (0-0.0); Platelet Count Result 267 K/mm3 (150-420); Red Blood Count 3.44 M/mm3 (4.20-5.40); White Blood Count 4.7 K/mm3 (4.8-10.8)
[2025-08-10] MEDS: SODIUM CHLORIDE 0.9% IV 250 ML 10 ML IVPB (09:45)
[2025-08-10 10:00] LABS: Alanine Aminotransferase 14 U/L (6-35); Albumin Level 3.6 g/dL (3.5-5.1); Alkaline Phosphatase 78 U/L (38-126); Anion Gap 6 mmol/L (4-12); Aspartate Amino Transferase 24 U/L (14-36); Bilirubin,Total 0.5 mg/dL (0.2-1.3); Blood Urea Nitrogen 15 mg/dL (7-17); Calcium 9.0 mg/dL (8.4-10.2); Carbon Dioxide 33 mmol/L (22-30); Chloride 100 mmol/L (98-107); Estimated Glomerular Filt Rate > 60; Glucose 98 mg/dL (65-110); Osmolality Calculated 288 mOsm/kg (285-295); Potassium 3.9 mmol/L (3.4-5.0); Sodium 139 mmol/L (137-145); Total Protein 7.0 g/dL (6.3-8.2)
[2025-08-10] MEDS: FAMOTIDINE 20 MG/ISO 50 ML 20 MG/50 ML BAG 150 MG IVPB (10:00)
[2025-08-10] MEDS: ONDANSETRON INJ 16 MG, dexAMETHasone SOD 4 MG/ML INJ 12 MG in SODIUM CHLORIDE 0.9% IV 8... 300 MG IVPB (10:20)
[2025-08-10] MEDS: HEPARIN SODIUM LOCK FLUSH 500 UNITS/5 ML SYRINGE IV PUSH (12:17)
[2025-08-10 12:32] VITALS: BP 129/76; PULSE 68; RESP 16; O2SAT 96
--- NOTE | 2025-08-10 12:33 | PC.NURSE ---
Patient tolerated chemo treatment well. SEE MAR/patient care notes. . [facility] staff educated on today's treatment.
--- NOTE | 2025-08-16 14:18 | PC.NURSE ---
08/10/2025 Stop time on Ondasteron and Dexamethason was 1041. Stop time on Paclitaxel was 11:45.
== END 2025-08-10 09:20 | disposition home or self-care (01) ==
PROVIDERS: PCP Internal Medicine; Visit Provider Internal Medicine Hematology
DX: Z51.11 Encounter for antineoplastic chemotherapy (principal); C34.01 Malignant neoplasm of right main bronchus
CPT/HCPCS: 36415; 36591; 80053; 85025; 96367; 96375; 96413; 96417; J1100; J1200; J2405; J7050; J9045; J9267

== ENCOUNTER 2025-08-18 08:02 | Outpatient (CLI) | payer OTHER, SELFPAY ==
--- NOTE | ~2025-08-18 | US_ITS ---
EXAMINATION: US venous doppler UE RT DATE: 08/18/2025 09:03 INDICATION: Right upper limb swelling TECHNIQUE: Grayscale images without and with compression and Doppler images of the bilateral upper extremity veins were obtained. COMPARISON: None. FINDINGS: Occlusive noncompressible thrombus with no internal vascular flow on color Doppler at the right internal jugular vein and right innominate vein. There is nonocclusive thrombus in the right subclavian vein with small amount of a aphasic flow on color Doppler suggesting drainage via collaterals. The right axillary vein, brachial vein, basilic vein, cephalic vein, radial vein, and ulnar vein are patent. IMPRESSION: 1. Nonocclusive thrombus in the right subclavian vein and occlusive thrombus in the right internal jugular and innominate veins. Teresa the nurse for Dr. Palmer was notified of these findings at 8:55 AM. Reviewed, dictated and finalized at location A. WPF DEVELOPER IMPRESSION: 1. Nonocclusive thrombus in the right subclavian vein and occlusive thrombus in the right internal jugular and innominate veins. Teresa the nurse for Dr. Angelica calvo was notified of these findings at 8:55 AM.
[2025-08-18 09:05] VITALS: BP 139/76; PULSE 88; RESP 16; TEMP 36.6; O2SAT 94; BMI 23.8
[2025-08-18 09:19] LABS: Hematocrit 31.3 % (35.0-42.0); Hemoglobin 9.5 g/dL (11.7-13.8); Mean Corpuscular HGB Conc 30.4 g/dL (32-36); Mean Corpuscular Hemoglobin 28.0 pg (27.0-31.0); Mean Corpuscular Volume 92.3 fL (78.0-102.0); Platelet Count Result 229 K/mm3 (150-420); Red Blood Count 3.39 M/mm3 (4.20-5.40); White Blood Count 3.2 K/mm3 (4.8-10.8)
[2025-08-18 09:39] LABS: Band Neutrophils Percent 1 % (0-6); Lymphocytes Absolute Manual 0.70 K/mm3 (1.1-4.5); Lymphocytes Percent Manual 22 % (18-44); Neutrophils Absolute Manual 2.20 K/mm3 (1.3-6.7); Neutrophils Percent Manual 68 % (46-73); Total Cells Counted 100
[2025-08-18 09:40] LABS: Monocytes Absolute Manual 0.28 K/mm3 (0.1-0.90); Monocytes Percent Manual 9 % (3-9)
[2025-08-18 09:42] LABS: Alanine Aminotransferase 13 U/L (6-35); Albumin Level 3.6 g/dL (3.5-5.1); Alkaline Phosphatase 87 U/L (38-126); Anion Gap 6 mmol/L (4-12); Aspartate Amino Transferase 28 U/L (14-36); Bilirubin,Total 0.4 mg/dL (0.2-1.3); Blood Urea Nitrogen 14 mg/dL (7-17); Calcium 8.9 mg/dL (8.4-10.2); Carbon Dioxide 30 mmol/L (22-30); Chloride 104 mmol/L (98-107); Estimated CRCL calculation 79 ml/min; Estimated Glomerular Filt Rate > 60; Glucose 99 mg/dL (65-110); Osmolality Calculated 290 mOsm/kg (285-295); Potassium 3.5 mmol/L (3.4-5.0); Sodium 140 mmol/L (137-145); Total Protein 6.8 g/dL (6.3-8.2)
--- NOTE | 2025-08-18 09:44 | PC.NURSE ---
Patient tolerated Bortezomib injection well. SEE MAR/patient care notes.
[2025-08-18] MEDS: SODIUM CHLORIDE 0.9% IV 250 ML 10 ML IVPB (09:45)
[2025-08-18] MEDS: ONDANSETRON INJ 16 MG, dexAMETHasone SOD 4 MG/ML INJ 12 MG in SODIUM CHLORIDE 0.9% IV 8... 300 MG IVPB (10:00)
[2025-08-18] MEDS: FAMOTIDINE 20 MG/ISO 50 ML 20 MG/50 ML BAG 100 MG IVPB (11:10)
[2025-08-18 13:30] VITALS: BP 123/76; PULSE 88; RESP 16; O2SAT 94
[2025-08-18] MEDS: HEPARIN SODIUM LOCK FLUSH 500 UNITS/5 ML SYRINGE IV PUSH (13:30)
--- NOTE | 2025-08-18 13:37 | PC.NURSE ---
Patient tolerated chemo treatment today well. SEE MAR/patient care notes.
== END 2025-08-18 08:03 | disposition home or self-care (01) ==
PROVIDERS: PCP Internal Medicine; Visit Provider Internal Medicine Hematology
DX: Z51.11 Encounter for antineoplastic chemotherapy (principal); C34.01 Malignant neoplasm of right main bronchus; M79.89 Other specified soft tissue disorders
CPT/HCPCS: 36415; 36591; 80053; 85025; 93971; 96367; 96375; 96413; 96417; J1100; J1200; J2405; J7050; J9045; J9267

== ENCOUNTER 2025-08-25 07:21 | Outpatient (CLI) | payer OTHER, SELFPAY ==
--- OUTSIDE RECORDS SUMMARY | 2025-08-23 14:00 | XMS_ITS | Encounter Summary ---
Author Organization [facility] Address [address] [place] [address] Care Team Providers Care Hire Car Driver Name Role Phone Aneesh Nath MD Primary Care Provider [phone] Encounter Details Date Type Department Care Team (Latest Contact Info) Description 08/23/2025 2:00 PM BOWLING FLOOR MANAGER - 08/23/2025 11:59 PM [facility] Hospital Encounter [facility] Radiation Oncology [facility] [address] [place] [address] Paresh Palomo MD [address] [place] [address] Discharge Disposition: Home or Self Care (Routine [...] as of this encounter Plan of Treatment Upcoming Encounters Date Type Department Care Team (Late st Contact Info) Description 08/25/2025 11:00 AM BOWLING FLOOR MANAGER Appointment [facility] Radiation Oncology - [place] [address] [place] [address] Paresh Palmoo MD [address] [place] [address] documented as of this encounter Visit Diagnoses Not on filedocumented in this encounter Care Teams Hire Car Driver Relationship Specialty Start Date End Date Aneesh Nath MD [address] [place] [address] PCP - General INTERNAL MEDICINE 07/28/18 documented as of this encounter
--- OUTSIDE RECORDS SUMMARY | 2025-08-24 14:00 | XMS_ITS | Encounter Summary ---
Author Organization [facility] Address [facility] [place] [address] Care Team Providers Care Charter Driver Name Role Phone Aneesh Nath MD Primary Care Provider [phone] Encounter Details Date Type Department Care Team (Late Contact Info) Description 08/24/2025 2:00 PM ENTERTAINER OR VARIETY ARTIST Hospital Encounter [facility] Radiation Oncology - [address] [address] Paresh Palomo MD [address] [place] [address] Social History Tobacco Use Types Packs/Day Years [...] Encounters Date Type Department Care Team (Late Contact Info) Description 08/25/2025 11:00 AM ENTERTAINER OR VARIETY ARTIST Appointment [facility] Radiation Oncology - [place] [address] [place] [address] Paresh Palomo MD [address] [place], [place] [id number] documented as of this encounter Visit Diagnoses Not on filedocumented in this encounter Care Teams Charter Driver Relationship Specialty Start Date End Date Aneesh Nath MD [address] [place] [address] PCP - General INTERNAL MEDICINE 07/28/18 documented as of this encounter
--- OUTSIDE RECORDS SUMMARY | 2025-08-25 07:27 | XMS_ITS | Clinical Summary ---
Author Organization [facility] Address [address] [place] [address] Care Team Providers Care Chief Digital Officer Name Role Phone Aneesh Nath MD Primary Care Provider [phone] Allergies No known active allergies Medications multivitamin [...] Noted Date Diagnosed Date Arthritis 07/28/2018 Stroke 06/30/2018 Encounters Date Type Department Care Team Description 08/24/2025 2:00 PM [facility] Hospital Encounter [facility] Radiation Oncology [address] [address] Paresh Palomo MD 08/23/2025 2:00 PM [facility] - 08/23/2025 11:59 PM [facility] Hospital Encounter [facility] [address] [address] Paresh Palomo MD Discharge Disposition: Home or Self Care (Routine Discharge) 08/23/2025 Travel 08/20/2025 1:10 PM LAYDOWN MACHINE OPERATOR - 08/20/2025 11:59 PM LAYDOWN MACHINE OPERATOR Hospital Encounter [address] [address] Paresh aPlomo MD Discharge Disposition: Home or Self Care (Routine Discharge) 08/19/2025 2:00 PM LAYDOWN MACHINE OPERATOR - 08/19/2025 11:59 PM LAYDOWN MACHINE OPERATOR Hospital Encounter [address] [address] Paresh Palomo MD Discharge Disposition: Home or Self Care (Routine Discharge) 08/19/2025 Travel 08/18/2025 1:00 PM LAYDOWN MACHINE OPERATOR - 08/18/2025 11:59 PM LAYDOWN MACHINE OPERATOR Hospital Encounter [address] [address] Paresh Palomo MD Discharge Disposition: Home or Self Care (Routine Discharge) 08/18/2025 Travel 08/17/2025 10:54 AM LAYDOWN MACHINE OPERATOR - 08/17/2025 11:59 PM LAYDOWN MACHINE OPERATOR Hospital Encounter [address] [address] Paresh Palomo MD Discharge Disposition: Home or Self Care (Routine Discharge) 08/17/2025 10:53 AM LAYDOWN MACHINE OPERATOR Hospital Encounter [address] [address] Paresh Palomo MD Discharge Disposition: Home or Self Care (Routine Discharge) 08/17/2025 Travel 08/13/2025 11:00 AM LAYDOWN MACHINE OPERATOR - 08/13/2025 11:59 PM LAYDOWN MACHINE OPERATOR Hospital Encounter [address] [address] Paresh Palomo MD Discharge Disposition: Home or Self Care (Routine Discharge) 08/13/2025 Travel 08/12/2025 10:53 AM LAYDOWN MACHINE OPERATOR - 08/12/2025 11:59 PM LAYDOWN MACHINE OPERATOR Hospital Encounter [address] [address] Paresh Palomo MD Discharge Disposition: Home or Self Care (Routine Discharge) 08/11/2025 2:00 PM LAYDOWN MACHINE OPERATOR - 08/11/2025 11:59 PM LAYDOWN MACHINE OPERATOR Hospital Encounter [address] [address] Paresh Palomo MD Discharge Disposition: Home or Self Care (Routine Discharge) 08/11/2025 Travel 08/04/2025 11:00 AM LAYDOWN MACHINE OPERATOR - 08/04/2025 11:59 PM LAYDOWN MACHINE OPERATOR Hospital Encounter [address] [address] Paresh Palomo MD Discharge Disposition: Home or Self Care (Routine Discharge) 08/03/2025 11:00 AM LAYDOWN MACHINE OPERATOR - 08/03/2025 11:59 PM LAYDOWN MACHINE OPERATOR Hospital Encounter [address] [address] Paresh Palomo MD Discharge Disposition: Home or Self Care (Routine Discharge) 08/03/2025 Travel 08/02/2025 10:12 AM LAYDOWN MACHINE OPERATOR - 08/02/2025 11:59 PM LAYDOWN MACHINE OPERATOR Hospital Encounter [address] [address] Paresh Palomo MD Discharge Disposition: Home or Self Care (Routine Discharge) 08/02/2025 Travel 07/21/2025 2:00 PM LAYDOWN MACHINE OPERATOR - 07/21/2025 11:59 PM LAYDOWN MACHINE OPERATOR Hospital Encounter [address] [address] Paresh Palomo MD Discharge Disposition: Home or Self Care (Routine Discharge) 07/21/2025 1:39 PM LAYDOWN MACHINE OPERATOR - 07/21/2025 1:59 PM LAYDOWN MACHINE OPERATOR Hospital Encounter [place] [facility] [address] [facility] [address] Paresh Palomo MD Discharge Disposition: Home or Self Care (Routine Discharge) 07/21/2025 12:40 PM LAYDOWN MACHINE OPERATOR - 07/21/2025 1:38 PM LAYDOWN MACHINE OPERATOR Hospital Encounter [facility] [address] [address] Paresh Palomo MD Discharge Disposition: Home or Self Care (Routine Discharge) 07/21/2025 Travel 06/22/2025 Orders Only [facility] Radiation [address] [address] Paresh Palomo MD 06/14/2025 1:23 PM CDT - 06/14/2025 11:59 PM CDT Hospital Encounter [address] [address] Paresh Palomo MD Discharge Disposition: Home or Self Care (Routine Discharge) 06/14/2025 Travel from Last 3 Months Immunizations Immunization [...] Comments Blood Pressure 132/78 07/28/2018 10:33 AM LAYDOWN MACHINE OPERATOR Pulse 74 07/28/2018 10:33 AM LAYDOWN MACHINE OPERATOR Temperature 36.6 C (97.9 F) 07/04/2018 7:44 AM CDT Respiratory Rate 18 07/04/2018 7:44 AM CDT Oxygen Saturation 91% 07/04/2018 7:44 AM CDT Inhaled Oxygen Concentration - - Weight 88.5 kg (195 lb) 07/28/2018 10:33 AM LAYDOWN MACHINE OPERATOR Height 162.6 cm (5' 4) 07/28/2018 10:33 AM LAYDOWN MACHINE OPERATOR Body Mass Index 33.47 07/28/2018 10:33 AM LAYDOWN MACHINE OPERATOR Plan of Treatment Upcoming Encounters Date Type Department Care Team (Late st Contact Info) Description 08/25/2025 11:00 AM LAYDOWN MACHINE OPERATOR Appointment [facility] - [place] [address] [place] [address] Paresh Palomo MD [address] [place] [address] Health Maintenance Due Date Last Done Comments COVID-19 Vaccine (#1) 1950 DTaP, Tdap and Td Vaccines ( 1 - Tdap) 1963 Zoster Vaccines (1 of 2) 1964 Annual Medicare Wellness Visit 2009 Dexa Scan (General) 2009 Pneumococcal Vaccine: 50+ Ye ars (2 of 2 - PCV) 07/01/2019 07/01/2018 RSV Immunization or 60+ Years (1 - 1-dose 75+ series) 2019 PHQ-2 (Physician [place]) 09/09/2024 Influenza Adult (#1) 2025 07/01/2018 Hepatitis A Vaccines Aged Out No long er eligible based on patient's age to complete this topic Meningococcal B Vaccine Aged Out No l onger eligible based on patient's age to complete this topic Meningococcal Vaccine Aged Out No mark andrew eligible based on patient's age to complete this topic RSV Immunizations Under 20 Months Aged Out No longer eligible based on patient's age to complete this topic Procedures Procedure Name Priority Date/Time Associated Diagnosis Comments CT RAD THRPY PLAN W CON Routine 07/21/2025 2:16 PM LAYDOWN MACHINE OPERATOR Malignant neoplasm of right upper lobe of lung (CMS/HCC HHS/HCC) from Last 3 Months Results * CT RAD THRPY PLAN W CON (07/21/2025 2:16 PM LAYDOWN MACHINE OPERATOR) Anatomical Region Laterality Modality Undefined Computed Tomogra phy 07/26/2025 10:4 1 AM LAYDOWN MACHINE OPERATOR Impressions 07/26/2025 10:48 AM LAYDOWN MACHINE OPERATOR IMPRESSION: CT RAD THRPY PLAN W CON. Ordered By: PARESH PALOMO Interpreted By: Melchor Raines MD, 07/26/2025 10:41 AM Narrative 07/26/2025 10:48 AM LAYDOWN MACHINE OPERATOR [facility] [address] [place] [address] Examination: CT RAD THRPY PLAN W CON Exam time: 07/21/2025 1:59 PM Indication: right lung cancer, three phase with contrast for rad therapy planning Comparison: 05/17/2025 Technique: CT rad therapy study with IV contrast. isovue 370 100ml. A dose lowering technique was used for this procedure, which may include, but is not limited to, dose reduction technique, automated exposure control, the use of iterative reconstruction, and ALARA (As Low As Reasonably Achievable) / Image Gently techniques. Findings: Right upper lobe lung cancer measuring 8 cm transverse by 7.5 cm AP, not grossly changed from 05/17/2025. Right-sided malignant pleural effusion with 4 cm AP measurement. Malignant adenopathy right paratracheal and right supraclavicular, grossly unchanged. Right supraclavicular with tumor surrounding the IV catheter of the port device as well as obliterating the subclavian vein and thrombosed internal jugular vein. Tumor surrounds and touches common carotid and subclavian arteries. Compression on the SVC. Compression on the pulmonary vessels. Obstructed right upper lobe bronchi and part of the right middle lobe bronchi. COPD with scarring. Small groundglass change and mosaic aeration in the remaining lobes. No aortic dissection. Arterial calcifications. No pulmonary artery embolism. Coronary artery disease. Thin pericardial effusion. Small low densities in the liver. Adrenal thickening bilaterally. Gallstones. Osteoporosis, degenerative arthritis, spondylosis. Small left shoulder joint effusion. Procedure Note Melchor Raines MD - 07/26/2025 [facility] [address] [place] [address] Examination: CT RAD THRPY PLAN W CON Exam time: 07/21/2025 1:59 PM Indication: right lung cancer, three phase with contrast for rad therapyplanning Comparison: 05/17/2025 Technique: CT rad therapy study with IV contrast. isovue 370 100ml. Adose lowering technique was used for this procedure, which may include,but is not limited to, dose reduction technique, automated exposurecontrol, the use of iterative reconstruction, and ALARA (As Low AsReasonably Achievable) / Image Gently techniques. Findings: Right upper lobe lung cancer measuring 8 cm transverse by 7.5 cm AP, notgrossly changed from 05/17/2025. Right-sided malignant pleural effusion with4 cm AP measurement. Malignant adenopathy right paratracheal and rightsupraclavicular, grossly unchanged. Right supraclavicular with tumorsurrounding the IV catheter of the port device as well as obliterating thesubclavian vein and thrombosed internal jugular vein. Tumor surrounds andtouches common carotid and subclavian arteries. Compression on the SVC.Compression on the pulmonary vessels. Obstructed right upper lobe bronchiand part of the right middle lobe bronchi. COPD with scarring. Smallgroundglass change and mosaic aeration in the remaining lobes. No aorticdissection. Arterial calcifications. No pulmonary artery embolism.Coronary artery disease. Thin pericardial effusion. Small low densities inthe liver. Adrenal thickening bilaterally. Gallstones. Osteoporosis,degenerative arthritis, spondylosis. Small left shoulder joint effusion. IMPRESSION: CT RAD THRPY PLAN W CON. Ordered By: PARESH PALOMO Interpreted By: Melchor Raines MD, 07/26/2025 10:41 AM us Paresh Palomo MD CT Final Result from Last 3 Months Insurance [employer] [facility] [place] [address] Care Teams Chief Digital Officer Relationship Specialty Start Date End Date Aneesh Nath MD [address] [place] [address] PCP - General INTERNAL MEDICINE 07/28/18
--- OUTSIDE RECORDS SUMMARY | 2025-08-25 07:27 | XMS_ITS | Encounter Summary ---
Author Organization [facility] Address Critical access hospital[address] [place] [address] Care Team Providers Care Toucher Up Name Role Phone Aneesh Nath MD Primary Care Provider [phone] Encounter Details Date Type Department Care Team (Late Contact Info) Description 06/22/2025 Orders Only [facility] [address] [place] [address] Paresh Palomo MD [address] [place] [address] Social History Tobacco Use Types Packs/Day Years [...] (Late Contact Info) Description 08/25/2025 11:00 AM MACHINE TANK OPERATOR Appointment [facility] [address] [place] [address] Paresh Palomo MD [address] [place] [address] documented as of this encounter Visit Diagnoses Not on filedocumented in this encounter Care Teams Toucher Up Relationship Specialty Start Date End Date Aneesh Nath MD [address] [place] [address] PCP - General INTERNAL MEDICINE 07/28/18 documented as of this encounter
--- OUTSIDE RECORDS SUMMARY | 2025-08-25 07:27 | XMS_ITS | Encounter Summary ---
Author Organization [facility] Address [address] [place] [address] Care Team Providers Care Water Meter Reader Name Role Phone Aneesh Nath MD Primary Care Provider [phone] Encounter Details Date Type Department Care Team (Late Contact Info) Description 07/24/2018 Abstract [facility] Neuroscience [facility] [address] [address] Andreea Salinas MD [address] [place] [id number] Social History Tobacco Use Types Packs/Day Years [...] (Late Contact Info) Description 08/25/2025 11:00 AM TECHNICAL SERVICE REPRESENTATIVE Appointment [facility] Radiation Oncology [address] [place] [address] Paresh Palomo MD [address] [place] [address] documented as of this encounter Visit Diagnoses Not on filedocumented in this encounter Care Teams Water Meter Reader Relationship Specialty Start Date End Date Aneesh Nath MD [address] [place] [address] PCP - General INTERNAL MEDICINE 07/28/18 documented as of this encounter
[2025-08-25 08:19] LABS: Hematocrit 30.3 % (35.0-42.0); Hemoglobin 9.1 g/dL (11.7-13.8); Mean Corpuscular HGB Conc 30.0 g/dL (32-36); Mean Corpuscular Hemoglobin 28.3 pg (27.0-31.0); Mean Corpuscular Volume 94.1 fL (78.0-102.0); Platelet Count Result 256 K/mm3 (150-420); Red Blood Count 3.22 M/mm3 (4.20-5.40); White Blood Count 3.6 K/mm3 (4.8-10.8)
[2025-08-25 08:39] LABS: Alanine Aminotransferase 12 U/L (6-35); Albumin Level 2.8 g/dL (3.5-5.1); Alkaline Phosphatase 85 U/L (38-126); Anion Gap 4 mmol/L (4-12); Aspartate Amino Transferase 17 U/L (14-36); Bilirubin,Total 0.2 mg/dL (0.2-1.3); Blood Urea Nitrogen 14 mg/dL (7-17); Calcium 8.4 mg/dL (8.4-10.2); Carbon Dioxide 32 mmol/L (22-30); Chloride 103 mmol/L (98-107); Estimated Glomerular Filt Rate > 60; Glucose 84 mg/dL (65-110); Osmolality Calculated 287 mOsm/kg (285-295); Potassium 3.9 mmol/L (3.4-5.0); Sodium 139 mmol/L (137-145); Total Protein 5.4 g/dL (6.3-8.2)
[2025-08-25 08:54] LABS: Band Neutrophils Percent 0 % (0-6); Basophils Absolute Manual 0.03 K/mm3 (0-0.1); Basophils Percent Manual 1 % (0-1); Eosinophils Absolute Manual 0.03 K/mm3 (0.02-0.50); Eosinophils Percent Manual 1 % (1-6); Lymphocytes Absolute Manual 0.82 K/mm3 (1.1-4.5); Lymphocytes Percent Manual 23 % (18-44); Monocytes Absolute Manual 0.46 K/mm3 (0.1-0.90); Monocytes Percent Manual 13 % (3-9); Neutrophils Absolute Manual 2.62 K/mm3 (1.3-6.7); Neutrophils Percent Manual 73 % (46-73)
[2025-08-25 12:00] VITALS: BP 114/69; PULSE 80; RESP 14; TEMP 36.6; O2SAT 94; BMI 23.8
[2025-08-25] MEDS: SODIUM CHLORIDE 0.9% IV 250 ML 10 ML IVPB (12:05)
[2025-08-25] MEDS: FAMOTIDINE 20 MG/ISO 50 ML 20 MG/50 ML BAG 150 MG IVPB (12:10)
[2025-08-25] MEDS: ONDANSETRON INJ 16 MG, dexAMETHasone SOD 4 MG/ML INJ 12 MG in SODIUM CHLORIDE 0.9% IV 8... 300 MG IVPB (12:31)
[2025-08-25] MEDS: HEPARIN SODIUM LOCK FLUSH 500 UNITS/5 ML SYRINGE IV PUSH (14:24)
--- NOTE | 2025-08-25 14:24 | PC.NURSE ---
Patient tolerated cycle 4 Taxol/Carbo chemo treatment well. SEE MAR/patient care notes
[2025-08-25 14:25] VITALS: BP 122/68; PULSE 88; RESP 16; TEMP 36.6; O2SAT 94
== END 2025-08-25 07:22 | disposition home or self-care (01) ==
PROVIDERS: PCP Internal Medicine; Visit Provider Internal Medicine Hematology
DX: Z51.11 Encounter for antineoplastic chemotherapy (principal); C34.01 Malignant neoplasm of right main bronchus
CPT/HCPCS: 36415; 80053; 85025; 96367; 96375; 96413; 96417; J1100; J1200; J2405; J7050; J9045; J9267

== ENCOUNTER 2025-08-30 13:03 | Outpatient (CLI) | payer OTHER, SELFPAY ==
--- NOTE | ~2025-08-30 | XR_ITS ---
XR abdomen/kub 1V 08/30/2025 13:36 Indication: Abdominal pain. Cancer patient. Procedure: KUB Comparison: No prior studies for comparison. Findings: There is fecal impaction of the rectum with moderate distention of the distal colon. There are gallstones. 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 There is a right pleural effusion with right basilar airspace disease. There is levoscoliosis of the lumbar spine. Osteopenia. Impression: 1: Fecal impaction of the rectum likely causing mild colonic obstruction. 2: Cholelithiasis. 3: Right basilar airspace disease may represent atelectasis and/or pneumonia. 4: Right pleural effusion. Reviewed, dictated and finalized at location [facility] [address] [facility] Impression: 1: Fecal impaction of the rectum likely causing mild colonic obstruction. 2: Cholelithiasis. 3: Right basilar airspace disease may represent atelectasis and/or pneumonia. 4: Right pleural effusion.
--- OUTSIDE RECORDS SUMMARY | 2025-08-30 14:49 | XMS_ITS | Encounter Summary ---
Author Organization [facility] Address [facility] [place] [address] Care Team Providers Care Fabric Designer Name Role Phone Aneesh Nath MD Primary Care Provider [phone] Encounter Details Date Type Department Care Team (Late st Contact Info) Description 06/22/2025 Orders Only [facility] Radiation Oncology - [place] [address] [place] [address] Paresh Palomo MD [address] [place] [address] Social History Tobacco Use Types Packs/Day Years [...] on filedocumented in this encounter Care Teams Fabric Designer Relationship Specialty Start Date End Date Aneesh Nath MD [address] [place] [address] PCP - General INTERNAL MEDICINE 07/28/18 documented as of this encounter
--- OUTSIDE RECORDS SUMMARY | 2025-08-30 14:49 | XMS_ITS | Clinical Summary ---
Author Organization [facility] Address [address] [place] [address] Care Team Providers Care Paper Production Engineer Name Role Phone Aneesh Nath MD Primary Care Provider [phone] Allergies No known active allergies Medications multivitamin [...] Encounters Date Type Department Care Team Description 08/27/2025 11:00 AM SODA DRY HOUSE OPERATOR - 08/27/2025 11:59 PM [facility] Hospital Encounter [facility] Radiation Oncology [address] [address] Paresh Palomo MD Discharge Disposition: Home or Self Care (Routine Discharge) 08/26/2025 11:06 AM SODA DRY HOUSE OPERATOR - 08/26/2025 11:59 PM [facility] Hospital Encounter [facility] Radiation [address] [address] Paresh Palomo MD Discharge Disposition: Home or Self Care (Routine Discharge) 08/26/2025 11:00 AM SODA DRY HOUSE OPERATOR - 08/26/2025 11:05 AM SODA DRY HOUSE OPERATOR Hospital Encounter [address] [address] Paresh Palomo MD Discharge Disposition: Home or Self Care (Routine Discharge) 08/26/2025 Travel 08/25/2025 10:28 AM SODA DRY HOUSE OPERATOR - 08/25/2025 11:59 PM SODA DRY HOUSE OPERATOR Hospital Encounter [address] [address] Paresh Palomo MD Discharge Disposition: Home or Self Care (Routine Discharge) 08/25/2025 Travel 08/24/2025 2:00 PM SODA DRY HOUSE OPERATOR - 08/24/2025 11:59 PM SODA DRY HOUSE OPERATOR Hospital Encounter [address] [address] Paresh Palomo MD Discharge Disposition: Home or Self Care (Routine Discharge) 08/23/2025 2:00 PM SODA DRY HOUSE OPERATOR - 08/23/2025 11:59 PM SODA DRY HOUSE OPERATOR Hospital Encounter [address] [address] Paresh Palomo MD Discharge Disposition: Home or Self Care (Routine Discharge) 08/23/2025 Travel 08/20/2025 1:10 PM SODA DRY HOUSE OPERATOR - 08/20/2025 11:59 PM SODA DRY HOUSE OPERATOR Hospital Encounter [address] [address] Paresh Palomo MD Discharge Disposition: Home or Self Care (Routine Discharge) 08/19/2025 2:00 PM SODA DRY HOUSE OPERATOR - 08/19/2025 11:59 PM SODA DRY HOUSE OPERATOR Hospital Encounter [address] [address] Paresh Palomo MD Discharge Disposition: Home or Self Care (Routine Discharge) 08/19/2025 Travel 08/18/2025 1:00 PM SODA DRY HOUSE OPERATOR - 08/18/2025 11:59 PM SODA DRY HOUSE OPERATOR Hospital Encounter [facility] Radiation Oncology [address] [address] Paresh Palomo MD Discharge Disposition: Home or Self Care (Routine Discharge) 08/18/2025 Travel 08/17/2025 10:54 AM SODA DRY HOUSE OPERATOR - 08/17/2025 11:59 PM SODA DRY HOUSE OPERATOR Hospital Encounter [address] [address] Paresh Palomo MD Discharge Disposition: Home or Self Care (Routine Discharge) 08/17/2025 10:53 AM SODA DRY HOUSE OPERATOR Hospital Encounter [address] [address] Paresh Palomo MD Discharge Disposition: Home or Self Care (Routine Discharge) 08/17/2025 Travel 08/13/2025 11:00 AM SODA DRY HOUSE OPERATOR - 08/13/2025 11:59 PM SODA DRY HOUSE OPERATOR Hospital Encounter [address] [address] Paresh Palomo MD Discharge Disposition: Home or Self Care (Routine Discharge) 08/13/2025 Travel 08/12/2025 10:53 AM SODA DRY HOUSE OPERATOR - 08/12/2025 11:59 PM SODA DRY HOUSE OPERATOR Hospital Encounter [facility] Radiation [address] [address] Paresh Palomo MD Discharge Disposition: Home or Self Care (Routine Discharge) 08/11/2025 2:00 PM SODA DRY HOUSE OPERATOR - 08/11/2025 11:59 PM SODA DRY HOUSE OPERATOR Hospital Encounter [address] [address] Paresh Palomo MD Discharge Disposition: Home or Self Care (Routine Discharge) 08/11/2025 Travel 08/04/2025 11:00 AM SODA DRY HOUSE OPERATOR - 08/04/2025 11:59 PM SODA DRY HOUSE OPERATOR Hospital Encounter [facility] Radiation [address] [address] Paresh Palomo MD Discharge Disposition: Home or Self Care (Routine Discharge) 08/03/2025 11:00 AM SODA DRY HOUSE OPERATOR - 08/03/2025 11:59 PM SODA DRY HOUSE OPERATOR Hospital Encounter [address] [address] Paresh Palomo MD Discharge Disposition: Home or Self Care (Routine Discharge) 08/03/2025 Travel 08/02/2025 10:12 AM SODA DRY HOUSE OPERATOR - 08/02/2025 11:59 PM SODA DRY HOUSE OPERATOR Hospital Encounter [address] [address] Paresh Palomo MD Discharge Disposition: Home or Self Care (Routine Discharge) 08/02/2025 Travel 07/21/2025 2:00 PM SODA DRY HOUSE OPERATOR - 07/21/2025 11:59 PM SODA DRY HOUSE OPERATOR Hospital Encounter [address] [address] Paresh Palomo MD Discharge Disposition: Home or Self Care (Routine Discharge) 07/21/2025 1:39 PM SODA DRY HOUSE OPERATOR - 07/21/2025 1:59 PM SODA DRY HOUSE OPERATOR Hospital Encounter [facility] [address] [place] [address] Paresh Palomo MD Discharge Disposition: Home or Self Care (Routine Discharge) 07/21/2025 12:40 PM SODA DRY HOUSE OPERATOR - 07/21/2025 1:38 PM SODA DRY HOUSE OPERATOR Hospital Encounter [address] [address] Paresh Palomo MD Discharge Disposition: Home or Self Care (Routine Discharge) 07/21/2025 Travel 06/22/2025 Orders Only [address] [address] Paresh Palomo MD 06/14/2025 1:23 PM CDT - 06/14/2025 11:59 PM CDT Hospital Encounter [address] [place] [address] Paresh Palomo MD Discharge Disposition: Home or [...] Comments Blood Pressure 132/78 07/28/2018 10:33 AM SODA DRY HOUSE OPERATOR Pulse 74 07/28/2018 10:33 AM SODA DRY HOUSE OPERATOR Temperature 36.6 C (97.9 F) 07/04/2018 7:44 AM CDT Respiratory Rate 18 07/04/2018 7:44 AM CDT Oxygen Saturation 91% 07/04/2018 7:44 AM CDT Inhaled Oxygen Concentration - - Weight 88.5 kg (195 lb) 07/28/2018 10:33 AM SODA DRY HOUSE OPERATOR Height 162.6 cm (5' 4) 07/28/2018 10:33 AM SODA DRY HOUSE OPERATOR Body Mass Index 33.47 07/28/2018 10:33 AM SODA DRY HOUSE OPERATOR Plan of Treatment Health Maintenance Due Date [...] - 1-dose 75+ series) 2019 PHQ-2 (Physician [place]) 09/09/2024 Influenza Adult (#1) 2025 07/01/2018 Hepatitis [...] PLAN W CON Routine 07/21/2025 2:16 PM SODA DRY HOUSE OPERATOR Malignant neoplasm of right upper lobe of lung (CMS/HCC HHS/HCC) from Last 3 Months Results * CT RAD THRPY PLAN W CON (07/21/2025 2:16 PM SODA DRY HOUSE OPERATOR) Anatomical Region Laterality Modality Undefined Computed Tomogra phy 07/26/2025 10:4 1 AM SODA DRY HOUSE OPERATOR Impressions 07/26/2025 10:48 AM SODA DRY HOUSE OPERATOR IMPRESSION: CT RAD THRPY PLAN W CON. Ordered By: PARESH PALOMO Interpreted By: Melchor Raines MD, 07/26/2025 10:41 AM Narrative 07/26/2025 10:48 AM SODA DRY HOUSE OPERATOR [address] [place] [address] Examination: CT RAD THRPY PLAN W CON [...] Procedure Note Melchor Raines MD - 07/26/2025 [place] [address] [place] [address] Examination: CT RAD THRPY PLAN W CON [...] By: Melchor Raines MD, 07/26/2025 10:41 AM Paresh Palomo MD CT Final Result from Last 3 Months Insurance [facility] Member Subscriber Plan / Payer (Ef fective 2018-Present) Name:Bea Castro Relation to Subscriber:Self Name:Bea Castro Payer ID:Not on file Group ID:Not on file Type:Jennifer Address: [address] Care Teams Paper Production Engineer Relationship Specialty Start Date End Date Aneesh Nath MD [address] [place] [address] PCP - General INTERNAL MEDICINE 07/28/18
--- OUTSIDE RECORDS SUMMARY | 2025-08-30 14:49 | XMS_ITS | Encounter Summary ---
Author Organization [facility] Address [address] [place] [address] Care Team Providers Care Animal Science Professor Name Role Phone Aneesh Nath MD Primary Care Provider [phone] Encounter Details Date Type Department Care Team (Late st Contact Info) Description 07/24/2018 Abstract [facility] Neuroscience [facility] [address] [place] [address] Andreea Salinas MD [address] [place] [id number] Social History Tobacco Use Types Packs/Day Years [...] on filedocumented in this encounter Care Teams Animal Science Professor Relationship Specialty Start Date End Date Aneesh Nath MD [address] [place] [address] PCP - General INTERNAL MEDICINE 07/28/18 documented as of this encounter
== END 2025-08-30 13:04 | disposition home or self-care (01) ==
LOC: CHSIMG 13:06
PROVIDERS: PCP Internal Medicine; Visit Provider Internal Medicine
DX: K56.41 Fecal impaction (principal); K80.20 Calculus of gallbladder without cholecystitis without obstruction; R91.8 Other nonspecific abnormal finding of lung field; J90 Pleural effusion, not elsewhere classified
CPT/HCPCS: 74018

== ENCOUNTER 2025-09-01 07:35 | Outpatient (NON) | payer OTHER, SELFPAY ==
[2025-09-01 07:48] LABS: Hematocrit 31.3 % (35.0-42.0); Hemoglobin 9.4 g/dL (11.7-13.8); Immature Granulocyte Percent A 0.4 % (0.0-0.0); Lymphocytes Absolute Auto 0.46 K/mm3 (1.10-4.50); Mean Corpuscular HGB Conc 30.0 g/dL (32-36); Mean Corpuscular Hemoglobin 28.4 pg (27.0-31.0); Mean Corpuscular Volume 94.6 fL (78.0-102.0); Nucleated Red Blood Cells Absolute Auto 0.00 K/mm3 (0.00-0.00); Nucleated Red Blood Cells Perc 0.0 % (0-0.0); Platelet Count Result 205 K/mm3 (150-420); Red Blood Count 3.31 M/mm3 (4.20-5.40); White Blood Count 5.0 K/mm3 (4.8-10.8)
[2025-09-01 08:04] LABS: Alanine Aminotransferase 12 U/L (6-35); Albumin Level 2.9 g/dL (3.5-5.1); Alkaline Phosphatase 75 U/L (38-126); Anion Gap 6 mmol/L (4-12); Aspartate Amino Transferase 23 U/L (14-36); Bilirubin,Total 0.2 mg/dL (0.2-1.3); Blood Urea Nitrogen 17 mg/dL (7-17); Calcium 8.4 mg/dL (8.4-10.2); Carbon Dioxide 29 mmol/L (22-30); Chloride 104 mmol/L (98-107); Estimated Glomerular Filt Rate > 60; Glucose 82 mg/dL (65-110); Osmolality Calculated 288 mOsm/kg (285-295); Potassium 4.0 mmol/L (3.4-5.0); Sodium 139 mmol/L (137-145); Total Protein 5.6 g/dL (6.3-8.2)
== END 2025-09-01 07:36 | disposition home or self-care (01) ==
LOC: CHSLAB 07:37
PROVIDERS: Visit Provider Internal Medicine Hematology
DX: C34.11 Malignant neoplasm of upper lobe, right bronchus or lung (principal)
CPT/HCPCS: 36415; 80053; 85025

== ENCOUNTER 2025-09-02 11:44 | Observation (INO) | payer OTHER, SELFPAY ==
[2025-09-02] VITALS (19 sets, daily range): BP systolic 100–166; BP diastolic 74–94; PULSE 90–103; RESP 16–18; TEMP 36.1–36.3; O2SAT 88–94; BMI 23.1
--- NOTE | ~2025-09-02 | CT_ITS ---
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 TECHNIQUE: Computed tomography (CT) of the chest, abdomen, and pelvis was performed without intravenous contrast. The dose-length product was 705.54 mGy- cm. Automated exposure control and iterative reconstruction technique were employed. COMPARISON: CT dated 04/27/2025 FINDINGS: CHEST CT: Abnormal soft tissue involving right main stem bronchus with extension into the right upper and lower lobe segmental and subsegmental bronchi, resulting in near complete collapse of the right lung. Moderate right pleural effusion. No pneumothorax. Left lung is unremarkable. Mild thoracic spondylosis. ABDOMEN/PELVIS CT: Cholelithiasis with moderately distended gallbladder. Nonobstructing right nephrolithiasis. Right adrenal myelolipoma. Nonobstructive bowel gas pattern. No free air or free fluid. Moderate lumbar spondylosis with levoscoliosis. Moderate bilateral hip osteoarthritis. IMPRESSION: 1. Abnormal soft tissue involving the right mainstem bronchus with distal bronchial involvement, causing near-complete collapse of the right lung and associated moderate right pleural effusion-highly suspicious for obstructing endobronchial malignancy. Inflammatory or infectious endobronchial process less likely. Recommend pulmonology consultation with bronchoscopy for tissue sampling. Consider correlation with pet/CT scan. Consider thoracentesis for diagnostic purposes. 2: Cholelithiasis with gallbladder distention. Correlate clinically for cholecystitis. Reviewed, dictated and finalized at location O. NG UP SUPERVISOR IMPRESSION: 1. Abnormal soft tissue involving the right mainstem bronchus with distal bronc hial involvement, causing near-complete collapse of the right lung and associat ed moderate right pleural effusion-highly suspicious for obstructing endobronch ial malignancy. Inflammatory or infectious endobronchial process less likely. R ecommend pulmonology consultation with bronchoscopy for tissue sampling. Consid er correlation with pet/CT scan. Consider thoracentesis for diagnostic purposes . 2: Cholelithiasis with gallbladder distention. Correlate clinically for cholecy stitis.
--- NOTE | 2025-09-02 11:54 | ED.GENADULT ---
HPI - General Adult General Chief complaint: Unspecified Stated complaint: shortness of breath Time Seen by Provider: 09/02/25 11:46 History of Present Illness HPI narrative: Bea is an 79F with a PMH of CVA, HTN, GERD, Bronchogenic carcinoma that presented to the ED from [facility]. She has been battling lung cancer for 2 years, but she has felt very down the last couple weeks. She reports being weak, having pain all over and being more confused. Staff also believed her oxygen was about 88. Related Data Home Medications ?Medication ?Instructions ?Recorded ?Confirmed ?Last Taken ?Type amlodipine 5 mg tablet 5 mg PO DAILY 11/23/20 09/02/25 Unknown History aspirin 81 mg tablet 81 mg PO DAILY 11/23/20 09/02/25 Unknown History atorvastatin 40 mg tablet 40 mg PO HS 11/23/20 09/02/25 Unknown History bisacodyl 5 mg tablet,delayed 10 mg PO DAILY PRN Constipation 11/23/20 09/02/25 Unknown History release fluticasone propionate 50 2 spray intranasal DAILY 11/23/20 09/02/25 03/29/25 History mcg/actuation nasal spray,suspension acetaminophen 500 mg capsule 500 mg PO Q8H PRN pain (scale 12/16/20 09/02/25 Unknown History score 1-3) docusate sodium 100 mg capsule 100 mg PO BID 12/16/20 09/02/25 Unknown History multivitamin 1 tablet PO DAILY 12/16/20 09/02/25 Unknown History escitalopram oxalate 10 mg tablet 10 mg PO QAM 11/27/22 09/02/25 03/29/25 History (Lexapro) aluminum-mag hydroxide-simethicone 30 ml PO Q6H PRN Indigestion 10/31/23 09/02/25 Unknown History 200 mg-200 mg-20 mg/5 mL oral susp carboxymethylcellulose sodium 1 % 1 drp EACH EYE BID 10/31/23 09/02/25 Unknown History eye drops (Artificial Tears (carboxymethylcellulose)) apixaban 5 mg tablet (Eliquis) 5 mg PO BID 08/25/25 09/02/25 08/25/25 History hydrocodone 5 mg-acetaminophen 325 1 tablet PO Q6H PRN pain (scale 09/02/25 09/02/25 Unknown History mg tablet score 4-6) linzess 145 mcg BYMOUTH DAILY constipation 09/02/25 09/02/25 Unknown History magnesium hydroxide 400 mg/5 mL 1,200 mg PO DAILY PRN constipation 09/02/25 09/02/25 Unknown History oral suspension (Milk of Magnesia) tramadol 50 mg tablet 50 mg PO Q4H PRN pain 09/02/25 09/02/25 Unknown History triamcinolone acetonide 0.1 % 1 applic topical BID 09/02/25 09/02/25 Unknown History topical cream Allergies Allergy/AdvReac Type Severity Reaction Status Date / Time codeine Allergy Mild Unknown Verified 09/02/25 14:13 Iodinated Contrast Media Allergy Mild Unknown Verified 09/02/25 14:13 Sulfa (Sulfonamide Allergy Mild Unknown Verified 09/02/25 14:13 Antibiotics) Review of Systems Review of Systems: All systems reviewed & are unremarkable except as noted in HPI and below PMFSH Past Medical History Medical History Chest pain CVA (cerebral vascular accident) Dementia in other diseases classified elsewhere without behavioral disturbance Dysthymic HTN (hypertension) Impacted cerumen, right ear Impaired fasting glucose Inconclusive mammogram Mixed hyperlipidemia Primary generalized hypertrophic osteoarthrosis Pyelonephritis Renal insufficiency Spastic hemiplegia affecting right dominant side Surgical History Surgical History History of bladder surgery Family History Family History Mother Diabetes mellitus Father Smoker Cerebrovascular accident Alcoholic Myocardial infarct Heart disease Social History Social History Social History: , previous smoker, previous drinker Smoking packs per day: 2 Smoking cigarettes per day: 40.0 Years smoked: 44 Smoking pack-years: 88.00 Smoking status: Former smoker Tobacco type: cigarettes Alcohol intake: never Substance use: never Substance use type: does not use Lack of Transportation: No Lack of Food: Never True Current Housing: I Have Housing Concerned About Future Housing: No Difficulty Paying Gas/Electric Bills: No Difficulty Paying for Meds: No Currently Unemployed: No Education: High School Diploma/GED Difficulty w/ Childcare or Family Care: No Living arrangements: assisted Sexual Orientation (if Verbalized by the Patient): Straight or Heterosexual Spiritual care concerns: No Exam Const: General: cooperative, comfortable, no acute distress, well developed, alert and awake Orientation/consciousness: oriented to person and oriented to place HENMT: Head: normal to inspection, normocephalic and atraumatic Ears: hearing grossly normal bilaterally and external ears normal Face/Nose/Sinus: Normal external nose present Other: chronically ill appearing Eyes: General: appearance normal, both eyes and all related structures Periorbital: periorbital findings normal Sclera: sclerae normal Pupils: Equal, round and reactive pupils present Neck: Neck: normal visual inspection Chest: Chest palpation & inspection: normal inspection of the chest Resp: Effort & Inspection: normal respiratory effort, able to speak in complete sentences and no respiratory distress Auscultation: clear to auscultation bilaterally Cardio: Jugular venous distension: no JVD Rate: regular rate Rhythm: regular rhythm GI: Inspection: normal to inspection GI Palp: Yes Soft to palpation Auscultation: normal bowel sounds Other: Diffusely TTP Skin: General skin exam: normal color and no rashes or lesions noted Neuro: General: oriented to person, oriented to place and oriented to time Cranial nerves: Yes Equal, round and reactive pupils present Extrem: General: normal to inspection Course Course Emergency Course: Ordered labs and CT as well as UA. CT ordered w/o contrast as she is allergic. CBC showed anemia and CMP was largely unremarkable. UA c/w infection. 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 TECHNIQUE: Computed tomography (CT) of the chest, abdomen, and pelvis was performed without intravenous contrast. The dose-length product was 705.54 mGy-cm. Automated exposure control and iterative reconstruction technique were employed. COMPARISON: CT dated 04/27/2025 FINDINGS: CHEST CT: Abnormal soft tissue involving right main stem bronchus with extension into the right upper and lower lobe segmental and subsegmental bronchi, resulting in near complete collapse of the right lung. Moderate right pleural effusion. No pneumothorax. Left lung is unremarkable. Mild thoracic spondylosis. ABDOMEN/PELVIS CT: Cholelithiasis with moderately distended gallbladder. Nonobstructing right nephrolithiasis. Right adrenal myelolipoma. Nonobstructive bowel gas pattern. No free air or free fluid. Moderate lumbar spondylosis with levoscoliosis. Moderate bilateral hip osteoarthritis. IMPRESSION: 1. Abnormal soft tissue involving the right mainstem bronchus with distal bronchial involvement, causing near-complete collapse of the right lung and associated moderate right pleural effusion-highly suspicious for obstructing endobronchial malignancy. Inflammatory or infectious endobronchial process less likely. Recommend pulmonology consultation with bronchoscopy for tissue sampling. Consider correlation with pet/CT scan. Consider thoracentesis for diagnostic purposes. 2: Cholelithiasis with gallbladder distention. Correlate clinically for cholecystitis. Given the above CT finding I discussed the plan of care with the patient and her son Christopher. DNR paperwork was completed and she was admitted for comfort care. I discussed the case with Brandi Moreno NP. Vital Signs Vital signs: Vital Signs Pulse Rate 102 H 09/02/25 11:47 Respiratory Rate 16 09/02/25 11:47 Blood Pressure 135/74 09/02/25 11:47 Pulse Oximetry 91 09/02/25 11:47 Temperature 98.2 F 09/03/25 08:00 Pulse Rate 107 H 09/03/25 08:00 Respiratory Rate 20 09/03/25 08:00 Blood Pressure 133/72 09/03/25 08:00 Pulse Oximetry 90 09/03/25 05:30 Oxygen Delivery Nasal Cannula 09/03/25 08:00 Oxygen Flow Rate 1 09/03/25 08:00 MDM Differential Diagnosis Differential Diagnosis: lung cancer vs pneumonia vs pneumothorax vs other Lab Data 09/02/25 12:04 09/02/25 12:04 Labs: Lab Results 09/02/25 09/02/25 Range/Units 12:04 12:34 WBC 5.8 (4.8-10.8) K/mm3 RBC 3.53 L (4.20-5.40) M/mm3 Hgb 10.0 L (11.7-13.8) g/dL Hct 33.2 L (35.0-42.0) % MCV 94.1 (78.0-102.0) fL MCH 28.3 (27.0-31.0) pg MCHC 30.1 L (32-36) g/dL RDW 17.2 H (11.6-14.4) % Plt Count 178 (150-420) K/mm3 MPV 8.7 L (9.2-11.8) fl Immature Gran % (Auto) 0.2 H (0.0-0.0) % Neut % (Auto) 85.6 H (50.0-70.0) % Lymph % (Auto) 6.2 L (18.0-42.0) % [place] % (Auto) 7.6 (2.0-11.0) % Eos % (Auto) 0.2 L (1.0-6.0) % Baso % (Auto) 0.2 (0.0-1.0) % Lymph # (Auto) 0.36 L (1.10-4.50) K/mm3 [place] # (Auto) 0.44 (0.10-0.90) K/mm3 Eos # (Auto) 0.01 L (0.02-0.50) K/mm3 Baso # (Auto) 0.01 (0.00-0.10) K/mm3 Abs Immat Gran (auto) 0.01 H (0.00-0.00) K/mm3 Absolute Neuts (auto) 4.97 (1.70-7.20) K/mm3 Absolute Nucleated RBC 0.00 (0.00-0.00) K/mm3 Nucleated RBC % 0.0 (0-0.0) % PT 15.6 H (9.50-12.1) Seconds INR 1.5 Sodium 139 (137-145) mmol/L Potassium 3.7 (3.4-5.0) mmol/L Chloride 104 (98-107) mmol/L Carbon Dioxide 27 (22-30) mmol/L Anion Gap 8 (4-12) mmol/L BUN 17 (7-17) mg/dL Creatinine 0.43 L (0.7-1.0) mg/dL Estim Creat Clear Calc Not Reportable Estimated GFR > 60 (59 - ) Glucose 99 (65-110) mg/dL Calculated Osmolality 289 (285-295) mOsm/kg Calcium 8.7 (8.4-10.2) mg/dL Total Bilirubin 0.4 (0.2-1.3) mg/dL AST 26 (14-36) U/L ALT 12 (6-35) U/L Alkaline Phosphatase 90 (38-126) U/L Troponin I < 0.012 (0.000-0.034) ng/mL NT-Pro-B Natriuret Pep 245 H (19.9-100) pg/mL Total Protein 6.4 (6.3-8.2) g/dL Albumin 3.4 L (3.5-5.1) g/dL Lipase 61 (23-300) U/L Urine Color Yellow (Yellow) Urine Appearance Clear (Clear) Urine pH 6.0 (5.0-8.0) Ur Specific [place] 1.025 H (1.010-1.020) Urine Protein 2+ H (Negative) Urine Glucose (UA) Negative (Negative) Urine Ketones 2+ H (Negative) Ur Blood (Man) 3+ H (Negative) Urine Nitrate Negative (Negative) Urine Bilirubin 1+ H (Negative) Urine Urobilinogen 0.2 (0.2-1.0) mg/dL Leukocyte Esterase Rfl Trace H (Negative) SERVANDO/UL Urine RBC 11-20 H (0-2) /hpf Urine WBC 21-30 H (0-3) /hpf Ur Squamous Epith Cells Few (Few) /hpf Urine Bacteria 4+ H (None) /hpf Influenza A (RT-PCR) Negative (Negative) Influenza B (RT-PCR) Negative (Negative) RSV (RT-PCR) Negative (Negative) SARS-CoV-2 RNA (RT-PCR) Negative (Negative) Imaging Data Radiologist's impression: ITS Impressions Chest/Abdomen/Pelvis CT 09/02/25 12:24 IMPRESSION: 1. Abnormal soft tissue involving the right mainstem bronchus with distal bronchial involvement, causing near-complete collapse of the right lung and associated moderate right pleural effusion-highly suspicious for obstructing endobronchial malignancy. Inflammatory or infectious endobronchial process less likely. Recommend pulmonology consultation with bronchoscopy for tissue sampling. Consider correlation with pet/CT scan. Consider thoracentesis for diagnostic purposes. 2: Cholelithiasis with gallbladder distention. Correlate clinically for cholecystitis. Discharge Plan Discharge Clinical Impression: Bronchogenic carcinoma Patient Disposition: Acute Care Hospital [facility] Condition: Stable
--- NOTE | 2025-09-02 11:59 | PC.NURSE ---
covid swab sent to lab
[2025-09-02 12:07] LABS: Hematocrit 33.2 % (35.0-42.0); Hemoglobin 10.0 g/dL (11.7-13.8); Immature Granulocyte Percent A 0.2 % (0.0-0.0); Lymphocytes Absolute Auto 0.36 K/mm3 (1.10-4.50); Mean Corpuscular HGB Conc 30.1 g/dL (32-36); Mean Corpuscular Hemoglobin 28.3 pg (27.0-31.0); Mean Corpuscular Volume 94.1 fL (78.0-102.0); Nucleated Red Blood Cells Absolute Auto 0.00 K/mm3 (0.00-0.00); Nucleated Red Blood Cells Perc 0.0 % (0-0.0); Platelet Count Result 178 K/mm3 (150-420); Red Blood Count 3.53 M/mm3 (4.20-5.40); White Blood Count 5.8 K/mm3 (4.8-10.8)
--- NOTE | 2025-09-02 12:09 | PC.NURSE ---
patient taken down to radiology
[2025-09-02 12:20] LABS: Alanine Aminotransferase 12 U/L (6-35); Albumin Level 3.4 g/dL (3.5-5.1); Alkaline Phosphatase 90 U/L (38-126); Anion Gap 8 mmol/L (4-12); Aspartate Amino Transferase 26 U/L (14-36); Bilirubin,Total 0.4 mg/dL (0.2-1.3); Blood Urea Nitrogen 17 mg/dL (7-17); Calcium 8.7 mg/dL (8.4-10.2); Carbon Dioxide 27 mmol/L (22-30); Chloride 104 mmol/L (98-107); Estimated Glomerular Filt Rate > 60; Glucose 99 mg/dL (65-110); INR 1.5; Lipase 61 U/L (23-300); Osmolality Calculated 289 mOsm/kg (285-295); Potassium 3.7 mmol/L (3.4-5.0); Prothrombin Time 15.6 Seconds (9.50-12.1); Sodium 139 mmol/L (137-145); Total Protein 6.4 g/dL (6.3-8.2)
[2025-09-02 12:32] LABS: NT Pro B Type Natriuretic Pept 245 pg/mL (19.9-100); Troponin I < 0.012 ng/mL (0.000-0.034)
[2025-09-02 12:39] LABS: Add Urine Microscopic? YES; Appearance Urine Clear (Clear); Glucose Urine UA Negative (Negative); Leukocyte Esterase Ur Trace LEU/UL (Negative); Nitrate Urine Negative (Negative); Specific Grav Ur 1.025 (1.010-1.020)
[2025-09-02 12:45] LABS: Influenza A QL RT-PCR Negative (Negative); Influenza B QL RT-PCR Negative (Negative); RSV RNA, RT-PCR Negative (Negative); SARS-CoV-2 RNA PCR Negative (Negative)
--- NOTE | 2025-09-02 13:50 | ADMGEN ---
This patient, Bea Castro, was admitted to 2nd Floor Room 207. Patient/family oriented to hospital policies and general routines including ID bracelet, bed and alarms, visiting hours, pain management, procedures, bathroom and other care routines, personal items, smoking policy, room service/diet, and visiting hours. Information on how to activate the Rapid Response Team has been discussed. Patient/Family are encouraged to report perceived risks to care and to ask questions if they do not understand what they are told or what they should do.
[2025-09-02] MEDS: NITROFURANTOIN MONOHYD MACROCR 100 MG CAP PO (15:19)
[2025-09-02] MEDS: DOCUSATE SODIUM 100 MG CAPSULE PO (17:19)
[2025-09-02] MEDS: ARTIFICIAL TEARS OPHTH SOLN 15 ML BOTTLE 1 DROP EACH EYE (20:30)
[2025-09-02] MEDS: APIXABAN 2.5 MG TABLET 5 MG BY MOUTH (20:31)
[2025-09-02] MEDS: ATORVASTATIN 40 MG TABLET PO (20:31)
[2025-09-02] MEDS: HYDROcodone/acetaminophen (*CRX) 5-325 MG TABLET 1 TAB PO (20:33)
[2025-09-03] VITALS: BP 125/80; PULSE 101; RESP 18; TEMP 36.6; O2SAT 90
[2025-09-03 05:30] VITALS: O2SAT 90
[2025-09-03 08:00] VITALS: BP 133/72; PULSE 107; RESP 20; TEMP 36.8
[2025-09-03] MEDS: HYDROcodone/acetaminophen (*CRX) 5-325 MG TABLET 1 TAB PO (09:26)
[2025-09-03] MEDS: FLUTICASONE PROPIONATE 0.05% NA SPR 16 GM BTL (*BKC) 2 SPRAY NASAL (09:27)
[2025-09-03] MEDS: DOCUSATE SODIUM 100 MG CAPSULE PO (09:27)
[2025-09-03] MEDS: ARTIFICIAL TEARS OPHTH SOLN 15 ML BOTTLE 1 DROP EACH EYE (09:27)
[2025-09-03] MEDS: ESCITALOPRAM OXALATE 10 MG TABLET PO (09:28)
[2025-09-03] MEDS: ASPIRIN 81 MG ENTERIC TABLET PO (09:28)
[2025-09-03] MEDS: MULTIVITAMINS THERAPEUTIC TAB (*BKC) 1 TABLET PO (09:28)
[2025-09-03] MEDS: APIXABAN 2.5 MG TABLET 5 MG BY MOUTH (09:28)
[2025-09-03] MEDS: TRIAMCINOLONE ACET 0.1% CREAM 15 GM TUBE 1 APPLIC TOPICAL (09:34)
--- NOTE | 2025-09-03 10:36 | PM.SD2 ---
Same Day Admit/Disch: HPI History of Present Illness Chief complaint: BRONCHOGENIC CARCINOMA Narrative: Bea Castro is a 79 year old female with PMH of CVA, HTN, GERD and bronchogenic carcinoma. Patient presented to the ER with complaints of having pain all over, being more confused, and oxygen levels in the upper 80s. In the ER the patient's lab work was essentially unremarkable. Patient had a CT chest done which showed abnormal soft tissue involving the right mainstem bronchus with distal bronchial involvement causing near-complete collapse of the right lung and associated moderate right pleural effusion highly suspicious for obstructing endobronchial malignancy. The findings were discussed with the patient and her son by the ER physician and the decision was made to admit the patient for comfort care and hospice consult. [facility] Past Medical History Medical History Chest pain CVA (cerebral vascular accident) Dementia in other diseases classified elsewhere without behavioral disturbance Dysthymic HTN (hypertension) Impacted cerumen, right ear Impaired fasting glucose Inconclusive mammogram Mixed hyperlipidemia Primary generalized hypertrophic osteoarthrosis Pyelonephritis Renal insufficiency Spastic hemiplegia affecting right dominant side Surgical History Surgical History History of bladder surgery Family History Family History Mother Diabetes mellitus Father Smoker Cerebrovascular accident Alcoholic Myocardial infarct Heart disease Social History Social History Social History: , previous smoker, previous drinker Smoking packs per day: 2 Smoking cigarettes per day: 40.0 Years smoked: 44 Smoking pack-years: 88.00 Smoking status: Former smoker Tobacco type: cigarettes Alcohol intake: never Substance use: never Substance use type: does not use Lack of Transportation: No Lack of Food: Never True Current Housing: I Have Housing Concerned About Future Housing: No Difficulty Paying Gas/Electric Bills: No Difficulty Paying for Meds: No Currently Unemployed: No Education: High School Diploma/GED Difficulty w/ Childcare or Family Care: No Living arrangements: intermediate Sexual Orientation (if Verbalized by the Patient): Straight or Heterosexual Spiritual care concerns: No Same Day Admit/Disch: Med Pre-admit Medications Home Medications ?Medication ?Instructions ?Recorded ?Confirmed ?Type amlodipine 5 mg tablet 5 mg PO DAILY 11/23/20 09/02/25 History aspirin 81 mg tablet 81 mg PO DAILY 11/23/20 09/02/25 History atorvastatin 40 mg tablet 40 mg PO HS 11/23/20 09/02/25 History bisacodyl 5 mg tablet,delayed 10 mg PO DAILY PRN Constipation 11/23/20 09/02/25 History release fluticasone propionate 50 2 spray intranasal DAILY 11/23/20 09/02/25 History mcg/actuation nasal spray,suspension acetaminophen 500 mg capsule 500 mg PO Q8H PRN pain (scale 12/16/20 09/02/25 History score 1-3) docusate sodium 100 mg capsule 100 mg PO BID 12/16/20 09/02/25 History multivitamin 1 tablet PO DAILY 12/16/20 09/02/25 History escitalopram oxalate 10 mg tablet 10 mg PO QAM 11/27/22 09/02/25 History (Lexapro) aluminum-mag hydroxide-simethicone 30 ml PO Q6H PRN Indigestion 10/31/23 09/02/25 History 200 mg-200 mg-20 mg/5 mL oral susp carboxymethylcellulose sodium 1 % 1 drp EACH EYE BID 10/31/23 09/02/25 History eye drops (Artificial Tears (carboxymethylcellulose)) apixaban 5 mg tablet (Eliquis) 5 mg PO BID 08/25/25 09/02/25 History hydrocodone 5 mg-acetaminophen 325 1 tablet PO Q6H PRN pain (scale 09/02/25 09/02/25 History mg tablet score 4-6) linzess 145 mcg BYMOUTH DAILY constipation 09/02/25 09/02/25 History magnesium hydroxide 400 mg/5 mL 1,200 mg PO DAILY PRN constipation 09/02/25 09/02/25 History oral suspension (Milk of Magnesia) tramadol 50 mg tablet 50 mg PO Q4H PRN pain 09/02/25 09/02/25 History triamcinolone acetonide 0.1 % 1 applic topical BID 09/02/25 09/02/25 History topical cream Review of Systems Review of Systems All systems reviewed & are unremarkable except as noted in HPI and below Exam Const: General: comfortable and no acute distress HENMT: Face/Nose/Sinus: Normal nares present Mouth: Yes moist mucous membranes Eyes: General: appearance normal, both eyes and all related structures Sclera: sclerae normal Neck: Neck: supple Resp: Effort & Inspection: normal respiratory effort Other: right lung diminished, left lung CTA Cardio: Rate: regular rate Rhythm: regular rhythm GI: GI Palp: Yes Soft to palpation Auscultation: normal bowel sounds Skin: General skin exam: normal color and no rashes or lesions noted Neuro: Speech: normal speech Motor exam (neuro): 5/5 motor strength present throughout Sensory Exam: normal sensation Extrem: General: normal to inspection Psych: Mental Status: mental status grossly normal Affect: normal affect DS: Data Data Completed and Pending Labs on day of discharge: Labs from last 24 hours 09/02/25 09/02/25 12:34 12:04 WBC 5.8 RBC 3.53 L Hgb 10.0 L Hct 33.2 L MCV 94.1 MCH 28.3 MCHC 30.1 L RDW 17.2 H Plt Count 178 MPV 8.7 L Immature Gran % (Auto) 0.2 H Neut % (Auto) 85.6 H Lymph % (Auto) 6.2 L [place] % (Auto) 7.6 Eos % (Auto) 0.2 L Baso % (Auto) 0.2 Lymph # (Auto) 0.36 L [place] # (Auto) 0.44 Eos # (Auto) 0.01 L Baso # (Auto) 0.01 Abs Immat Gran (auto) 0.01 H Absolute Neuts (auto) 4.97 Absolute Nucleated RBC 0.00 Nucleated RBC % 0.0 PT 15.6 H INR 1.5 Sodium 139 Potassium 3.7 Chloride 104 Carbon Dioxide 27 Anion Gap 8 BUN 17 Creatinine 0.43 L Estim Creat Clear Calc Not Reportable Estimated GFR > 60 Glucose 99 Calculated Osmolality 289 Calcium 8.7 Total Bilirubin 0.4 AST 26 ALT 12 Alkaline Phosphatase 90 Troponin I < 0.012 NT-Pro-B Natriuret Pep 245 H Total Protein 6.4 Albumin 3.4 L Lipase 61 Urine Color Yellow Urine Appearance Clear Urine pH 6.0 Ur Specific [place] 1.025 H Urine Protein 2+ H Urine Glucose (UA) Negative Urine Ketones 2+ H Ur Blood (Man) 3+ H Urine Nitrate Negative Urine Bilirubin 1+ H Urine Urobilinogen 0.2 Leukocyte Esterase Rfl Trace H Urine RBC 11-20 H Urine WBC 21-30 H Ur Squamous Epith Cells Few Urine Bacteria 4+ H Influenza A (RT-PCR) Negative Influenza B (RT-PCR) Negative RSV (RT-PCR) Negative SARS-CoV-2 RNA (RT-PCR) Negative Imaging Radiologist's impression: EXAMINATION: CT chest abdomen pelvis wo con DATE: 09/02/2025 12:24 [employer] INDICATION: Hypoxia. TECHNIQUE: Computed tomography (CT) of the chest, abdomen, and pelvis was performed without intravenous contrast. The dose-length product was 705.54 mGy-cm. Automated exposure control and iterative reconstruction technique were employed. COMPARISON: CT dated 04/27/2025 FINDINGS: CHEST CT: Abnormal soft tissue involving right main stem bronchus with extension into the right upper and lower lobe segmental and subsegmental bronchi, resulting in near complete collapse of the right lung. Moderate right pleural effusion. No pneumothorax. Left lung is unremarkable. Mild thoracic spondylosis. ABDOMEN/PELVIS CT: Cholelithiasis with moderately distended gallbladder. Nonobstructing right nephrolithiasis. Right adrenal myelolipoma. Nonobstructive bowel gas pattern. No free air or free fluid. Moderate lumbar spondylosis with levoscoliosis. Moderate bilateral hip osteoarthritis. IMPRESSION: 1. Abnormal soft tissue involving the right mainstem bronchus with distal bronchial involvement, causing near-complete collapse of the right lung and associated moderate right pleural effusion-highly suspicious for obstructing endobronchial malignancy. Inflammatory or infectious endobronchial process less likely. Recommend pulmonology consultation with bronchoscopy for tissue sampling. Consider correlation with pet/CT scan. Consider thoracentesis for diagnostic purposes. 2: Cholelithiasis with gallbladder distention. Correlate clinically for cholecystitis. DS: Summary Hospital Course Reason for hospitalization: shortness of breath Hospital Course: Bea Castro is a 79 year old female with PMH of CVA, HTN, GERD and bronchogenic carcinoma. Patient presented to the ER with complaints of having pain all over, being more confused, and oxygen levels in the upper 80s. In the ER the patient's lab work was essentially unremarkable. Patient had a CT chest done which showed abnormal soft tissue involving the right mainstem bronchus with distal bronchial involvement causing near-complete collapse of the right lung and associated moderate right pleural effusion highly suspicious for obstructing endobronchial malignancy. The findings were discussed with the patient and her son by the ER physician and the decision was made to admit the patient for comfort care and hospice consult. Patient was treated with oxygen via NC and comfort measures. Patient's pain was controlled with PRN pain medications. Patient reported generalized pain and did not have any focal areas of concern during exam. Care coordination worked with family to get patient accepted at [facility] and patient will discharge to this facility today and be admitted to hospice for comfort measures. Time Spent with Patient Time attestation: Total time spent providing and/or coordinating discharge services: 35 Minutes DS: Admitting Diagnosis Discharge Date 09/03/2025 Admitting Diagnosis bronchogenic carcinoma abdominal pain hypoxia GERD DS: Discharge Diagnosis Discharge Diagnosis (1) Bronchogenic carcinoma: Code(s): C34.90 - Malignant neoplasm of unspecified part of unspecified bronchus or lung Status: Acute (2) Abdominal pain: Qualifiers: Abdominal location: right upper quadrant Qualified Code(s): R10.11 - Right upper quadrant pain Code(s): R10.9 - Unspecified abdominal pain Status: Acute (3) GERD (gastroesophageal reflux disease): Qualifiers: Esophagitis presence: without esophagitis Qualified Code(s): K21.9 - Gastro-esophageal reflux disease without esophagitis Code(s): K21.9 - Gastro-esophageal reflux disease without esophagitis Status: Acute (4) Hypoxia: Code(s): R09.02 - Hypoxemia Status: Acute Discharge Plan Discharge Attending physician on discharge: Umesh Mckeon Consulting providers: Brandi Moreno; Sohail Buck Discharging Clinician: Brandi Moreno Patient Disposition: NH Senior Living/Asst Living Activity: as tolerated Diet: as tolerated Discharge Instructions: Patient will discharge with hospice consult on admission to the intermediate. Comfort care per patient and family request. Oxygen per NC as needed for comfort. Patient Instructions: Antibiotic Form, Apixaban (By mouth), Lung Cancer (DC), Comfort Measures (GEN) Patient Language: Tamazight Stand Alone Forms: General Discharge Information, [facility] Discharge Follow-up/Referrals: Aneesh Nath MD [Primary Care Provider, Internal Medicine] Referral Note: Follow up with PCP and hospice on discharge to the intermediate. Discharge Medications: Continued atorvastatin 40 mg tablet 40 mg PO HS amlodipine 5 mg tablet 5 mg PO DAILY bisacodyl 5 mg Tablet,Delayed Release (Dr/Ec) 10 mg PO DAILY PRN (Reason: Constipation) aspirin 81 mg Tablet 81 mg PO DAILY fluticasone propionate 50 mcg/actuation spray,suspension 2 spray INTRANASAL DAILY escitalopram oxalate [Lexapro] 10 mg tablet 10 mg PO QAM alum-mag hydroxide-simeth 200-200-20 mg/5 mL Suspension 30 ml PO Q6H PRN (Reason: Indigestion) Rx Instructions: administer between meals and at bedtime Artificial Tears (cmc) 1 % Drops 1 drp EACH EYE BID Eliquis 5 mg tablet 5 mg PO BID magnesium hydroxide [Milk of Magnesia] 400 mg/5 mL suspension 1,200 mg PO DAILY PRN (Reason: constipation) hydrocodone-acetaminophen 5-325 mg tablet 1 tablet PO Q6H PRN (Reason: pain (scale score 4-6)) linzess 145 mcg 145 mcg BYMOUTH DAILY tramadol 50 mg tablet 50 mg PO Q4H PRN (Reason: pain) triamcinolone acetonide 0.1 % cream 1 applic topical BID Patient Comments: apply to rash docusate sodium 100 mg capsule 100 mg PO BID multivitamin Tablet 1 tablet PO DAILY acetaminophen 500 mg capsule 500 mg PO Q8H PRN (Reason: pain (scale score 1-3)) Date of admission: 09/02/25 13:11 Primary Care Provider: Aneesh Nath Admitting Provider: Umesh Mckeon Attending physician on admission: Umesh Mckeon Condition: Stable
--- NOTE | 2025-09-03 11:14 | PC.NURSE ---
1045- Discharge orders received. Report called to Gema at [facility]. 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
--- NOTE | 2025-09-03 11:57 | PC.NURSE ---
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 Transferred pt to wheelchair with gait belt and assist x 2, placed on 1L O2 per concentrator. Pt taken by BUOY TENDER with all belongings.
--- NOTE | 2025-09-07 08:46 | PC.NURSE ---
Discharge call back, returned to [facility], no questions regarding dc instructions
== END 2025-09-03 11:50 ==
LOC: CHSED 12:25 → CHS2ND 13:25
PROVIDERS: Admitting Provider Internal Medicine; Emergency Provider Family Medicine; PCP Internal Medicine; Visit Provider Internal Medicine
DX: C34.90 Malignant neoplasm of unspecified part of unspecified bronchus or lung (principal); R09.02 Hypoxemia; R10.11 Right upper quadrant pain; I10 Essential (primary) hypertension; K21.9 Gastro-esophageal reflux disease without esophagitis; Z86.73 Personal history of transient ischemic attack (TIA), and cerebral infarction without residual deficits; E78.2 Mixed hyperlipidemia; F03.90 Unspecified dementia, unspecified severity, without behavioral disturbance, psychotic disturbance, mood disturbance, and anxiety; Z20.822 Contact with and (suspected) exposure to COVID-19; Z87.891 Personal history of nicotine dependence
CPT/HCPCS: 36415; 71250; 74176; 80053; 81001; 83690; 83880; 84484; 85025; 85610; 87077; 87086; 87088; 87637; 99285; A9270; G0378